=== PATIENT | female | born 1945 | race Caucasian/White ===

== ENCOUNTER → 2017-11-24 13:41 | Outpatient (CLI) | payer MEDICARE, SELFPAY ==
[2017-11-24 15:12] LABS: Alanine Aminotransferase 107 IU/L (9-52); Albumin 4.7 g/dL (3.5-5.0); Albumin Globulin Ratio 1.5 (1.0-2.8); Alkaline Phosphatase 133 U/L (38-126); Aspartate Aminotransferase 125 IU/L (14-36); BUN Creatinine Ratio 21.1 (6-22); Bilirubin Total 0.6 mg/dL (0.2-1.3); Blood Urea Nitrogen 19 mg/dL (7-17); Calcium 10.3 mg/dL (8.4-10.2); Carbon Dioxide 24 mmol/L (22-32); Chloride 104 mmol/L (98-107); Cholesterol 240 mg/dL (140-199); Estimated Glomerular Filt Rate > 60.0 mL/min (>60); Globulin 3.1 g/dL (1.7-4.1); Glucose 104 mg/dL (80-110); HEMOLYSIS < 15 (0-50); Sodium 142 mmol/L (137-145); Total Protein 7.8 g/dL (6.3-8.2); Triglycerides 78 mg/dL (35-150)
[2017-11-24 15:20] LABS: HDL Cholesterol 136 mg/dL (40-60); LDL Cholesterol Calculated 88 mg/dL (<100)
== END ==
PROVIDERS: PCP Family Medicine; Visit Provider Family Medicine
DX: E78.2 Mixed hyperlipidemia (principal); I10 Essential (primary) hypertension
CPT/HCPCS: 36415; 80053; 80061

== ENCOUNTER → 2017-11-27 15:12 | Outpatient (CLI) | payer MEDICARE, SELFPAY ==
--- NOTE | 2017-11-27 15:15 | DI.RAD.S_ITS ---
PROCEDURE: XR LUMBAR SPINE 2-3V INDICATIONS: SPINAL STENOSIS TECHNIQUE: 3 views of the lumbar spine were acquired. COMPARISON: [facility], , L-SPINE 2-3 VIEWS, 07/03/2015, 15:14. FINDINGS: Bones: 5 [id number] vertebrae are present. Again noted is prior transpedicular fusion at L4-5 level with suggestion of fusion of spinous processes at L3 and L4 levels. No gross hardware loosening or failure is seen. Dang-white anterolisthesis of L3 on L4 is noted. Minimal anterolisthesis of L4 on L5 is seen. Degenerative disc disease at L5-S1 level is noted. No vertebral body compression fractures. No suspicious bony lesions. Soft tissues: Overlying bowel gas pattern is normal. No suspicious soft tissue calcifications. IMPRESSION: Suggestion of interval fusion of L3 and L4 spinous processes. Dang-white anterolisthesis of L3 on L4 and L4 on L5. No gross hardware complication. No acute compression fracture. Dictated by: Naren Rossi M.D. on 11/27/2017 at 15:57 Approved by: Naren Rossi M.D. on 11/27/2017 at 15:58
[2017-11-29 15:46] LABS: Hepatitis A Antibody IgM NONREACTIVE; Hepatitis Acute Panel Interp 0.02; Hepatitis B Core Antibody IgM NONREACTIVE; Hepatitis B Surface Antigen NONREACTIVE; Hepatitis C Antibody NONREACTIVE
== END ==
PROVIDERS: Family Provider Family Medicine; PCP Family Medicine; Visit Provider Family Medicine
DX: M48.061 Spinal stenosis, lumbar region without neurogenic claudication (principal); R94.5 Abnormal results of liver function studies; M43.16 Spondylolisthesis, lumbar region; M51.37 Other intervertebral disc degeneration, lumbosacral region; Z98.1 Arthrodesis status
CPT/HCPCS: 36415; 72100; 80074

== ENCOUNTER → 2017-12-06 15:42 | Outpatient (CLI) | payer MEDICARE, SELFPAY ==
--- NOTE | 2017-12-06 15:45 | DI.US.S_ITS ---
PROCEDURE: US ABDOMEN COMPLETE INDICATIONS: abnormal LFT's TECHNIQUE: Real-time scanning was performed of the abdominal and retroperitoneal organs, with image documentation. COMPARISON: [facility], US, ABDOMEN COMPLETE, 10/28/2016, 14:29. FINDINGS: Liver: Liver is normal in size and homogeneous in echotexture. Gallbladder: No gallstones identified. Normal gallbladder wall. No pericholecystic fluid. Negative sonographic Gay sign. Biliary ducts: Intrahepatic bile ducts are non-dilated. Extrahepatic bile duct caliber measures 5.0 mm. Normal is 6-7 mm or less in diameter, or 10 mm or less post-cholecystectomy. Pancreas: Visualized portions of the pancreas are sonographically normal. Spleen: Spleen is normal in size and homogeneous in echotexture. Kidneys: Kidneys are normal in size and echotexture. Right kidney measures 8.8 cm long; left kidney measures 9.5 cm long. No hydronephrosis. 6 mm nonobstructing left renal inferior calcification. No solid masses. Aorta: Visualized aorta is normal in caliber at less than 3 cm. Iliacs: Proximal common iliac arteries are normal in caliber at less than 2.5 cm. IVC: Intrahepatic inferior vena cava is patent. Miscellaneous: No free abdominal fluid. IMPRESSION: 1. Increased hepatic echogenicity noted possibly related to hepatic steatosis but other sources of hepatocellular disease cannot be excluded. Recommend clinical correlation. 2. Nonobstructing 6 mm left renal calcification. Dictated by: Atilio Larson [facility] Interpreted: Naren Rossi MD on 12/06/2017 at 16:54 Approved by: Naren Rossi M.D. on 12/07/2017 at 10:20
== END ==
PROVIDERS: Visit Provider Family Medicine
DX: R94.5 Abnormal results of liver function studies (principal); R79.89 Other specified abnormal findings of blood chemistry; N28.89 Other specified disorders of kidney and ureter
CPT/HCPCS: 76700

== ENCOUNTER → 2018-01-04 11:36 | Outpatient (CLI) | payer MEDICARE, SELFPAY ==
[2018-01-04 12:21] LABS: Blood Urea Nitrogen 16 mg/dL (7-17); Estimated Glomerular Filt Rate > 60.0 mL/min (>60)
== END ==
PROVIDERS: Visit Provider Nurse Practitioner Family
DX: M54.10 Radiculopathy, site unspecified (principal)
CPT/HCPCS: 36415; 82565; 84520

== ENCOUNTER → 2018-01-09 14:09 | Outpatient (CLI) | payer MEDICARE, SELFPAY ==
--- NOTE | 2018-01-09 14:14 | DI.CT.S_ITS ---
PROCEDURE: CT ABDOMEN WWO PELVIS W INDICATIONS: ELEVATED LIVER ENZYMES TECHNIQUE: After the administration of oral contrast, 5 mm thick sections acquired from the diaphragms to the iliac crests. After the administration of intravenous contrast, 5 mm thick sections acquired from the diaphragms to the symphysis. 5 mm thick coronal and sagittal reformats were acquired. For radiation dose reduction, the following was used: automated exposure control, adjustment of mA and/or kV according to patient size. COMPARISON: [facility], US, US ABDOMEN COMPLETE, 12/06/2017, 15:59. FINDINGS: Image quality: Excellent. ABDOMEN: Lung bases: Lung bases are clear. Heart size is normal. A moderately large hiatal hernia is incidentally noted behind the heart. Solid organs: Liver is normal in size and enhancement, without mass lesion. Note is made of fatty infiltration it was better seen by ultrasound 12/06/17 on the precontrast imaging of the liver. Gallbladder is free of visualized calculus, and there is no adjacent biliary distention.. Biliary system is non-dilated. Pancreas enhances normally. Spleen is normal in size and enhancement. No adrenal nodules. Both kidneys are normal in size. No hydronephrosis or right-sided nephrolithiasis but there is a 3 x 4 mm calculus within the nondistended ureteropelvic junction on the left and a 2 x 3 mm calculus within a nondistended calyx at the lower third collecting system of the left kidney. Bowel and peritoneum: Stomach, small and large bowel loops are normal in caliber and wall thickness. No free fluid or air. Nodes and vessels: No retroperitoneal or mesenteric adenopathy by size criteria. Aorta and inferior vena are normal in caliber. Miscellaneous: No ventral hernias. PELVIS: Genitourinary: Bladder wall thickness is normal. Miscellaneous: No inguinal hernias or adenopathy. Bones: No suspicious bony lesions. No vertebral body compression fractures. IMPRESSION: 1. Mild to moderate fatty infiltration within the liver, better seen by recent ultrasound of the abdomen 12/06/17. No hepatic mass lesion or biliary distention is associated. No splenomegaly is seen. 2. Moderately large hiatal hernia behind the heart. No sign of associated mass or adjacent varices. 3. There is an unexpected finding of a 3 x 4 mm calculus at the ureteropelvic junction at the left kidney, and a 2 x 3 mm calculus within the nondistended lower pole calyx of the left kidney also. Currently no CT evidence of acute urinary tract infection or obstruction is found. Dictated by: Nirmal Hernandez M.D. on 01/09/2018 at 16:25 Approved by: Nirmal Hernandez M.D. on 01/09/2018 at 16:30
== END ==
PROVIDERS: Visit Provider Nurse Practitioner Family
DX: K76.0 Fatty (change of) liver, not elsewhere classified (principal); R74.8 Abnormal levels of other serum enzymes; K44.9 Diaphragmatic hernia without obstruction or gangrene; N20.0 Calculus of kidney
CPT/HCPCS: 74178; Q9967

== ENCOUNTER → 2018-02-15 14:39 | Outpatient (CLI) | payer MEDICARE, SELFPAY ==
[2018-02-15 16:23] LABS: Alanine Aminotransferase 36 IU/L (9-52); Albumin 4.3 g/dL (3.5-5.0); Albumin Globulin Ratio 1.7 (1.0-2.8); Alkaline Phosphatase 80 U/L (38-126); Aspartate Aminotransferase 38 IU/L (14-36); Bilirubin Total 0.4 mg/dL (0.2-1.3); Bilirubin Unconjugated 0.1 mg/dL (0.0-1.1); Globulin 2.6 g/dL (1.7-4.1); HEMOLYSIS < 15 (0-50); Total Protein 6.9 g/dL (6.3-8.2)
== END ==
PROVIDERS: PCP Family Medicine; Visit Provider Family Medicine
DX: R94.5 Abnormal results of liver function studies (principal)
CPT/HCPCS: 36415; 80076

== ENCOUNTER → 2018-02-16 14:03 | Outpatient (CLI) | payer MEDICARE, SELFPAY ==
--- NOTE | 2018-02-16 14:04 | DI.MRI.S_ITS ---
PROCEDURE: MR LUMBAR SPINE WO CON INDICATIONS: Low back and bilateral leg pain TECHNIQUE: Noncontrast sagittal T1 spin echo and T2 fast echo, sagittal STIR, coronal T2, axial T1 and T2 fast spin echo through the lumbar spine. COMPARISON: [facility], MR, L-SPINE WITHOUT CONTRAST, 11/15/2007, 16:40. [facility], CR, XR KUB, 11/17/2016, 11:20. FINDINGS: Image quality: Excellent. Alignment and Curvature: 5 lumbar type vertebral bodies are present by plain film. There is moderate diffuse leftward curvature of the lumbar spine. There is mild, grade 1 anterolisthesis of L3 on L4 and L4 on L5. Bone Marrow: Marrow is of normal overall signal. No acute vertebral body compression fractures. There is mild reactive signal within the endplates adjacent to the L1-L2, L2-L3, and L3-L4 intervertebral discs. L4-L5 posterior fusion has been performed, new since the prior examination. Spinal Cord: Conus medullaris terminates at the L1-L2 disc space level. Visualized cord demonstrates normal signal and size. Paraspinous Soft Tissues: No paravertebral masses. L1-L2: Mild disc desiccation and diffuse disc bulge. Mild bilateral facet hypertrophy. Mild canal stenosis. No foraminal stenosis. No change. L2-L3: Mild disc desiccation and diffuse disc bulge. Mild facet and ligamentum flavum hypertrophy. Mild canal stenosis. Mild bilateral foraminal stenosis. No change. L3-L4: Moderate disc height loss and desiccation. Mild diffuse disc bulge. Moderate bilateral facet hypertrophy. The moderate epidural lipomatosis. Increased, severe canal stenosis. Increased, moderate bilateral foraminal stenosis. L4-L5: Status post fusion. Mild residual disc osteophyte complex. Mild bilateral facet hypertrophy. Resolved canal stenosis. No change in mild bilateral foraminal stenosis. L5-S1: Moderate disc height loss and desiccation. Mild diffuse disc bulge with superimposed small left far lateral broad-based protrusion. Mild bilateral facet hypertrophy. Mild canal stenosis. Mild left greater than right foraminal stenosis. No change. IMPRESSION: 1. Status post L4-L5 fusion with resolved canal stenosis at that level. 2. Increased, severe canal stenosis at L3-L4 secondary to disc and facet disease, as well as epidural lipomatosis. Increased, moderate bilateral L3-L4 foraminal stenosis. Dictated by: Jaclyn Velazquez M.D. on 02/16/2018 at 16:55 Approved by: Jaclyn Velazquez M.D. on 02/16/2018 at 16:59
== END ==
PROVIDERS: PCP Family Medicine; Visit Provider Family Medicine
DX: M54.5 Low back pain (principal); M79.605 Pain in left leg; M79.604 Pain in right leg; M51.16 Intervertebral disc disorders with radiculopathy, lumbar region; M48.061 Spinal stenosis, lumbar region without neurogenic claudication; Z98.1 Arthrodesis status; E88.2 Lipomatosis, not elsewhere classified
CPT/HCPCS: 72148

== ENCOUNTER → 2018-02-23 13:44 | Outpatient (CLI) | payer MEDICARE, SELFPAY ==
--- NOTE | 2018-02-23 13:45 | DI.US.S_ITS ---
PROCEDURE: US EXTREMITY NONVASC LOWER RT INDICATIONS: RIGHT THIGH MASS TECHNIQUE: Real-time scanning was performed of the right thigh, with image documentation. COMPARISON: [facility], CT, CT ABDOMEN WWO PELVIS W, 01/09/2018, 14:08. FINDINGS: 1.1 x 0.9 x 0.3 cm soft tissue oval shaped isoechoic mass is present corresponding to the palpable abnormality. Small amount of adjacent fluid is present. No vascularity. IMPRESSION: A 1.1 cm oval shaped soft tissue mass with mild amount of adjacent fluid. Findings are nonspecific and differential would include both benign and malignant etiology. CT or MRI with contrast may be helpful. Decision to biopsy/aspirate should be based on clinical assessment. Dictated by: Atilio HANNA Interpreted: Monroe Solis MD on 02/23/2018 at 16:08 Approved by: Monroe Solis M.D. on 02/24/2018 at 9:47
== END ==
PROVIDERS: PCP Family Medicine; Visit Provider Family Medicine
DX: R22.41 Localized swelling, mass and lump, right lower limb (principal)
CPT/HCPCS: 76882

== ENCOUNTER → 2019-01-04 13:57 | Outpatient (CLI) | payer MEDICARE, SELFPAY ==
[2019-01-04 14:28] LABS: Add Manual Diff / Slide Review NO; Basophils Absolute Auto 0 /uL (0-100); Basophils Percent Auto 0.4 % (0-2); Eosinophils Absolute Auto 100 /uL (0-450); Eosinophils Percent Auto 1.2 % (2-4); Hematocrit 39.1 % (36-46); Hemoglobin 13.2 g/dL (12.0-16.0); Lymphocytes Absolute Auto 1300 /uL (1100-4500); Lymphocytes Percent Auto 15.9 % (25-40); Mean Corpuscular HGB Conc 33.8 % (30-36); Mean Corpuscular Hemoglobin 32.8 PG (26-34); Mean Corpuscular Volume 97.1 fL (80-100); Monocytes Absolute Auto 1000 /uL (0-900); Monocytes Percent Auto 12.7 % (3-14); Neutrophils Absolute Auto 5700 /uL (1500-7000); Neutrophils Percent Auto 69.8 % (50-75); Platelet Count 440 X10^3/uL (150-400); Red Blood Cell Count 4.03 X10^6/uL (4.0-5.2); Red Cell Distribution Width 14.2 % (11.6-14.8); White Blood Cell Count 8.2 X10^3/uL (4.5-11.0)
[2019-01-04 14:52] LABS: Alanine Aminotransferase 23 IU/L (9-52); Albumin 4.7 g/dL (3.5-5.0); Albumin Globulin Ratio 1.7 (1.0-2.8); Alkaline Phosphatase 98 U/L (38-126); Aspartate Aminotransferase 32 IU/L (14-36); BUN Creatinine Ratio 18.8 (6-22); Bilirubin Total 0.4 mg/dL (0.2-1.3); Blood Urea Nitrogen 15 mg/dL (7-17); Calcium 10.4 mg/dL (8.4-10.2); Carbon Dioxide 23 mmol/L (22-32); Chloride 106 mmol/L (98-107); Cholesterol 196 mg/dL (140-199); Estimated Glomerular Filt Rate > 60.0 mL/min (>60); Globulin 2.8 g/dL (1.7-4.1); Glucose 112 mg/dL (80-110); HDL Cholesterol 96 mg/dL (40-60); HEMOLYSIS < 15 (0-50); LDL Cholesterol Calculated 68 mg/dL (<100); Potassium 4.9 mmol/L (3.4-5.1); Sodium 140 mmol/L (137-145); Total Protein 7.5 g/dL (6.3-8.2); Triglycerides 159 mg/dL (35-150)
[2019-01-04 15:44] LABS: Thyroid Stimulating Hormone 1.01 uIU/mL (0.47-4.68)
[2019-01-04 18:17] LABS: Microalbumi Creatinin Ratio Ur 5.5 ug/mg CR (<30); Microalbumin Urine Random 1.1 mg/dL (0-1.6)
== END ==
PROVIDERS: PCP Family Medicine; Visit Provider Family Medicine
DX: E78.2 Mixed hyperlipidemia (principal); F32.9 Major depressive disorder, single episode, unspecified; I10 Essential (primary) hypertension; R10.13 Epigastric pain; R94.5 Abnormal results of liver function studies
CPT/HCPCS: 36415; 80053; 80061; 82043; 82570; 84443; 85025

== ENCOUNTER → 2019-01-16 15:46 | Outpatient (CLI) | payer MEDICARE, SELFPAY ==
--- NOTE | 2019-01-16 15:48 | DI.MRI.S_ITS ---
PROCEDURE: MR HEAD/BRAIN WO/W CON INDICATIONS: DIZZINESS. RIGHT EYE VISON LOSS TECHNIQUE: Noncontrast sagittal T1 spin echo, axial T2 fast spin echo, axial FLAIR, axial gradient echo, axial diffusion and ADC through the brain. Axial thin-slice T1 spin echo with fat saturation through the orbits. After the administration of contrast, axial and coronal thin-slice T1 spin echo with fat saturation through the orbits, axial T1 spin echo with fat saturation through the brain. COMPARISON: None. FINDINGS: Image quality: Excellent. Orbits: The lungs demonstrate a normal, symmetric appearance. No masses or abnormal enhancement can be seen. The lacrimal glands are within normal limits. No abnormality can be seen in the optic nerves. Abnormal fluid can be seen along the optic nerves. CSF spaces: Ventricles are normal in size and shape. No extra-axial fluid collections. Basal cisterns are patent. Brain: No intracranial bleeds or mass effects. No abnormal intracranial enhancement. Diffusion weighted images show no acute ischemic insults. Dang-white matter interface is intact. Brainstem is normal. Normal intravascular flow voids are present. Skull and face: Calvarial marrow signal is normal. Orbits appear normal. Sinuses: Sinuses and mastoids appear clear. IMPRESSION: No imaging explanation is found for this patient's presenting symptoms. No masses or abnormal enhancement can be seen. Note is made of age-appropriate brain parenchymal volume loss and chronic small vessel ischemic changes. No findings of acute or subacute infarction can be seen. Dictated by: Andre Meza M.D. on 01/16/2019 at 17:01 Approved by: Andre Meza M.D. on 01/16/2019 at 17:03
== END ==
PROVIDERS: PCP Family Medicine; Visit Provider Family Medicine
DX: H54.62 Unqualified visual loss, left eye, normal vision right eye (principal); R42 Dizziness and giddiness
CPT/HCPCS: 70553

== ENCOUNTER → 2019-02-05 14:06 | Outpatient (CLI) | payer MEDICARE, SELFPAY ==
--- NOTE | 2019-02-05 14:07 | DI.RAD.S_ITS ---
PROCEDURE: XR FOOT RT MIN 3V INDICATIONS: right foot pain TECHNIQUE: 3 views of the foot were acquired. COMPARISON: None. FINDINGS: Bones: No fractures or dislocations. No suspicious bony lesions. Soft tissues: No tibiotalar joint effusion. Achilles tendon appears normal. IMPRESSION: Toe ring second digit could not be removed. No trauma found. Somewhat limited study. Dictated by: Nirmal Hernandez M.D. on 02/05/2019 at 15:03 Approved by: Nirmal Hernandez M.D. on 02/05/2019 at 15:03
== END ==
PROVIDERS: PCP Family Medicine; Visit Provider Nurse Practitioner Family
DX: M79.671 Pain in right foot (principal)
CPT/HCPCS: 73630

== ENCOUNTER → 2019-12-03 16:32 | Outpatient (CLI) | payer MEDICARE, SELFPAY ==
--- NOTE | 2019-12-03 16:35 | DI.RAD.S_ITS ---
PROCEDURE: XR KNEE LT 3V INDICATIONS: left knee injury TECHNIQUE: 3 views of the knee were acquired. COMPARISON: [facility], , KNEE 3V LEFT, 11/12/2014, 14:01. FINDINGS: Bones: Mildly displaced transverse patellar fracture is seen. Large associated hemo effusion. Prepatellar soft tissue swelling. IMPRESSION: Patellar fracture. Large associated hemoeffusion. Dictated by: Luis Mackenzie M.D. on 12/03/2019 at 17:22 Approved by: Luis Mackenzie M.D. on 12/03/2019 at 17:23
== END ==
PROVIDERS: PCP Nurse Practitioner Family; Referring Provider Nurse Practitioner Family; Visit Provider Nurse Practitioner Family
DX: M25.562 Pain in left knee (principal); S82.032A Displaced transverse fracture of left patella, initial encounter for closed fracture; M79.89 Other specified soft tissue disorders; X58.XXXA Exposure to other specified factors, initial encounter
CPT/HCPCS: 73562

== ENCOUNTER → 2020-01-17 11:58 | Outpatient (CLI) | payer MEDICARE, SELFPAY ==
[2020-01-17 12:15] LABS: Hematocrit 42.7 % (36-46); Mean Corpuscular HGB Conc 32.9 % (30-36); Mean Corpuscular Hemoglobin 33.1 PG (26-34); Mean Corpuscular Volume 100.6 fL (80-100); Platelet Count 494 X10^3/uL (150-400); Red Blood Cell Count 4.24 X10^6/uL (4.0-5.2); Red Cell Distribution Width 14.1 % (11.6-14.8); White Blood Cell Count 7.5 X10^3/uL (4.5-11.0)
[2020-01-17 13:12] LABS: Alanine Aminotransferase 40 IU/L (<35); Albumin 4.4 g/dL (3.5-5.0); Albumin Globulin Ratio 1.5 (1.0-2.8); Alkaline Phosphatase 109 U/L (38-126); Aspartate Aminotransferase 45 IU/L (14-36); BUN Creatinine Ratio 16.4 (6-22); Bilirubin Total 0.3 mg/dL (0.2-1.3); Blood Urea Nitrogen 12 mg/dL (7-17); Carbon Dioxide 24 mmol/L (22-32); Chloride 109 mmol/L (98-107); Cholesterol 228 mg/dL (140-199); Estimated Glomerular Filt Rate > 60.0 mL/min (>60); Glucose 113 mg/dL (80-110); HEMOLYSIS < 15 (0-50); Sodium 139 mmol/L (137-145); Total Protein 7.4 g/dL (6.3-8.2); Triglycerides 121 mg/dL (35-150)
[2020-01-17 13:21] LABS: HDL Cholesterol 111 mg/dL (40-60); LDL Cholesterol Calculated 93 mg/dL (<100)
== END ==
PROVIDERS: PCP Nurse Practitioner Family; Referring Provider Nurse Practitioner Family; Visit Provider Nurse Practitioner Family
DX: Z00.00 Encounter for general adult medical examination without abnormal findings (principal); E78.2 Mixed hyperlipidemia; I10 Essential (primary) hypertension
CPT/HCPCS: 36415; 80053; 80061; 85027

== ENCOUNTER → 2020-01-30 14:27 | Outpatient (CLI) | payer MEDICARE, SELFPAY ==
[2020-01-30 15:28] LABS: Add Manual Diff / Slide Review NO; Basophils Absolute Auto 0 /uL (0-100); Basophils Percent Auto 0.6 % (0-2); Eosinophils Absolute Auto 100 /uL (0-450); Hematocrit 40.8 % (36-46); Hemoglobin 13.5 g/dL (12.0-16.0); Lymphocytes Absolute Auto 1600 /uL (1100-4500); Lymphocytes Percent Auto 24.9 % (25-40); Mean Corpuscular HGB Conc 33.2 % (30-36); Mean Corpuscular Hemoglobin 33.5 PG (26-34); Mean Corpuscular Volume 100.8 fL (80-100); Monocytes Absolute Auto 700 /uL (0-900); Monocytes Percent Auto 10.7 % (3-14); Neutrophils Absolute Auto 4000 /uL (1500-7000); Neutrophils Percent Auto 61.8 % (50-75); Platelet Count 395 X10^3/uL (150-400); Red Blood Cell Count 4.04 X10^6/uL (4.0-5.2); Red Cell Distribution Width 13.7 % (11.6-14.8); White Blood Cell Count 6.5 X10^3/uL (4.5-11.0)
== END ==
PROVIDERS: PCP Nurse Practitioner Family; Referring Provider Nurse Practitioner Family; Visit Provider Nurse Practitioner Family
DX: R79.89 Other specified abnormal findings of blood chemistry (principal)
CPT/HCPCS: 36415; 85025

== ENCOUNTER → 2020-05-11 13:35 | Outpatient (CLI) | payer MEDICARE, SELFPAY ==
--- NOTE | 2020-05-11 13:37 | DI.RAD.S_ITS ---
PROCEDURE: XR SHOULDER LT MIN 2V INDICATIONS: pain, dec ROM, r/o bone abnormality TECHNIQUE: Left views of the shoulder were acquired. COMPARISON: [facility], , SHOULDER MINIMUM 2VIEW RIGHT, 12/23/2014, 15:22. FINDINGS: Bones: No fractures or dislocations. No suspicious bony lesions. Visualized ribs appear intact. Soft tissues: No suspicious soft tissue calcifications. IMPRESSION: Normal left shoulder Dictated by: Alejandro Cantu M.D. on 05/11/2020 at 14:00 Approved by: Alejandro Cantu M.D. on 05/11/2020 at 14:01
== END ==
PROVIDERS: PCP Nurse Practitioner Family; Referring Provider Physician Assistant; Visit Provider Physician Assistant
DX: M25.512 Pain in left shoulder (principal)
CPT/HCPCS: 73030

== ENCOUNTER → 2020-05-29 15:59 | Outpatient (CLI) | payer MEDICARE, SELFPAY ==
[2020-06-01 09:11] LABS: Fecal Immunochemical Test Negative (Negative)
== END ==
PROVIDERS: PCP Nurse Practitioner Family; Referring Provider Nurse Practitioner Family; Visit Provider Nurse Practitioner Family
DX: Z12.11 Encounter for screening for malignant neoplasm of colon (principal)
CPT/HCPCS: 82274

== ENCOUNTER → 2020-06-11 15:05 | Outpatient (CLI) | payer MEDICARE, SELFPAY ==
--- NOTE | 2020-06-11 15:08 | DI.MRI.S_ITS ---
PROCEDURE: MR SHOULDER LT WO CON INDICATIONS: left shoulder pain TECHNIQUE: Noncontrast oblique coronal T2 fast spin echo with fat saturation, oblique sagittal T1 spin echo and T2 fast spin echo with fat saturation, axial T1 spin echo and T2 fast spin echo with fat saturation through the shoulder. COMPARISON: None. FINDINGS: Rotator cuff: Supraspinatus tendinopathy, with partial thickness articular and bursal sided tear. No full-thickness defect is seen. Infraspinatus tendinopathy with thickening, and low-grade bursal surface fraying. The teres minor tendon appears intact. Subscapularis tendinopathy and thickening is present with low-grade partial thickness articular and bursal sided tear. There is mild fatty infiltration of the supraspinatus and infraspinatus muscles without definite atrophy. Bones and bursae: No bone marrow contusions or fractures. Moderate hypertrophic acromioclavicular joint degeneration. Acromion demonstrates conventional anatomy, without an os acromiale. Moderate subacromial-subdeltoid bursitis. Capsule and soft tissues: Labrum: Ill-defined circumferential tear of the labrum involving all segments. There is circumferential hypertrophic spurring of the glenoid rim indicating chronic age. Low-grade sprain of the inferior glenohumeral ligament which is mildly thickened. Long head biceps tendinopathy, without complete rupture. Partial obliteration of the subcoracoid fat signal intensity. Coracohumeral ligament intact. IMPRESSION: Supraspinatus tendinopathy with partial thickness articular and bursal sided tear. Infraspinatus tendinopathy with low-grade bursal surface fraying Subscapularis tendinopathy and thickening with low-grade partial thickness articular and bursal sided tear. Moderate subacromial-subdeltoid bursitis. Chronic ill-defined circumferential labral tear, probably degenerative in nature. Long head biceps tendinopathy Dictated by: Luis Mackenzie M.D. on 06/11/2020 at 16:43 Approved by: Luis Mackenzie M.D. on 06/11/2020 at 16:51
--- NOTE | 2020-06-11 15:08 | DI.MG.S_ITS ---
BILATERAL DIGITAL SCREENING MAMMOGRAM 3D/2D WITH CAD: 06/11/2020 CLINICAL: Routine screening. Comparison is made to exams dated: 04/24/2009 mammogram and 12/16/2001 mammogram - [facility]. The tissue of both breasts is predominantly fatty. Current study was also evaluated with a Computer Aided Detection (CAD) system. There are benign calcifications in both breasts. No significant masses, calcifications, or other findings are seen in either breast. There has been no significant interval change. IMPRESSION: BENIGN There is no mammographic evidence of malignancy. A 1 year screening mammogram is recommended. This exam was interpreted at Station ID: [id number]. NOTE: For mammograms, a report in lay terms will be sent to the patient. Approximately 15% of breast malignancies will not be visualized mammographically. In the management of a palpable breast mass, a negative mammogram must not discourage biopsy of a clinically suspicious lesion. Electronically Signed By: Alejandro Cantu acr/yessirad:06/11/2020 17:08:57 letter sent: Normal Exam ACR BI-RADS Category 2: Benign Finding(s) [id number]
== END ==
PROVIDERS: PCP Nurse Practitioner Family; Referring Provider Nurse Practitioner Family; Visit Provider Nurse Practitioner Family
DX: Z12.31 Encounter for screening mammogram for malignant neoplasm of breast (principal); M25.512 Pain in left shoulder; M75.112 Incomplete rotator cuff tear or rupture of left shoulder, not specified as traumatic; M19.012 Primary osteoarthritis, left shoulder; M75.52 Bursitis of left shoulder; M85.852 Other specified disorders of bone density and structure, left thigh; Z78.0 Asymptomatic menopausal state; Z87.891 Personal history of nicotine dependence
CPT/HCPCS: 73221; 77063; 77067; 77080

== ENCOUNTER → 2021-01-20 11:55 | Outpatient (CLI) | payer MEDICARE, SELFPAY ==
--- NOTE | 2021-01-20 11:57 | DI.RAD.S_ITS ---
PROCEDURE: XR HIP W PEL IF DONE RT 2V INDICATIONS: right hip pain TECHNIQUE: AP pelvis with lateral view(s) of the right hip(s). COMPARISON: Reference is made to the CT pelvis dated January 09, 2018. FINDINGS: Bones: No fractures or dislocations. Moderate to advanced degenerative changes of the right hip with sclerosis of the opposing articular surfaces, fibrocystic change, and osteophytosis. [id number] arthrosis of the left hip. Pelvic ring appears intact. No suspicious bony lesions. The sacroiliac joints are maintained. Partially imaged, postsurgical changes of the lower lumbar spine. Soft tissues: The visualized bowel gas pattern is normal. No suspicious soft tissue calcifications. IMPRESSION: Moderate to advanced degenerative changes of the right hip. Dictated by: Duncan Walter M.D. on 01/20/2021 at 13:23 Approved by: Duncan Walter M.D. on 01/20/2021 at 13:25
[2021-01-20 12:49] LABS: Add Manual Diff / Slide Review NO; Basophils Absolute Auto 0 /uL (0-100); Basophils Percent Auto 0.5 % (0-2); Eosinophils Absolute Auto 100 /uL (0-450); Eosinophils Percent Auto 1.6 % (2-4); Hematocrit 38.7 % (36-46); Hemoglobin 13.3 g/dL (12.0-16.0); Lymphocytes Absolute Auto 900 /uL (1100-4500); Lymphocytes Percent Auto 17.9 % (25-40); Mean Corpuscular HGB Conc 34.3 % (30-36); Mean Corpuscular Hemoglobin 35.2 PG (26-34); Mean Corpuscular Volume 102.7 fL (80-100); Monocytes Absolute Auto 600 /uL (0-900); Monocytes Percent Auto 11.2 % (3-14); Neutrophils Absolute Auto 3500 /uL (1500-7000); Neutrophils Percent Auto 68.8 % (50-75); Platelet Count 373 X10^3/uL (150-400); Red Blood Cell Count 3.77 X10^6/uL (4.0-5.2); Red Cell Distribution Width 14.4 % (11.6-14.8)
[2021-01-20 13:24] LABS: Alanine Aminotransferase 135 IU/L (<35); Albumin 4.4 g/dL (3.5-5.0); Albumin Globulin Ratio 1.9 (1.0-2.8); Alkaline Phosphatase 100 U/L (38-126); Aspartate Aminotransferase 253 IU/L (14-36); BUN Creatinine Ratio 18.2 (6-22); Bilirubin Total 0.5 mg/dL (0.2-1.3); Blood Urea Nitrogen 12 mg/dL (7-17); Calcium 9.5 mg/dL (8.4-10.2); Carbon Dioxide 21 mmol/L (22-32); Chloride 101 mmol/L (98-107); Estimated Glomerular Filt Rate > 60.0 mL/min (>60); Globulin 2.3 g/dL (1.7-4.1); Glucose 58 mg/dL (80-110); HEMOLYSIS 16 (0-50); Potassium 4.1 mmol/L (3.4-5.1); Sodium 138 mmol/L (137-145); Total Protein 6.7 g/dL (6.3-8.2)
[2021-01-20 13:46] LABS: TSH w/ Reflex to FT4 1.88 uIU/mL (0.47-4.68)
[2021-01-20 15:37] LABS: Vitamin D 25 Hydroxy (D3) 99.8 ng/mL (30.0-100.0)
== END ==
PROVIDERS: PCP Nurse Practitioner Family; Referring Provider Nurse Practitioner Family; Visit Provider Nurse Practitioner Family
DX: R79.89 Other specified abnormal findings of blood chemistry (principal); Z78.0 Asymptomatic menopausal state; M85.80 Other specified disorders of bone density and structure, unspecified site; M25.551 Pain in right hip; K76.0 Fatty (change of) liver, not elsewhere classified
CPT/HCPCS: 36415; 73502; 80053; 82306; 84443; 85025

== ENCOUNTER → 2021-02-03 12:41 | Outpatient (CLI) | payer MEDICARE, SELFPAY ==
--- NOTE | 2021-02-03 12:44 | DI.US.S_ITS ---
PROCEDURE: US ABDOMEN LIMITED INDICATIONS: WORSENING ELEVATED LIVER ENZYMES TECHNIQUE: Real-time focused scanning was performed of the abdomen, with image documentation. COMPARISON: [facility], US, US ABDOMEN COMPLETE, 12/06/2017, 15:59. FINDINGS: Liver measures 15.5 cm in length and demonstrates increased echogenicity diffusely. Gallbladder unremarkable. No wall thickening or sonographic Gay sign. No bile duct dilatation. Pancreas is partially visualized and otherwise unremarkable sonographically. IMPRESSION: Normal appearance of the gallbladder. Coarse echogenic liver suggesting diffuse hepatocellular disease/fatty infiltration. Please correlate with LFTs. Dictated by: Luis Mackenzie M.D. on 02/03/2021 at 16:45 Approved by: Luis Mackenzie M.D. on 02/03/2021 at 16:46
[2021-02-03 13:40] LABS: Add Manual Diff / Slide Review NO; Basophils Absolute Auto 0 /uL (0-100); Basophils Percent Auto 0.7 % (0-2); Eosinophils Absolute Auto 200 /uL (0-450); Eosinophils Percent Auto 3.6 % (2-4); Hematocrit 41.3 % (36-46); Hemoglobin 13.9 g/dL (12.0-16.0); Lymphocytes Absolute Auto 1400 /uL (1100-4500); Lymphocytes Percent Auto 26.6 % (25-40); Mean Corpuscular HGB Conc 33.6 % (30-36); Mean Corpuscular Hemoglobin 34.7 PG (26-34); Mean Corpuscular Volume 103.1 fL (80-100); Monocytes Absolute Auto 800 /uL (0-900); Monocytes Percent Auto 15.7 % (3-14); Neutrophils Absolute Auto 2700 /uL (1500-7000); Neutrophils Percent Auto 53.4 % (50-75); Red Cell Distribution Width 14.6 % (11.6-14.8); White Blood Cell Count 5.1 X10^3/uL (4.5-11.0)
[2021-02-03 13:50] LABS: Alanine Aminotransferase 169 IU/L (<35); Albumin 4.1 g/dL (3.5-5.0); Albumin Globulin Ratio 1.7 (1.0-2.8); Alkaline Phosphatase 92 U/L (38-126); Aspartate Aminotransferase 238 IU/L (14-36); Bilirubin Total 0.5 mg/dL (0.2-1.3); Bilirubin Unconjugated 0.1 mg/dL (0.0-1.1); Globulin 2.4 g/dL (1.7-4.1); HEMOLYSIS 34 (0-50); Total Protein 6.5 g/dL (6.3-8.2)
[2021-02-03 14:56] LABS: Folate 5.5 ng/mL (2.76-20.0); Vitamin B12 Reflex MMA if <400 997 pg/mL (239-931)
== END ==
PROVIDERS: PCP Nurse Practitioner Family; Referring Provider Nurse Practitioner Family; Visit Provider Nurse Practitioner Family
DX: R79.89 Other specified abnormal findings of blood chemistry (principal); K76.0 Fatty (change of) liver, not elsewhere classified; D75.89 Other specified diseases of blood and blood-forming organs
CPT/HCPCS: 36415; 76705; 80076; 82607; 82746; 85025

== ENCOUNTER → 2021-02-04 09:57 | Outpatient (CLI) | payer MEDICARE, SELFPAY ==
--- NOTE | 2021-02-04 10:03 | DI.RAD.S_ITS ---
PROCEDURE: XR TIBIA FUBULA RT 2V INDICATIONS: abnormal US, elevated liver tests TECHNIQUE: 2 views of the tibia and fibula were acquired. COMPARISON: None. FINDINGS: Bones: No fractures or dislocations. No suspicious bony lesions. Soft tissues: No suspicious soft tissue calcifications or masses. IMPRESSION: No acute fracture. No osseous lesion. If symptoms and/or clinical suspicion for pathology persist, further assessment with repeat, or advanced imaging (e.g., CT, MRI, or bone scan) may be helpful for further assessment. Dictated by: Jaclyn Velazquez M.D. on 02/04/2021 at 11:55 Approved by: Jaclyn Velazquez M.D. on 02/04/2021 at 11:58
--- NOTE | 2021-02-04 10:03 | DI.RAD.S_ITS ---
PROCEDURE: XR TIBIA FIBULA LT 2V INDICATIONS: abnormal US, elevated liver tests TECHNIQUE: 2 views of the tibia and fibula were acquired. COMPARISON: None. FINDINGS: Bones: No fractures or dislocations. No suspicious bony lesions. Soft tissues: No suspicious soft tissue calcifications or masses. IMPRESSION: No acute fracture. No osseous lesion. If symptoms and/or clinical suspicion for pathology persist, further assessment with repeat, or advanced imaging (e.g., CT, MRI, or bone scan) may be helpful for further assessment. Dictated by: Jaclyn Velazquez M.D. on 02/04/2021 at 11:58 Approved by: Jaclyn Velazquez M.D. on 02/04/2021 at 11:59
--- NOTE | 2021-02-04 10:17 | DI.RAD.S_ITS ---
PROCEDURE: XR CHEST 2V INDICATIONS: weight loss TECHNIQUE: 2 views of the chest were acquired. COMPARISON: [facility], , CHEST 2 VIEW, 05/18/2011, 13:50. FINDINGS: Surgical changes and devices: Fusion hardware in lower lumbar spine is seen. Lungs and pleura: Lungs are clear. Mild hyperinflation is seen. No pleural effusions or pneumothorax. Mediastinum: Mediastinal contours are normal. Heart size is normal. Bones and chest wall: No suspicious bony abnormalities. Soft tissues appear unremarkable. IMPRESSION: No acute cardiopulmonary pathology. Mild hyperinflation. Dictated by: Naren Rossi M.D. on 02/04/2021 at 11:00 Approved by: Naren Rossi M.D. on 02/04/2021 at 11:01
[2021-02-05 06:59] LABS: HBsAg Screen Negative (Negative); Hepatitis A Antibody IgM Negative (Negative); Hepatitis B Core Antibody IgM Negative (Negative); Hepatitis C Antibody <0.1 s/co ratio (0.0-0.9)
[2021-02-06 14:04] LABS: ANA Screen, IFA Negative (.)
[2021-02-07 21:03] LABS: Smooth Muscle Antibody 12 Units (0-19)
== END ==
PROVIDERS: PCP Nurse Practitioner Family; Referring Provider Nurse Practitioner Family; Visit Provider Nurse Practitioner Family
DX: R63.4 Abnormal weight loss (principal); R79.89 Other specified abnormal findings of blood chemistry
CPT/HCPCS: 36415; 71046; 73590; 80074; 83516; 86038

== ENCOUNTER → 2021-02-12 14:11 | Outpatient (CLI) | payer MEDICARE, SELFPAY ==
--- NOTE | 2021-02-12 14:13 | DI.US.S_ITS ---
PROCEDURE: US EXTREMITY NONVASC LOWER RT INDICATIONS: painful areas lower legs TECHNIQUE: Real-time scanning was performed of the right lower lung, with image documentation. COMPARISON: [facility], , US EXTREMITY NONVASC LOWER LT, 02/12/2021, 14:24. FINDINGS: No significant sonographic abnormality is seen in the area of the palpable area of concern in the lateral right lower leg. IMPRESSION: No significant sonographic abnormality. Dictated by: Ty Jensen M.D. on 02/12/2021 at 15:20 Approved by: Ty Jensen M.D. on 02/12/2021 at 15:20
--- NOTE | 2021-02-12 14:13 | DI.US.S_ITS ---
PROCEDURE: US EXTREMITY NONVASC LOWER LT INDICATIONS: painful areas lower legs TECHNIQUE: Real-time scanning was performed of the left lower leg, with image documentation. COMPARISON: [facility], , US EXTREMITY NONVASC LOWER RT, 02/23/2018, 14:14. FINDINGS: No significant sonographic abnormality is seen in the area of the palpable abnormality in tenderness at the medial han. IMPRESSION: No significant sonographic abnormality. Dictated by: Ty Jensen M.D. on 02/12/2021 at 15:18 Approved by: Ty Jensen M.D. on 02/12/2021 at 15:19
== END ==
PROVIDERS: PCP Nurse Practitioner Family; Referring Provider Nurse Practitioner Family; Visit Provider Nurse Practitioner Family
DX: M79.604 Pain in right leg (principal); M79.605 Pain in left leg
CPT/HCPCS: 76882

== ENCOUNTER → 2021-02-18 15:11 | Outpatient (CLI) | payer MEDICARE, SELFPAY ==
[2021-02-18 15:31] LABS: Add Manual Diff / Slide Review NO; Basophils Absolute Auto 0 /uL (0-100); Basophils Percent Auto 0.4 % (0-2); Eosinophils Absolute Auto 300 /uL (0-450); Eosinophils Percent Auto 3.8 % (2-4); Hemoglobin 14.1 g/dL (12.0-16.0); Lymphocytes Absolute Auto 2000 /uL (1100-4500); Lymphocytes Percent Auto 26.7 % (25-40); Mean Corpuscular HGB Conc 34.3 % (30-36); Mean Corpuscular Hemoglobin 35.3 PG (26-34); Mean Corpuscular Volume 102.8 fL (80-100); Monocytes Absolute Auto 900 /uL (0-900); Monocytes Percent Auto 11.2 % (3-14); Neutrophils Absolute Auto 4400 /uL (1500-7000); Neutrophils Percent Auto 57.9 % (50-75); Platelet Count 322 X10^3/uL (150-400); Red Blood Cell Count 3.99 X10^6/uL (4.0-5.2); Red Cell Distribution Width 14.4 % (11.6-14.8); White Blood Cell Count 7.7 X10^3/uL (4.5-11.0)
[2021-02-18 16:15] LABS: Alanine Aminotransferase 116 IU/L (<35); Albumin 4.2 g/dL (3.5-5.0); Albumin Globulin Ratio 1.7 (1.0-2.8); Alkaline Phosphatase 116 U/L (38-126); Aspartate Aminotransferase 225 IU/L (14-36); Bilirubin Total 0.6 mg/dL (0.2-1.3); Bilirubin Unconjugated 0.4 mg/dL (0.0-1.1); Globulin 2.5 g/dL (1.7-4.1); HEMOLYSIS < 15 (0-50); Total Protein 6.7 g/dL (6.3-8.2)
== END ==
PROVIDERS: PCP Nurse Practitioner Family; Referring Provider Nurse Practitioner Family; Visit Provider Nurse Practitioner Family
DX: D75.89 Other specified diseases of blood and blood-forming organs (principal); R63.4 Abnormal weight loss
CPT/HCPCS: 36415; 80076; 85025

== ENCOUNTER → 2021-02-26 11:48 | Outpatient (CLI) | payer MEDICARE, SELFPAY ==
--- NOTE | 2021-02-26 11:49 | DI.MRI.S_ITS ---
PROCEDURE: MR ABDOMEN WO/W CON INDICATIONS: abnormal US, elevated liver tests TECHNIQUE: Coronal HASTE, axial 2D FLASH in- and [id number]; axial breath-hold T2 FSE. Dynamic axial VIBE during the administration of contrast; post-contrast coronal VIBE or 2D FLASH with fat saturation from the hepatic dome to the iliac crests. Optional diffusion weighted imaging and ADC may be performed. COMPARISON: [facility], US, US ABDOMEN LIMITED, 02/03/2021, 13:10. FINDINGS: Image quality: There is motion artifact slightly limiting evaluation. Lung bases: No basal pleural effusions. Heart size is normal. Solid organs: The liver demonstrates diffuse signal dropout on [id number] imaging consistent with fatty infiltration with areas of relative sparing along the gallbladder fossa. No discrete hepatic mass, suspicious enhancement, or areas of abnormal washout identified. Gallbladder is within normal limits without gallstones. Biliary system is non dilated. Pancreas is normal in morphology. Spleen is normal in size and enhancement. No adrenal nodules. Both kidneys demonstrate normal size and enhancement, without hydronephrosis. Nodes and vessels: No retroperitoneal or mesenteric adenopathy by size criteria. Aorta and inferior vena cava are normal in size. Bowel and peritoneum: Visualized bowel loops are normal in caliber. No free fluid. Bones and soft tissues: No ventral hernias. There are postsurgical changes in the lower lumbar spine status post posterior fixation. There is a mild leftward curvature of the thoracolumbar spine. IMPRESSION: 1. Hepatic steatosis with small areas of focal sparing along the gallbladder fossa. 2. No discrete hepatic mass or suspicious enhancement. Dictated by: Saran Villafuerte M.D. on 02/26/2021 at 13:21 Approved by: Saran Villafuerte M.D. on 02/26/2021 at 13:39
== END ==
PROVIDERS: PCP Nurse Practitioner Family; Referring Provider Nurse Practitioner Family; Visit Provider Nurse Practitioner Family
DX: R63.4 Abnormal weight loss (principal); R79.89 Other specified abnormal findings of blood chemistry; R93.5 Abnormal findings on diagnostic imaging of other abdominal regions, including retroperitoneum; K76.0 Fatty (change of) liver, not elsewhere classified
CPT/HCPCS: 74183; A9579

== ENCOUNTER 2021-03-24 08:32 | Emergency (ER) | payer MEDICARE, SELFPAY ==
[2021-03-24] VITALS (11 sets, daily range): BP systolic 120–211; BP diastolic 59–88; PULSE 61–72; RESP 15–29; TEMP 36; O2SAT 92–100; BMI 18.3
--- NOTE | 2021-03-24 08:36 | DI.US.S_ITS ---
PROCEDURE: US ABDOMEN LIMITED INDICATIONS: SEVERE EPIGASTRIC PAIN RADIATING TO BACK TECHNIQUE: Real-time focused scanning was performed of the abdomen, with image documentation. COMPARISON: [facility], CT, CT ABDOMEN WWO PELVIS W, 01/09/2018, 14:08. [facility], MR, MR ABDOMEN WO/W CON, 02/26/2021, 12:14. [facility], US, US ABDOMEN LIMITED, 02/03/2021, 13:10. FINDINGS: The liver demonstrates normal size. The liver demonstrates generalized moderately increased echogenicity. This decreases ultrasound sensitivity for detection of hepatic masses. The gallbladder itself is mildly prominent in size. No findings of gallstones or sludge are seen. The gallbladder wall is not thickened, measuring 3 mm or less. No specific pericholecystic fluid is seen. The sonographic Gay sign is negative. There is no biliary dilatation, the common bile duct measures 6 mm. No significant pancreatic abnormality is seen on these images. Overall scan quality is limited, secondary to the patient not being NPO. IMPRESSION: Mildly prominent gallbladder, without additional sonographic signs of cholecystitis. No biliary dilatation. Fatty liver infiltration incidentally noted. Dictated by: Andre Meza M.D. on 03/24/2021 at 8:07 Approved by: Andre Meza M.D. on 03/24/2021 at 8:10
--- NOTE | 2021-03-24 08:38 | ED.ABDPAIN ---
HPI - Abdominal Pain General Chief Complaint: Abdominal Pain Stated Complaint: Upper abd pain Time Seen by Provider: 03/24/21 08:33 History of Present Illness HPI narrative: 75-year-old female smoker and daily drinker presents by EMS for evaluation of severe epigastric pain with radiation to her back that started yesterday. She states she is unable to eat or drink, she has been nauseated but denies any vomiting. Her pain is worse when she moves and with palpation and improves with rest. She denies any history of the same. She is not dizzy nor weak or lightheaded. She has had no fever or chills. She denies any change in bowel habits or urinary symptoms such as dysuria, frequency or urgency. Patient given fentanyl in route with little help, additionally, she took an oxy at home Related Data Home Medications Medication Instructions Recorded Confirmed FOLIC ACID/VIT A/VIT B1/VIT #0 05/18/11 02/04/21 (#MULTIVITAMIN) [FISH OIL] #0 05/18/11 02/04/21 [VITAMIN B-12] #0 05/18/11 02/04/21 [VITAMIN C] #0 05/18/11 02/04/21 [VITAMIN D] #0 05/18/11 02/04/21 acetaminophen 500 mg capsule 1,000 mg PO TID PRN cap 01/20/21 02/04/21 Previous Rx's Medication Instructions Recorded lorazepam 0.5 mg tablet 0.5 mg PO DAILY PRN #7 tab 01/28/20 cyclobenzaprine 10 mg tablet 10 mg PO BID PRN #30 tab 02/06/20 atorvastatin 20 mg tablet (Lipitor) 20 mg PO HS #90 tab 05/26/20 diclofenac sodium 1 % topical gel 2 g TOP QID #100 gram 05/26/20 gemfibrozil 600 mg tablet 600 mg PO Q DAY #90 tab 05/26/20 omeprazole 40 mg capsule,delayed 40 mg PO DAILY #90 cap 05/26/20 release pramipexole 0.5 mg tablet 0.5 mg PO HSP PRN #90 tab 05/26/20 spironolactone 25 mg tablet 25 mg PO QDAY #90 tab 12/07/20 meloxicam 15 mg tablet 15 mg PO DAILY #90 tab 01/20/21 alendronate 70 mg tablet 70 mg PO QWEEK #14 tab 02/17/21 citalopram 20 mg tablet (Celexa) 20 mg PO QDAY #90 tab 02/17/21 ondansetron 4 mg disintegrating 4 mg PO TID-QID PRN #10 tab 03/24/21 tablet oxycodone 5 mg tablet 5 mg PO Q4-6H PRN #10 tab 03/24/21 pantoprazole 40 mg tablet,delayed 40 mg PO DAILY #30 tab 03/24/21 release (Protonix) Allergies Allergy/AdvReac Type Severity Reaction Status Date / Time No Known Drug Allergies Allergy Verified 02/04/21 09:23 Review of Systems Review of Systems Narrative: GENERAL: Denies chills, fatigue, malaise, fever, sweats. HEENT: Denies sinus pain, ear pain, sore throat, difficulty swallowing, dizziness. RESPIRATORY: Denies dyspnea, cough, wheezing, hemoptysis, sputum. CARDIOVASCULAR: Denies chest pain, palpitations, orthopnea, edema, GASTROINTESTINAL: See HPI : Denies dysuria, frequency, incontinence, hematuria, urinary retention. MUSCULOSKELETAL: denies weakness, joint pain, or bony pain SKIN: Denies rash, skin lesions, or other NEUROLOGIC: Denies weakness, headache, numbness, change in speech, confusion, seizures, incoordination. PSYCHIATRIC: No concerning psychosocial issues. 12 point review of systems is negative except for those stated above Patient History Medical History Colitis (~2000) Depression Effusion, left knee Elevated platelet count Fatty liver (~10/2016) GERD (gastroesophageal reflux disease) H/O vaginal delivery History of smoking 30 or more pack years Hyperlipemia Hypertension Injury of extensor tendon of hand Kidney stones (1963) Left anterior knee pain Left patella fracture Left shoulder pain Lower extremity pain, bilateral Macrocytosis Non-healing skin lesion Osteoarthritis Osteopenia after menopause (06/2020) Post-menopausal Restless leg syndrome Right hip pain Situational anxiety Spinal stenosis Weight loss Surgical History History of back surgery (~01/2016) History of tonsillectomy Hx of knee surgery Hx of lithotripsy Status post appendectomy Status post delivery Status post tubal ligation Family History Child Age: 55 Spina bifida Father Age: 101 Arthritis Heart trouble Mother Age: 99 Type 2 diabetes mellitus with complication Essential hypertension Heart trouble Brother No problems noted. Social History Smoking Status: Current some day smoker alcohol intake: current substance use type: does not use Smoking Status: Current some day smoker Exam Narrative Exam Narrative: GENERAL: [75 year old patient appears stated age. Well-developed patient, in mild distress. Obviously uncomfortable, holding an emesis bag HEAD: Atraumatic. Normocephalic. EYES: Pupils equal round and reactive. Extraocular motions intact. No scleral icterus. No injection or drainage. ENT: Nose without bleeding, purulent drainage. Throat without erythema, tonsillar hypertrophy or exudate. Airway patent. NECK: Trachea midline. Non tender CARDIOVASCULAR: Regular rate and rhythm without murmurs, gallops, or rubs. RESPIRATORY: Clear to auscultation. Breath sounds equal bilaterally. No wheezes, rales, or rhonchi. GASTROINTESTINAL: Abdomen soft, severely tender in the epigastrium, nondistended. EXTREMITIES: No edema or joint tenderness. BACK: Nontender without deformity or crepitance. No flank tenderness. NEURO: AOx3. SKIN: No rash or erythema of visible areas Initial Vital Signs Initial Vital Signs: Vital Signs Temperature 96.8 F L 03/24/21 08:43 Pulse Rate 61 03/24/21 08:43 Respiratory Rate 18 03/24/21 08:43 Blood Pressure 172/76 H 03/24/21 08:43 Pulse Oximetry 98 03/24/21 08:43 Course Orders Ordered: ED Orders 03/24/21 08:36 US abdomen limited Stat 03/24/21 08:37 EKG-12 Lead Stat 03/24/21 09:35 Complete Blood Count AUTO DIFF Stat Comprehensive Metabolic Panel Stat Ethanol (ETOH) Stat Lipase Stat Magnesium Stat NT-proBNP (BNP-Adult 18+) Stat Troponin & CK Cardiac Panel Stat 03/24/21 10:07 CT angio chest abdomen pelvis Stat Discontinued Medications Hydromorphone HCl (Hydromorphone 0.5 Mg Inj) 1 mg IV NOW ONE Stop: 03/24/21 10:26 Last Admin: 03/24/21 10:26 Dose: 1 mg Documented by: RIRI Sodium Chloride (Normal Saline 0.9%) 1,000 mls @ 1,000 mls/hr IV BOLUS ONE Stop: 03/24/21 09:35 Last Infusion: 03/24/21 12:11 Dose: 0 mls/hr Documented by: Admin: 03/24/21 09:12 Dose: 1,000 mls/hr Documented by: SERGO Ondansetron HCl (Ondansetron 4 Mg/2 Ml Inj) 4 mg IV NOW ONE Stop: 03/24/21 08:37 Last Admin: 03/24/21 10:26 Dose: Not Given Documented by: RIRI Pantoprazole Sodium (Pantoprazole 40 Mg Vial) 40 mg IV NOW ONE Stop: 03/24/21 08:37 Last Admin: 03/24/21 09:13 Dose: 40 mg Documented by: SERGO Reevaluation(s) Reevaluation #1: Patient feeling much better after above-stated therapies Vital Signs Vital signs: Vital Signs - 8 hr 03/24/21 08:43 03/24/21 08:45 03/24/21 09:00 Temperature 96.8 F L Pulse Rate 61 68 68 Respiratory Rate 18 Blood Pressure 172/76 H 182/86 H Pulse Oximetry 98 94 98 03/24/21 09:30 03/24/21 10:00 03/24/21 10:01 Temperature Pulse Rate 70 71 71 Respiratory Rate Blood Pressure 198/88 H 211/86 H Pulse Oximetry 100 94 95 03/24/21 10:30 03/24/21 10:51 03/24/21 11:00 Temperature Pulse Rate 72 72 71 Respiratory Rate 16 29 H Blood Pressure 125/60 120/59 L Pulse Oximetry 92 92 92 03/24/21 11:30 03/24/21 11:31 Temperature Pulse Rate 70 71 Respiratory Rate 15 15 Blood Pressure 124/68 Pulse Oximetry 93 94 MDM - Abdominal Pain Lab Data Result diagrams: 03/24/21 09:35 03/24/21 09:35 Labs: Lab Results 03/24/21 03/24/21 03/24/21 Range/Units 09:35 09:35 09:35 WBC 7.6 (4.5-11.0) X10^3/uL RBC 4.04 (4.0-5.2) X10^6/uL Hgb 14.1 (12.0-16.0) g/dL Hct 41.7 (36-46) % MCV 103.2 H (80-100) fL MCH 35.0 H (26-34) PG MCHC 33.9 (30-36) % RDW 14.4 (11.6-14.8) % Plt Count 306 (150-400) X10^3/uL Neut % (Auto) 85.7 H (50-75) % Lymph % (Auto) 8.9 L (25-40) % [place] % (Auto) 4.7 (3-14) % Eos % (Auto) 0.3 L (2-4) % Baso % (Auto) 0.4 (0-2) % Neut # (Auto) 6500 (3234-6075) /uL Lymph # (Auto) 700 L (6558-1327) /uL [place] # (Auto) 400 (0-900) /uL Eos # (Auto) 0 (0-450) /uL Baso # (Auto) 0 (0-100) /uL Sodium 135 L (137-145) mmol/L Potassium 4.4 (3.4-5.1) mmol/L Chloride 105 (98-107) mmol/L Carbon Dioxide 26 (22-32) mmol/L BUN 10 (7-17) mg/dL Creatinine 0.73 (0.52-1.04) mg/dL Estimated GFR > 60.0 (>60) mL/min BUN/Creatinine Ratio 13.7 (6-22) Glucose 162 H (80-110) mg/dL Calcium 9.2 (8.4-10.2) mg/dL Magnesium 1.5 L (1.6-2.3) mg/dL Total Bilirubin 0.5 (0.2-1.3) mg/dL AST 52 H (14-36) IU/L ALT 32 (<35) IU/L Alkaline Phosphatase 83 (38-126) U/L Total Creatine Kinase 60 (30-135) U/L CK-MB (CK-2) TNP CK-MB (CK-2) Rel Index TNP Troponin I < 0.012 (0.01-0.034) ng/mL NT-Pro-B Natriuret Pep 878 H (<125) pg/mL Total Protein 7.3 (6.3-8.2) g/dL Albumin 4.4 (3.5-5.0) g/dL Globulin 2.9 (1.7-4.1) g/dL Albumin/Globulin Ratio 1.5 (1.0-2.8) Lipase 51 (23-300) U/L Ethyl Alcohol < 10 ( - 10) mg/dL Imaging Data CT scan - chest: Radiologist's Impression: 27 Bruno Dias, DO [facility] Routine Call Back Main ED ?15? My List ?11? Waiting ?6? Surge ED ?0? R02? Marlow? Rossy? 68 F? Admitted Observation Patient? 4h 47m? 2-Emergent? ?? Dizziness? Dizzy? Sign Out? 03/24/21 06:41? ADM ETHEL? I-Signed? Bruno Chavis S COVID NEGATIVE 03/24 205 at 1100 w Eladio Obs/[place]-Shnaeidr will need admit pending imaging MYRTLE 0712 Order BP 180/91 Pulse 64 Resp 23 Temp O2 Sat 94% (RA) ?Complete B... ?Chem Lipase Sta... Magnesium ... Phosphorou... Troponin &... Imaging COVID19 - ... MAR EKG-12 Lashanda... Cardiac mo... Code Statu... Cardiac mo... Cardiac mo... Education,... Admit as R... Heart Heal... Consult to... Consult to... Consult to... Lipid Pane... Complete B... Complete B... Chem Chem Phosphorou... Phosphorou... Phosphorou... Complete B... Complete B... Chem Chem Phosphorou... Phosphorou... EKG RPR W Refl... R04? [place]? Rossy? 74 F? With Doctor? 1h 13m? 2-Emergent? ?? Fever? SOB? Sepsis, ISO, C19S/S? 03/24/21 10:11? REG ER? Draft? Bruno Heredia Order BP 135/63 Pulse 115 Resp 32 Temp 100.6 F O2 Sat 98% (15L/Non -Rebreather) ?Complete B... Imaging COVID19 -N... MAR Consult to... Arterial B... Procalcito... Troponin &... EKG-12 Lashanda... D Dimer St... Lactate (L... Magnesium ... NT-proBNP ... Cardiac mo... Microbiolo... POC/AUDREY Chem COVID19 - ... Respirator... Urinalysis... R05? Nute? Laura? 73 F? Boarding? 23h 49m? 3-Urgent? ?? Dizziness? Trouble walking, dizzy? C19S/S, Sign Out? 03/23/21 16:00? REG ER? Draft? Bruno Chavis S on hep gtt-next ptt at 1030 Order BP 113/56 Pulse 96 Resp 28 Temp O2 Sat 94% COVID19 -N... ?Complete B... ?Chem Imaging Pathologis... Lipase Sta... Magnesium ... ?Troponin &... ?NT-proBNP ... Lactate (L... ?NT-proBNP ... Partial Th... ?Prothrombi... ?Troponin I... ?Partial Th... ?Partial Th... ?Troponin I... ?Troponin I... EKG MAR Cardiac mo... EKG-12 Lashanda... Measure pe... RT Consult... EKG-12 Lashanda... EKG-12 Lashanda... Partial Th... Complete B... Troponin &... EKG-12 Lashanda... NT-proBNP ... Chem R06? Hernan? Tracie? 48 F? With Doctor? 1h 29m? 2-Emergent? ?? Fever? SOB? ISO, C19S/S? 03/24/21 09:54? REG ER? Draft? Bruno Dias Stacey S Order BP Pulse 96 Resp Temp O2 Sat 96% ?Complete B... ?D Dimer St... ?Chem Lipase Sta... ?NT-proBNP ... Procalcito... ?Troponin &... Imaging COVID19 - ... COVID19 -N... MAR EKG-12 Lashanda... Cardiac mo... Respirator... Arterial B... R08? Telma? Clara? 75 F? With Doctor? 1h 38m? 4-Less Urgent? ?? Fall? RT TWISTED KNEE/LT SIDE RIB PAIN? ?? 03/24/21 09:45? REG ER? Draft? Bruno Arun Leatha Beatty Order BP 122/58 Pulse 74 Resp 16 Temp 97.0 F O2 Sat 97% (RA) Imaging R11? Dawson? Samantha? 75 F? With Doctor? 2h 47m? 3-Urgent? ?? Abdominal Pain? Upper abd pain? ?? 03/24/21 08:33? REG ER? Draft? Bruno Gallagher S pt had 8mg zofran with ems, pt has GI appt tomorrow, Order BP Pulse 72 Resp Temp O2 Sat 92% ?Complete B... ?Chem Lipase Sta... ?NT-proBNP ... Troponin &... Ethanol (E... ?Magnesium ... Imaging MAR EKG-12 Lashanda... NPO Diet R12? Callejas? Yamile? 70 F? Pending Admission? 2h 43m? 2-Emergent? ?? Hypertension? HTN w/head & neck pain? ISO, C19S/S? 03/24/21 08:41? REG ER? Draft? Bruno Gallagher S is the BP any better after meds? MYRTLE 0951 Order BP 185/100 Pulse 80 Resp 16 Temp O2 Sat 94% ?NT-proBNP ... ?Complete B... ?Chem Lipase Sta... ?Troponin &... Imaging COVID19 -N... MAR EKG-12 Lashanda... Cardiac mo... R13? Early? Andre? 40 M? Boarding? 17h 43m? 2-Emergent? ?? Psychiatric Symptoms? wants mental health eval? C19S/S, ?, Sign Out? 03/23/21 20:29? REG ER? Draft? Bruno Arun UA needed Boarding Chief Valadez , Office [phone] ORTHOPAEDIC TECHNOLOGIST in am repeat ethanol ordered if clinically sober he can go MYRTLE Order BP 121/61 Pulse 76 Resp 16 Temp O2 Sat 98% (RA) ?Acetaminop... ?Complete B... ?Chem ?Ethanol (E... Urine Drug... Free T4, D... Salicylate... Thyroid St... Ethanol (E... MAR POC/AUDREY Consult to... General (R... WRoom? Tameka? Reagan? 52 M? With Doctor? 50m? No Chief Complaint? Vomiting, chills, weakness? ?? 03/24/21 10:40? REG ER? No Document? Bruno Dias Order WRoom? Pecos? Mu? 46 M? Registered? 24m? No Chief Complaint? LT FOOT SWOLLEN/PAINFUL? ?? No Time Seen? REG ER? No Document? Sign Up Order WRoom? Sean? Mayur? 69 M? Registered? 7m? No Chief Complaint? Ascites? ?? No Time Seen? REG ER? No Document? Sign Up Order WRoom? Belinda? Carlton? 71 M? Waiting Room? 41m? No Chief Complaint? Chest pain? ?? 03/24/21 10:40? REG ER? No Document? Sign Up Order ?Complete B... Imaging Lipase Sta... Magnesium ... Cardiac mo... NPO Diet Chem Troponin &... EKG-12 Lashanda... WRoom? Sierra? Ángela? 64 F? Registered? 26m? 2-Emergent? ?? Chest Pain? Heart palps? ?? No Time Seen? REG ER? No Document? Sign Up Order BP 188/105 Pulse 65 Resp 16 Temp 96.6 F O2 Sat 99% (RA) Chem Lipase Sta... NPO Diet Complete B... Magnesium ... Troponin &... EKG-12 Lashanda... Cardiac mo... Imaging WRoom? Moore? Dilia? 22 F? Registered? 21m? No Chief Complaint? Herniated disc, pain in both legs? ?? No Time Seen? REG ER? No Document? Sign Up Order Silverio? Valencia? 29 F? Ready for Discharge? 4h 4m? 3-Urgent? ?? Abdominal Pain? low abd pain/had a seizure 3 min ago/preg??? Preg? 03/24/21 07:17? REG ER? Draft? Bruno Dias d/c 1000 stacey will d/c Order BP 113/69 Pulse 86 Resp 20 Temp O2 Sat 100% (RA) ABO RH Typ... HCG Quanti... ?Chem ?Troponin &... ?Complete B... Magnesium ... NT-proBNP ... Imaging POC/AUDREY MAR EKG-12 Lashanda... Imaging - CT angio chest abdomen pelvis; US abdomen limited Samantha Osman??75??F??1945 ? Allergy/Adv: No Known Drug Allergies Close Results Imaging ACTIVITY DATE EXAM STATUS AUTHOR 03/24/21 10:07 Chest/Abdomen/Pelvis CTA Signed Alejandro Cantu 03/24/21 08:36 Abdomen Ultrasound Signed Andre Meza Imaging Reports Close Chest/Abdomen/Pelvis CTA (Signed) Alejandro Cantu - 03/24/21 Abdomen Ultrasound (Signed) Andre Meza - 03/24/21 [place] [address] CT Scan Report Signed Patient: Samantha Osman MR#: [id number] : 1945 Acct:[id number] Age/Sex: 75 / F Date of Service: 03/24/21 Loc: ED Accession Number: [id number] ?? Procedure: CT angio chest abdomen pelvis Ordering Provider: Bruno Dias D.O. PROCEDURE:? CT ANGIO CHEST ABDOMEN PELVIS ? INDICATIONS:? severe chest/back pain ? TECHNIQUE:? Precontrast 5 mm thick sections acquired from the lung apices to the iliac crests.? After the administration of intravenous contrast, 2.5 mm thick sections again acquired from the lung apices to the iliac crests.? Maximum intensity projection (MIP) oblique sagittal and coronal reformats were then acquired.? For radiation dose reduction, the following was used:? automated exposure control.? ? COMPARISON:? None. ? FINDINGS: ? ? Image quality:? Excellent.? ? CHEST: Lungs and pleura:? No acute air space opacities.? No pleural effusions or pneumothorax.? Central and peripheral airways are patent and normal in caliber.? ? Mediastinum:? Heart size is normal.? No pericardial effusion.? No mediastinal adenopathy by size criteria.? The thoracic aorta has diffuse mild atherosclerotic calcifications with no dissection or aneurysmal dilatation.? Esophagus is normal in caliber.? Moderate-sized hiatal hernia.? The coronary arteries have atherosclerotic calcifications. ? Chest wall:? No axillary or supraclavicular adenopathy by size criteria.? Thyroid gland is normal .? ? ABDOMEN: Solid organs:? Liver: The liver has no mass or intrahepatic biliary ductal dilatation.? The liver has mild hepatic steatosis.? The portal vein and hepatic veins are patent. Biliary: The gallbladder has no gallstones, pericholecystic fluid, gallbladder wall thickening, or surrounding inflammatory change. Pancreas: The pancreas has no mass or ductal dilatation. There is no surrounding inflammation. Spleen: Normal size. There are no masses. Adrenals: No hypertrophy or nodules. Kidneys: No obstructive calculus or hydronephrosis.? Nonobstructive calcifications are present in the bilateral kidneys.? No solid mass. No cystic mass. ? Bowel:? Moderate-sized hiatal hernia.? The esophagus is otherwise normal.? The stomach is normal.? The small bowel has a normal caliber and appearance. The terminal ileum is normal. The large bowel has a normal caliber and appearance.? No free fluid or air.? ? Nodes and vessels:? No retroperitoneal or mesenteric adenopathy by size criteria.? The abdominal aorta has diffuse atherosclerotic calcifications with a 60% stenosis in the right proximal iliac artery.? No abdominal aortic aneurysm.? ? Abdominal wall:? There is a small fat containing periumbilical hernia. ? PELVIS:? Genitourinary:? The bladder has no wall thickening or mass. No bladder calcifications. ? Abdominal wall:? No inguinal hernias or adenopathy.? ? BONES:? There is a subacute partially healed left 10th lateral rib fracture.? The multilevel degenerative changes of the thoracic and lumbar spine with postoperative changes of discectomy and fusion at L4-5 and anterolisthesis at L3-4. No vertebral body compression fractures.? ? IMPRESSION: 1. No thoracic or abdominal aortic aneurysm or dissection. 2. Diffuse atherosclerotic disease of the thoracic and abdominal aorta most prominent in the proximal common iliac arteries where there is a 60% stenosis of the right common iliac artery just distal to the bifurcation. 3. Moderate-sized hiatal hernia. 4. Coronary artery disease. 5. Hepatic steatosis.? Dictated by: Alejandro Cantu M.D. on 03/24/2021 at 10:38 ? ? Approved by: Alejandro Cantu M.D. on 03/24/2021 at 10:53 ? MDM Narrative Medical decision making narrative: Multiple etiologies for patient's symptoms considered including: [Pancreatitis versus gallbladder disease pulses aortic dissection versus other Patient's symptoms improved over duration of stay with above-stated therapies. Pain is well tolerated, she is tolerating orals. Patient has follow-up with GI scheduled for tomorrow Findings and discharge diagnosis discussed with patient/family followed by verbalization of understanding Return precautions discussed with patient/family whom verbalize understanding. Discharge Plan Departure Patient Disposition: Home Clinical Impression: Abdominal pain, epigastric Activity Restrictions/Additional Instructions: *You have been diagnosed with [acute epigastric pain. Your history, physical exam, labs and imaging are very reassuring. There is no evidence of pancreatitis, bowel obstruction, aortic aneurysm or dissection, or other diagnosis that would require a specific intervention. *What to do: *Please continue to take your regular medications as directed. [x ] New medication prescriptions sent to your pharmacy: [[facility]] [ ] New medication written as a paper prescription [ ] No new medications given *Please follow up with your GI provider tomorrow as planned. However, let them know you were seen in the Emergency Department today so they can get the records of your labs, ultrasound, and CT. * as we discussed, please use a clear liquid diet until your appointment tomorrow *Return to Emergency Department if you should have any new, worsening or concerning symptoms, such as [fever greater than 101 F, shaking chills, worsening pain, persistent vomiting or other bothersome symptoms] Prescriptions: New pantoprazole [Protonix] 40 mg tablet,delayed release (DR/EC) 40 mg PO DAILY Qty: 30 0RF ondansetron 4 mg tablet,disintegrating 4 mg PO TID-QID PRN (Reason: nausea and vomiting) Qty: 10 0RF oxycodone 5 mg tablet 5 mg PO Q4-6H PRN (Reason: pain) Qty: 10 0RF No Action FOLIC ACID/VIT A/VIT B1/VIT (#MULTIVITAMIN) Qty: 0 0RF [FISH OIL] Qty: 0 0RF [VITAMIN B-12] Qty: 0 0RF [VITAMIN C] Qty: 0 0RF [VITAMIN D] Qty: 0 0RF lorazepam 0.5 mg tablet 0.5 mg PO DAILY PRN (Reason: travel anxiety) Qty: 7 0RF spironolactone 25 mg tablet 25 mg PO QDAY Qty: 90 1RF citalopram [Celexa] 20 mg tablet 20 mg PO QDAY Qty: 90 3RF alendronate 70 mg tablet 70 mg PO QWEEK Qty: 14 3RF Rx Instructions: Please give comprehensive administration instructions cyclobenzaprine 10 mg tablet 10 mg PO BID PRN (Reason: muscle spasm) Qty: 30 0RF Rx Instructions: may make drowsy, do not drive during therapy, do not take with other sedating meds acetaminophen 500 mg capsule 1,000 mg PO TID PRN0RF meloxicam 15 mg tablet 15 mg PO DAILY Qty: 90 0RF Rx Instructions: do not take with other NSAIDs diclofenac sodium 1 % gel 2 g TOP QID Qty: 100 0RF Rx Instructions: apply to left shoulder atorvastatin [Lipitor] 20 mg tablet 20 mg PO HS Qty: 90 2RF gemfibrozil 600 mg tablet 600 mg PO Q DAY Qty: 90 3RF omeprazole 40 mg capsule,delayed release(DR/EC) 40 mg PO DAILY Qty: 90 3RF Rx Instructions: Take one capsule by mouth daily as needed pramipexole 0.5 mg tablet 0.5 mg PO HSP PRN (Reason: restless leg(s)) Qty: 90 3RF Referrals: Martha Salguero ARNP [Primary Care Provider] -
[2021-03-24] MEDS: SODIUM CHLORIDE 0.9% 1,000 ML 1000 ML IV (09:12)
[2021-03-24] MEDS: PANTOPRAZOLE 40 MG VIAL IV (09:13)
[2021-03-24 09:49] LABS: Add Manual Diff / Slide Review NO; Basophils Absolute Auto 0 /uL (0-100); Basophils Percent Auto 0.4 % (0-2); Eosinophils Absolute Auto 0 /uL (0-450); Eosinophils Percent Auto 0.3 % (2-4); Hematocrit 41.7 % (36-46); Hemoglobin 14.1 g/dL (12.0-16.0); Lymphocytes Absolute Auto 700 /uL (1100-4500); Lymphocytes Percent Auto 8.9 % (25-40); Mean Corpuscular HGB Conc 33.9 % (30-36); Mean Corpuscular Volume 103.2 fL (80-100); Monocytes Absolute Auto 400 /uL (0-900); Monocytes Percent Auto 4.7 % (3-14); Neutrophils Absolute Auto 6500 /uL (1500-7000); Neutrophils Percent Auto 85.7 % (50-75); Platelet Count 306 X10^3/uL (150-400); Red Blood Cell Count 4.04 X10^6/uL (4.0-5.2); Red Cell Distribution Width 14.4 % (11.6-14.8); White Blood Cell Count 7.6 X10^3/uL (4.5-11.0)
[2021-03-24 09:56] LABS: Ethanol (ETOH) < 10 mg/dL
[2021-03-24 09:57] LABS: Alanine Aminotransferase 32 IU/L (<35); Albumin 4.4 g/dL (3.5-5.0); Albumin Globulin Ratio 1.5 (1.0-2.8); Alkaline Phosphatase 83 U/L (38-126); Aspartate Aminotransferase 52 IU/L (14-36); BUN Creatinine Ratio 13.7 (6-22); Bilirubin Total 0.5 mg/dL (0.2-1.3); Blood Urea Nitrogen 10 mg/dL (7-17); Calcium 9.2 mg/dL (8.4-10.2); Carbon Dioxide 26 mmol/L (22-32); Chloride 105 mmol/L (98-107); Creatine Kinase 60 U/L (30-135); Estimated Glomerular Filt Rate > 60.0 mL/min (>60); Globulin 2.9 g/dL (1.7-4.1); Glucose 162 mg/dL (80-110); HEMOLYSIS < 15 (0-50); Lipase 51 U/L (23-300); Magnesium 1.5 mg/dL (1.6-2.3); Potassium 4.4 mmol/L (3.4-5.1); Sodium 135 mmol/L (137-145); Total Protein 7.3 g/dL (6.3-8.2)
--- NOTE | 2021-03-24 10:07 | DI.CT.S_ITS ---
PROCEDURE: CT ANGIO CHEST ABDOMEN PELVIS INDICATIONS: severe chest/back pain TECHNIQUE: Precontrast 5 mm thick sections acquired from the lung apices to the iliac crests. After the administration of intravenous contrast, 2.5 mm thick sections again acquired from the lung apices to the iliac crests. Maximum intensity projection (MIP) oblique sagittal and coronal reformats were then acquired. For radiation dose reduction, the following was used: automated exposure control. COMPARISON: None. FINDINGS: Image quality: Excellent. CHEST: Lungs and pleura: No acute air space opacities. No pleural effusions or pneumothorax. Central and peripheral airways are patent and normal in caliber. Mediastinum: Heart size is normal. No pericardial effusion. No mediastinal adenopathy by size criteria. The thoracic aorta has diffuse mild atherosclerotic calcifications with no dissection or aneurysmal dilatation. Esophagus is normal in caliber. Moderate-sized hiatal hernia. The coronary arteries have atherosclerotic calcifications. Chest wall: No axillary or supraclavicular adenopathy by size criteria. Thyroid gland is normal . ABDOMEN: Solid organs: Liver: The liver has no mass or intrahepatic biliary ductal dilatation. The liver has mild hepatic steatosis. The portal vein and hepatic veins are patent. Biliary: The gallbladder has no gallstones, pericholecystic fluid, gallbladder wall thickening, or surrounding inflammatory change. Pancreas: The pancreas has no mass or ductal dilatation. There is no surrounding inflammation. Spleen: Normal size. There are no masses. Adrenals: No hypertrophy or nodules. Kidneys: No obstructive calculus or hydronephrosis. Nonobstructive calcifications are present in the bilateral kidneys. No solid mass. No cystic mass. Bowel: Moderate-sized hiatal hernia. The esophagus is otherwise normal. The stomach is normal. The small bowel has a normal caliber and appearance. The terminal ileum is normal. The large bowel has a normal caliber and appearance. No free fluid or air. Nodes and vessels: No retroperitoneal or mesenteric adenopathy by size criteria. The abdominal aorta has diffuse atherosclerotic calcifications with a 60% stenosis in the right proximal iliac artery. No abdominal aortic aneurysm. Abdominal wall: There is a small fat containing periumbilical hernia. PELVIS: Genitourinary: The bladder has no wall thickening or mass. No bladder calcifications. Abdominal wall: No inguinal hernias or adenopathy. BONES: There is a subacute partially healed left 10th lateral rib fracture. The multilevel degenerative changes of the thoracic and lumbar spine with postoperative changes of discectomy and fusion at L4-5 and anterolisthesis at L3-4. No vertebral body compression fractures. IMPRESSION: 1. No thoracic or abdominal aortic aneurysm or dissection. 2. Diffuse atherosclerotic disease of the thoracic and abdominal aorta most prominent in the proximal common iliac arteries where there is a 60% stenosis of the right common iliac artery just distal to the bifurcation. 3. Moderate-sized hiatal hernia. 4. Coronary artery disease. 5. Hepatic steatosis. Dictated by: Alejandro Cantu M.D. on 03/24/2021 at 10:38 Approved by: Alejandro Cantu M.D. on 03/24/2021 at 10:53
[2021-03-24 10:09] LABS: NT-proBNP (BNP-Adult 18+) 878 pg/mL (<125); Troponin I < 0.012 ng/mL (0.01-0.034)
[2021-03-24] MEDS: HYDROMORPHONE 0.5 MG INJ 1 MG IV (10:26)
== END 2021-03-24 12:10 | disposition home or self-care (01) ==
PROVIDERS: Emergency Provider Emergency Medicine; PCP Nurse Practitioner Family
DX: R10.13 Epigastric pain (principal); R11.0 Nausea; I10 Essential (primary) hypertension; F17.200 Nicotine dependence, unspecified, uncomplicated
CPT/HCPCS: 71275; 74174; 76705; 80053; 80320; 82550; 83690; 83735; 83880; 84484; 85025; 93005; 93010; 96361; 96374; 96375; 99284; C9113; J1170; Q9967

== ENCOUNTER 2021-03-25 23:04 | Emergency (ER) | payer MEDICARE, SELFPAY ==
[2021-03-25 23:16] VITALS: BP 144/115; PULSE 80; RESP 18; TEMP 36.6; O2SAT 98; BMI 18.3
[2021-03-26 00:30] VITALS: BP 149/90; PULSE 80; RESP 18; O2SAT 98
[2021-03-26 00:45] LABS: Add Manual Diff / Slide Review NO; Basophils Absolute Auto 100 /uL (0-100); Eosinophils Absolute Auto 200 /uL (0-450); Eosinophils Percent Auto 2.1 % (2-4); Hematocrit 44.2 % (36-46); Hemoglobin 15.2 g/dL (12.0-16.0); Lymphocytes Absolute Auto 1000 /uL (1100-4500); Lymphocytes Percent Auto 11.9 % (25-40); Mean Corpuscular HGB Conc 34.5 % (30-36); Mean Corpuscular Hemoglobin 35.6 PG (26-34); Monocytes Absolute Auto 300 /uL (0-900); Neutrophils Absolute Auto 6800 /uL (1500-7000); Platelet Count 344 X10^3/uL (150-400); Red Blood Cell Count 4.29 X10^6/uL (4.0-5.2); White Blood Cell Count 8.3 X10^3/uL (4.5-11.0)
[2021-03-26 00:53] LABS: Alanine Aminotransferase 52 IU/L (<35); Albumin 4.9 g/dL (3.5-5.0); Albumin Globulin Ratio 1.5 (1.0-2.8); Alkaline Phosphatase 85 U/L (38-126); Aspartate Aminotransferase 86 IU/L (14-36); BUN Creatinine Ratio 9.4 (6-22); Bilirubin Total 0.6 mg/dL (0.2-1.3); Blood Urea Nitrogen 6 mg/dL (7-17); Calcium 9.3 mg/dL (8.4-10.2); Carbon Dioxide 22 mmol/L (22-32); Chloride 103 mmol/L (98-107); Estimated Glomerular Filt Rate > 60.0 mL/min (>60); Globulin 3.3 g/dL (1.7-4.1); Glucose 109 mg/dL (80-110); HEMOLYSIS < 15 (0-50); Lipase 68 U/L (23-300); Potassium 3.6 mmol/L (3.4-5.1); Sodium 136 mmol/L (137-145); Total Protein 8.2 g/dL (6.3-8.2)
--- NOTE | 2021-03-26 00:53 | ED_ITS ---
HPI - Abdominal Pain General Chief Complaint: Abdominal Pain Stated Complaint: abdominal and kidney pain Time Seen by Provider: 03/26/21 00:51 Source: patient Mode of arrival: Ambulatory History of Present Illness HPI narrative: Patient is a 75-year-old female who is a former smoker, daily drinker presenting with left-sided flank pain radiating to her abdomen and up into her chest as well. She was actually seen evaluated yesterday for something similar she has had ongoing nausea occasional vomiting. She had a CT angio yesterday and full workup. She said yesterday when she left she was feeling better however it started hurting again. She said that she has not had any alcoholic beverages for about 1 week. Related Data Home Medications Medication Instructions Recorded Confirmed FOLIC ACID/VIT A/VIT B1/VIT #0 05/18/11 02/04/21 (#MULTIVITAMIN) [FISH OIL] #0 05/18/11 02/04/21 [VITAMIN B-12] #0 05/18/11 02/04/21 [VITAMIN C] #0 05/18/11 02/04/21 [VITAMIN D] #0 05/18/11 02/04/21 acetaminophen 500 mg capsule 1,000 mg PO TID PRN cap 01/20/21 02/04/21 Previous Rx's Medication Instructions Recorded lorazepam 0.5 mg tablet 0.5 mg PO DAILY PRN #7 tab 01/28/20 cyclobenzaprine 10 mg tablet 10 mg PO BID PRN #30 tab 02/06/20 atorvastatin 20 mg tablet (Lipitor) 20 mg PO HS #90 tab 05/26/20 diclofenac sodium 1 % topical gel 2 g TOP QID #100 gram 05/26/20 gemfibrozil 600 mg tablet 600 mg PO Q DAY #90 tab 05/26/20 omeprazole 40 mg capsule,delayed 40 mg PO DAILY #90 cap 05/26/20 release pramipexole 0.5 mg tablet 0.5 mg PO HSP PRN #90 tab 05/26/20 spironolactone 25 mg tablet 25 mg PO QDAY #90 tab 12/07/20 meloxicam 15 mg tablet 15 mg PO DAILY #90 tab 01/20/21 alendronate 70 mg tablet 70 mg PO QWEEK #14 tab 02/17/21 citalopram 20 mg tablet (Celexa) 20 mg PO QDAY #90 tab 02/17/21 ondansetron 4 mg disintegrating 4 mg PO TID-QID PRN #10 tab 03/24/21 tablet oxycodone 5 mg tablet 5 mg PO Q4-6H PRN #10 tab 03/24/21 pantoprazole 40 mg tablet,delayed 40 mg PO DAILY #30 tab 03/24/21 release (Protonix) Allergies Allergy/AdvReac Type Severity Reaction Status Date / Time No Known Drug Allergies Allergy Verified 02/04/21 09:23 Review of Systems Review of Systems Narrative: GENERAL: Denies chills, fatigue, malaise, fever, sweats, travel HEENT: Denies sinus pain, ear pain, sore throat, difficulty swallowing, neck pain RESPIRATORY: Denies dyspnea, cough, wheezing, hemoptysis, sputum. CARDIOVASCULAR: See HPI GASTROINTESTINAL: See HPI : Denies dysuria, frequency, incontinence, hematuria, urinary retention, flank pain. MUSCULOSKELETAL: Denies weakness, joint pain, or bony pain SKIN: No rash, no erythema, no pruritus NEUROLOGIC: Denies weakness, dizziness, headache, numbness, change in speech, confusion PSYCHIATRIC: No concerning psychosocial issues. 12 point review of systems is negative except for those stated above and HPI Patient History Medical History (Updated 03/26/21 @ 02:30 by Clarisse Powell DO) Colitis (~2000) Coronary artery disease (03/2021) Depression Effusion, left knee Elevated platelet count Fatty liver (~10/2016) GERD (gastroesophageal reflux disease) H/O vaginal delivery Hiatal hernia (03/2021) History of smoking 30 or more pack years Hyperlipemia Hypertension Injury of extensor tendon of hand Kidney stones (1963) Left anterior knee pain Left patella fracture Left shoulder pain Lower extremity pain, bilateral Macrocytosis Non-healing skin lesion Osteoarthritis Osteopenia after menopause (06/2020) Post-menopausal Restless leg syndrome Right hip pain Situational anxiety Spinal stenosis Weight loss Surgical History History of back surgery (~01/2016) History of tonsillectomy Hx of knee surgery Hx of lithotripsy Status post appendectomy Status post delivery Status post tubal ligation Family History Child Age: 55 Spina bifida Father Age: 101 Arthritis Heart trouble Mother Age: 99 Type 2 diabetes mellitus with complication Essential hypertension Heart trouble Brother No problems noted. Social History Smoking Status: Current some day smoker alcohol intake: current substance use type: does not use Smoking Status: Current some day smoker alcohol intake frequency: 3 or more drinks per day Substance Use Type: does not use Exam Initial Vital Signs Initial Vital Signs: Vital Signs Temperature 97.9 F 03/25/21 23:16 Pulse Rate 80 03/25/21 23:16 Respiratory Rate 18 03/25/21 23:16 Blood Pressure 144/115 H 03/25/21 23:16 Pulse Oximetry 98 03/25/21 23:16 GENERAL: Alert 75-year-old female appears older than stated age in severe pain gripping left side HEENT: Head atraumatic,EOMI, pupils reactive, face symmetric, [moist] mucous membranes CARDIOVASCULAR: Regular rate and rhythm without murmurs, rubs or gallops. RESPIRATORY: Breath sounds equal bilaterally, no wheezes rales or rhonchi. ABDOMEN: Soft, nontender. Normoactive bowel sounds all 4 quadrants. No guarding or rebound. BACK: No vertebral tenderness or step-off left sided pain : No CVA tenderness EXTREMITIES: Normal range of motion, no clubbing or edema. Neurovascularly intact NEUROLOGICAL: Alert and oriented x4.Normal gait and speech. SKIN: Warm, dry, no laceration, no petechiae, no rashes or lesions. Course Orders Ordered: ED Orders 03/26/21 00:17 EKG-12 Lead Stat 03/26/21 00:30 Complete Blood Count AUTO DIFF Stat Comprehensive Metabolic Panel Stat ETOH [Ethanol (ETOH)] Stat Lipase Stat Troponin & CK Cardiac Panel Stat Discontinued Medications Hydromorphone HCl (Hydromorphone 1 Mg Inj) 1 mg IV NOW ONE Stop: 03/26/21 00:55 Last Admin: 03/26/21 01:18 Dose: 1 mg Documented by: NEDA Sodium Chloride (Normal Saline 0.9%) 1,000 mls @ 1,000 mls/hr IV BOLUS ONE Stop: 03/26/21 01:53 Last Infusion: 03/26/21 02:43 Dose: 0 mls/hr Documented by: Admin: 03/26/21 01:18 Dose: 1,000 mls/hr Documented by: NEDA Ondansetron HCl (Ondansetron 4 Mg/2 Ml Inj) 4 mg IV NOW ONE Stop: 03/26/21 00:55 Last Admin: 03/26/21 01:19 Dose: 4 mg Documented by: NEDA Pantoprazole Sodium (Pantoprazole 40 Mg Vial) 40 mg IV NOW ONE Stop: 03/26/21 00:55 Last Admin: 03/26/21 01:18 Dose: 40 mg Documented by: NEDA Vital Signs Vital signs: Vital Signs - 8 hr 03/25/21 23:16 03/26/21 00:30 03/26/21 02:25 Temperature 97.9 F Pulse Rate 80 80 84 Respiratory Rate 18 18 18 Blood Pressure 144/115 H 149/90 H 160/88 H Pulse Oximetry 98 98 97 MDM - Abdominal Pain Lab Data Result diagrams: 03/26/21 00:30 03/26/21 00:30 Labs: Lab Results 03/26/21 03/26/21 03/26/21 Range/Units 00:30 00:30 00:30 WBC 8.3 (4.5-11.0) X10^3/uL RBC 4.29 (4.0-5.2) X10^6/uL Hgb 15.2 (12.0-16.0) g/dL Hct 44.2 (36-46) % MCV 103.0 H (80-100) fL MCH 35.6 H (26-34) PG MCHC 34.5 (30-36) % RDW 14.0 (11.6-14.8) % Plt Count 344 (150-400) X10^3/uL Neut % (Auto) 82.0 H (50-75) % Lymph % (Auto) 11.9 L (25-40) % Cooke % (Auto) 3.0 (3-14) % Eos % (Auto) 2.1 (2-4) % Baso % (Auto) 1.0 (0-2) % Neut # (Auto) 6800 (8380-8402) /uL Lymph # (Auto) 1000 L (5135-6739) /uL Cooke # (Auto) 300 (0-900) /uL Eos # (Auto) 200 (0-450) /uL Baso # (Auto) 100 (0-100) /uL Sodium 136 L (137-145) mmol/L Potassium 3.6 (3.4-5.1) mmol/L Chloride 103 (98-107) mmol/L Carbon Dioxide 22 (22-32) mmol/L BUN 6 L (7-17) mg/dL Creatinine 0.64 (0.52-1.04) mg/dL Estimated GFR > 60.0 (>60) mL/min BUN/Creatinine Ratio 9.4 (6-22) Glucose 109 (80-110) mg/dL Calcium 9.3 (8.4-10.2) mg/dL Total Bilirubin 0.6 (0.2-1.3) mg/dL AST 86 H (14-36) IU/L ALT 52 H (<35) IU/L Alkaline Phosphatase 85 (38-126) U/L Total Creatine Kinase 67 (30-135) U/L CK-MB (CK-2) TNP CK-MB (CK-2) Rel Index TNP Troponin I < 0.012 (0.01-0.034) ng/mL Total Protein 8.2 (6.3-8.2) g/dL Albumin 4.9 (3.5-5.0) g/dL Globulin 3.3 (1.7-4.1) g/dL Albumin/Globulin Ratio 1.5 (1.0-2.8) Lipase 68 (23-300) U/L Ethyl Alcohol < 10 ( - 10) mg/dL ECG Data Interpretation: Normal sinus rhythm artifact noted rate 73 MDM Narrative Medical decision making narrative: At this time patient overall seems to be in quite a bit of pain. Blood work is reassuring. CT angio was done yesterday that was negative. Complaining of left-sided flank pain. She is given pain medication which seems to help a lot. I see no need for repeat imaging. She is offered pain medication but says that she is taking her 's oxycodone she is offered her also prescription however declined. At this time I recommend outpatient follow-up. Discharge Plan Departure Patient Disposition: Home Clinical Impression: Abdominal pain Instructions: Acute Abdominal Pain Activity Restrictions/Additional Instructions: *You have been diagnosed with abdominal pain *What to do: At this time he will need further testing with your primary care provider. Blood work today is overall reassuring and imaging from yesterday did not show the problem. *Continue to take medications as directed *Follow up with your primary care provider in 2-3 days or call [phone] *Return to ER if you should have increasing pain, chest pain, shortness of breath, fever or any new, worsening or concerning symptoms CONTROLLED SUBSTANCE DISCHARGE (Narcotoic/benzodiazepine/Flexeril/Phenergan) 1. You have been prescribed narcotic medications, it does have acetaminophen/Tylenol/paracetamol in it, DO NOT TAKE MORE THAN 4,00mg in 24 h ours of Tylenol. TRAMADOL DOES NOT CONTAIN TYLENOL 2. Please understand that we cannot provide further refills of narcotics, benzodiazepines or controlled substances through the ED and her pain management will need to be through your provider. 3. While on these medications you cannot drive or operate heavy machinery. 4. You cannot sign legal documents or perform any duties such as this. 5. As long as you're taking opiate pain medications he should also be taking a stool softener such as Colace, Dulcolax, MiraLAX or prune juice, to help avoid constipation. Prescriptions: No Action FOLIC ACID/VIT A/VIT B1/VIT (#MULTIVITAMIN) Qty: 0 0RF [FISH OIL] Qty: 0 0RF [VITAMIN B-12] Qty: 0 0RF [VITAMIN C] Qty: 0 0RF [VITAMIN D] Qty: 0 0RF lorazepam 0.5 mg tablet 0.5 mg PO DAILY PRN (Reason: travel anxiety) Qty: 7 0RF spironolactone 25 mg tablet 25 mg PO QDAY Qty: 90 1RF citalopram [Celexa] 20 mg tablet 20 mg PO QDAY Qty: 90 3RF alendronate 70 mg tablet 70 mg PO QWEEK Qty: 14 3RF Rx Instructions: Please give comprehensive administration instructions cyclobenzaprine 10 mg tablet 10 mg PO BID PRN (Reason: muscle spasm) Qty: 30 0RF Rx Instructions: may make drowsy, do not drive during therapy, do not take with other sedating meds acetaminophen 500 mg capsule 1,000 mg PO TID PRN0RF meloxicam 15 mg tablet 15 mg PO DAILY Qty: 90 0RF Rx Instructions: do not take with other NSAIDs diclofenac sodium 1 % gel 2 g TOP QID Qty: 100 0RF Rx Instructions: apply to left shoulder atorvastatin [Lipitor] 20 mg tablet 20 mg PO HS Qty: 90 2RF gemfibrozil 600 mg tablet 600 mg PO Q DAY Qty: 90 3RF omeprazole 40 mg capsule,delayed release(DR/EC) 40 mg PO DAILY Qty: 90 3RF Rx Instructions: Take one capsule by mouth daily as needed pramipexole 0.5 mg tablet 0.5 mg PO HSP PRN (Reason: restless leg(s)) Qty: 90 3RF pantoprazole [Protonix] 40 mg tablet,delayed release (DR/EC) 40 mg PO DAILY Qty: 30 0RF ondansetron 4 mg tablet,disintegrating 4 mg PO TID-QID PRN (Reason: nausea and vomiting) Qty: 10 0RF oxycodone 5 mg tablet 5 mg PO Q4-6H PRN (Reason: pain) Qty: 10 0RF Referrals: Martha Salguero ARNP [Primary Care Provider] -
[2021-03-26] MEDS: HYDROMORPHONE 1 MG INJ IV (01:18)
[2021-03-26] MEDS: PANTOPRAZOLE 40 MG VIAL IV (01:18)
[2021-03-26] MEDS: SODIUM CHLORIDE 0.9% 1,000 ML 1000 ML IV (01:18)
[2021-03-26] MEDS: ONDANSETRON 4 MG/2 ML INJ IV (01:19)
[2021-03-26 01:26] LABS: Creatine Kinase 67 U/L (30-135); Ethanol (ETOH) < 10 mg/dL
[2021-03-26 01:39] LABS: Troponin I < 0.012 ng/mL (0.01-0.034)
[2021-03-26 02:25] VITALS: BP 160/88; PULSE 84; RESP 18; O2SAT 97
== END 2021-03-26 02:43 | disposition home or self-care (01) ==
PROVIDERS: Emergency Provider Emergency Medicine; PCP Nurse Practitioner Family
DX: R10.12 Left upper quadrant pain (principal); R07.9 Chest pain, unspecified; R11.2 Nausea with vomiting, unspecified; M54.6 Pain in thoracic spine; I10 Essential (primary) hypertension; F17.200 Nicotine dependence, unspecified, uncomplicated
CPT/HCPCS: 36415; 74177; 80053; 80320; 81003; 82550; 83690; 84145; 84484; 85025; 93005; 93010; 96361; 96374; 96375; 99284; C9113; J1170; J2405; Q9967

== ENCOUNTER 2021-03-26 15:32 | Emergency (ER) | payer MEDICARE, SELFPAY ==
[2021-03-26] VITALS (7 sets, daily range): BP systolic 142–161; BP diastolic 66–73; PULSE 60–86; RESP 14–16; TEMP 36.3; O2SAT 92–98; BMI 18.3
[2021-03-26] MEDS: HYDROMORPHONE 1 MG INJ IV (19:25)
[2021-03-26] MEDS: SODIUM CHLORIDE 0.9% 1,000 ML 1000 ML IV (19:25)
[2021-03-26] MEDS: ONDANSETRON 4 MG/2 ML INJ IV (19:25)
[2021-03-26] MEDS: PANTOPRAZOLE 40 MG VIAL IV (19:25)
[2021-03-26 19:35] LABS: Add Manual Diff / Slide Review NO; Basophils Absolute Auto 0 /uL (0-100); Basophils Percent Auto 0.3 % (0-2); Eosinophils Absolute Auto 100 /uL (0-450); Eosinophils Percent Auto 1.8 % (2-4); Hematocrit 40.3 % (36-46); Hemoglobin 13.9 g/dL (12.0-16.0); Lymphocytes Absolute Auto 1900 /uL (1100-4500); Lymphocytes Percent Auto 23.2 % (25-40); Mean Corpuscular HGB Conc 34.6 % (30-36); Mean Corpuscular Hemoglobin 35.7 PG (26-34); Mean Corpuscular Volume 103.3 fL (80-100); Monocytes Absolute Auto 900 /uL (0-900); Monocytes Percent Auto 10.5 % (3-14); Neutrophils Absolute Auto 5300 /uL (1500-7000); Neutrophils Percent Auto 64.2 % (50-75); Platelet Count 320 X10^3/uL (150-400); Red Blood Cell Count 3.91 X10^6/uL (4.0-5.2); White Blood Cell Count 8.3 X10^3/uL (4.5-11.0)
--- NOTE | 2021-03-26 19:46 | ED_ITS ---
HPI - Abdominal Pain General Chief Complaint: Urogenital-Female Stated Complaint: Stomach and back pain Time Seen by Provider: 03/26/21 19:04 Source: patient Mode of arrival: Ambulatory History of Present Illness HPI narrative: Patient is is a 75-year-old female who presents for the 3rd time this week with extreme sided left pain radiating to her abdomen. Her initial evaluation she had a full workup including CT angio blood work is decreasing with 2nd time last night where he had blood work she is given Dilaudid pain told is discharged home. The patient her 's oxycodone which she said did not help his pain has progressively not. It is sharp stabbing burning pain radiating from left flank to her abdomen but not down to her groin. She says that she has had kidney stones is but this does not feel like that. She has no prior history of shingles she is feeling itchy, and feels like an area in her flank numb. He denies chest pain or shortness of breath today no she claimed that previously. sHe has not had any fever or chills. She is obviously in quite a bit of discomfort. Related Data Home Medications Medication Instructions Recorded Confirmed FOLIC ACID/VIT A/VIT B1/VIT #0 05/18/11 02/04/21 (#MULTIVITAMIN) [FISH OIL] #0 05/18/11 02/04/21 [VITAMIN B-12] #0 05/18/11 02/04/21 [VITAMIN C] #0 05/18/11 02/04/21 [VITAMIN D] #0 05/18/11 02/04/21 acetaminophen 500 mg capsule 1,000 mg PO TID PRN cap 01/20/21 02/04/21 Previous Rx's Medication Instructions Recorded lorazepam 0.5 mg tablet 0.5 mg PO DAILY PRN #7 tab 01/28/20 cyclobenzaprine 10 mg tablet 10 mg PO BID PRN #30 tab 02/06/20 atorvastatin 20 mg tablet (Lipitor) 20 mg PO HS #90 tab 05/26/20 diclofenac sodium 1 % topical gel 2 g TOP QID #100 gram 05/26/20 gemfibrozil 600 mg tablet 600 mg PO Q DAY #90 tab 05/26/20 omeprazole 40 mg capsule,delayed 40 mg PO DAILY #90 cap 05/26/20 release pramipexole 0.5 mg tablet 0.5 mg PO HSP PRN #90 tab 05/26/20 spironolactone 25 mg tablet 25 mg PO QDAY #90 tab 12/07/20 meloxicam 15 mg tablet 15 mg PO DAILY #90 tab 01/20/21 alendronate 70 mg tablet 70 mg PO QWEEK #14 tab 02/17/21 citalopram 20 mg tablet (Celexa) 20 mg PO QDAY #90 tab 02/17/21 ondansetron 4 mg disintegrating 4 mg PO TID-QID PRN #10 tab 03/24/21 tablet oxycodone 5 mg tablet 5 mg PO Q4-6H PRN #10 tab 03/24/21 pantoprazole 40 mg tablet,delayed 40 mg PO DAILY #30 tab 03/24/21 release (Protonix) gabapentin 300 mg capsule 300 mg PO BEDTIME #30 cap 03/26/21 methocarbamol 750 mg tablet 1,500 mg PO Q8H PRN #20 tab 03/26/21 oxycodone-acetaminophen 5 mg-325 2 tab PO Q6H PRN #14 tab 03/26/21 mg tablet (Percocet) Allergies Allergy/AdvReac Type Severity Reaction Status Date / Time No Known Drug Allergies Allergy Verified 02/04/21 09:23 Review of Systems Review of Systems Narrative: GENERAL: Denies chills, fatigue, malaise, fever, sweats, travel HEENT: Denies sinus pain, ear pain, sore throat, difficulty swallowing, neck pain RESPIRATORY: Denies dyspnea, cough, wheezing, hemoptysis, sputum. CARDIOVASCULAR: Denies chest pain, palpitations, orthopnea, edema GASTROINTESTINAL: Left flank pain, see HPI : Denies dysuria, frequency, incontinence, hematuria, urinary retention MUSCULOSKELETAL: Denies weakness, joint pain, or bony pain SKIN: No rash, no erythema, no pruritus NEUROLOGIC: Denies weakness, dizziness, headache, numbness, change in speech, confusion PSYCHIATRIC: No concerning psychosocial issues. 12 point review of systems is negative except for those stated above and HPI Patient History Medical History Colitis (~2000) Coronary artery disease (03/2021) Depression Effusion, left knee Elevated platelet count Fatty liver (~10/2016) GERD (gastroesophageal reflux disease) H/O vaginal delivery Hiatal hernia (03/2021) History of smoking 30 or more pack years Hyperlipemia Hypertension Injury of extensor tendon of hand Kidney stones (1963) Left anterior knee pain Left patella fracture Left shoulder pain Lower extremity pain, bilateral Macrocytosis Non-healing skin lesion Osteoarthritis Osteopenia after menopause (06/2020) Post-menopausal Restless leg syndrome Right hip pain Situational anxiety Spinal stenosis Weight loss Surgical History History of back surgery (~01/2016) History of tonsillectomy Hx of knee surgery Hx of lithotripsy Status post appendectomy Status post delivery Status post tubal ligation Family History Child Age: 55 Spina bifida Father Age: 101 Arthritis Heart trouble Mother Age: 99 Type 2 diabetes mellitus with complication Essential hypertension Heart trouble Brother No problems noted. Social History Smoking Status: Current some day smoker alcohol intake: current substance use type: does not use Smoking Status: Current some day smoker alcohol intake frequency: 3 or more drinks per day Substance Use Type: does not use Exam Initial Vital Signs Initial Vital Signs: Vital Signs Temperature 97.4 F L 03/26/21 16:04 Pulse Rate 86 03/26/21 16:04 Respiratory Rate 14 03/26/21 16:04 Blood Pressure 161/73 H 03/26/21 16:04 Pulse Oximetry 96 03/26/21 16:04 GENERAL: Alert 75-year-old female appears very uncomfortable guarding and grabbing left side HEENT: Head atraumatic,EOMI, pupils reactive, face symmetric, moist mucous membranes CARDIOVASCULAR: Regular rate and rhythm without murmurs, rubs or gallops. RESPIRATORY: Breath sounds equal bilaterally, no wheezes rales or rhonchi. ABDOMEN: Soft, nontender. Tender left upper quadrant no right upper quadrant pain no lower abdominal pain : LeftCVA tenderness EXTREMITIES: Normal range of motion, no clubbing or edema. Neurovascularly intact NEUROLOGICAL: Alert and oriented x4.Normal gait and speech. Cranial nerves II through XII grossly intact. SKIN: Warm, dry, no laceration, no petechiae, no rashes or lesions. Course Orders Ordered: ED Orders 03/26/21 19:04 EKG-12 Lead Stat 03/26/21 19:25 Complete Blood Count AUTO DIFF Stat Comprehensive Metabolic Panel Stat Lipase Stat Procalcitonin Stat Troponin & CK Cardiac Panel Stat 03/26/21 19:52 CT abdomen pelvis w con Stat Discontinued Medications Gabapentin (Gabapentin 300 Mg Capsule) 300 mg PO NOW ONE Stop: 03/26/21 21:32 Last Admin: 03/26/21 21:41 Dose: 300 mg Documented by: TONIE Hydromorphone HCl (Hydromorphone 1 Mg Inj) 1 mg IV NOW ONE Stop: 03/26/21 19:05 Last Admin: 03/26/21 19:25 Dose: 1 mg Documented by: MARY Sodium Chloride (Normal Saline 0.9%) 1,000 mls @ 1,000 mls/hr IV CONT CARA Last Infusion: 03/26/21 21:44 Dose: 0 mls/hr Documented by: Admin: 03/26/21 19:25 Dose: 1,000 mls/hr Documented by: MARY Ondansetron HCl (Ondansetron 4 Mg/2 Ml Inj) 4 mg IV NOW ONE Stop: 03/26/21 16:12 Last Admin: 03/26/21 19:25 Dose: 4 mg Documented by: MARY Pantoprazole Sodium (Pantoprazole 40 Mg Vial) 40 mg IV NOW ONE Stop: 03/26/21 19:06 Last Admin: 03/26/21 19:25 Dose: 40 mg Documented by: MARY Vital Signs Vital signs: Vital Signs - 8 hr 03/26/21 19:48 03/26/21 19:49 03/26/21 20:30 Pulse Rate 63 62 60 Respiratory Rate 16 Blood Pressure 148/70 H Pulse Oximetry 98 95 03/26/21 21:00 03/26/21 21:30 03/26/21 21:57 Pulse Rate 61 68 61 Respiratory Rate 15 Blood Pressure 142/66 H Pulse Oximetry 92 96 MDM - Abdominal Pain Lab Data Result diagrams: 03/26/21 19:25 03/26/21 19:25 Labs: Lab Results 03/26/21 03/26/21 Range/Units 19:25 19:25 WBC 8.3 (4.5-11.0) X10^3/uL RBC 3.91 L (4.0-5.2) X10^6/uL Hgb 13.9 (12.0-16.0) g/dL Hct 40.3 (36-46) % MCV 103.3 H (80-100) fL MCH 35.7 H (26-34) PG MCHC 34.6 (30-36) % RDW 14.0 (11.6-14.8) % Plt Count 320 (150-400) X10^3/uL Neut % (Auto) 64.2 (50-75) % Lymph % (Auto) 23.2 L (25-40) % Sunflower % (Auto) 10.5 (3-14) % Eos % (Auto) 1.8 L (2-4) % Baso % (Auto) 0.3 (0-2) % Neut # (Auto) 5300 (3411-4874) /uL Lymph # (Auto) 1900 (1436-2787) /uL Sunflower # (Auto) 900 (0-900) /uL Eos # (Auto) 100 (0-450) /uL Baso # (Auto) 0 (0-100) /uL Sodium 136 L (137-145) mmol/L Potassium 3.6 (3.4-5.1) mmol/L Chloride 108 H (98-107) mmol/L Carbon Dioxide 29 (22-32) mmol/L BUN 5 L (7-17) mg/dL Creatinine 0.66 (0.52-1.04) mg/dL Estimated GFR > 60.0 (>60) mL/min BUN/Creatinine Ratio 7.6 (6-22) Glucose 107 (80-110) mg/dL Calcium 9.5 (8.4-10.2) mg/dL Total Bilirubin 0.4 (0.2-1.3) mg/dL AST 62 H (14-36) IU/L ALT 40 H (<35) IU/L Alkaline Phosphatase 59 (38-126) U/L Total Creatine Kinase 49 (30-135) U/L CK-MB (CK-2) TNP CK-MB (CK-2) Rel Index TNP Troponin I < 0.012 (0.01-0.034) ng/mL Total Protein 6.7 (6.3-8.2) g/dL Albumin 4.0 (3.5-5.0) g/dL Globulin 2.7 (1.7-4.1) g/dL Albumin/Globulin Ratio 1.5 (1.0-2.8) Lipase 52 (23-300) U/L Procalcitonin 0.06 (<0.5) ng/mL Point of care testing: Urine Dip Bedside Urine Glucose Negative Bedside Urine Bilirubin - Negative Bedside Urine Ketone - Negative Urine Specific [place] 1.010 Bedside Urine Occult Blood - Negative Bedside Urine pH 6.5 Bedside Urine Protein - Negative Bedside Urine Urobilinogen - Negative Bedside Urine Nitrite - Negative Bedside Urine Leukocytes - Negative Esterase Imaging Data CT scan - abdomen/pelvis: Radiologist's Impression: PROCEDURE:? CT ABDOMEN PELVIS W CON ? INDICATIONS:? left flank pain ? TECHNIQUE:? After the administration of intravenous contrast, axial sections acquired from the lung bases to the pubic symphysis.? Coronal and sagittal reformats were performed.? For radiation dose reduction, the following was used:? automated exposure control, adjustment of mA and/or kV according to patient size.? ? COMPARISON:? [facility], CT, CT ANGIO CHEST ABDOMEN PELVIS, 03/24/2021, 10:12. ? FINDINGS:? Image quality:? Excellent.? ? Lung bases:? Unremarkable. Heart:? No significant findings. ? ABDOMEN: Liver:? [id number] diffuse hepatic steatosis..? ? Gallbladder:? Unremarkable.? ? Biliary ducts:? Unremarkable.? ? Pancreas:? Unremarkable.? ? Spleen:? Unremarkable.? ? Adrenal Glands:? Unremarkable.? ? Kidneys and Ureters:? Unremarkable.? ? ? Stomach and Bowel:? Moderate hiatal hernia.? Stomach, small bowel loops, and colon are unremarkable.? Peritoneum:? No abnormal intraperitoneal fluid.? No free air.? ? Ventral Wall: ? No hernias.? Abdominal Nodes:? No retroperitoneal or mesenteric adenopathy by size criteria.? Vessels:? Aorta and inferior vena cava are normal in size.? ? PELVIS: Pelvic Organs:? Unremarkable.? ? Bladder:? Unremarkable.? ? Pelvic Nodes: No enlarged lymph nodes.? Miscellaneous: No hernias are seen. ? ? ? Bones:? Lumbar degenerative change.? No lytic or blastic bony lesions.? No compression fractures.? Chronic grade 1 anterolisthesis of L3 on L4 measuring approximately 8 mm.? Posterior lateral stacy and pedicle screw fixation at L4-L5.? IMPRESSION:? ? 1. No evidence of acute abdominal process.? No findings which explain patient's symptoms of left flank pain. ? 2. Hepatic steatosis. ? 3. Moderate hiatal hernia.? ? ? Dictated by: Eric Falcon M.D. on 03/26/2021 at 20:25 ? ? ECG Data Interpretation: Normal sinus rhythm rate 66 MI interval 108 QRS [address] changes no T- wave inversions similar to previous EKGs MDM Narrative Medical decision making narrative: Patient has now been here 3 times for similar pain she has had a CT angio CT abdomen and pelvis today blood work including cardiac workup. At this time it really does seem to be left-sided flank pain radiating to her abdomen. Sharp shooting almost nerve pain. I do not see a rash yet but possibly the beginning of shingles versus a muscle spasm. She was taking her 's oxycodone but not helping. Dilaudid and Protonix also seem to help. This also may be pe ptic/gastric ulcer related. We discussed observation in the hospital for pain control versus going home. At this time pain is now controlled she would much rather go home. Will try and give her gabapentin along with muscle relaxers and pain medication. Discharge Plan Departure Patient Disposition: Home Clinical Impression: Back pain Instructions: Thoracic Back Pain Activity Restrictions/Additional Instructions: *You have been diagnosed with back pain *What to do: At this time it is unclear what is causing her pain. Please monitor for possible rash and shingles. *Continue to take medications as directed--> SENT TO [facility] [place] Gabapentin 300 mg at nighttime Percocet 2 tablets every 6 hours for severe pain Methocarbamol 1500 mg every 8 hours if needed for muscle spasm *Follow up with your primary care provider in 2-3 days or call [phone] *Return to ER if you should have increasing pain, vomiting, chest pain or any new, worsening or concerning symptoms CONTROLLED SUBSTANCE DISCHARGE (Narcotoic/benzodiazepine/Flexeril/Phenergan) 1. You have been prescribed narcotic medications, it does have acetaminophen/Tylenol/paracetamol in it, DO NOT TAKE MORE THAN 4,00mg in 24 hours of Tylenol. TRAMADOL DOES NOT CONTAIN TYLENOL 2. Please understand that we cannot provide further refills of narcotics, benzodiazepines or controlled substances through the ED and her pain management will need to be through your provider. 3. While on these medications you cannot drive or operate heavy machinery. 4. You cannot sign legal documents or perform any duties such as this. 5. As long as you're taking opiate pain medications he should also be taking a stool softener such as Colace, Dulcolax, MiraLAX or prune juice, to help avoid constipation. Prescriptions: New gabapentin 300 mg capsule 300 mg PO BEDTIME Qty: 30 0RF oxycodone-acetaminophen [Percocet] 5-325 mg tablet 2 tab PO Q6H PRN (Reason: pain) Qty: 14 0RF methocarbamol 750 mg tablet 1,500 mg PO Q8H PRN (Reason: muscle spasm) Qty: 20 0RF No Action FOLIC ACID/VIT A/VIT B1/VIT (#MULTIVITAMIN) Qty: 0 0RF [FISH OIL] Qty: 0 0RF [VITAMIN B-12] Qty: 0 0RF [VITAMIN C] Qty: 0 0RF [VITAMIN D] Qty: 0 0RF lorazepam 0.5 mg tablet 0.5 mg PO DAILY PRN (Reason: travel anxiety) Qty: 7 0RF spironolactone 25 mg tablet 25 mg PO QDAY Qty: 90 1RF citalopram [Celexa] 20 mg tablet 20 mg PO QDAY Qty: 90 3RF alendronate 70 mg tablet 70 mg PO QWEEK Qty: 14 3RF Rx Instructions: Please give comprehensive administration instructions cyclobenzaprine 10 mg tablet 10 mg PO BID PRN (Reason: muscle spasm) Qty: 30 0RF Rx Instructions: may make drowsy, do not drive during therapy, do not take with other sedating meds acetaminophen 500 mg capsule 1,000 mg PO TID PRN0RF meloxicam 15 mg tablet 15 mg PO DAILY Qty: 90 0RF Rx Instructions: do not take with other NSAIDs diclofenac sodium 1 % gel 2 g TOP QID Qty: 100 0RF Rx Instructions: apply to left shoulder atorvastatin [Lipitor] 20 mg tablet 20 mg PO HS Qty: 90 2RF gemfibrozil 600 mg tablet 600 mg PO Q DAY Qty: 90 3RF omeprazole 40 mg capsule,delayed release(DR/EC) 40 mg PO DAILY Qty: 90 3RF Rx Instructions: Take one capsule by mouth daily as needed pramipexole 0.5 mg tablet 0.5 mg PO HSP PRN (Reason: restless leg(s)) Qty: 90 3RF pantoprazole [Protonix] 40 mg tablet,delayed release (DR/EC) 40 mg PO DAILY Qty: 30 0RF ondansetron 4 mg tablet,disintegrating 4 mg PO TID-QID PRN (Reason: nausea and vomiting) Qty: 10 0RF oxycodone 5 mg tablet 5 mg PO Q4-6H PRN (Reason: pain) Qty: 10 0RF Referrals: Martha Salguero ARNP [Primary Care Provider] -
[2021-03-26 19:52] LABS: Alanine Aminotransferase 40 IU/L (<35); Albumin Globulin Ratio 1.5 (1.0-2.8); Alkaline Phosphatase 59 U/L (38-126); Aspartate Aminotransferase 62 IU/L (14-36); BUN Creatinine Ratio 7.6 (6-22); Bilirubin Total 0.4 mg/dL (0.2-1.3); Blood Urea Nitrogen 5 mg/dL (7-17); Calcium 9.5 mg/dL (8.4-10.2); Carbon Dioxide 29 mmol/L (22-32); Chloride 108 mmol/L (98-107); Creatine Kinase 49 U/L (30-135); Estimated Glomerular Filt Rate > 60.0 mL/min (>60); Globulin 2.7 g/dL (1.7-4.1); Glucose 107 mg/dL (80-110); HEMOLYSIS < 15 (0-50); Lipase 52 U/L (23-300); Potassium 3.6 mmol/L (3.4-5.1); Sodium 136 mmol/L (137-145); Total Protein 6.7 g/dL (6.3-8.2)
--- NOTE | 2021-03-26 19:52 | DI.CT.S_ITS ---
PROCEDURE: CT ABDOMEN PELVIS W CON INDICATIONS: left flank pain TECHNIQUE: After the administration of intravenous contrast, axial sections acquired from the lung bases to the pubic symphysis. Coronal and sagittal reformats were performed. For radiation dose reduction, the following was used: automated exposure control, adjustment of mA and/or kV according to patient size. COMPARISON: [facility], CT, CT ANGIO CHEST ABDOMEN PELVIS, 03/24/2021, 10:12. FINDINGS: Image quality: Excellent. Lung bases: Unremarkable. Heart: No significant findings. ABDOMEN: Liver: [id number] diffuse hepatic steatosis.. Gallbladder: Unremarkable. Biliary ducts: Unremarkable. Pancreas: Unremarkable. Spleen: Unremarkable. Adrenal Glands: Unremarkable. Kidneys and Ureters: Unremarkable. Stomach and Bowel: Moderate hiatal hernia. Stomach, small bowel loops, and colon are unremarkable. Peritoneum: No abnormal intraperitoneal fluid. No free air. Ventral Wall: No hernias. Abdominal Nodes: No retroperitoneal or mesenteric adenopathy by size criteria. Vessels: Aorta and inferior vena cava are normal in size. PELVIS: Pelvic Organs: Unremarkable. Bladder: Unremarkable. Pelvic Nodes: No enlarged lymph nodes. Miscellaneous: No hernias are seen. Bones: Lumbar degenerative change. No lytic or blastic bony lesions. No compression fractures. Chronic grade 1 anterolisthesis of L3 on L4 measuring approximately 8 mm. Posterior lateral stacy and pedicle screw fixation at L4-L5. IMPRESSION: 1. No evidence of acute abdominal process. No findings which explain patient's symptoms of left flank pain. 2. Hepatic steatosis. 3. Moderate hiatal hernia. Dictated by: Eric Falcon M.D. on 03/26/2021 at 20:25 Approved by: Eric Falcon M.D. on 03/26/2021 at 20:30
[2021-03-26 20:04] LABS: Troponin I < 0.012 ng/mL (0.01-0.034)
[2021-03-26 20:09] LABS: Procalcitonin 0.06 ng/mL (<0.5)
[2021-03-26] MEDS: GABAPENTIN 300 MG CAPSULE PO (21:41)
== END 2021-03-26 22:06 | disposition home or self-care (01) ==
PROVIDERS: Emergency Provider Emergency Medicine; PCP Nurse Practitioner Family
DX: R10.12 Left upper quadrant pain (principal); M54.6 Pain in thoracic spine; I10 Essential (primary) hypertension; F17.200 Nicotine dependence, unspecified, uncomplicated
CPT/HCPCS: 36415; 74177; 80053; 81003; 82550; 83690; 84145; 84484; 85025; 93005; 93010; 96361; 96374; 96375; 99284; C9113; J1170; J2405; Q9967

== ENCOUNTER → 2021-04-15 13:35 | Outpatient (CLI) | payer MEDICARE, SELFPAY ==
[2021-04-15 14:23] LABS: Add Manual Diff / Slide Review NO; Basophils Absolute Auto 0 /uL (0-100); Basophils Percent Auto 0.2 % (0-2); Eosinophils Absolute Auto 100 /uL (0-450); Eosinophils Percent Auto 0.6 % (2-4); Hemoglobin 14.2 g/dL (12.0-16.0); Lymphocytes Absolute Auto 1600 /uL (1100-4500); Lymphocytes Percent Auto 12.1 % (25-40); Mean Corpuscular HGB Conc 33.9 % (30-36); Mean Corpuscular Hemoglobin 34.9 PG (26-34); Monocytes Absolute Auto 1500 /uL (0-900); Monocytes Percent Auto 11.9 % (3-14); Neutrophils Absolute Auto 9800 /uL (1500-7000); Neutrophils Percent Auto 75.2 % (50-75); Platelet Count 409 X10^3/uL (150-400); Red Blood Cell Count 4.08 X10^6/uL (4.0-5.2); Red Cell Distribution Width 14.3 % (11.6-14.8)
[2021-04-15 14:36] LABS: Alanine Aminotransferase 17 IU/L (<35); Albumin 4.3 g/dL (3.5-5.0); Albumin Globulin Ratio 1.3 (1.0-2.8); Alkaline Phosphatase 91 U/L (38-126); Aspartate Aminotransferase 32 IU/L (14-36); BUN Creatinine Ratio 9.2 (6-22); Bilirubin Total 0.5 mg/dL (0.2-1.3); Blood Urea Nitrogen 6 mg/dL (7-17); Calcium 9.5 mg/dL (8.4-10.2); Carbon Dioxide 22 mmol/L (22-32); Chloride 105 mmol/L (98-107); Estimated Glomerular Filt Rate > 60.0 mL/min (>60); Globulin 3.3 g/dL (1.7-4.1); Glucose 126 mg/dL (80-110); HEMOLYSIS < 15 (0-50); Potassium 3.6 mmol/L (3.4-5.1); Sodium 135 mmol/L (137-145); Total Protein 7.6 g/dL (6.3-8.2)
[2021-04-15 15:30] LABS: TSH w/ Reflex to FT4 2.55 uIU/mL (0.47-4.68)
[2021-04-15 17:36] LABS: Vitamin D 25 Hydroxy (D3) 81.2 ng/mL (30.0-100.0)
== END ==
PROVIDERS: PCP Nurse Practitioner Family; Referring Provider Nurse Practitioner Family; Visit Provider Nurse Practitioner Family
DX: I25.10 Atherosclerotic heart disease of native coronary artery without angina pectoris (principal); K44.9 Diaphragmatic hernia without obstruction or gangrene
CPT/HCPCS: 36415; 80053; 82306; 84443; 85025

== ENCOUNTER → 2021-05-04 14:35 | Outpatient (CLI) | payer MEDICARE, SELFPAY ==
[2021-05-04 15:30] LABS: Add Manual Diff / Slide Review NO; Basophils Absolute Auto 0 /uL (0-100); Basophils Percent Auto 0.5 % (0-2); Eosinophils Absolute Auto 200 /uL (0-450); Eosinophils Percent Auto 1.8 % (2-4); Hematocrit 41.6 % (36-46); Hemoglobin 14.2 g/dL (12.0-16.0); Lymphocytes Absolute Auto 1600 /uL (1100-4500); Lymphocytes Percent Auto 19.1 % (25-40); Mean Corpuscular Hemoglobin 34.3 PG (26-34); Mean Corpuscular Volume 100.9 fL (80-100); Monocytes Absolute Auto 900 /uL (0-900); Monocytes Percent Auto 10.3 % (3-14); Neutrophils Absolute Auto 5800 /uL (1500-7000); Neutrophils Percent Auto 68.3 % (50-75); Platelet Count 441 X10^3/uL (150-400); Red Blood Cell Count 4.12 X10^6/uL (4.0-5.2); Red Cell Distribution Width 13.9 % (11.6-14.8); White Blood Cell Count 8.5 X10^3/uL (4.5-11.0)
[2021-05-04 15:53] LABS: Erythrocyte Sedimentation Rate 13 MM/HR (0-20)
[2021-05-04 16:15] LABS: Hemoglobin A1C% w Est Avg Glu 5.2 % (4.0-6.0)
[2021-05-04 17:13] LABS: Alanine Aminotransferase 17 IU/L (<35); Albumin 3.8 g/dL (3.5-5.0); Albumin Globulin Ratio 1.5 (1.0-2.8); Alkaline Phosphatase 75 U/L (38-126); Aspartate Aminotransferase 30 IU/L (14-36); BUN Creatinine Ratio 15.3 (6-22); Bilirubin Total 0.4 mg/dL (0.2-1.3); Blood Urea Nitrogen 11 mg/dL (7-17); Calcium 9.4 mg/dL (8.4-10.2); Carbon Dioxide 27 mmol/L (22-32); Chloride 109 mmol/L (98-107); Estimated Glomerular Filt Rate > 60.0 mL/min (>60); Globulin 2.6 g/dL (1.7-4.1); Glucose 86 mg/dL (80-110); HEMOLYSIS < 15 (0-50); Potassium 4.6 mmol/L (3.4-5.1); Sodium 137 mmol/L (137-145); Total Protein 6.4 g/dL (6.3-8.2)
[2021-05-04 17:19] LABS: Transferrin 289 mg/dL (206-381)
== END ==
PROVIDERS: PCP Nurse Practitioner Family; Referring Provider Orthopaedic Surgery; Visit Provider Orthopaedic Surgery
DX: Z01.818 Encounter for other preprocedural examination (principal); Z01.812 Encounter for preprocedural laboratory examination; D64.9 Anemia, unspecified; R73.9 Hyperglycemia, unspecified
CPT/HCPCS: 36415; 80053; 83036; 84466; 85025; 85651; 93005

== ENCOUNTER → 2021-06-08 12:56 | Outpatient (CLI) | payer MEDICARE, SELFPAY ==
[2021-06-08 15:37] LABS: COVID19 -Nasal RAPID Negative (Negative)
== END ==
PROVIDERS: PCP Nurse Practitioner Family; Visit Provider Nurse Practitioner Family
DX: Z20.822 Contact with and (suspected) exposure to COVID-19 (principal)
CPT/HCPCS: 87635; C9803

== ENCOUNTER 2021-06-09 13:25 | Emergency (ER) | payer MEDICARE, SELFPAY ==
[2021-06-09 13:35] VITALS: BP 120/65; PULSE 76; RESP 18; TEMP 36.6; O2SAT 98; BMI 18.3
--- NOTE | 2021-06-09 13:41 | DI.RAD.S_ITS ---
PROCEDURE: XR HIP W PEL IF DONE RT 2V INDICATIONS: Severe R hip pain TECHNIQUE: AP pelvis with lateral view(s) of the right hip(s). COMPARISON: [facility], CR, XR HIP W PEL IF DONE RT 2V, 01/20/2021, 11:52. FINDINGS: Bones: No fractures or dislocations. Pelvic ring appears intact. No suspicious bony lesions. Severe right femoral acetabular joint degeneration. Mild left hip joint and bilateral sacroiliac joint degeneration. Discectomy and lower lumbar spine fusion. Soft tissues: The visualized bowel gas pattern is normal. No suspicious soft tissue calcifications. IMPRESSION: 1. Severe right femoral acetabular joint degeneration. No definitive fractures. If there is history of acute trauma, CT is suggested for further evaluation. Dictated by: Monroe Solis M.D. on 06/09/2021 at 14:03 Approved by: Monroe Solis M.D. on 06/09/2021 at 14:05
--- NOTE | 2021-06-09 14:32 | ED.LOWEXIN ---
HPI - Extremity Injury (Lower) General Chief Complaint: Extremity Injury, Lower Stated Complaint: extreme hip pain,can't sleep or eat,hallucinating Time Seen by Provider: 06/09/21 14:27 Source: patient Mode of arrival: Wheelchair History of Present Illness HPI Narrative: Patient is a 75-year-old female. His having extreme pain to her right hip. She knows that she has bad arthritis. Is scheduled for a hip replacement at the end of this week. His here because of pain and not being able to eat or sleep. Patient has been on pain medications but she states that her orthopedic provider has informed her that she is not going to prescribe any more medications. She had been on hydrocodone in the past. Related Data Home Medications Medication Instructions Recorded Confirmed FOLIC ACID/VIT A/VIT B1/VIT 1 tab DAILY #0 05/18/11 05/04/21 (#MULTIVITAMIN) [FISH OIL] 1 tab DAILY #0 05/18/11 05/04/21 [VITAMIN B-12] 1 tab DAILY #0 05/18/11 05/04/21 [VITAMIN C] 1 tab DAILY #0 05/18/11 05/04/21 [VITAMIN D] 1 tab DAILY #0 05/18/11 05/04/21 Previous Rx's Medication Instructions Recorded lorazepam 0.5 mg tablet 0.5 mg PO DAILY PRN #7 tab 01/28/20 gemfibrozil 600 mg tablet 600 mg PO Q DAY #90 tab 05/26/20 omeprazole 40 mg capsule,delayed 40 mg PO DAILY #90 cap 05/26/20 release pramipexole 0.5 mg tablet 0.5 mg PO HSP PRN #90 tab 05/26/20 spironolactone 25 mg tablet 25 mg PO QDAY #90 tab 12/07/20 meloxicam 15 mg tablet 15 mg PO DAILY #90 tab 01/20/21 citalopram 20 mg tablet (Celexa) 20 mg PO QDAY #90 tab 02/17/21 ondansetron 4 mg disintegrating 4 mg PO TID-QID PRN #10 tab 03/24/21 tablet gabapentin 300 mg capsule 300 mg PO BID #180 cap 04/01/21 atorvastatin 20 mg tablet See Rx Instructions .ROUTE 05/06/21 .COMPLEX #90 tab hydrocodone 5 mg-acetaminophen 325 1 tab PO Q4-6H PRN #14 tab 06/09/21 mg tablet Allergies Allergy/AdvReac Type Severity Reaction Status Date / Time No Known Drug Allergies Allergy Verified 06/09/21 13:41 Review of Systems Gastrointestinal Gastrointestinal: Reports system reviewed and no additional complaints, except as documented Genitourinary Genitourinary: Reports system reviewed and no additional complaints, except as documented Musculoskeletal Musculoskeletal: Reports system reviewed and no additional complaints, except as documented and Reports as per HPI Integumentary/Breasts Skin/Breast: Reports system reviewed and no additional complaints, except as documented Patient History Medical History Alcohol abuse Colitis (~2000) Coronary artery disease (03/2021) Depression Effusion, left knee Elevated platelet count Fatty liver (~10/2016) GERD (gastroesophageal reflux disease) H/O vaginal delivery Hiatal hernia (03/2021) History of smoking 30 or more pack years Hyperlipemia Hypertension Injury of extensor tendon of hand Kidney stones (1963) Left anterior knee pain Left patella fracture Left shoulder pain Lower extremity pain, bilateral Macrocytosis Non-healing skin lesion Osteoarthritis Osteopenia after menopause (06/2020) Post-menopausal Restless leg syndrome Right hip pain Shingles Situational anxiety Spinal stenosis Weight loss Surgical History (Updated 06/07/21 @ 14:37 by Sydney Torrez RN) History of back surgery History of surgery (~06/2020) History of tonsillectomy Hx of knee surgery Hx of lithotripsy Status post appendectomy Status post delivery Status post tubal ligation Family History Child Age: 55 Spina bifida Father Age: 101 Arthritis Heart trouble Mother Age: 99 Type 2 diabetes mellitus with complication Essential hypertension Heart trouble Brother No problems noted. Social History household members: significant other Smoking Status: Current some day smoker alcohol intake: current substance use type: does not use Smoking Status: Current some day smoker tobacco type: vaping alcohol intake frequency: 3 or more drinks per day Substance Use Type: does not use Exam Initial Vital Signs Initial Vital Signs: Vital Signs Temperature 98 F 06/09/21 13:35 Pulse Rate 76 06/09/21 13:35 Respiratory Rate 18 06/09/21 13:35 Blood Pressure 120/65 06/09/21 13:35 Pulse Oximetry 98 06/09/21 13:35 HENMT Head: normal to inspection and normocephalic Resp Effort & Inspection: normal respiratory effort Cardio Rate: regular rate Neuro General: patient alert and patient awake Extrem General: normal to inspection and edema Course Orders Ordered: ED Orders 06/09/21 13:41 XR hip w pel if done RT 2V Stat Discontinued Medications Hydromorphone HCl (Hydromorphone 1 Mg Inj) 1 mg IM NOW ONE Stop: 06/09/21 14:33 Last Admin: 06/09/21 14:49 Dose: 1 mg Documented by: MARY Vital Signs Vital signs: Vital Signs - 8 hr 06/09/21 13:35 06/09/21 15:15 Temperature 98 F Pulse Rate 76 72 Respiratory Rate 18 20 Blood Pressure 120/65 148/75 H Pulse Oximetry 98 94 MDM - Extremity Injury (Lower) Imaging Data Extremity x-ray #1: Radiologist's Impression: [address] [address] XRay Report Signed Patient: Samantha Osman MR#: [id number] : 1945 Acct:[id number] Age/Sex: 75 / F Date of Service: 06/09/21 Loc: ED Accession Number: [id number] ?? Procedure: XR hip w pel if done RT 2V Ordering Provider: Silvester Saavedra D.O. PROCEDURE:? XR HIP W PEL IF DONE RT 2V ? INDICATIONS:? Severe R hip pain ? TECHNIQUE:? AP pelvis with lateral view(s) of the right hip(s).? ? COMPARISON:? [facility], , XR HIP W PEL IF DONE RT 2V, 01/20/2021, 11:52. ? FINDINGS:? ? Bones:? No fractures or dislocations.? Pelvic ring appears intact.? No suspicious bony lesions.? Severe right femoral acetabular joint degeneration.? Mild left hip joint and bilateral sacroiliac joint degeneration.? Discectomy and lower lumbar spine fusion. ? Soft tissues:? The visualized bowel gas pattern is normal.? No suspicious soft tissue calcifications.? ? ? IMPRESSION:? ? 1. Severe right femoral acetabular joint degeneration.? No definitive fractures.? If there is history of acute trauma, CT is suggested for further evaluation. ? ? ? Dictated by: Monroe Solis M.D. on 06/09/2021 at 14:03 ? ? Approved by: Monroe Solis M.D. on 06/09/2021 at 14:05?? MDM Narrative Medical decision making narrative: Patient is scheduled for total joint replacement later this week. She was given a dose of pain medication here and I will send her home with a few tablets although she will need to either talk with her primary doctor or orthopedic provider for further treatment. No indication for admission the hospital Discharge Plan Departure Patient Disposition: Home Clinical Impression: Arthritis of right hip Instructions: Osteoarthritis Activity Restrictions/Additional Instructions: I do recommend that you keep your appointment that you have scheduled for Monday morning with your orthopedic surgeon. Continue to take all of your medications as directed and follow all of the preoperative instructions given to you by Dr. Fragoso. Prescriptions: New hydrocodone-acetaminophen 5-325 mg tablet 1 tab PO Q4-6H PRN (Reason: pain) Qty: 14 0RF No Action FOLIC ACID/VIT A/VIT B1/VIT (#MULTIVITAMIN) 1 tab DAILY Qty: 0 0RF [FISH OIL] 1 tab DAILY Qty: 0 0RF [VITAMIN B-12] 1 tab DAILY Qty: 0 0RF [VITAMIN C] 1 tab DAILY Qty: 0 0RF [VITAMIN D] 1 tab DAILY Qty: 0 0RF lorazepam 0.5 mg tablet 0.5 mg PO DAILY PRN (Reason: travel anxiety) Qty: 7 0RF spironolactone 25 mg tablet 25 mg PO QDAY Qty: 90 1RF citalopram [Celexa] 20 mg tablet 20 mg PO QDAY Qty: 90 3RF atorvastatin 20 mg tablet See Rx Instructions .ROUTE .COMPLEX Qty: 90 0RF Dose Instruction: TAKE ONE TABLET BY MOUTH AT BEDTIME Rx Instructions: TAKE ONE TABLET BY MOUTH AT BEDTIME meloxicam 15 mg tablet 15 mg PO DAILY Qty: 90 0RF Rx Instructions: do not take with other NSAIDs gemfibrozil 600 mg tablet 600 mg PO Q DAY Qty: 90 3RF omeprazole 40 mg capsule,delayed release(DR/EC) 40 mg PO DAILY Qty: 90 3RF Rx Instructions: Take one capsule by mouth daily as needed pramipexole 0.5 mg tablet 0.5 mg PO HSP PRN (Reason: restless leg(s)) Qty: 90 3RF gabapentin 300 mg capsule 300 mg PO BID Qty: 180 0RF ondansetron 4 mg tablet,disintegrating 4 mg PO TID-QID PRN (Reason: nausea and vomiting) Qty: 10 0RF Referrals: Martha Salguero ARNP [Primary Care Provider] -
[2021-06-09] MEDS: HYDROMORPHONE 1 MG INJ IM (14:49)
[2021-06-09 15:15] VITALS: BP 148/75; PULSE 72; RESP 20; O2SAT 94
== END 2021-06-09 15:26 | disposition home or self-care (01) ==
PROVIDERS: Emergency Provider Emergency Medicine; PCP Nurse Practitioner Family
DX: M16.11 Unilateral primary osteoarthritis, right hip (principal); F17.290 Nicotine dependence, other tobacco product, uncomplicated
CPT/HCPCS: 73502; 96372; 99283; J1170

== ENCOUNTER 2021-06-11 05:45 | Day surgery (SDC) | payer MEDICARE, SELFPAY ==
[2021-06-07 13:35] VITALS: BMI 18.3
[2021-06-11] VITALS (14 sets, daily range): BP systolic 125–166; BP diastolic 49–72; PULSE 75–91; RESP 14–18; TEMP 36.1–36.9; O2SAT 94–100; BMI 18.3
--- NOTE | 2021-06-11 | DI.RAD.S_ITS ---
PROCEDURE: XR HIP RT 1V INDICATIONS: R anterior hip repacement. TECHNIQUE: 7 spot fluoroscopic intraoperative images of the right hip. COMPARISON: [facility], CR, XR HIP W PEL IF DONE RT 2V, 06/09/2021, 13:36. FINDINGS: Spot fluoroscopic intraoperative images demonstrate placement of a right total hip arthroplasty. Hardware components are in expected positions. Postoperative changes are seen in overlying soft tissues. IMPRESSION: Status post right hip arthroplasty with expected intraoperative findings. Dictated by: Ty Jensen M.D. on 06/11/2021 at 10:04 Approved by: Ty Jensen M.D. on 06/11/2021 at 10:06
--- NOTE | 2021-06-11 06:00 | DI.RAD.S_ITS ---
PROCEDURE: XR HIP W PEL IF DONE RT 2V INDICATIONS: SERINA TECHNIQUE: 2 view(s) of the hip acquired. COMPARISON: [facility], CR, XR HIP W PEL IF DONE RT 2V, 06/09/2021, 13:36. [facility], CR, XR HIP RT 1V, 06/11/2021, 9:22. FINDINGS: Bones: Patient is status post right hip arthroplasty, with hardware components in expected positions. The hip joint appears congruent. The visualized bony structures appear intact. Lower lumbar fixation is present. Moderate right hip arthritic narrowing is present. Soft tissues: Overlying postoperative changes are noted. No suspicious soft tissue densities. IMPRESSION: Postoperative changes as above. Dictated by: Isaura Dacosta M.D. on 06/11/2021 at 11:03 Approved by: Isaura Dacosta M.D. on 06/11/2021 at 11:04
[2021-06-11] MEDS: VANCOMYCIN 1,000 MG/200 ML PIGGYBACK 200 MG IV (06:58)
[2021-06-11] MEDS: PREGABALIN 75 MG CAPSULE PO (07:00)
[2021-06-11] MEDS: ACETAMINOPHEN 325 MG TABLET 975 MG PO (07:00)
[2021-06-11] MEDS: CELECOXIB 200 MG CAPSULE PO (07:00)
[2021-06-11] MEDS: LACTATED RINGERS 1,000 ML 42 ML IV (07:01)
--- NOTE | 2021-06-11 07:29 | PM.PREOP ---
Pre-operative Note COVID-19 COVID-19 status: Negative Interval Note History & Physical reviewed/Exam performed by Physician: Yes Changes to H&P: No
--- NOTE | 2021-06-11 07:29 | PM.OP.1 ---
Operative Date/Time/Diagnoses Date of procedure: 06/11/21 Time of procedure: 08:00 Pre-op diagnosis: right hip AVN Post-op diagnosis: same Procedure & Clinicians Procedure: Right total hip arthroplasty anterior approach Same procedure as scheduled: Yes Indications: The patient has had progressively worsening right hip pain with radiographic changes consistent with arthritis. Non-operative management has failed and the patient has requested total hip replacement. The risks, benefits and alternatives to surgery were discussed with the patient prior to proceeding. Risks discussed included, but were not limited to, failure to relieve pain, leg length discrepancy, dislocation, stiffness, infection, nerve damage, deep venous thrombosis, pulmonary embolism, stroke, coma, heart attack, permanent paralysis and , as well as the potential need for eventual revision of the prosthetic. Surgeon: Camila Fragoso Counselor At Law: Patricia Mendez Anesthesia Type: General and Spinal Operative Notes Findings: Severe AVN right hip, soft femoral head, adequate bone, adequate stability Closure Type: primary Specimen(s): none sent Prosthetic devices, grafts, tissues, transplants, or devices: Fragoso and Nephew 54 R3 cup, neutral poly liner, 36+ 0 Oxinium head, size 7 standard offset anthology, one 6.5 x 15 mm screw Estimated Blood Loss (mL): 250 Blood products transfused: none Procedure in detail: The patient was brought to the operating room. Patient was carefully positioned in the supine position. Time-out was performed and antibiotics were given. Anesthesia was induced. She was positioned in the on the table in order to allow hyperextension of the hip. The rightlower extremity was prepped and draped in a standard sterile fashion. An anterior right hip incision was made 1 fingerbreadth lateral to the anterior superior iliac spine and extended distally towards the greater trochanter. Dissection was carried out through skin and subcutaneous tissues. Superficial hemostasis was achieved. The fascia over the tensor fascia china was defined and incised with a knife. Two Allis clamps were used to grasp the fascia. Tensor fascia china was retracted laterally. A gelpi retractor was placed. Dissection was carried out down along the neck. The circumflex vessels were carefully identified and cauterized with the Aqua Mantis. There was good visualization of the femoral neck. A Cobra was placed superior to the neck and the gluteus fibers were carefully stripped from that superior aspect of the capsule. A 2nd retractor was placed along the inferior aspect of the neck. The rectus insertion along the capsule was partially released. A 3rd retractor that was then gently placed over the rim of the acetabulum under the rectus. Capsule was carefully incised and released from the intertrochanteric line circumferentially superior to the mid sagittal line and inferiorly to the mid sagittal line until the lesser trochanter was palpable. A tag stitch was placed both in the superior and inferior limb of the capsular insertion. Along the acetabulum capsule was also released up to the mid sagittal 12:00 position. A portion of the labrum was resected. A saw was used to perform an osteotomy at the level of the intertrochanteric line and the junction of the superior femoral neck leaving approximately 1 finger breath of residual inferior neck above the lesser trochanter. A 2nd cut was made along the femoral neck at the base of the head and a napkin ring of neck was removed. Corkscrew was placed in the femoral head and the head was removed without difficulty. Retractors were then repositioned around the acetabulum. Residual labrum was resected and additional osteophytes were removed. A reamer that was 4 mm below the templated size was placed by hand in the acetabulum and it was reamed to centralize the acetabulum. It was then reamed up to 2 under the templated size and fluoroscopy was brought in to confirm the position of the reaming and depth of reaming. I reamed 1 under the anticipated size. A trial cup was placed and noted that it was appropriately sized and fluoroscopy confirmed position and depth. The component was open and inserted without difficulty fluoroscopic imaging was used to confirm that the cup had been adequately seated and was well positioned. It was further stabilized with a single screw. Neutral poly liner was placed. The cup was tested and noted to be stable. Attention was then directed to the femur. The femur was gently hyperextended additional capsular release was performed as needed in order to allow adequate visualization of the proximal femur with elevation of the femur. Patient was placed in a hyperextended slightly adducted position with maximum external rotation. Box osteotome was used to check for any residual neck as well as sclerotic bone along the trochanter. [place] pepper was placed in the femur. Additional broaching was performed. Canal finder was used to determine the alignment of the canal and position. Size 1 broach was placed. The canal was then appropriately broached up to the templated size as long as there was adequate stability of the broach and serial advancement of the broach without excessive impingement. Specific attention was directed at avoiding varus attempting to direct the distal aspect of the broach more anteriorly and avoiding excessive anteversion. Trial reduction showed acceptable range of motion, good stability, no posterior impingement, scientology of leg length and appropriate lateral shuck. I also hyperflexed the hip and checked that there was no impingement anteriorly and there was good stability with flexion, adduction and internal rotation. Marcaine and Exparel were injected. The stem was placed without difficulty. Repeat trial reduction and x-ray showed acceptable overall position, length, and no evidence of the femoral fracture. Final head was placed. Wound was meticulously irrigated with normal saline. The hip was reduced and additional Exparel and Marcaine were injected. The capsule was closed with interrupted nonabsorbable sutures. The fascia of the tensor was closed with interrupted and running Vicryl. No drain was placed. Any tensor fascia china muscle that appeared to be contused or injured which was a minimal amount was carefully resected. Capsule around the tensor was injected with Exparel and Marcaine. The skin was closed with barbed stitches for the subcutaneous tissue and skin. We also used surgical glue. The wound was dressed sterilely. Brief Betadine soak was also used and was meticulously irrigated with normal saline. Patient was transferred to recovery room in satisfactory condition. Complications: none Post-operative Condition: stable Disposition: Acute Care Plan for aftercare: The patient will be maintained on a standard total hip replacement protocol with weight bearing as tolerated and anterior hip precautions. The patient will receive Aspirin and sequential compression devices for DVT prophylaxis. The patient will be discharged home when safe for the home environment.
[2021-06-11] MEDS: CEFAZOLIN 2 GM/20 ML SYRINGE IV ×3 (08:13→23:39)
[2021-06-11] MEDS: TRANEXAMIC ACID 1,000 MG VIAL 2000 MG INJ ×2 (08:13→10:08)
--- NOTE | 2021-06-11 08:33 | SUR.OPER ---
Supine on padded [place] table with bilateral legs secured in padded positioning boots and suspended in positioning spars, operative leg in traction per surgeon. Head on one pillow. Arm on non-operative side secured on padded armboard <90 degrees abduction. Arm on operative side padded and resting across chest then secured with tape over sheet. Padded perineal post in place per surgeon.
[2021-06-11] MEDS: BUPIVACAINE 0.25% (PF) 60 ML, EPINEPHrine 0.3 MG INJ (08:44)
[2021-06-11] MEDS: BUPIVACAINE LIPOSOME 266 MG/20 ML VIAL INJ (08:45)
[2021-06-11] MEDS: LACTATED RINGERS 1,000 ML 125 ML IV ×2 (11:35→19:04)
--- NOTE | 2021-06-11 11:59 | PC.NURSE ---
Addendum entered by Dasia Burkett R.N. 06/11/21 17:48: Pt more awake at this time. Lower extremity awake, Med w/Dilaudid po w/good relief. Worked w/PT, sitting in chair. Dsg remains CDI. Stable post op course. Call light w/in reach, pt calls appropriately for needs Continue w/plan of care. Addendum entered by Dasia Burkett R.N. 06/11/21 12:13: Med at this time w/ Oxycodone 10mg po Original Note: Pt arrived from PACU at 1110 Awake/drowsy. SpO2 97% RA Aquacell Dsg to anterior right hip CDI IVF LR @ 125cc/hr infusing via pump into RFA w/o incidence. Stable post op course. Call light w/in reach, bed alarm on for pt safety.
[2021-06-11] MEDS: OXYCODONE IR 5 MG TABLET 10 MG PO (12:10)
[2021-06-11] MEDS: IBUPROFEN 400 MG TABLET PO ×4 (13:24→23:38)
[2021-06-11] MEDS: HYDROMORPHONE 2 MG TABLET PO (15:13)
--- NOTE | 2021-06-11 15:35 | PT.IIE ---
Current Diagnoses Unilateral primary osteoarthritis, right hip (06/11/21) Idiopathic aseptic necrosis of right femur (06/11/21) Surgery Performed Operation Date: 06/11/21 07:45 Actual Procedures p Total Hip Arthroplasty/Anterior Approach(Right) - Camila Fragoso MD Surgical History (Last Updated 06/07/21 @ 14:37 by Sydney Torrez, RN) History of tonsillectomy Status post appendectomy Status post delivery Status post tubal ligation Medical History (Last Reviewed 06/09/21 @ 18:23 by Silvestre Saavedra DO) Alcohol abuse Colitis (~2000) Coronary artery disease (03/2021) Depression Effusion, left knee Elevated platelet count Fatty liver (~10/2016) GERD (gastroesophageal reflux disease) H/O vaginal delivery Hiatal hernia (03/2021) History of smoking 30 or more pack years Hyperlipemia Hypertension Injury of extensor tendon of hand Kidney stones (1963) Left anterior knee pain Left patella fracture Left shoulder pain Lower extremity pain, bilateral Macrocytosis Non-healing skin lesion Osteoarthritis Osteopenia after menopause (06/2020) Post-menopausal Restless leg syndrome Right hip pain Shingles Situational anxiety Spinal stenosis Weight loss Physical Therapy Inpatient Evaluation/Re-Eval M1 PT/OT-IP Prior Functional Status Start: 06/11/21 16:42 Freq: NEEDED Status: Active Protocol: Document 06/11/21 15:35 AB (Rec: 06/11/21 16:52 AB [id number]) Medical Review Prior Functional Status Medical History Reviewed Yes Communication able to make needs known Mobility and Gait pt stated that she is modifiedindependent with all mobilities and ambulation without AD Social History Household Members significant other Living Arrangements House Number of Floors (Floors) Two Floors Number of Stairs To Enter/Railing? no steps to enter 8+landing+9 steps R rail to get to living area Home Environment Standard Height Toilet,Walk in Shower,Built-In Shower Seat Home Equipment Front Wheel Walker,Grab Bars In Shower M2 PT-IP Current Condition Start: 06/11/21 16:42 Freq: NEEDED Status: Active Protocol: Document 06/11/21 15:35 AB (Rec: 06/11/21 16:52 AB [email or web address]) Physical Therapy Current Condition Current Condition Evaluation Date 06/11/21 Treatment Diagnosis s/p R SERINA anterior approach; difficulty in walking Onset Date 06/11/21 M3 PT-IP Subjective Start: 06/11/21 16:42 Freq: NEEDED Status: Active Protocol: Document 06/11/21 15:35 AB (Rec: 06/11/21 16:52 AB [id number]) Subjective Physical Therapy Visit Type Type Initial Evaluation Visit Start Time 15:35 Visit Stop Time 16:17 Total Visit Minutes 42 Number of STONE REPAIRER Visits 0 Physical Therapy Visit Comments Patient Comments agreeable to do PT Therapy Pain Assessment Pain When Pain Assessed At Rest Location Right Knee Intensity 5 Scale Used Numeric (0 - 10) Pain Management Techniques Modification of Treatment,Re- positioning,Timing of Activity with Medications Right Hip Intensity 2 Scale Used with mobility Pain Management Techniques Distraction,Modification of Treatment,Re-positioning, Timing of Activity with Medications M4 PT-IP Mobility and Gait Start: 06/11/21 16:42 Freq: NEEDED Status: Active Protocol: Document 06/11/21 15:35 AB (Rec: 06/11/21 16:52 AB [email or web address]) PT-Bed Mobility Assessment Supine to Sit Supine to Sit Standby Assistance PT-Transfer Assessment Sit to and From Stand Sit to and from Stand Contact Guard Assistance,1 Person Assistance,Use of Upper Extremities Equipment Transfer Assistive Device Front Wheeled Walker Orthotic/Prosthetic Devices or Brace: No Transfers Transfer Destination Chair Transfer Technique ambulated Transfer Ability Level of Assist Contact Guard Assistance, Minimal Assistance,1 Person Assistance,Use of Upper Extremities Comments Mobility Comments educated pt on anterior hip precautions. completed supine to sit SBA. completed sit to stand CGA and ambulated using FWW ~ 50 ft CGA to min A with cues for hip precautions. pt agreed to sit on chair. positioned pt on chair. call light and table placed within reach. Gait Assessment Gait Gait Assistance Required: Contact Guard Assist,Minimum Assistance Distance (Feet) 50 Able to Maintain Weight Bearing Status Yes During Gait Assistive Devices Assistive Device Gait Belt,Front Wheeled Walker Orthotic/Prosthetic Devices or Brace: No Gait Deviations General Gait Pattern Antalgic,Decreased Stride Length,Decreased Feet Clearance Factors Limiting Gait Function Factors Limiting Gait Function Decreased Activity Tolerance, Decreased Strength,Pain,Poor Balance PT-Balance Assessment Sitting Balance and Reactions Static Sitting Balance Ability Good Dynamic Sitting Balance Ability Good Standing Balance and Reactions Static Standing Balance Ability Fair Dynamic Standing Balance Ability Fair Device Used FWW M5 PT-IP Objective Assessments Start: 06/11/21 16:42 Freq: NEEDED Status: Active Protocol: Document 06/11/21 15:35 AB (Rec: 06/11/21 16:52 AB [id number]) Orientation Orientation/Cognition Level of Alertness Alert Orientation Name,Age,Birthday,Month,Date, Year,Day of Week,Place, Situation Language Function Ability No Deficits Noted Safety Awareness Decreased Safety Awareness Memory Description Short Term Impaired Gross Range of Motion Lower Extremity ROM Assessment Within Functional Limits Strength Lower Extremity Strength Assessment Right Impaired Hip 3+/5 Knee 4-/5 Sensation Assessment Sensation Gross Sensation WNL Muscle Tone Muscle Tone WNL Yes M6 PT-IP Treatment Start: 06/11/21 16:42 Freq: NEEDED Status: Active Protocol: Document 06/11/21 15:35 AB (Rec: 06/11/21 16:52 AB [id number]) Physical Therapy Treatment Education Education Provided Precautions,Weight Bearing Status,Post-Op Packet,Safety M7 PT-IP Assessment and Plan Start: 06/11/21 16:42 Freq: NEEDED Status: Active Protocol: Document 06/11/21 15:35 AB (Rec: 06/11/21 16:52 AB [id number]) PT Summary Assessment and Plan Potential Rehabilitation Potential Good Status of Condition at Evaluation Stable Summary Impairments Pain,ROM,Strength,Balance, Coordination,Sensation,Tone, Cognition,Bed Mobility, Transfers,Gait,Activity Tolerance Assessment Summary pt s/p R anterior SERINA and just had surgery this mornign. pt requiring CGA to min A with mobility using FWW. pt will likely progress during hospital stay. pt plans to go home and her BF assist her at home. pt stated that she has outpt PT set up. Goals Bed Mobility Goal Independent Transfer Goal Independent,Front Wheeled Walker Gait Goal Independent,Front Wheel Walker Gait Distance 250 Other Goals up/down 18 steps R rail ascending SBA Days to Meet Goals 5 Frequency of Treatment Frequency Of Treatment Twice a Day Treatment Plan Physical Therapy Treatment Plan Bed Mobility Training,Transfer Training,Gait Training, Therapeutic Exercise,Balance Retraining,Post Op Education, Discharge Planning,Hot or Cold Pack,Neuromuscular Re-ed, Coordination Retraining,Manual Therapy Precautions Anterior Hip Precautions No Hip Extension,No Hip External Rotation Weight Bearing Status Weight Bearing Status Weight Bear as Tolerated Allowed Weight Bearing Amount (enter % RLE WBAT or #) (%) Recommendations To Nursing Amount of Assist Needed 1 Person Assist Discharge Recommendations PT Discharge Recommendations Home with Assistance, Outpatient PT Transportation Needs at Discharge Private Vehicle
[2021-06-11] MEDS: ACETAMINOPHEN 325 MG TABLET 650 MG PO ×2 (15:39→20:41)
[2021-06-11] MEDS: ASPIRIN EC 81 MG TABLET PO (20:40)
[2021-06-11] MEDS: PRAMIPEXOLE 0.25 MG TABLET 0.5 MG PO (20:41)
[2021-06-11] MEDS: DOCUSATE 100 MG CAPSULE PO (20:41)
[2021-06-11] MEDS: GABAPENTIN 300 MG CAPSULE PO (20:41)
[2021-06-11] MEDS: diphenhydrAMINE 25 MG TABLET 50 MG PO (23:39)
[2021-06-12] MEDS: LACTATED RINGERS 1,000 ML 125 ML IV (02:27)
[2021-06-12] MEDS: HYDROMORPHONE 2 MG TABLET PO (04:23)
[2021-06-12] MEDS: IBUPROFEN 400 MG TABLET PO ×3 (04:24→13:30)
[2021-06-12 04:45] VITALS: BP 138/70; PULSE 79; RESP 18; TEMP 36.4; O2SAT 94
[2021-06-12 05:33] LABS: Hematocrit 35.7 % (36-46)
[2021-06-12] MEDS: PANTOPRAZOLE DR 40 MG TABLET PO (07:18)
[2021-06-12 08:14] VITALS: BP 107/51; PULSE 69; RESP 18; TEMP 36.6; O2SAT 95
--- NOTE | 2021-06-12 08:56 | PC.NURSE ---
Alert and oriented. Up in chair for b'fast. offers no overt complaint of pain. Jemima. sitting in recliner having b'fast.
--- NOTE | 2021-06-12 08:57 | PM.DS.1 ---
History of Present Illness History of Present Illness Date Patient Seen: 06/12/21 Time Patient Seen: 08:57 Chief complaint: RT SERINA *OPB* Narrative: Operative Date/Time/Diagnoses Date of procedure: 06/11/21 Time of procedure: 08:00 Pre-op diagnosis: right hip AVN Post-op diagnosis: same Procedure & Clinicians Procedure: Right total hip arthroplasty anterior approach Same procedure as scheduled: Yes Indications: The patient has had progressively worsening right hip pain with radiographic changes consistent with arthritis. Non-operative management has failed and the patient has requested total hip replacement. The risks, benefits and alternatives to surgery were discussed with the patient prior to proceeding. Risks discussed included, but were not limited to, failure to relieve pain, leg length discrepancy, dislocation, stiffness, infection, nerve damage, deep venous thrombosis, pulmonary embolism, stroke, coma, heart attack, permanent paralysis and , as well as the potential need for eventual revision of the prosthetic. Surgeon: Camila Fragoso Housekeeper Cleaning Cooking: Patricia Mendez Anesthesia Type: General and Spinal Operative Notes Findings: Severe AVN right hip, soft femoral head, adequate bone, adequate stability Closure Type: primary Specimen(s): none sent Prosthetic devices, grafts, tissues, transplants, or devices: Fragoso and Nephew 54 R3 cup, neutral poly liner, 36+ 0 Oxinium head, size 7 standard offset anthology, one 6.5 x 15 mm screw Estimated Blood Loss (mL): 250 Blood products transfused: none Discharge Providers Provider Discharge Date: 06/12/21 Primary care physician: SEJAL Brunson Consults: 06/11/21 06:00 Consult to Anesthesiology Routine Comment: Consulting Provider: Anesthesiologist Reason for consultation: Regional block for post operative pain control 06/11/21 11:08 Consult to Discharge Planning Routine Comment: Consult to Physical Therapy Evaluate & Treat Comment: Physician Instructions: post op SERINA protocol Consult to Respiratory Therapy Evaluate & Treat Comment: Physician Instructions: Evaluate and treat Discharge provider: Michelle Espinoza PA-C Summary Hospital Course Discharge Diagnosis: s/p R SERINA Hospital Course: Ms Osman'jd hospital course was unremarkable. On POD# 1 she was feeling well and wanted to go home. She was eating and voiding without difficulty, and her pain was well-controlled with oral medication. She was evaluated by PT prior to discharge. Exam Vital Signs (past 8 hours): - 06/12/21 04:45 06/12/21 08:14 Temperature 97.5 F L 97.9 F Pulse Rate 79 69 Respiratory Rate 18 18 Blood Pressure 138/70 107/51 L Pulse Oximetry 94 95 Oxygen Delivery Method Room Air Oxygen Flow Rate 0 Narrative Exam Narrative: 3/5 strength in hip flexors on right; 5/5 on left and 5/5 in quadriceps, hamstrings, DF, PF, and EHL bilaterally. Sensation to light touch intact throughout BLE. Calves soft, compressible, nontender and without palpable cords or masses. Dressing CDI. Const General: cooperative and healthy appearing Orientation: alert, awake and oriented x3 Objective Labs Result Diagrams: 06/12/21 05:00 Labs: Laboratory Results - last 24 hr 06/12/21 05:00 Hgb 12.0 Hct 35.7 L PFSH Medical History Alcohol abuse Colitis (~2000) Coronary artery disease (03/2021) Depression Effusion, left knee Elevated platelet count Fatty liver (~10/2016) GERD (gastroesophageal reflux disease) H/O vaginal delivery Hiatal hernia (03/2021) History of smoking 30 or more pack years Hyperlipemia Hypertension Injury of extensor tendon of hand Kidney stones (1963) Left anterior knee pain Left patella fracture Left shoulder pain Lower extremity pain, bilateral Macrocytosis Non-healing skin lesion Osteoarthritis Osteopenia after menopause (06/2020) Post-menopausal Restless leg syndrome Right hip pain Shingles Situational anxiety Spinal stenosis Weight loss Surgical History (Updated 06/12/21 @ 09:01 by Michelle Espinoza PA-C) History of back surgery History of surgery (~06/2020) History of tonsillectomy Hx of knee surgery Hx of lithotripsy Status post appendectomy Status post delivery Status post tubal ligation Family History Child Age: 55 Spina bifida Father Age: 101 Arthritis Heart trouble Mother Age: 99 Type 2 diabetes mellitus with complication Essential hypertension Heart trouble Brother No problems noted. Social History household members: significant other Smoking Status: Current some day smoker alcohol intake: current substance use type: does not use Discharge Assessment & Plan Assessment and Plan Assessment: POD# 1 s/p RIGHT total hip arthroplasty, anterior approach Plan of Treatment: Discharge home, multimodal pain control, ASA 81 mg BID x 6 weeks for VTE prophylaxis Discharge Plan Discharge Plan Patient Disposition: Home Discharge orders & Medications Discharge Orders: Discharge (Order); Ordered 06/12/21 Ordered By: Michelle Espinoza Prescriptions: New acetaminophen 325 mg Tablet 650 mg PO TID Qty: 180 1RF aspirin 81 mg Tablet,Delayed Release (Dr/Ec) 81 mg PO BID Qty: 90 0RF docusate sodium 100 mg Capsule 100 mg PO BID PRN (Reason: constipation) Qty: 60 2RF oxycodone 5 mg Tablet 5 mg PO Q4H PRN (Reason: pain, severe) Qty: 60 0RF Continued FOLIC ACID/VIT A/VIT B1/VIT (#MULTIVITAMIN) 1 tab PO DAILY Qty: 0 0RF [FISH OIL] 1 tab PO DAILY Qty: 0 0RF [VITAMIN B-12] 1 tab PO DAILY Qty: 0 0RF [VITAMIN C] 1 tab PO DAILY Qty: 0 0RF [VITAMIN D] 1 tab PO DAILY Qty: 0 0RF lorazepam 0.5 mg tablet 0.5 mg PO DAILY PRN (Reason: travel anxiety) Qty: 7 0RF spironolactone 25 mg tablet 25 mg PO QDAY Qty: 90 1RF citalopram [Celexa] 20 mg tablet 20 mg PO QDAY Qty: 90 3RF atorvastatin 20 mg tablet See Rx Instructions .ROUTE .COMPLEX Qty: 90 0RF Dose Instruction: TAKE ONE TABLET BY MOUTH AT BEDTIME Rx Instructions: TAKE ONE TABLET BY MOUTH AT BEDTIME meloxicam 15 mg tablet 15 mg PO DAILY Qty: 90 0RF Rx Instructions: do not take with other NSAIDs gemfibrozil 600 mg tablet 600 mg PO Q DAY Qty: 90 3RF omeprazole 40 mg capsule,delayed release(DR/EC) 40 mg PO DAILY Qty: 90 3RF Rx Instructions: Take one capsule by mouth daily as needed pramipexole 0.5 mg tablet 0.5 mg PO HSP PRN (Reason: restless leg(s)) Qty: 90 3RF gabapentin 300 mg capsule 300 mg PO BID Qty: 180 0RF ondansetron 4 mg tablet,disintegrating 4 mg PO TID-QID PRN (Reason: nausea and vomiting) Qty: 10 0RF Discontinued hydrocodone-acetaminophen 5-325 mg tablet 1 tab PO Q4-6H PRN (Reason: pain) Qty: 14 0RF Follow up/Referrals: Martha Salguero ARNP [Primary Care Provider] - Camila Fragoso MD [Physician] - As previously scheduled (Follow up with Dr Fragoso on 06/23/2021 @ 10:00 am at [facility] office in [place].) Diet/Activity/Treatments Diet: Diet as Tolerated Activity: WBAT to RLE. Anterior hip precautions. Cold/Heat Therapy: Ice to hip as needed for pain. Skin/Wound/Dressing Care Report to your healthcare provider any signs of infection, such as:: chills, fever, night sweats, unusual drainage and unusual redness Dressing: May shower. Leave Aquacel dressing in place until follow up appointment. No bathing or otherwise soaking incision. Visit Report/Discharge Packet Instructions: DI for Hip Replacement Stand Alone Forms: Surgery Discharge Discharge Data Primary Care Provider: Martha Salguero Attending Provider: Camila Fragoso Quality VTE Deep Vein Thrombosis/Pulmonary Embolism Present on Admission: No
[2021-06-12] MEDS: GABAPENTIN 300 MG CAPSULE PO (10:04)
[2021-06-12] MEDS: ATORVASTATIN 20 MG TABLET PO (10:04)
[2021-06-12] MEDS: SPIRONOLACTONE 25 MG TABLET PO (10:04)
[2021-06-12] MEDS: gemfibroziL 600 MG TABLET PO (10:04)
[2021-06-12] MEDS: ACETAMINOPHEN 325 MG TABLET 650 MG PO (10:05)
[2021-06-12] MEDS: ASPIRIN EC 81 MG TABLET PO (10:05)
[2021-06-12] MEDS: DOCUSATE 100 MG CAPSULE PO (10:05)
[2021-06-12] MEDS: CITALOPRAM 10 MG TABLET 20 MG PO (10:06)
--- NOTE | 2021-06-12 10:30 | PT.IPTN ---
Current Diagnoses Unilateral primary osteoarthritis, right hip (06/11/21) Idiopathic aseptic necrosis of right femur (06/11/21) Other specified postprocedural states (06/11/21) Surgery Performed Operation Date: 06/11/21 07:45 Actual Procedures p Total Hip Arthroplasty/Anterior Approach(Right) - Camila Fragoso MD Physical Therapy Treatment Note M2 PT-IP Current Condition Start: 06/11/21 16:42 Freq: NEEDED Status: Active Protocol: Document 06/11/21 15:35 AB (Rec: 06/11/21 16:52 AB [id number]) Physical Therapy Current Condition Current Condition Evaluation Date 06/11/21 Treatment Diagnosis s/p R SERINA anterior approach; difficulty in walking Onset Date 06/11/21 M3 PT-IP Subjective Start: 06/11/21 16:42 Freq: NEEDED Status: Active Protocol: Document 06/12/21 10:05 KS (Rec: 06/12/21 12:41 KS [id number]) Subjective Physical Therapy Visit Type Type Treatment Note Visit Start Time 10:05 Visit Stop Time 10:30 Total Visit Minutes 25 Number of FLOWER GRADER Visits 1 Physical Therapy Visit Comments Patient Comments agreeable to do PT M4 PT-IP Mobility and Gait Start: 06/11/21 16:42 Freq: NEEDED Status: Active Protocol: Document 06/12/21 10:05 KS (Rec: 06/12/21 12:41 KS [id number]) PT-Transfer Assessment Sit to and From Stand Sit to and from Stand Standby Assistance,1 Person Assistance,Use of Upper Extremities Equipment Transfer Assistive Device Front Wheeled Walker Orthotic/Prosthetic Devices or Brace: No Transfers Transfer Destination Chair Transfer Technique ambulated Transfer Ability Level of Assist Standby Assistance,Contact Guard Assistance,1 Person Assistance,Use of Upper Extremities Comments Mobility Comments Pt in chair upon arrival and agreeable to stair training. SBA for sit<>Stand w/ FWW and ambulation to w/c in hallway. W/c transport to stairs for energy conservation and pt completed 9 total steps w/ R hand rail SBA w/ step to pattern and cues for sequencing. Pt then ambulated ~200 ft back to room w/ step to gait SBA using FWW. Pt got back into chair and has her own FWW for home use. Gait Assessment Gait Gait Assistance Required: Standby Assistance,1 Person Assist Distance (Feet) 210 Able to Maintain Weight Bearing Status Yes During Gait Assistive Devices Assistive Device Gait Belt,Front Wheeled Walker Orthotic/Prosthetic Devices or Brace: No Gait Deviations General Gait Pattern Antalgic,Decreased Stride Length,Decreased Feet Clearance,Step-to Gait Factors Limiting Gait Function Factors Limiting Gait Function Decreased Activity Tolerance, Decreased Strength,Pain,Poor Balance Comments Gait Comments See mobility section Stair Climbing Assessment Evaluation Level of Assist On Stairs Standby Assistance,1 Person Assistance Devices Stair Climbing Assistive Devices Right Railing Technique/Endurance Stair Climbing Direction Ascend and Descend Stair Climbing Technique Step to Step Number of Steps Climbed 3 Stair Climbing Set # Repetitions (reps) 3 Comments Stair Climbing Comments Pt ascended/descended 9 total steps w/ R hand rail and step to pattern w/ cues for leg sequencing and SBA. Pt confirms she will put chair on stair landing at home and feels safe to ascend stairs to second floor. PT-Balance Assessment Sitting Balance and Reactions Static Sitting Balance Ability Good Dynamic Sitting Balance Ability Good Standing Balance and Reactions Static Standing Balance Ability Good Dynamic Standing Balance Ability Fair Device Used FWW M5 PT-IP Objective Assessments Start: 06/11/21 16:42 Freq: NEEDED Status: Active Protocol: Document 06/11/21 15:35 AB (Rec: 06/11/21 16:52 AB [id number]) Orientation Orientation/Cognition Level of Alertness Alert Orientation Name,Age,Birthday,Month,Date, Year,Day of Week,Place, Situation Language Function Ability No Deficits Noted Safety Awareness Decreased Safety Awareness Memory Description Short Term Impaired Gross Range of Motion Lower Extremity ROM Assessment Within Functional Limits Strength Lower Extremity Strength Assessment Right Impaired Hip 3+/5 Knee 4-/5 Sensation Assessment Sensation Gross Sensation WNL Muscle Tone Muscle Tone WNL Yes M6 PT-IP Treatment Start: 06/11/21 16:42 Freq: NEEDED Status: Active Protocol: Document 06/12/21 10:05 KS (Rec: 06/12/21 12:41 KS [id number]) Physical Therapy Treatment Education Education Provided Precautions,Weight Bearing Status,Post-Op Packet,Safety M7 PT-IP Assessment and Plan Start: 06/11/21 16:42 Freq: NEEDED Status: Active Protocol: Document 06/12/21 10:05 KS (Rec: 06/12/21 12:41 KS [id number]) PT Summary Assessment and Plan Potential Rehabilitation Potential Good Status of Condition at Evaluation Stable Summary Impairments Pain,ROM,Strength,Balance, Coordination,Sensation,Tone, Cognition,Bed Mobility, Transfers,Gait,Activity Tolerance Assessment Summary Pt able to ambulate ~210 ft w/ FWW and complete 9 total steps w/ SBA and cues. She is eager to get home and feels safe and able to return home w / her boyfriend to assist if needed. Pt has FWW and feels safe to complete stairs and will place chair on stair landing as agreed upon. She will benefit from outpatient rehab to improve strength and balance. Goals Bed Mobility Goal Independent Transfer Goal Independent,Front Wheeled Walker Gait Goal Independent,Front Wheel Walker Gait Distance 250 Other Goals up/down 18 steps R rail ascending SBA Days to Meet Goals 5 Frequency of Treatment Frequency Of Treatment Twice a Day Treatment Plan Physical Therapy Treatment Plan Bed Mobility Training,Transfer Training,Gait Training, Therapeutic Exercise,Balance Retraining,Post Op Education, Discharge Planning,Hot or Cold Pack,Neuromuscular Re-ed, Coordination Retraining,Manual Therapy Precautions Anterior Hip Precautions No Hip Extension,No Hip External Rotation Weight Bearing Status Weight Bearing Status Weight Bear as Tolerated Allowed Weight Bearing Amount (enter % RLE WBAT or #) (%) Recommendations To Nursing Amount of Assist Needed 1 Person Assist Discharge Recommendations PT Discharge Recommendations Home with Assistance, Outpatient PT Transportation Needs at Discharge Private Vehicle
--- NOTE | 2021-06-12 11:15 | CM.DANOTE ---
DCP: Case received, EMR reviewed and met with patient. Introduced self and role. Was able to obtain information regarding patient's baseline activity level prior to her surgery. DCP assessment completed with information currently available. Patient is a 75 year old female who admitted yesterday morning to the care of the orthopedic team. PCP: SEJAL Harris. Payer: confirmed: Medicare. Patient came to the hospital via private vehicle for a surgical procedure. Patient had right hip surgery. Patient has history of osteoarthritis. Met with patient in her room. She is alert and oriented. She resides in [place] with life partner, Mar. At her baseline, she indicated that she does not use any DME. Here in the hospital, she has been able to ambulate with her walker. According to P.T, she has to do stair clearance. P: Patient is to be discharging home today, but will work with P.T. on stair training. Ana Rosa Garza RN/Requirements Analyst Discharge Planning/Care Management CM Discharge Assessment Start: 06/12/21 11:14 Freq: Status: Active Protocol: Document 06/12/21 11:14 (Rec: 06/12/21 11:15 [id number]) Discharge Planning Assessment Assigned [employer] Ana Rosa Garza RN/Requirements Analyst Advance Directives? Yes Advance Directives on File Yes History Provided By Patient,Medical Record Prior Living Arrangements House Household Members significant other Type of transporation used prior to Drives own vehicle admit Independent with ADL's Yes Is patient alert and oriented? Yes Caregiver for Another No Barriers to Discharge No Discharge Plan Home Transportation Arrangement Life Partner, Mar. Referrals Initiated None needed Whiteboard Updated in Patient Room with Yes name and ext. # of [employer] Review Status In Process Next Review Type Continued Stay Review Pre-Anesthesia Assessment Start: 06/07/21 13:35 Freq: Status: Complete Protocol: Document 06/07/21 13:35 CAB (Rec: 06/07/21 14:48 CAB [id number]) Pre-Anesthesia Assessment Patient Information Reviewed Via Phone Assessment Assessment Completed With Patient H&P Completed Within 30 Days Yes Diagnostic Results BMP/CMP,CBC,EKG Comment Labs/ECG @ [facility] 05/04/21, COVID screen @ [facility] 06/09/21 Primary Care Provider Martha Salguero Seen Specialist in Last 12 Months Yes Specialist Seen Emergency,Oncologist, Opthamologist/Safety Aide, Orthopedist Primary Language Korean Motion Designer Required No Height 5 ft 4 in Weight 107 lb Body Mass Index (BMI) 18.3 Hearing Ability Normal Visual Assist Contacts,Glasses Dentition Type Teeth, Natural Present,Full- Upper Barriers to Learning None Hx Anesthesia Reactions No Hx Family Anesthesia Reaction No Hx Malignant Hyperthermia No Hx Blood Transfusions No Anesthesia Review Requested No Music Education Director No alcohol intake current alcohol intake frequency 3 or more drinks per day Alcohol Intake Frequency Other: Hx of ETOH abuse, records reflect pt stopped drinking in March 2021 Smoking Status Current some day smoker Tobacco type smokeless tobacco how long ago did patient quit smoking Quit cigarettes approx 2012, continues to vape Substance Use Type does not use Pain Present Pain Reported Musculoskeletal Symptoms Abnormal Gait,Difficulty Walking,Joint Pain History of Falling (Recent or History of No ) Patient is completely paralyzed or No completely immobile Mental Status Oriented to own ability Is patient on oxygen? No Does patient have HORVATH/SOB No Hx Sleep Apnea No Currently Taking a Beta Harsha No Can You Climb a Flight of Stairs Without Yes SOB Hx Chest Pain No Hx SOB No Hx Syncope or Dizziness No Anti-Coagulant Therapy No Has a Recovery Coordinator No Cardiac Testing No Hx Pacemaker/ICD No Pacemaker Rep Required? No Cardiac Clearance Received Not Applicable Diet Type At Home Regular dysphagia No Gastrointestinal Symptoms Constipation Urinary Catheter Present No Hx Urinary Self Catheterization No Diabetes No HgbA1C 5.2 Date 05/04/21 Patient No Lactating No Hx Drug Resistant Organism No Presence of External or Internal Medical Yes: Lumbar hardware Devices Have you had any close contact with No someone diagnosed with COVID-19? Received a COVID vaccine? Yes Received all doses? Yes Marital Status Lives With significant other Prior Living Arrangements House Number of Floors (Floors) Two Floors Support System Significant Other Does the Patient Have Assistance After Yes Surgery Patient Discharge Plan Description Return Home Comment Pt advised overnight length of stay per surgeon Feels Safe in Current Environment Yes Been Physically Hurt or Threatened By a No Person in Current Environment Do you have thoughts of harming yourself None or others? Are you currently considering suicide? No Do you have a plan to hurt yourself or No Plan others? Do You Have Any Spiritual Beliefs That No May Affect Your HC Choices? Do You Have Any Cultural Practices That No May Affect Your HC Choices? Who Can We Speak to About Patient's Care Family, friends Identifying Code for Release of Patient Declines to issue Information Health Care Proxy/Next of Kin Adriel (S.O.) Health Care Proxy Emergency Contact Name Bill (son) Emergency Contact Advance Directives? Yes Power of Second Hand Yes Power of Second Hand Name Adriel (S.O.) Power of Second Hand PAC Instructions Do not shave/clip surgical site,Durable medical equipment ,Medications to take/avoid, Nasal antibiotic,No ETOH/ petroleum product on skin DOS, NPO,Pre-surgical wash,Sensory aids,Sturdy shoes/comfortable clothes,Do not bring valuables and remove jewelry
[2021-06-12 11:47] VITALS: BP 143/64; PULSE 71; RESP 18; TEMP 36.4; O2SAT 94
== END 2021-06-12 14:10 | disposition home or self-care (01) ==
LOC: OR 05:47 → AC 05:47
PROVIDERS: PCP Nurse Practitioner Family; Referring Provider Orthopaedic Surgery Foot and Ankle Surgery; Visit Provider Orthopaedic Surgery
PROC: (CPT 27130; principal; 2021-06-11 07:45)
DX: M16.11 Unilateral primary osteoarthritis, right hip (principal); M87.051 Idiopathic aseptic necrosis of right femur
CPT/HCPCS: 27130; 36415; 73501; 73502; 76000; 85014; 85018; 97116; 97161; 97530; C1776; C9290; J0171; J0690; J1100; J2250; J2405; J2704; J3010

== ENCOUNTER → 2022-03-16 14:59 | Outpatient (CLI) | payer MEDICARE, SELFPAY ==
[2021-06-11 11:23] VITALS: BMI 18.3
[2022-03-16 15:30] LABS: Add Manual Diff / Slide Review NO; Basophils Absolute Auto 0 /uL (0-100); Basophils Percent Auto 0.5 % (0-2); Eosinophils Absolute Auto 200 /uL (0-450); Eosinophils Percent Auto 1.7 % (2-4); Lymphocytes Absolute Auto 1700 /uL (1100-4500); Lymphocytes Percent Auto 16.3 % (25-40); Mean Corpuscular HGB Conc 35.1 % (30-36); Mean Corpuscular Hemoglobin 34.4 PG (26-34); Mean Corpuscular Volume 97.9 fL (80-100); Monocytes Absolute Auto 800 /uL (0-900); Monocytes Percent Auto 7.6 % (3-14); Neutrophils Absolute Auto 7700 /uL (1500-7000); Neutrophils Percent Auto 73.9 % (50-75); Platelet Count 310 X10^3/uL (150-400); Red Blood Cell Count 3.77 X10^6/uL (4.0-5.2); Red Cell Distribution Width 14.4 % (11.6-14.8); White Blood Cell Count 10.4 X10^3/uL (4.5-11.0)
[2022-03-16 15:51] LABS: Hemoglobin A1C% w Est Avg Glu 4.9 % (4.0-6.0)
[2022-03-16 16:09] LABS: Alanine Aminotransferase 34 IU/L (<35); Albumin 4.3 g/dL (3.5-5.0); Albumin Globulin Ratio 1.4 (1.0-2.8); Alkaline Phosphatase 118 U/L (38-126); Aspartate Aminotransferase 53 IU/L (14-36); Bilirubin Total 0.5 mg/dL (0.2-1.3); Blood Urea Nitrogen 8 mg/dL (7-17); Calcium 9.1 mg/dL (8.4-10.2); Carbon Dioxide 20 mmol/L (22-32); Chloride 106 mmol/L (98-107); Cholesterol 214 mg/dL (140-199); Estimated Glomerular Filt Rate > 60 mL/min (>60); Gamma Glutamyl Transpeptidase 41 U/L (12-43); Glucose 82 mg/dL (80-110); HEMOLYSIS < 15 (0-50); Potassium 3.4 mmol/L (3.4-5.1); Sodium 137 mmol/L (137-145); Total Protein 7.3 g/dL (6.3-8.2); Triglycerides 110 mg/dL (35-150)
[2022-03-16 16:23] LABS: HDL Cholesterol 132 mg/dL (40-60); LDL Cholesterol Calculated 60 mg/dL (<100)
[2022-03-16 16:31] LABS: TSH w/ Reflex to FT4 1.54 uIU/mL (0.47-4.68)
[2022-03-16 16:58] LABS: Vitamin B12 533 pg/mL (239-931)
[2022-03-17 17:27] LABS: Hep C Virus Ab w/Reflex Quant NEGATIVE s/c (NEGATIVE); Hepatitis B Surface Antigen NEGATIVE s/c (NEGATIVE)
== END ==
PROVIDERS: PCP Family Medicine; Referring Provider Family Medicine; Visit Provider Family Medicine
DX: E78.2 Mixed hyperlipidemia (principal); R79.89 Other specified abnormal findings of blood chemistry; F10.10 Alcohol abuse, uncomplicated; F32.9 Major depressive disorder, single episode, unspecified
CPT/HCPCS: 36415; 80053; 80061; 82607; 82977; 83036; 84443; 85025; 86803; 87340

== ENCOUNTER → 2022-03-31 14:17 | Outpatient (CLI) | payer MEDICARE, SELFPAY ==
[2021-06-11 11:23] VITALS: BMI 18.3
--- NOTE | 2022-03-31 14:18 | DI.US.S_ITS ---
PROCEDURE: US ABDOMEN LIMITED INDICATIONS: elevated liver function tests TECHNIQUE: Real-time focused scanning was performed of the abdomen, with image documentation. COMPARISON: [facility], , US ABDOMEN LIMITED, 03/24/2021, 8:50. FINDINGS: The liver is echogenic. Liver length of 14.2 cm. No gallstones, gallbladder wall thickening, or sonographic Gay sign. No biliary ductal dilation. Extrahepatic bile duct measures 3 mm. Visualized pancreas is unremarkable. IMPRESSION: 1. The liver is echogenic, a nonspecific finding commonly seen in the setting of steatosis. 2. No biliary ductal dilation demonstrated. Dictated by: Ty Jonas M.D. on 03/31/2022 at 18:49 Approved by: Ty Jonas M.D. on 03/31/2022 at 18:50
== END ==
PROVIDERS: PCP Family Medicine; Referring Provider Family Medicine; Visit Provider Family Medicine
DX: R79.89 Other specified abnormal findings of blood chemistry (principal); F32.9 Major depressive disorder, single episode, unspecified; E78.2 Mixed hyperlipidemia; F10.10 Alcohol abuse, uncomplicated
CPT/HCPCS: 76705

== ENCOUNTER → 2022-05-12 14:16 | Outpatient (CLI) | payer MEDICARE, SELFPAY ==
[2021-06-11 11:23] VITALS: BMI 18.3
[2022-05-12 15:19] LABS: Add Manual Diff / Slide Review NO; Basophils Absolute Auto 100 /uL (0-100); Basophils Percent Auto 0.5 % (0-2); Eosinophils Absolute Auto 0 /uL (0-450); Eosinophils Percent Auto 0.2 % (2-4); Hemoglobin 16.1 g/dL (12.0-16.0); Lymphocytes Absolute Auto 1500 /uL (1100-4500); Mean Corpuscular HGB Conc 33.6 % (30-36); Mean Corpuscular Hemoglobin 32.8 PG (26-34); Mean Corpuscular Volume 97.7 fL (80-100); Monocytes Absolute Auto 1000 /uL (0-900); Monocytes Percent Auto 6.7 % (3-14); Neutrophils Absolute Auto 12300 /uL (1500-7000); Neutrophils Percent Auto 82.6 % (50-75); Platelet Count 429 X10^3/uL (150-400); Red Blood Cell Count 4.91 X10^6/uL (4.0-5.2); Red Cell Distribution Width 13.3 % (11.6-14.8); White Blood Cell Count 14.9 X10^3/uL (4.5-11.0)
[2022-05-12 15:28] LABS: Appearance Urine UA SL CLOUDY; Bilirubin Urine UA 1+ (NEGATIVE); Color Urine UA YELLOW; Glucose Urine UA NEGATIVE (Negative); Ketones Urine UA TRACE (NEGATIVE); Leukocyte Esterase Urine UA NEGATIVE (NEGATIVE); Nitrite Urine UA NEGATIVE (Negative); Occult Blood Urine UA TRACE-INTACT (Negative); Protein Urine UA NEGATIVE (Negative)
[2022-05-12 15:39] LABS: BUN Creatinine Ratio 12.2 (6-22); Blood Urea Nitrogen 12 mg/dL (7-17); Carbon Dioxide 27 mmol/L (22-32); Chloride 88 mmol/L (98-107); Estimated Glomerular Filt Rate > 60 mL/min (>60); Glucose 146 mg/dL (80-110); HEMOLYSIS < 15 (0-50); Sodium 130 mmol/L (137-145)
[2022-05-12 15:54] LABS: pH Urine UA 5.5 (4.5-8.0)
[2022-05-12 15:58] LABS: Bacteria Urine Occasional (0-1); Culture Indicated Urine Cult Not Indicated; Ictotest Urine Negative (Negative); RBC Urine 5-10/HPF (0-5/HPF); Squamous Epithelial Cell Urine 0-1 /HPF (0-5/HPF); Transitional Epi Cells Urine 0-1/HPF (0-5/HPF); WBC Urine 0-1/HPF (0-5/HPF)
== END ==
PROVIDERS: PCP Family Medicine; Referring Provider Orthopaedic Surgery; Visit Provider Orthopaedic Surgery
DX: Z01.818 Encounter for other preprocedural examination (principal); Z01.812 Encounter for preprocedural laboratory examination; N39.0 Urinary tract infection, site not specified
CPT/HCPCS: 36415; 80048; 81001; 85025; 93005

== ENCOUNTER → 2022-05-24 13:07 | Outpatient (CLI) | payer MEDICARE, SELFPAY ==
[2021-06-11 11:23] VITALS: BMI 18.3
--- NOTE | 2022-05-24 13:20 | DI.CT.S_ITS ---
PROCEDURE: CT UE RT WO CON INDICATIONS: PRIMARY OSTEOARTHRITIS TECHNIQUE: Noncontrast 1-1.5 mm thick sections acquired from the acromioclavicular joint to the inferior scapula, with coronal and sagittal reformatting. COMPARISON: [facility], CR, XR SHOULDER 2+ VIEWS RIGHT, 04/11/2022, 15:51. FINDINGS: Image quality: Good Bones: No displaced fracture is identified. No dislocation. Moderate glenohumeral and acromioclavicular degenerative changes. There is a prominent inferior proximal humeral osteophyte. Soft tissues: Not well evaluated on noncontrast CT. Consider MRI to further evaluate if necessary. No high-grade atrophy of the rotator cuff muscles. There are prominent partially visualized mediastinal lymph nodes, not enlarged by size criteria. IMPRESSION: Moderate shoulder degenerative changes. Please consider MRI to further evaluate soft tissues if necessary. Dictated by: Joey Bruce M.D. on 05/24/2022 at 15:57 Approved by: Joey Bruce M.D. on 05/24/2022 at 16:01
== END ==
PROVIDERS: PCP Family Medicine; Referring Provider Orthopaedic Surgery; Visit Provider Orthopaedic Surgery
DX: M19.011 Primary osteoarthritis, right shoulder (principal)
CPT/HCPCS: 73200

== ENCOUNTER 2022-06-10 07:04 | Inpatient (IN) | payer MEDICARE, SELFPAY ==
[2021-06-11 11:23] VITALS: BMI 18.3
[2022-05-26 12:40] VITALS: BMI 20.5
[2022-06-10] VITALS (29 sets, daily range): BP systolic 97–143; BP diastolic 41–65; PULSE 56–76; RESP 15–21; TEMP 36–36.7; O2SAT 88–98; BMI 20.5
--- NOTE | 2022-06-10 06:00 | DI.RAD.S_ITS ---
PROCEDURE: XR SHOULDER RT 1V INDICATIONS: prosthesis placement TECHNIQUE: 1 views of the shoulder were acquired. [facility], [facility]11/2020, 13:44. [facility]IM[facility] 2VIEW RIGHT, 12/23/2014, 15:22. FINDINGS: Bones: A right shoulder reverse arthroplasty appears to be in appropriate position. Soft tissues: Postsurgical changes are present. IMPRESSION: Postoperative appearance of reverse shoulder arthroplasty. Dictated by: Joey Bruce M.D. on 06/10/2022 at 16:30 Approved by: Joey Bruce M.D. on 06/10/2022 at 16:31
[2022-06-10] MEDS: CELECOXIB 200 MG CAPSULE PO (08:02)
[2022-06-10] MEDS: PREGABALIN 75 MG CAPSULE PO (08:02)
[2022-06-10] MEDS: ACETAMINOPHEN 325 MG TABLET 975 MG PO (08:02)
[2022-06-10] MEDS: LACTATED RINGERS 1,000 ML 42 ML IV (08:03)
[2022-06-10 08:15] LABS: Add Manual Diff / Slide Review NO; Basophils Absolute Auto 0 /uL (0-100); Basophils Percent Auto 0.3 % (0-2); Eosinophils Absolute Auto 100 /uL (0-450); Eosinophils Percent Auto 1.4 % (2-4); Hematocrit 47.8 % (36-46); Hemoglobin 16.9 g/dL (12.0-16.0); Lymphocytes Absolute Auto 2000 /uL (1100-4500); Lymphocytes Percent Auto 19.7 % (25-40); Mean Corpuscular HGB Conc 35.3 % (30-36); Mean Corpuscular Hemoglobin 34.1 PG (26-34); Mean Corpuscular Volume 96.6 fL (80-100); Monocytes Absolute Auto 1100 /uL (0-900); Monocytes Percent Auto 10.8 % (3-14); Neutrophils Absolute Auto 6800 /uL (1500-7000); Neutrophils Percent Auto 67.8 % (50-75); Platelet Count 498 X10^3/uL (150-400); Red Blood Cell Count 4.95 X10^6/uL (4.0-5.2); Red Cell Distribution Width 13.7 % (11.6-14.8)
[2022-06-10 08:19] LABS: COVID19 -Nasal RAPID Negative (Negative)
--- NOTE | 2022-06-10 08:46 | PM.HP.1 ---
History of Present Illness History of Present Illness Date Patient Seen: 06/10/22 Time Patient Seen: 09:08 Chief complaint: Right reverse TSA Narrative: this is a 76-year-old female with chronic right shoulder pain as well as right shoulder rotator cuff deficiency. Her pain has been getting worse over the past year. She is failed all conservative management at this time. Patient History Medical History Alcohol abuse Alcohol abuse Colitis (~2000) Coronary artery disease (03/2021) Depression Effusion, left knee Elevated platelet count Fatty liver (~10/2016) GERD (gastroesophageal reflux disease) H/O vaginal delivery Hiatal hernia (03/2021) History of smoking 30 or more pack years Hyperlipemia Hypertension Injury of extensor tendon of hand Kidney stones (1963) Left anterior knee pain Left patella fracture Left shoulder pain Lower extremity pain, bilateral Macrocytosis Non-healing skin lesion Osteoarthritis Osteopenia after menopause (06/2020) Post-menopausal Restless leg syndrome Right hip pain Shingles Situational anxiety Spinal stenosis Weight loss Surgical History History of back surgery History of surgery (~06/2020) History of tonsillectomy 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 Social History: household members significant other Prior Living Arrangements House Safety & Behavioral: Feels Safe in Current Yes Environment Been Physically Hurt or No Threatened By a Person Suicidal Ideation Description None Suicide Plan Description No Plan Tobacco & Substance use: Tobacco type smokeless tobacco Smoking Status Former smoker alcohol intake current alcohol intake frequency holiday/special occasion Substance Use Type does not use Meds Home Medications and Allergies Home Medications Medication Instructions Recorded Confirmed Type acetaminophen 325 mg tablet 650 mg PO TID #180 tabs 06/12/21 06/10/22 Rx omeprazole 20 mg capsule,delayed 20 mg PO DAILY #30 caps 03/16/22 06/10/22 Rx release atorvastatin 20 mg tablet See Rx Instructions .Route 03/24/22 06/10/22 Rx .COMPLEX #90 tabs pramipexole 0.5 mg tablet 0.5 mg PO HSP PRN restless leg(s) 04/28/22 06/10/22 Rx #90 tabs chlorthalidone 25 mg tablet 25 mg PO DAILY blood pressure #90 05/03/22 06/10/22 Rx tabs citalopram 10 mg tablet (Celexa) 10 mg PO DAILY #30 tabs 05/03/22 06/10/22 Rx Allergies Allergy/AdvReac Type Severity Reaction Status Date / Time No Known Drug Allergies Allergy Verified 06/10/22 07:34 Review of Systems Review of Systems ROS: Yes All systems reviewed with the patient and are negative except as otherwise documented Exam Vital Signs (past 8 hours): - 06/10/22 08:06 Temperature 98.1 F Pulse Rate 65 Respiratory Rate 21 Blood Pressure 117/53 L Pulse Oximetry 98 Oxygen Delivery Method Room Air Oxygen Delivery Method Room Air Narrative Exam Narrative: HEENT: Head atraumatic eyes anicteric moist mucous membranes Cardiovascular: Palpable peripheral pulses extremities are warm and well perfused Respiratory: Breathing comfortably on room air Psychiatric: Appropriate mood and affect Neuro: No acute deficits Musculoskeletal: Forward elevation 155, external rotation 55, internal rotation L1. 4/5 strength. Sensation intact to light touch median, radial, ulnar nerve distributions. 2+ radial pulse with brisk capillary refill less than 2 seconds. Objective Labs 06/10/22 07:30 06/10/22 07:30 Labs: Laboratory Results - last 24 hr 06/10/22 06/10/22 07:30 07:33 WBC 10.0 RBC 4.95 Hgb 16.9 H Hct 47.8 H MCV 96.6 MCH 34.1 H MCHC 35.3 RDW 13.7 Plt Count 498 H Neut % (Auto) 67.8 Lymph % (Auto) 19.7 L [place] % (Auto) 10.8 Eos % (Auto) 1.4 L Baso % (Auto) 0.3 Neut # (Auto) 6800 Lymph # (Auto) 2000 [place] # (Auto) 1100 H Eos # (Auto) 100 Baso # (Auto) 0 SARS-CoV-2 (PCR) Negative Assessment & Plan Assessment & Plan narrative: Assessment: 76-year-old female with right glenohumeral arthritis and rotator cuff deficiency Plan: Right reverse total shoulder arthroplasty. We again discussed the risks and benefits the patient wished to go forward with surgery
--- NOTE | 2022-06-10 08:53 | SUR.PREOP ---
Per labor and employment paralegal, BMP hemolyzed. Repeat lab draw needed. Notified Physician and patient.
[2022-06-10 09:11] LABS: BUN Creatinine Ratio 18.8 (6-22); Blood Urea Nitrogen 18 mg/dL (7-17); Calcium 8.6 mg/dL (8.4-10.2); Carbon Dioxide 27 mmol/L (22-32); Chloride 97 mmol/L (98-107); Estimated Glomerular Filt Rate > 60 mL/min (>60); Glucose 103 mg/dL (80-110); HEMOLYSIS < 15 (0-50); Sodium 133 mmol/L (137-145)
--- NOTE | 2022-06-10 09:27 | SUR.PREOP ---
Addendum entered by Derrell Babcock R.N. 06/10/22 09:28: and 50 mcg fentanyl. On monitor. Original Note: K 1.8, Ranulfo CANTRELL aware. Awaiting orders. Pt received 1mg midazolam and 1
--- NOTE | 2022-06-10 09:39 | SUR.PREOP ---
Awaiting plan from MD's. Remains sedated, no distress, NSR on monitor. 12 lead to be obtained, RT informed.
[2022-06-10] MEDS: POTASSIUM CHLORIDE IN WATER 10 MEQ/100 ML PIGGYBACK 100 MEQ IV ×6 (09:50→23:24)
--- NOTE | 2022-06-10 10:18 | SUR.PREOP ---
tolerated Interscalene block. to OR with KCl running.
[2022-06-10] MEDS: CEFAZOLIN 2 GM/100 ML PREMIX 100 ML IV (10:39)
[2022-06-10] MEDS: TRANEXAMIC ACID 1,000 MG VIAL 1000 MG INJ (10:48)
--- NOTE | 2022-06-10 10:59 | SUR.OPER ---
Beach chair with skytron table positioner shoulder positioner. Lower body on padded OR bed. Head in foam padded head cradle, secured with straps. Non-operative arm secured <90 degrees abduction. Pillow under knees. Safety belt at thigh. Cloth tape over blanket over lower legs.
[2022-06-10] MEDS: BUPIVACAINE 0.25% (PF) 60 ML, EPINEPHrine 0.3 MG INJ (11:08)
--- NOTE | 2022-06-10 12:19 | P.OP_ITS ---
Operative Date/Time/Diagnoses Date of procedure: 06/10/22 Time of procedure: 12:24 Pre-op diagnosis: Right shoulder glenohumeral arthritis Post-op diagnosis: same Procedure & Clinicians Procedure: Right reverse total shoulder arthroplasty Same procedure as scheduled: Yes Indications: Indications: This is a 76-year-old female who has rotator cuff arthropathy. Symptoms have been present for years, insidious onset. Patient has failed conservative therapy including injections, physical therapy, anti-inflammatories and activity modification. After extensive discussion in clinic, they wished to go forward with surgery. Risks and benefits were described including the risk of infection, bleeding, damage to internal structures including nerves. We also discussed the risk of failure of surgery and the need for revision surgery as well as the risk of anesthesia. The patient expressed understanding with these risks and wished to go forward with surgery. Surgeon: Cirilo Sanchez Nursing Program Manager: Michelle Espinoza Anesthesia Type: General Operative Notes Findings: Findings: Osteoarthritis of the glenoid and humeral head and deficient rotator cuff as noted on preoperative imaging and under direct visualization Closure Type: primary Specimen(s): none sent Prosthetic devices, grafts, tissues, transplants, or devices: Tornier implants Base plate: standard 25 mm, full wedge (8 mm offset) Glenosphere: Standard 36 mm Stem: Perform 2+ Poly: +0 concentric Estimated Blood Loss (mL): 50 Blood products transfused: none Procedure in detail: Operative note: Patient was seen in the preoperative holding unit. The correct right shoulder was identified and marked with my initials. Again we discussed the risks and benefits of surgery and they wished to go forward with surgery. The patient was brought back to the operating room and placed supine on the operating table. Smooth endotracheal intubation was performed by anesthesia. All prominences were padded and they were placed into the beach chair position. Intravenous antibiotics were given. The right shoulder was then prepped with the standard sterile preparation and draping. A time-out was then performed in my initials were again identified on the correct shoulder. 1 g of IV tranexamic acid was given. A standard deltopectoral incision was made. Skin flaps were made. The cephalic vein was identified and retracted laterally. This was protected throughout the remainder of the case. Sharp dissection was made along the deltoid, subacromial and subcoracoid space to release adhesions. The conjoined tendon was identified and the axillary nerve was palpated and continuous using the tug test. It was protected throughout the remainder of the case. A brown retractor was placed underneath the deltoid muscle and a darach retractor underneath the conjoint tendon. The anterior circumflex artery and associated veins on the lower border of the subscapularis were identified and tied off using 0-Vicryl. The biceps tendon was identified in the bicipital groove. This was released from its sheath, and taken from its origin on the glenoid and tied into the pectoralis tendon for a solid tenodesis. We then began a subscapularis peel. The subscapularis was tagged with an Ethibond suture. A 360 degree circumferential release of the subscapularis was performed with protection of the axillary nerve. The coracohumeral ligament was released at the base of the coracoid. The coracoacromial ligament was left intact. The shoulder was then dislocated. Osteophytes were removed using combination of rongeur and osteotome. The ro tator cuff was noted to be insufficient. An intramedullary guide was used set at version of 30?. Using an oscillating saw a conservative humeral head cut was made. Impaction reamers were reamed up to a size 2 stem with a built-in angle 135?. A neck protector was placed. Attention was then turned to the glenoid. After retracting the humeral head posteriorly a circumferential release was performed of the capsule with protection of the axillary nerve. The labrum was then released starting at the biceps anchor and going around the rim a small amount of triceps was released from the inferior glenoid. A center guide pin was then placed using the guide, followed by Reamer. After adequate cartilage was removed the center drill hole was drilled and measured. The base plate was then implanted and screwed into place. The superior drill hole was drilled and filled in a nonlocking fashion, followed by the inferior and anterior holes in locking fashion, the posterior hole was also filled. A 36 standard glenosphere was then selected and screwed into place onto the base plate. Turning back to the humerus, the humeral head was delivered and trialed with a 0 concentric. The arm was taken through range of motion and this was felt to be stable. The trial was then removed and a dilute Betadine wash was then performed with 1 L of sterile saline. Before placing the final implant, drill holes were made in the bicipital groove for the subscapularis repair, and sutures were passed through the drill holes. The final stem with high offset tray was then impacted into the humerus. The shoulder was then reduced and again brought through range of motion and was felt to be stable. The interval was then closed using #2 Ethibond. The subscapularis was then repaired using a modified racking hitch with nice loupes. The deltopectoral interval was then closed with #2 Ethibond. The skin was closed with 2-0 PDS and Monocryl followed by Aquacel dressing. Patient was awoken from anesthesia and brought back to the postoperative recovery unit without issue. They were placed into a sling. Assisting participation: This operation could not have been safely performed (without compromising the technical results or length of the procedure) without the assistance of a skilled surgical endoscopist. The surgical endoscopist was medically necessary for proper positioning, retraction and manipulation of instruments, proper exposure, graft prep, and manipulation of tissue. Complications: none Post-operative Condition: stable Disposition: PACU Plan for aftercare: Postoperative instructions: Sling to remain on for 6 weeks. No external ro tation past neutral for 6 weeks. Okay for him to come off her shower. Okay to shower over the Aquacel dressing. If any water gets underneath the dressing, remove the dressing. First postoperative visit in 2 weeks.
--- NOTE | 2022-06-10 13:14 | PC.NURSE ---
Pt arrived from PACU at 1250, A&Ox4, no c/o pain. R arm in sling, aquacel dressing to R shoulder c/d/i. R hand CMS intact, able to move fingers and squeeze. O2 down to 88 on RA, 2L O2 applied, otherwise VSS, see chart. Pt oriented to call light and room, SCDs on, bed alarm activated.
--- NOTE | 2022-06-10 15:48 | PT-IP ANOTE ---
Physical therapy order received and chart reviewed. Discussed case with her nurse. Pt is sleeping soundly post-op and is not ready to participate in physical therapy. Will plan to do evaluation tomorrow.
[2022-06-10 16:08] LABS: Potassium 2.5 mmol/L (3.4-5.1)
[2022-06-10 17:56] LABS: BUN Creatinine Ratio 16.3 (6-22); Blood Urea Nitrogen 17 mg/dL (7-17); Calcium 8.4 mg/dL (8.4-10.2); Carbon Dioxide 29 mmol/L (22-32); Chloride 95 mmol/L (98-107); Estimated Glomerular Filt Rate 56 mL/min (>60); Glucose 170 mg/dL (80-110); HEMOLYSIS < 15 (0-50); Sodium 132 mmol/L (137-145)
[2022-06-10 18:01] LABS: Potassium 2.1 mmol/L (3.4-5.1)
[2022-06-10] MEDS: POTASSIUM CHLORIDE 20 MEQ TAB 40 MEQ PO (18:40)
[2022-06-10] MEDS: SODIUM CHLORIDE 0.9% 1,000 ML 84 ML IV (18:41)
[2022-06-10] MEDS: MORPHINE 2 MG/ML INJ 1.5 MG IV ×2 (21:15→23:18)
[2022-06-10] MEDS: ATORVASTATIN 20 MG TABLET PO (21:22)
[2022-06-10] MEDS: DOCUSATE 100 MG CAPSULE PO (21:22)
[2022-06-10] MEDS: ASPIRIN EC 81 MG TABLET PO (21:22)
[2022-06-10] MEDS: ACETAMINOPHEN 325 MG TABLET 650 MG PO (21:22)
[2022-06-10] MEDS: PRAMIPEXOLE 0.25 MG TABLET 0.5 MG PO (21:31)
[2022-06-10 22:17] LABS: Add Manual Diff / Slide Review NO; Basophils Absolute Auto 0 /uL (0-100); Basophils Percent Auto 0.1 % (0-2); Eosinophils Absolute Auto 0 /uL (0-450); Hematocrit 37.7 % (36-46); Lymphocytes Absolute Auto 800 /uL (1100-4500); Lymphocytes Percent Auto 6.4 % (25-40); Mean Corpuscular HGB Conc 34.6 % (30-36); Mean Corpuscular Hemoglobin 33.3 PG (26-34); Mean Corpuscular Volume 96.4 fL (80-100); Monocytes Absolute Auto 1100 /uL (0-900); Monocytes Percent Auto 8.7 % (3-14); Neutrophils Absolute Auto 11100 /uL (1500-7000); Neutrophils Percent Auto 84.8 % (50-75); Platelet Count 350 X10^3/uL (150-400); Red Blood Cell Count 3.91 X10^6/uL (4.0-5.2); Red Cell Distribution Width 13.8 % (11.6-14.8); White Blood Cell Count 13.1 X10^3/uL (4.5-11.0)
[2022-06-10 22:19] LABS: Prothrombin Time 11.6 SECONDS (10.1-12.7)
[2022-06-10 22:24] LABS: Alanine Aminotransferase 32 IU/L (<35); Albumin 3.2 g/dL (3.5-5.0); Albumin Globulin Ratio 1.2 (1.0-2.8); Alkaline Phosphatase 77 U/L (38-126); Aspartate Aminotransferase 47 IU/L (14-36); Bilirubin Total 0.5 mg/dL (0.2-1.3); Blood Urea Nitrogen 16 mg/dL (7-17); Calcium 7.8 mg/dL (8.4-10.2); Carbon Dioxide 24 mmol/L (22-32); Chloride 99 mmol/L (98-107); Estimated Glomerular Filt Rate > 60 mL/min (>60); Globulin 2.6 g/dL (1.7-4.1); Glucose 161 mg/dL (80-110); HEMOLYSIS 16 (0-50); Magnesium 1.5 mg/dL (1.6-2.3); Sodium 129 mmol/L (137-145); Total Protein 5.8 g/dL (6.3-8.2)
[2022-06-10 22:35] LABS: Potassium 2.4 mmol/L (3.4-5.1)
--- NOTE | 2022-06-10 23:56 | PM.CN ---
History of Present Illness Consult details Date Patient Seen: 06/10/22 Time Patient Seen: 18:29 Chief complaint: Right reverse TSA Reason for consult: S/P Hypotension, hypokalemia, hyponatremia Narrative: Rossy Osman is a 76-year-old female with a history of HLD, HTN, GERD, and depression who had been admitted earlier today for right reverse total shoulder arthroplasty by Dr. Sanchez. Prior to surgery patient had been found to have a potassium of 2.3 was reported to have received proximally 60 mEq replacement, postsurgically potassium was repeated 2.4 and the patient was hyponatremic sodium [address] Sanchez graciously requested that the hospitalist Service consult regarding her hypotension, hypokalemia, and hyponatremia. At the time of consult patient was hypotensive with maps 58-65, WBC 13.1, neutrophils 11,100, mono 1100, sodium 129, potassium 2.4, calcium 7.8, magnesium 1.5, glucose 161, total protein 5.8, albumin 3.2, and negative COVID. On admit patient denies chest pain, shortness in breath, headache, changes in vision, difficulty swallowing, speech impairment, difficulty with ambulation, head injury, LOC, fever, body aches, chills, cough, recent exposure to illness, abdominal pain, nausea, vomiting, urinary incontinence/retention, dysuria, frequency, urgency, hematuria, bowel changes, constipation, incontinence, melena, rashes, recent changes to medication, illness. Meds Home Medications and Allergies Home Medications Medication Instructions Recorded Confirmed Type acetaminophen 325 mg tablet 650 mg PO TID #180 tabs 06/12/21 06/10/22 Rx omeprazole 20 mg capsule,delayed 20 mg PO DAILY #30 caps 03/16/22 06/10/22 Rx release atorvastatin 20 mg tablet See Rx Instructions .Route 03/24/22 06/10/22 Rx .COMPLEX #90 tabs pramipexole 0.5 mg tablet 0.5 mg PO HSP PRN restless leg(s) 04/28/22 06/10/22 Rx #90 tabs chlorthalidone 25 mg tablet 25 mg PO DAILY blood pressure #90 05/03/22 06/10/22 Rx tabs citalopram 10 mg tablet (Celexa) 10 mg PO DAILY #30 tabs 05/03/22 06/10/22 Rx Allergies Allergy/AdvReac Type Severity Reaction Status Date / Time No Known Drug Allergies Allergy Verified 06/10/22 07:34 Review of Systems Review of Systems Narrative: All 12 point systems reviewed with the patient and are negative except otherwise documented. Exam Vital Signs (past 8 hours): - 06/10/22 16:00 06/10/22 18:30 06/10/22 18:55 Temperature Pulse Rate 58 L 67 60 Respiratory Rate 17 17 17 Blood Pressure 106/48 L 97/43 L 97/43 L Pulse Oximetry 97 96 94 Oxygen Flow Rate 3 0 0 06/10/22 19:00 06/10/22 19:20 06/10/22 19:40 Temperature 97.1 F L Pulse Rate 68 61 59 L Respiratory Rate 17 17 17 Blood Pressure 110/59 L 101/45 L 97/44 L Pulse Oximetry 95 92 94 Oxygen Flow Rate 0 0 0 06/10/22 20:00 06/10/22 20:10 06/10/22 20:30 Temperature 96.8 F L Pulse Rate 58 L Respiratory Rate 20 Blood Pressure 98/46 L 101/48 L 97/53 L Pulse Oximetry 93 Oxygen Flow Rate 0 06/10/22 20:40 06/10/22 21:50 06/10/22 22:05 Temperature Pulse Rate Respiratory Rate Blood Pressure 105/46 L 99/52 L 105/53 L Pulse Oximetry Oxygen Flow Rate 06/10/22 22:20 06/10/22 22:30 06/10/22 22:45 Temperature Pulse Rate 56 L Respiratory Rate Blood Pressure 106/52 L 106/52 L 100/51 L Pulse Oximetry 95 Oxygen Flow Rate 1 Oxygen Delivery Method Nasal Cannula Oxygen Flow Rate 1 Narrative Exam Narrative: General: Patient is a thin elderly female in no distress at this time. Resting well HEENT: Normocephalic, atraumatic, extraocular muscles intact, oral pharynx is clear and mucous membranes are dry. Neck is supple and symmetric, trachea is midline, no adenopathy, no thyroid enlargement, nontender, no masses palpated. Negative for JVD Chest: Normal AP diameter and contour without kyphoscoliosis, no nasal flaring, retractions, or tachypneic labored breathing. Lungs: Auscultation of all lung gill are clear without adventitious sounds, wheezes, rhonchi, or rales. Cardio: regular rate and rhythm without murmur, rubs, or gallops, no carotid bruit, no cardiac pulsations present. Abdomen: Soft nontender, negative for organomegaly, or masses. Bowel sounds are present in all 4 quadrants without guarding or rebound, no CVA tenderness. Musculoskeletal: Right arm is in postoperative sling/ splint-other extremities demonstrate no deformity, crepitus, effusions, cyanosis, clubbing or edema present. intact radial and pedal pulses are normal. Skin: Warm dry and intact without rashes, ulcerations or petechiae. Neuro: Alert and orientated x3, sensation to touch intact, no gross deficits noted of cranial nerves. Psych: Patient has a well-kept appearance, appropriate affect, mental status attitude thought context and judgment are appropriate for age. Objective Labs 06/10/22 22:06 06/10/22 22:06 Labs: Laboratory Results - last 24 hr 06/10/22 06/10/22 06/10/22 07:30 07:33 08:50 WBC 10.0 RBC 4.95 Hgb 16.9 H Hct 47.8 H MCV 96.6 MCH 34.1 H MCHC 35.3 RDW 13.7 Plt Count 498 H Neut % (Auto) 67.8 Lymph % (Auto) 19.7 L [place] % (Auto) 10.8 Eos % (Auto) 1.4 L Baso % (Auto) 0.3 Neut # (Auto) 6800 Lymph # (Auto) 2000 [place] # (Auto) 1100 H Eos # (Auto) 100 Baso # (Auto) 0 PT INR Sodium 133 L Potassium 2.5 L* Chloride 97 L Carbon Dioxide 27 BUN 18 H Creatinine 0.96 Estimated GFR > 60 BUN/Creatinine Ratio 18.8 Glucose 103 Calcium 8.6 Magnesium Total Bilirubin AST ALT Alkaline Phosphatase Total Protein Albumin Globulin Albumin/Globulin Ratio SARS-CoV-2 (PCR) Negative 06/10/22 06/10/22 06/10/22 17:22 22:06 22:06 WBC 13.1 H RBC 3.91 L Hgb 13.0 Hct 37.7 MCV 96.4 MCH 33.3 MCHC 34.6 RDW 13.8 Plt Count 350 Neut % (Auto) 84.8 H Lymph % (Auto) 6.4 L [place] % (Auto) 8.7 Eos % (Auto) 0.0 L Baso % (Auto) 0.1 Neut # (Auto) 92710 H Lymph # (Auto) 800 L [place] # (Auto) 1100 H Eos # (Auto) 0 Baso # (Auto) 0 PT 11.6 INR 1.0 Sodium 132 L Potassium 2.1 L* Chloride 95 L Carbon Dioxide 29 BUN 17 Creatinine 1.04 Estimated GFR 56 L BUN/Creatinine Ratio 16.3 Glucose 170 H Calcium 8.4 Magnesium Total Bilirubin AST ALT Alkaline Phosphatase Total Protein Albumin Globulin Albumin/Globulin Ratio SARS-CoV-2 (PCR) 06/10/22 22:06 WBC RBC Hgb Hct MCV MCH MCHC RDW Plt Count Neut % (Auto) Lymph % (Auto) [place] % (Auto) Eos % (Auto) Baso % (Auto) Neut # (Auto) Lymph # (Auto) [place] # (Auto) Eos # (Auto) Baso # (Auto) PT INR Sodium 129 L Potassium 2.4 L* Chloride 99 Carbon Dioxide 24 BUN 16 Creatinine 0.94 Estimated GFR > 60 BUN/Creatinine Ratio 17.0 Glucose 161 H Calcium 7.8 L Magnesium 1.5 L Total Bilirubin 0.5 AST 47 H ALT 32 Alkaline Phosphatase 77 Total Protein 5.8 L Albumin 3.2 L Globulin 2.6 Albumin/Globulin Ratio 1.2 SARS-CoV-2 (PCR) [facility] Medical History Alcohol abuse Alcohol abuse Colitis (~2000) Coronary artery disease (03/2021) Depression Effusion, left knee Elevated platelet count Fatty liver (~10/2016) GERD (gastroesophageal reflux disease) H/O vaginal delivery Hiatal hernia (03/2021) History of smoking 30 or more pack years Hyperlipemia Hypertension Injury of extensor tendon of hand Kidney stones (1963) Left anterior knee pain Left patella fracture Left shoulder pain Lower extremity pain, bilateral Macrocytosis Non-healing skin lesion Osteoarthritis Osteopenia after menopause (06/2020) Post-menopausal Restless leg syndrome Right hip pain Shingles Situational anxiety Spinal stenosis Weight loss Surgical History History of back surgery History of surgery (~06/2020) History of tonsillectomy History of total right hip replacement (03/25/22) Hx of knee surgery Hx of lithotripsy Status post appendectomy Status post delivery Status post tubal ligation Family History Child Age: 56 Spina bifida Father Age: 102 Arthritis Heart trouble Mother Age: 100 Type 2 diabetes mellitus with complication Essential hypertension Heart trouble Brother No problems noted. Social History household members: significant other Tobacco & Substance Use Smoking Status: Former smoker alcohol intake: current substance use type: does not use Assessment & Plan Assessment & Plan narrative: Rossy Osman is a 76-year-old female with a history of HLD, HTN, GERD, and depression who had been admitted earlier today for right reverse total shoulder arthroplasty by Dr. Sanchez. Dr. Sanchez graciously requested that the hospitalist Service consult regarding the patient's postoperative hypotension, hypokalemia and hyponatremia. The pt demonstrated hyponatremia prior to surgery, with postoperative hypotension, hyponatremia, hypomagnesemia, hypokalemia-I suspect this is secondary to patient's malnutrition/dehydration, but will monitor and rule out sepsis/septic shock. Patient will require dietary consult, IV fluid rehydration, and electrolyte supplementation. 1. Hypokalemia, acute, present on admission -suspect likely severe dehydration/malnutrition- possible ETOH involvement though it is noted in patient's chart that she stopped drinking March of 2021. Patient does appear severely hypovolemic. We will continue to monitor and re-evaluate. -initial potassium at 8:50 a.m. 2.5-it is reported that she received 60 mEq replacement prior to surgery, s/p potassium 2.1 at 5:22 p.m., patient was given 40 mEq p.o., and ordered 20 mEq IV-repeat potassium 2.4 at 10:06 p.m. -have now ordered an additional 60 mEq IV potassium which is continuing to run in, which has to be alternated with IV antibiotics and magnesium supplements, as we are unable to place a second line in Rt arm. -will continue to trend potassium-may require further investigation. Patient may require central/picc line -will evaluate patient's response to the overnight IV potassium replacement -ordered p.o. 40 mEq potassium placement q.day-will adjust based on response -monitored on telemedicine 2. Hypotension, acute, S/p shoulder surgery, present on admission - hypotensive with maps 58-65 -patient is started on NS@[id number]/Hr -responded well- maps improved >65 sustained -WBC 13.1, neutrophils 11,100, mono 1100-trend CBC-white count is likely secondary to surgery but will continue to monitor for infection and rule out other sources -ordered blood and urine cultures, CXR, procalcitonin -monitor for sepsis, septic shock 3. Hyponatremia, mild, acute, present on admission - sodium 129 -trend electrolytes -NS at 84 cc/HR 4. Hypomagnesemia, acute, present on admission -magnesium 1.5 -ordered 2 g -trend electrolytes 5. Malnutrition, mild , acute on chronic, present on admission -as evidence by BMI 20.6 -patient's malnutrition places them at high risk for medical and surgical complications in relation to acute illness/chronic illness. This increases the difficulty in complexity of medical management and increases the chances poor outcomes such as mortality and morbidity as well as impaired wound healing, and immune suppression. -dietary consult ordered to evaluate and implement steps to improve caloric intake and nutrition. Code status: Full Surrogate decision maker: Adriel Gilliland Partner JOSE PCR: Negative Disposition: Consult I have utilized all available immediate resources to obtain, update, or review the patient's current medications. I confirmed that the patient's advanced care plan is present, Code status is documented and/or surrogate decision maker is listed in the patient's medical record. I have personally reviewed patient's chart notes from PCP, specialists, diagnostic imaging, and laboratory results.
[2022-06-11] VITALS (23 sets, daily range): BP systolic 94–121; BP diastolic 36–61; PULSE 54–75; RESP 17–19; TEMP 36.3–36.6; O2SAT 92–99
[2022-06-11] MEDS: MAGNESIUM SULFATE 2 GM/50 ML PIGGYBACK IV (00:45)
--- NOTE | 2022-06-11 00:49 | PC.NURSE ---
Call from lab on 06/10, at 2232 for critical lab: K 2.4. Spoke with Dr Mon, received verbal order for 60Meg potassium IV.
[2022-06-11] MEDS: CEFAZOLIN VIAL 1 GM in SODIUM CHLORIDE 0.9% 100 ML IV (03:41)
[2022-06-11] MEDS: POTASSIUM CHLORIDE IN WATER 10 MEQ/100 ML PIGGYBACK 100 MEQ IV ×2 (04:40→07:48)
[2022-06-11] MEDS: MORPHINE 2 MG/ML INJ 1.5 MG IV (05:44)
[2022-06-11] MEDS: PANTOPRAZOLE DR 20 MG TABLET PO (05:45)
--- NOTE | 2022-06-11 08:00 | DI.RAD.S_ITS ---
PROCEDURE: XR CHEST 2V INDICATIONS: s/p elevated WBC r/o aspir TECHNIQUE: 2 views of the chest were acquired. COMPARISON: [facility], CR, XR SHOULDER RT 1V, 06/10/2022, 15:58. [facility], CR, XR CHEST 2V, 02/04/2021, 10:10. FINDINGS: Surgical changes and devices: Right shoulder postoperative change can be seen, with tissue swelling and soft tissue gas. Lumbar spine postoperative change is partially seen on the. Lungs and pleura: Mild, streaky opacities are seen at the lung bases. No pleural effusions or pneumothorax. Mediastinum: The cardiac contours are within normal limits. The aorta demonstrates calcification and tortuosity. Bones and chest wall: No suspicious bony abnormalities. Age-appropriate bony degenerative changes are seen. Soft tissues appear unremarkable. IMPRESSION: Presumed atelectasis is seen at the lung bases. Differential diagnosis includes infiltrate, including aspiration pneumonia, yet this is considered to be less likely. If clinically appropriate, please consider follow-up CT. Recent right shoulder surgery. Dictated by: Andre Meza M.D. on 06/11/2022 at 8:17 Approved by: Andre Meza M.D. on 06/11/2022 at 8:19
[2022-06-11] MEDS: POTASSIUM CHLORIDE 20 MEQ TAB 40 MEQ PO (08:37)
[2022-06-11] MEDS: CHLORTHALIDONE 25 MG TABLET PO (08:37)
[2022-06-11] MEDS: DOCUSATE 100 MG CAPSULE PO ×2 (08:37→20:19)
[2022-06-11] MEDS: ASPIRIN EC 81 MG TABLET PO ×2 (08:37→20:19)
[2022-06-11] MEDS: CITALOPRAM 10 MG TABLET PO (08:38)
[2022-06-11] MEDS: ACETAMINOPHEN 325 MG TABLET 650 MG PO ×3 (08:39→20:19)
[2022-06-11 08:52] LABS: Alanine Aminotransferase 32 IU/L (<35); Albumin 3.3 g/dL (3.5-5.0); Albumin Globulin Ratio 1.1 (1.0-2.8); Alkaline Phosphatase 80 U/L (38-126); Aspartate Aminotransferase 54 IU/L (14-36); BUN Creatinine Ratio 19.2 (6-22); Bilirubin Total 0.6 mg/dL (0.2-1.3); Blood Urea Nitrogen 14 mg/dL (7-17); Calcium 7.9 mg/dL (8.4-10.2); Carbon Dioxide 27 mmol/L (22-32); Chloride 99 mmol/L (98-107); Estimated Glomerular Filt Rate > 60 mL/min (>60); Globulin 2.9 g/dL (1.7-4.1); Glucose 95 mg/dL (80-110); HEMOLYSIS 50 (0-50); Magnesium 2.4 mg/dL (1.6-2.3); Potassium 3.2 mmol/L (3.4-5.1); Sodium 131 mmol/L (137-145); Total Protein 6.2 g/dL (6.3-8.2)
--- NOTE | 2022-06-11 09:07 | P.PN_ITS ---
Subjective Subjective Date Patient Seen: 06/11/22 Time Patient Seen: 09:07 Interval history: Right shoulder pain is severe. Denies fever or chills. Exam Vital Signs (past 8 hours): - 06/11/22 01:43 06/11/22 01:30 06/11/22 01:15 Temperature Pulse Rate Pulse Rate [Orthostatic Lying] Pulse Rate [Orthostatic Sitting] Pulse Rate [Orthostatic Standing] Respiratory Rate Blood Pressure 110/55 L 111/54 L 115/56 L Blood Pressure [Orthostatic Lying] Blood Pressure [Orthostatic Sitting] Blood Pressure [Orthostatic Standing] Pulse Oximetry Oxygen Flow Rate 06/11/22 04:10 06/11/22 03:55 06/11/22 03:40 Temperature Pulse Rate Pulse Rate [Orthostatic Lying] Pulse Rate [Orthostatic Sitting] Pulse Rate [Orthostatic Standing] Respiratory Rate Blood Pressure 102/50 L 98/48 L 94/46 L Blood Pressure [Orthostatic Lying] Blood Pressure [Orthostatic Sitting] Blood Pressure [Orthostatic Standing] Pulse Oximetry Oxygen Flow Rate 06/11/22 03:25 06/11/22 03:10 06/11/22 06:08 Temperature Pulse Rate Pulse Rate [Orthostatic Lying] 54 L Pulse Rate [Orthostatic Sitting] 63 Pulse Rate [Orthostatic Standing] 64 Respiratory Rate Blood Pressure 99/48 L 103/52 L Blood Pressure [Orthostatic Lying] 104/52 L Blood Pressure [Orthostatic Sitting] 96/51 L Blood Pressure [Orthostatic Standing] 101/52 L Pulse Oximetry Oxygen Flow Rate 06/11/22 06:09 06/11/22 05:30 06/11/22 05:15 Temperature Pulse Rate 54 L Pulse Rate [Orthostatic Lying] Pulse Rate [Orthostatic Sitting] Pulse Rate [Orthostatic Standing] Respiratory Rate 19 Blood Pressure 104/52 L 108/50 L 101/54 L Blood Pressure [Orthostatic Lying] Blood Pressure [Orthostatic Sitting] Blood Pressure [Orthostatic Standing] Pulse Oximetry 96 Oxygen Flow Rate 0 06/11/22 05:00 06/11/22 04:45 06/11/22 04:30 Temperature Pulse Rate Pulse Rate [Orthostatic Lying] Pulse Rate [Orthostatic Sitting] Pulse Rate [Orthostatic Standing] Respiratory Rate Blood Pressure 100/46 L 94/48 L 97/48 L Blood Pressure [Orthostatic Lying] Blood Pressure [Orthostatic Sitting] Blood Pressure [Orthostatic Standing] Pulse Oximetry Oxygen Flow Rate 06/11/22 08:00 Temperature 97.3 F L Pulse Rate 72 Pulse Rate [Orthostatic Lying] Pulse Rate [Orthostatic Sitting] Pulse Rate [Orthostatic Standing] Respiratory Rate 17 Blood Pressure 102/41 L Blood Pressure [Orthostatic Lying] Blood Pressure [Orthostatic Sitting] Blood Pressure [Orthostatic Standing] Pulse Oximetry 94 Oxygen Flow Rate 0 Oxygen Delivery Method Nasal Cannula Oxygen Flow Rate 0 Narrative Exam Narrative: 76-year-old female resting in bed and apparent pain. Right shoulder dressing is clean, dry and intact. Motor functions intact distal right upper extremity. Sensation grossly intact to light touch right upper extremity. Const General: cooperative Nutritional Appearance: malnourished Resp Effort & Inspection: normal respiratory effort and able to speak in complete sentences Objective Labs 06/10/22 22:06 06/11/22 08:25 Labs: Laboratory Results - last 24 hr 06/10/22 06/10/22 06/10/22 08:50 17:22 22:06 WBC RBC Hgb Hct MCV MCH MCHC RDW Plt Count Neut % (Auto) Lymph % (Auto) [place] % (Auto) Eos % (Auto) Baso % (Auto) Neut # (Auto) Lymph # (Auto) [place] # (Auto) Eos # (Auto) Baso # (Auto) PT 11.6 INR 1.0 Sodium 133 L 132 L Potassium 2.5 L* 2.1 L* Chloride 97 L 95 L Carbon Dioxide 27 29 BUN 18 H 17 Creatinine 0.96 1.04 Estimated GFR > 60 56 L BUN/Creatinine Ratio 18.8 16.3 Glucose 103 170 H Calcium 8.6 8.4 Magnesium Total Bilirubin AST ALT Alkaline Phosphatase Total Protein Albumin Globulin Albumin/Globulin Ratio 06/10/22 06/10/22 06/11/22 22:06 22:06 08:25 WBC 13.1 H RBC 3.91 L Hgb 13.0 Hct 37.7 MCV 96.4 MCH 33.3 MCHC 34.6 RDW 13.8 Plt Count 350 Neut % (Auto) 84.8 H Lymph % (Auto) 6.4 L [place] % (Auto) 8.7 Eos % (Auto) 0.0 L Baso % (Auto) 0.1 Neut # (Auto) 46767 H Lymph # (Auto) 800 L [place] # (Auto) 1100 H Eos # (Auto) 0 Baso # (Auto) 0 PT INR Sodium 129 L 131 L Potassium 2.4 L* 3.2 L Chloride 99 99 Carbon Dioxide 24 27 BUN 16 14 Creatinine 0.94 0.73 Estimated GFR > 60 > 60 BUN/Creatinine Ratio 17.0 19.2 Glucose 161 H 95 Calcium 7.8 L 7.9 L Magnesium 1.5 L 2.4 H Total Bilirubin 0.5 0.6 AST 47 H 54 H ALT 32 32 Alkaline Phosphatase 77 80 Total Protein 5.8 L 6.2 L Albumin 3.2 L 3.3 L Globulin 2.6 2.9 Albumin/Globulin Ratio 1.2 1.1 PFSH Medical History Alcohol abuse Alcohol abuse Colitis (~2000) Coronary artery disease (03/2021) Depression Effusion, left knee Elevated platelet count Fatty liver (~10/2016) GERD (gastroesophageal reflux disease) H/O vaginal delivery Hiatal hernia (03/2021) History of smoking 30 or more pack years Hyperlipemia Hypertension Injury of extensor tendon of hand Kidney stones (1963) Left anterior knee pain Left patella fracture Left shoulder pain Lower extremity pain, bilateral Macrocytosis Non-healing skin lesion Osteoarthritis Osteopenia after menopause (06/2020) Post-menopausal Restless leg syndrome Right hip pain Shingles Situational anxiety Spinal stenosis Weight loss Surgical History History of back surgery History of surgery (~06/2020) History of tonsillectomy History of total right hip replacement (06/11/21) Hx of knee surgery Hx of lithotripsy Status post appendectomy Status post delivery Status post tubal ligation Family History Child Age: 56 Spina bifida Father Age: 102 Arthritis Heart trouble Mother Age: 100 Type 2 diabetes mellitus with complication Essential hypertension Heart trouble Brother No problems noted. Social History household members: significant other Smoking Status: Former smoker alcohol intake: current substance use type: does not use Assessment & Plan Post-op Postoperative Procedures: Procedures Operation Date: 03/24/23 09:15 Actual Procedure Side Surgeon p Reverse Total Shoulder Arthroplasty w. biceps tenodesis Right Cirilo Sanchez MD Postoperative day: 1 Postoperative status narrative: Status post right reverse total shoulder arthroplasty June 10, 2022 consultation by hospitalist completed June 10, 2022 for hypertension, hypokalemia, hyponatremia Postoperative plan narrative: Sling to remain on for 6 weeks. No external rotation past neutral for 6 weeks. Okay for sling to come off for shower. Okay to shower over Aquacel dressing. Multimodal pain management Appreciate hospitalist managing hypokalemia, hypotension, hyponatremia, hypo magnesemia, malnutrition Disposition home 1-2 days when stable per hospitalist Follow-up with [facility] in 2 weeks.
[2022-06-11 09:09] LABS: Procalcitonin 6.18 ng/mL (<0.5)
--- NOTE | 2022-06-11 09:11 | P.PN_ITS ---
Subjective Subjective Interval history: Rossy Osman is a 76-year-old female with a history of HLD, HTN, GERD, and depression who had been admitted for right reverse total shoulder arthroplasty by Dr. Sanchez.? Prior to surgery patient had been found to have a potassium of 2.3 was reported to have received proximally 60 mEq replacement, postsurgically potassium was repeated 2.4 and the patient was hyponatremic sodium 129 and was hypotensive.? Hospitalist Service consulted regarding her hypotension, hypokalemia, and hyponatremia. Patient's main complaint is pain right shoulder. Communication order to nursing to use the morphine as ordered per orthopedic surgeon where the patient can have the morphine dose q.1h as needed. Exam Vital Signs (past 8 hours): - 06/11/22 01:43 06/11/22 01:30 06/11/22 01:15 Temperature Pulse Rate Pulse Rate [Orthostatic Lying] Pulse Rate [Orthostatic Sitting] Pulse Rate [Orthostatic Standing] Respiratory Rate Blood Pressure 110/55 L 111/54 L 115/56 L Blood Pressure [Orthostatic Lying] Blood Pressure [Orthostatic Sitting] Blood Pressure [Orthostatic Standing] Pulse Oximetry Oxygen Flow Rate 06/11/22 04:10 06/11/22 03:55 06/11/22 03:40 Temperature Pulse Rate Pulse Rate [Orthostatic Lying] Pulse Rate [Orthostatic Sitting] Pulse Rate [Orthostatic Standing] Respiratory Rate Blood Pressure 102/50 L 98/48 L 94/46 L Blood Pressure [Orthostatic Lying] Blood Pressure [Orthostatic Sitting] Blood Pressure [Orthostatic Standing] Pulse Oximetry Oxygen Flow Rate 06/11/22 03:25 06/11/22 03:10 06/11/22 06:08 Temperature Pulse Rate Pulse Rate [Orthostatic Lying] 54 L Pulse Rate [Orthostatic Sitting] 63 Pulse Rate [Orthostatic Standing] 64 Respiratory Rate Blood Pressure 99/48 L 103/52 L Blood Pressure [Orthostatic Lying] 104/52 L Blood Pressure [Orthostatic Sitting] 96/51 L Blood Pressure [Orthostatic Standing] 101/52 L Pulse Oximetry Oxygen Flow Rate 06/11/22 06:09 06/11/22 05:30 06/11/22 05:15 Temperature Pulse Rate 54 L Pulse Rate [Orthostatic Lying] Pulse Rate [Orthostatic Sitting] Pulse Rate [Orthostatic Standing] Respiratory Rate 19 Blood Pressure 104/52 L 108/50 L 101/54 L Blood Pressure [Orthostatic Lying] Blood Pressure [Orthostatic Sitting] Blood Pressure [Orthostatic Standing] Pulse Oximetry 96 Oxygen Flow Rate 0 06/11/22 05:00 06/11/22 04:45 06/11/22 04:30 Temperature Pulse Rate Pulse Rate [Orthostatic Lying] Pulse Rate [Orthostatic Sitting] Pulse Rate [Orthostatic Standing] Respiratory Rate Blood Pressure 100/46 L 94/48 L 97/48 L Blood Pressure [Orthostatic Lying] Blood Pressure [Orthostatic Sitting] Blood Pressure [Orthostatic Standing] Pulse Oximetry Oxygen Flow Rate 06/11/22 08:00 Temperature 97.3 F L Pulse Rate 72 Pulse Rate [Orthostatic Lying] Pulse Rate [Orthostatic Sitting] Pulse Rate [Orthostatic Standing] Respiratory Rate 17 Blood Pressure 102/41 L Blood Pressure [Orthostatic Lying] Blood Pressure [Orthostatic Sitting] Blood Pressure [Orthostatic Standing] Pulse Oximetry 94 Oxygen Flow Rate 0 Oxygen Delivery Method Nasal Cannula Oxygen Flow Rate 0 Narrative Exam Narrative: General:? Patient is a female in no distress at this time. Complaining of inadequate pain control right shoulder postoperatively. HEENT:? Normocephalic, atraumatic, extraocular muscles intact, oral pharynx is clear and mucous membranes are dry.? Neck is supple and symmetric, trachea is midline, no adenopathy, no thyroid enlargement, nontender, no masses palpated.? Negative for JVD Chest:? Normal AP diameter and contour without kyphoscoliosis, no nasal flaring, retractions, or tachypneic labored breathing. Lungs:? Auscultation of all lung gill are clear without adventitious sounds, wheezes, rhonchi, or rales. Cardio:? regular rate and rhythm without murmur, rubs, or gallops, no carotid bruit, no cardiac pulsations present. Abdomen:? Soft nontender, negative for organomegaly, or masses.? Bowel sounds are present in all 4 quadrants without guarding or rebound, no CVA tenderness. Musculoskeletal:? Right arm is in postoperative sling/ splint-other extremities demonstrate no deformity, crepitus, effusions, cyanosis, clubbing or edema present.? intact radial and pedal pulses are normal. In his right shoulder. Skin:? Warm dry and intact without rashes, ulcerations or petechiae.? Neuro:? Alert and orientated x3, sensation to touch intact, no gross deficits noted of cranial nerves. Psych:? Patient has a mental status attitude thought context and judgment are appropriate for age. Objective Labs 06/10/22 22:06 06/11/22 08:25 Labs: Laboratory Results - last 24 hr 06/10/22 06/10/22 06/10/22 08:50 17:22 22:06 WBC RBC Hgb Hct MCV MCH MCHC RDW Plt Count Neut % (Auto) Lymph % (Auto) [place] % (Auto) Eos % (Auto) Baso % (Auto) Neut # (Auto) Lymph # (Auto) [place] # (Auto) Eos # (Auto) Baso # (Auto) PT 11.6 INR 1.0 Sodium 133 L 132 L Potassium 2.5 L* 2.1 L* Chloride 97 L 95 L Carbon Dioxide 27 29 BUN 18 H 17 Creatinine 0.96 1.04 Estimated GFR > 60 56 L BUN/Creatinine Ratio 18.8 16.3 Glucose 103 170 H Calcium 8.6 8.4 Magnesium Total Bilirubin AST ALT Alkaline Phosphatase Total Protein Albumin Globulin Albumin/Globulin Ratio 06/10/22 06/10/22 06/11/22 22:06 22:06 08:25 WBC 13.1 H RBC 3.91 L Hgb 13.0 Hct 37.7 MCV 96.4 MCH 33.3 MCHC 34.6 RDW 13.8 Plt Count 350 Neut % (Auto) 84.8 H Lymph % (Auto) 6.4 L [place] % (Auto) 8.7 Eos % (Auto) 0.0 L Baso % (Auto) 0.1 Neut # (Auto) 45594 H Lymph # (Auto) 800 L [place] # (Auto) 1100 H Eos # (Auto) 0 Baso # (Auto) 0 PT INR Sodium 129 L 131 L Potassium 2.4 L* 3.2 L Chloride 99 99 Carbon Dioxide 24 27 BUN 16 14 Creatinine 0.94 0.73 Estimated GFR > 60 > 60 BUN/Creatinine Ratio 17.0 19.2 Glucose 161 H 95 Calcium 7.8 L 7.9 L Magnesium 1.5 L 2.4 H Total Bilirubin 0.5 0.6 AST 47 H 54 H ALT 32 32 Alkaline Phosphatase 77 80 Total Protein 5.8 L 6.2 L Albumin 3.2 L 3.3 L Globulin 2.6 2.9 Albumin/Globulin Ratio 1.2 1.1 [facility] Medical History Alcohol abuse Alcohol abuse Colitis (~2000) Coronary artery disease (03/2021) Depression Effusion, left knee Elevated platelet count Fatty liver (~10/2016) GERD (gastroesophageal reflux disease) H/O vaginal delivery Hiatal hernia (03/2021) History of smoking 30 or more pack years Hyperlipemia Hypertension Injury of extensor tendon of hand Kidney stones (1963) Left anterior knee pain Left patella fracture Left shoulder pain Lower extremity pain, bilateral Macrocytosis Non-healing skin lesion Osteoarthritis Osteopenia after menopause (06/2020) Post-menopausal Restless leg syndrome Right hip pain Shingles Situational anxiety Spinal stenosis Weight loss Surgical History History of back surgery History of surgery (~06/2020) History of tonsillectomy History of total right hip replacement (06/11/21) Hx of knee surgery Hx of lithotripsy Status post appendectomy Status post delivery Status post tubal ligation Family History Child Age: 56 Spina bifida Father Age: 102 Arthritis Heart trouble Mother Age: 100 Type 2 diabetes mellitus with complication Essential hypertension Heart trouble Brother No problems noted. Social History household members: significant other Smoking Status: Former smoker alcohol intake: current substance use type: does not use Assessment & Plan Assessment & Plan narrative: 1. Hypokalemia, acute, present on admission -this improved this morning to 3.2. We will continue oral supplementation and monitor. 2. Hypotension, acute, S/p shoulder surgery, present on admission -currently stable at 102/41 continue to monitor to ensure stability 3. Hyponatremia, mild, acute, present on admission -improved today to 131. Continue normal saline IV replacement. Continue to monitor. 4. Hypomagnesemia, acute, present on admission -has stabilized to 2.4 today. Continue to monitor. 5. Malnutrition, mild , acute on chronic, present on admission -as evidence by BMI 20.6 -patient's malnutrition places them at high risk for medical and surgical complications in relation to acute illness/chronic illness.? This increases the difficulty in complexity of medical management and increases the chances poor outcomes such as mortality and morbidity as well as impaired wound healing, and immune suppression. -dietary consult ordered to evaluate and implement steps to improve caloric intake and nutrition. 6. Elevated procalcitonin. Continue to monitor. Is sent with Dimple- operative state Code status: Full Surrogate decision maker: Adriel Gilliland Partner COVID PCR:? Negative Disposition:? Consult only for in-hospital management of hypotension, hypo magnesium, hyponatremia and hypokalemia.
[2022-06-11] MEDS: OXYCODONE IR 5 MG TABLET 10 MG PO ×3 (09:36→20:20)
--- NOTE | 2022-06-11 11:10 | PT.IIE ---
Current Diagnoses Primary osteoarthritis, right shoulder (06/10/22) Surgery Performed Operation Date: 06/10/22 09:15 Actual Procedures p Reverse Total Shoulder Arthroplasty w. biceps tenodesis(Right) - Cirilo Sanchez MD Surgical History (Last Reviewed 06/11/22 @ 09:15 by Keyla Workman MD) History of back surgery History of surgery (~06/2020) History of tonsillectomy History of total right hip replacement (06/11/21) Hx of knee surgery Hx of lithotripsy Status post appendectomy Status post delivery Status post tubal ligation Medical History (Last Reviewed 06/11/22 @ 09:15 by Keyla Workman MD) Alcohol abuse Alcohol abuse Colitis (~2000) Coronary artery disease (03/2021) Depression Effusion, left knee Elevated platelet count Fatty liver (~10/2016) GERD (gastroesophageal reflux disease) H/O vaginal delivery Hiatal hernia (03/2021) History of smoking 30 or more pack years Hyperlipemia Hypertension Injury of extensor tendon of hand Kidney stones (1963) Left anterior knee pain Left patella fracture Left shoulder pain Lower extremity pain, bilateral Macrocytosis Non-healing skin lesion Osteoarthritis Osteopenia after menopause (06/2020) Post-menopausal Restless leg syndrome Right hip pain Shingles Situational anxiety Spinal stenosis Weight loss Physical Therapy Inpatient Evaluation/Re-Eval M1 PT/OT-IP Prior Functional Status Start: 06/10/22 15:50 Freq: NEEDED Status: Active Protocol: Document 06/11/22 11:10 DLM (Rec: 06/11/22 11:33 DLM [id number]) Medical Review Prior Functional Status Medical History Reviewed Yes Diet/Fluid Consistency Regular Communication WNL, contacts Mobility and Gait Independent without device Activities of Daily Living and IADL's Independent Social History Household Members significant other Living Arrangements House Number of Floors (Floors) Two Floors Number of Stairs To Enter/Railing? flight of steps to enter from garage with rails, can stay on main floor once inside Home Environment High Toilet,Walk in Shower,Tub /Shower Home Equipment Options Advisor Additional Social History Comment She has been with her boyfriend 19 years and reports he can assist as needed at discharge. She has a dog M2 PT-IP Current Condition Start: 06/10/22 15:50 Freq: NEEDED Status: Active Protocol: Document 06/11/22 11:10 DLM (Rec: 06/11/22 11:33 DL [id number]) Physical Therapy Current Condition Current Condition Evaluation Date 06/11/22 Treatment Diagnosis right reverse TSA, pain Onset Date 06/10/22 M3 PT-IP Subjective Start: 06/10/22 15:50 Freq: NEEDED Status: Active Protocol: Document 06/11/22 11:10 DLM (Rec: 06/11/22 11:33 DL [id number]) Subjective Physical Therapy Visit Type Type Initial Evaluation Visit Start Time 10:30 Visit Stop Time 11:10 Total Visit Minutes 40 Number of ACCOUNT INFORMATION CLERK Visits 0 Physical Therapy Visit Comments Patient Comments She reports her pain has improved this morning with use of pain medication. She reports feeling safe to discharge home today. Patient Goals Discharge home Therapy Pain Assessment Pain When Pain Assessed After Treatment Pain Present Pain Present Pain Reported Location Right Shoulder Intensity 3 Scale Used Numeric (0 - 10) Description Aching Pain Behaviors Guarding Pain Management Techniques Apply Cold,Re-positioning M4 PT-IP Mobility and Gait Start: 06/10/22 15:50 Freq: NEEDED Status: Active Protocol: Document 06/11/22 11:10 DLM (Rec: 06/11/22 11:33 DL [id number]) PT-Bed Mobility Assessment Supine to Sit Supine to Sit Independent Scooting Scooting to Edge of Bed Independent PT-Transfer Assessment Sit to and From Stand Sit to and from Stand Independent,Use of Upper Extremities Equipment Transfer Assistive Device None Transfers Transfer Destination Chair,Toilet Transfer Technique Stand Step Pivot Transfer Ability Level of Assist Independent,Use of Upper Extremities Comments Mobility Comments She demonstrates good balance during mobility, no light- headedness nor nausea Gait Assessment Gait Gait Assistance Required: Independent Distance (Feet) 200 Able to Maintain Weight Bearing Status Yes During Gait Assistive Devices Assistive Device None Gait Deviations General Gait Pattern Within Normal Limits Comments Gait Comments no losses of balance during gait Stair Climbing Assessment Evaluation Level of Assist On Stairs Independent Devices Stair Climbing Assistive Devices Left Railing Technique/Endurance Stair Climbing Direction Ascend and Descend Stair Climbing Technique Step to Step Number of Steps Climbed 3 Query Text: Stair Climbing Set # Repetitions (reps) 2 Comments Stair Climbing Comments good functional strength on stairs, able to complete without difficulty PT-Balance Assessment Sitting Balance and Reactions Static Sitting Balance Ability Normal Dynamic Sitting Balance Ability Normal Standing Balance and Reactions Static Standing Balance Ability Good Dynamic Standing Balance Ability Good Device Used none M5 PT-IP Objective Assessments Start: 06/10/22 15:50 Freq: NEEDED Status: Active Protocol: Document 06/11/22 11:10 DLM (Rec: 06/11/22 11:33 DLM [id number]) Orientation Orientation/Cognition Level of Alertness Alert Orientation Name,Age,Birthday,Month,Date, Year,Day of Week,Place, Situation Language Function Ability No Deficits Noted Safety Awareness Understands Safety Issues Memory Description No Deficits Noted Gross Range of Motion Upper Extremity ROM Assessment Right Impaired Impairments sling in place, post-op limitations for shoulder, able to move elbow with pain, wrist and hand are WNL Lower Extremity ROM Assessment Within Functional Limits Strength Upper Extremity Strength Assessment Right Impaired Shoulder no functional use post/op Elbow needs assist to move due to pain Wrist moving actively Hand moving actively Lower Extremity Strength Assessment Within Functional Limits Coordination Assessment Gross Coordination Gross Coordination WNL Sensation Assessment Sensation Gross Sensation WNL Muscle Tone Muscle Tone WNL Yes M6 PT-IP Treatment Start: 06/10/22 15:50 Freq: NEEDED Status: Active Protocol: Document 06/11/22 11:10 DLM (Rec: 06/11/22 11:33 DLM [id number]) Physical Therapy Treatment Exercises Exercises Shoulder Pendulums,Elbow Flexion/Extension,Wrist ROM, Hand ROM Education Education Provided Precautions,Safety Other Treatments Other Treatment Performed no family present this visit, educated pt in use of her sling M7 PT-IP Assessment and Plan Start: 06/10/22 15:50 Freq: NEEDED Status: Active Protocol: Document 06/11/22 11:10 DLM (Rec: 06/11/22 11:33 DLM [id number]) PT Summary Assessment and Plan Potential Rehabilitation Potential Good Status of Condition at Evaluation Evolving Summary Impairments Pain,ROM,Strength,Activity Tolerance Assessment Summary Rossy is alert and resting in bed. She reports she has been able to get up with nursing to use the toilet. She reports having a good support system at home. She was able to ambulate safely in the jack and do stairs. She demonstrates good balance for gait without device. No light- headedness nor nausea with activity. Pt left up in the recliner with call light close and nursing aware. Pt appears safe to discharge home today if medically cleared. Notified nursing that she was cleared by physical therapy. Frequency of Treatment Frequency Of Treatment Discharge Treatment Plan Other Recommendations and Next Treatment training completed this visit Focus Precautions Shoulder Precautions Sling,No External Rotation, Pendulums Brace sling x 6 weeks, no external rotation past neutral Recommendations To Nursing Amount of Assist Needed Standby Assistance Discharge Recommendations PT Discharge Recommendations Home with Assistance Other Discharge Recommendations has S.O who can help at discharge Transportation Needs at Discharge Private Vehicle
--- NOTE | 2022-06-11 11:24 | PC.NURSE ---
Pt a*otolerating activity as the day unfolds. Pain controlled. PT says she is good to go from their standpoint. Shoulder site CDI.
[2022-06-11 11:26] LABS: Hematocrit 41.3 % (36-46); Hemoglobin 13.9 g/dL (12.0-16.0); Mean Corpuscular HGB Conc 33.8 % (30-36); Mean Corpuscular Volume 97.6 fL (80-100); Platelet Count 366 X10^3/uL (150-400); Red Blood Cell Count 4.23 X10^6/uL (4.0-5.2); Red Cell Distribution Width 13.8 % (11.6-14.8); White Blood Cell Count 11.2 X10^3/uL (4.5-11.0)
--- NOTE | 2022-06-11 13:45 | CM.DANOTE ---
DCP: Case received, EMR reviewed and met with patient. Introduced self and role. Was able to obtain information regarding patient's baseline activity status prior to her surgery. DCP assessment completed with information currently available. Patient is a 76 year old female who admitted yesterday morning to the care of the orthopedic team. PCP: Dr. Hubbard. Payer: confirmed: Medicare. Patient came to the hospital via private vehicle for a surgical procedure. Patient had right reverse shoulder arthroplasty. Patient has history of right shoulder glenohumeral arthritis. Met with patient in her room. She was up in her chair, alert and oriented. Confirmed that she resides here in [place] with her partner, Adriel Campos. At her baseline, she is independent and drives. Confirmed that her partner will be able to assist her with needs when she goes home. P: DCP to continue to follow. Plan is home when deemed medically stable. Ana Rosa Garza RN/Parent Partner Discharge Planning/Care Management CM Discharge Assessment Start: 06/11/22 13:41 Freq: Status: Active Protocol: Document 06/11/22 13:42 (Rec: 06/11/22 13:44 [id number]) Discharge Planning Assessment Assigned Tracer Clerk Ana Rosa Garza RN/Parent Partner Advance Directives? Yes Advance Directives on File Yes History Provided By Patient,Medical Record Prior Living Arrangements House Household Members significant other Type of transporation used prior to Drives own vehicle admit Independent with ADL's Yes Is patient alert and oriented? Yes Caregiver for Another No Discharge Plan Home Transportation Arrangement Life Partner, Adriel. Referrals Initiated None needed Whiteboard Updated in Patient Room with Yes name and ext. # of Tracer Clerk Review Status In Process Next Review Type Continued Stay Review Pre-Anesthesia Assessment Start: 05/26/22 12:40 Freq: Status: Active Protocol: Document 05/26/22 12:40 CAB (Rec: 05/26/22 13:14 CAB [id number]) Pre-Anesthesia Assessment Patient Information Reviewed Via Phone Assessment Assessment Completed With Patient Diagnostic Results BMP/CMP,CBC,EKG Comment Lab/EKG @ 05/12/22 Primary Care Provider Marcel Hubbard Seen Specialist in Last 12 Months Yes Specialist Seen Emergency,Oncologist, Opthamologist/Radiologist Chief Of Breast Imaging, Orthopedist Primary Language Chinese Preferred Language Chinese Drug Room Operator Required No Height 5 ft 4 in Weight 120 lb Body Mass Index (BMI) 20.5 Hearing Ability Normal Visual Assist Contacts,Glasses Dentition Type Teeth, Natural Present,Full- Upper Barriers to Learning None Hx Anesthesia Reactions No Hx Family Anesthesia Reaction No Hx Malignant Hyperthermia No Hx Blood Transfusions No Anesthesia Review Requested No Semiconductor Wafers Etch Operator No alcohol intake current alcohol intake frequency 3 or more drinks per day Alcohol Intake Frequency Other: Hx of ETOH abuse, records reflect pt stopped drinking in March 2021 Smoking Status Current some day smoker Tobacco type smokeless tobacco how long ago did patient quit smoking Quit cigarettes approx 2012, continues to vape Substance Use Type does not use Pain Present Pain Reported Musculoskeletal Symptoms Abnormal Gait,Difficulty Walking,Joint Pain,Limited Range of Motion History of Falling (Recent or History of No ) Patient is completely paralyzed or No completely immobile Mental Status Oriented to own ability Is patient on oxygen? No Does patient have HORVATH/SOB No Hx Sleep Apnea No CPAP/BIPAP use not prescribed Currently Taking a Beta Harsha No Can You Climb a Flight of Stairs Without Yes SOB Hx Chest Pain No Hx SOB No Hx Syncope or Dizziness No Anti-Coagulant Therapy No Has a Pivot Maker No Cardiac Testing No Hx Pacemaker/ICD No Pacemaker Rep Required? No Cardiac Clearance Received No Diet Type At Home Regular Dysphagia No Gastrointestinal Symptoms Constipation Urinary Catheter Present No Hx Urinary Self Catheterization No Diabetes No Patient No Lactating No Hx Drug Resistant Organism No Presence of External or Internal Medical Yes: Lumbar hardware, right Devices hip Have you had any close contact with No someone diagnosed with COVID-19? Received a COVID vaccine? Yes Received all doses? No Marital Status Lives With significant other Current Living Arrangements House Number of Floors (Floors) Two Floors Support System Significant Other Does the Patient Have Assistance After Yes Surgery Patient Discharge Plan Description Return Home Comment Pt advised overnight length of stay per surgeon Feels Safe in Current Environment Yes Been Physically Hurt or Threatened By a No Person in Current Environment Do you have thoughts of harming yourself None or others? Are you currently considering suicide? No Do you have a plan to hurt yourself or No Plan others? Do You Have Any Spiritual Beliefs That No May Affect Your HC Choices? Do You Have Any Cultural Practices That No May Affect Your HC Choices? Who Can We Speak to About Patient's Care Family, friends Identifying Code for Release of Patient Declines to issue Information Health Care Proxy/Next of Kin Adriel (S.O.) Health Care Proxy Emergency Contact Name Bill (son) Emergency Contact Advance Directives? Yes Advance Directives on File Yes Power of Camera Systems Engineer Yes Power of Camera Systems Engineer Name Adriel (S.O.) Power of Camera Systems Engineer PAC Instructions Do not shave/clip surgical site,Durable medical equipment ,Medications to take/avoid, Nasal antibiotic,No ETOH/ petroleum product on skin DOS, NPO,Post-op transportation,Pre -surgical wash,Sensory aids, Sturdy shoes/comfortable clothes,Do not bring valuables and remove jewelry
[2022-06-11] MEDS: PRAMIPEXOLE 0.25 MG TABLET 0.5 MG PO (20:18)
[2022-06-11] MEDS: ATORVASTATIN 20 MG TABLET PO (20:19)
[2022-06-12] VITALS: BP 111/54; PULSE 76; RESP 18; TEMP 36.7; O2SAT 94
[2022-06-12] MEDS: OXYCODONE IR 5 MG TABLET 10 MG PO ×3 (00:02→08:21)
[2022-06-12] MEDS: PANTOPRAZOLE DR 20 MG TABLET PO (04:19)
[2022-06-12 04:50] VITALS: BP 121/54; PULSE 65; RESP 18; TEMP 36.6; O2SAT 94
[2022-06-12 06:25] LABS: Magnesium 1.8 mg/dL (1.6-2.3)
[2022-06-12 06:26] LABS: Alanine Aminotransferase 23 IU/L (<35); Albumin 3.1 g/dL (3.5-5.0); Albumin Globulin Ratio 1.1 (1.0-2.8); Alkaline Phosphatase 85 U/L (38-126); Aspartate Aminotransferase 46 IU/L (14-36); BUN Creatinine Ratio 16.7 (6-22); Bilirubin Total 0.6 mg/dL (0.2-1.3); Blood Urea Nitrogen 10 mg/dL (7-17); Carbon Dioxide 29 mmol/L (22-32); Chloride 98 mmol/L (98-107); Estimated Glomerular Filt Rate > 60 mL/min (>60); Globulin 2.8 g/dL (1.7-4.1); Glucose 98 mg/dL (80-110); HEMOLYSIS 20 (0-50); Sodium 130 mmol/L (137-145); Total Protein 5.9 g/dL (6.3-8.2)
[2022-06-12 06:33] LABS: Potassium 2.5 mmol/L (3.4-5.1)
[2022-06-12] MEDS: POTASSIUM CHLORIDE 20 MEQ TAB 40 MEQ PO (06:57)
[2022-06-12] MEDS: ACETAMINOPHEN 325 MG TABLET 650 MG PO ×2 (07:32→15:38)
[2022-06-12] MEDS: CHLORTHALIDONE 25 MG TABLET PO (07:33)
[2022-06-12] MEDS: DOCUSATE 100 MG CAPSULE PO (07:33)
[2022-06-12] MEDS: CITALOPRAM 10 MG TABLET PO (07:34)
[2022-06-12] MEDS: POTASSIUM CHLORIDE 20 MEQ TAB PO ×2 (07:34→12:10)
[2022-06-12] MEDS: ASPIRIN EC 81 MG TABLET PO (07:34)
[2022-06-12 07:53] VITALS: BP 115/49; PULSE 62; RESP 14; TEMP 36.7; O2SAT 93
--- NOTE | 2022-06-12 10:32 | P.DS_ITS ---
History of Present Illness History of Present Illness Date Patient Seen: 06/12/22 Time Patient Seen: 10:32 Chief complaint: Right reverse TSA Narrative: The history and physical is contained in the chart previously completed note. Please refer to that note for this information. Discharge Providers Provider Date of admission: 06/10/22 07:04 Discharge Date: 06/12/22 Primary care physician: Marcel Hubbard DO Consults: 06/10/22 06:00 Consult to Anesthesiology Routine Comment: Consulting Provider: Anesthesiologist Reason for consultation: Regional block for post operative pain control 06/10/22 13:10 Consult to Discharge Planning Routine Comment: Consult to Physical Therapy Evaluate & Treat Comment: Physician Instructions: Evaluate and Treat 06/10/22 17:02 Consult to Dietitian, Adult Routine Comment: Reason For Exam: Decrease in Oral intake 06/10/22 18:24 Consult to Hospitalist Service Routine Comment: Consulting Provider: Gaviota Mon Reason for consultation: critical potassium Has provider been notified: Yes Discharge provider: Andrea Ortega MD Summary Hospital Course Discharge Diagnosis: 1. Right shoulder glenohumeral osteoarthritis 2. Rotator cuff tear right shoulder 3. Hypokalemia Hospital Course: The patient was admitted to the hospital and taken directly to the operating room on June 10, 2022 where she underwent a right reverse total shoulder replacement by Dr. Cirilo Sanchez. She did well postoperatively however did have difficulties with pain control which eventually were addressed. She did have persistent hypokalemia despite supplementation with oral potassium. She was evaluated by the hospitalist service. At the time of this dictation she is surgically stable and ready for discharge home. The plan is for her to have her potassium rechecked later in the day and if that is satisfactory she will be discharged today. Status at Discharge Cognitive/behavioral status at discharge: at baseline, oriented Functional status at discharge: independent ambulation Overall status at discharge: patient is progressing back to baseline Time Spent with Patient Time spent: Less than 30 minutes Exam Vital Signs (past 8 hours): - 06/12/22 04:50 06/12/22 07:53 Temperature 97.9 F 98.0 F Pulse Rate 65 62 Respiratory Rate 18 14 Blood Pressure 121/54 L 115/49 L Pulse Oximetry 94 93 Oxygen Flow Rate 0 0 Oxygen Delivery Method Nasal Cannula Oxygen Flow Rate 0 Narrative Exam Narrative: Right shoulder wound is dressed with no drainage on the bandage. Light touch is intact in the radial, ulnar, median, muscular cutaneous and axillary nerve distribution. She can extend her thumb, abduct her thumb, abduct her fingers and can fire her biceps and deltoid. Objective Labs 06/11/22 11:15 06/12/22 06:01 Labs: Laboratory Results - last 24 hr 06/11/22 06/12/22 06/12/22 11:15 06:00 06:01 WBC 11.2 H RBC 4.23 Hgb 13.9 Hct 41.3 MCV 97.6 MCH 33.0 MCHC 33.8 RDW 13.8 Plt Count 366 Sodium Potassium Chloride Carbon Dioxide BUN Creatinine Estimated GFR BUN/Creatinine Ratio Glucose Hemoglobin A1c Cancelled Calcium Magnesium 1.8 Total Bilirubin AST ALT Alkaline Phosphatase Total Protein Albumin Globulin Albumin/Globulin Ratio Procalcitonin 06/12/22 06/12/22 06:01 06:01 WBC RBC Hgb Hct MCV MCH MCHC RDW Plt Count Sodium 130 L Potassium 2.5 L* Chloride 98 Carbon Dioxide 29 BUN 10 Creatinine 0.60 Estimated GFR > 60 BUN/Creatinine Ratio 16.7 Glucose 98 Hemoglobin A1c Calcium 8.0 L Magnesium Total Bilirubin 0.6 AST 46 H ALT 23 Alkaline Phosphatase 85 Total Protein 5.9 L Albumin 3.1 L Globulin 2.8 Albumin/Globulin Ratio 1.1 Procalcitonin 2.70 H COUNTS INCLUDE 234 BEDS AT THE [facility] Medical History Alcohol abuse Alcohol abuse Colitis (~2000) Coronary artery disease (03/2021) Depression Effusion, left knee Elevated platelet count Fatty liver (~10/2016) GERD (gastroesophageal reflux disease) H/O vaginal delivery Hiatal hernia (03/2021) History of smoking 30 or more pack years Hyperlipemia Hypertension Injury of extensor tendon of hand Kidney stones (1963) Left anterior knee pain Left patella fracture Left shoulder pain Lower extremity pain, bilateral Macrocytosis Non-healing skin lesion Osteoarthritis Osteopenia after menopause (06/2020) Post-menopausal Restless leg syndrome Right hip pain Shingles Situational anxiety Spinal stenosis Weight loss Surgical History History of back surgery History of surgery (~06/2020) History of tonsillectomy History of total right hip replacement (06/11/21) Hx of knee surgery Hx of lithotripsy Status post appendectomy Status post delivery Status post tubal ligation Family History Child Age: 56 Spina bifida Father Age: 102 Arthritis Heart trouble Mother Age: 100 Type 2 diabetes mellitus with complication Essential hypertension Heart trouble Brother No problems noted. Social History household members: significant other Smoking Status: Former smoker alcohol intake: current substance use type: does not use Discharge Assessment & Plan Assessment and Plan Assessment: The patient is stable from the surgical standpoint 2 days out from her right reverse total shoulder arthroplasty. She has a persistent hypokalemia. She is receiving potassium supplementation. This is being addressed by the hospitalist service. Plan of Treatment: We will increase dietary intake of potassium and continue oral supplementation. She is been instructed to seek follow-up with her primary care physician after discharge to address this issue in the long-term. With respect to the shoulder she will remain in the sling and will follow up as scheduled with her primary surgeon. She has received a prescription for pain consisting of oxycodone. Additional medication of Tylenol for baseline pain and aspirin for DVT prophylaxis have been sent to her pharmacy. Discharge Plan Discharge Plan Patient Disposition: Home Discharge orders & Medications Prescriptions: New aspirin 81 mg Tablet,Delayed Release (Dr/Ec) 81 mg PO BID Qty: 84 0RF potassium chloride [Klor-Con M20] 20 mEq Tablet,Er Particles/Crystals 20 meq PO TIDWM Qty: 60 0RF oxycodone 5 mg Tablet 5 mg PO Q4H PRN (Reason: Pain, Severe (7-10)) Qty: 40 0RF Continued atorvastatin 20 mg tablet See Rx Instructions .ROUTE .COMPLEX Qty: 90 0RF Dose Instruction: TAKE ONE TABLET BY MOUTH AT BEDTIME Rx Instructions: TAKE ONE TABLET BY MOUTH AT BEDTIME pramipexole 0.5 mg tablet 0.5 mg PO HSP PRN (Reason: restless leg(s)) Qty: 90 3RF omeprazole 20 mg capsule,delayed release(DR/EC) 20 mg PO DAILY Qty: 30 11RF citalopram [Celexa] 10 mg tablet 10 mg PO DAILY Qty: 30 11RF chlorthalidone 25 mg tablet 25 mg PO DAILY Qty: 90 3RF acetaminophen 325 mg Tablet 650 mg PO TID Qty: 180 1RF Follow up/Referrals: Cirilo Sanchez MD [Physician] - As previously scheduled (Follow up w/ Michelle Espinoza PA-C, @ 4:00 pm on 06/24/2022 @ at [employer] [facility] office in [place].) Marcel Hubbard DO [Primary Care Provider] - Discharge Health Status Multidrug resistant organism: No MDRO Diet/Activity/Treatments Diet: Diet as Tolerated and Regular Diet comment: Drink orange and banana smoothies daily Activity: Sling at all times, including while sleeping; may have off for hygiene and pendulum exercises. No active range of motion for 6 weeks. Cold/Heat Therapy: Ice to shoulder as needed for pain. Skin/Wound/Dressing Care Report to your healthcare provider any signs of infection, such as:: chills, fever, night sweats, increased pain, unusual drainage and unusual redness Dressing: May shower. Leave Aquacel dressing in place until follow up in office. Call the office if the dressing becomes saturated inside. Visit Report/Discharge Packet Instructions: DI for Shoulder Replacement Stand Alone Forms: Patient Portal/API, Stroke Signs & Symptoms, Surgery Discharge Discharge Data Primary Care Provider: Marcel Hubbard
[2022-06-12 12:00] VITALS: BP 101/50; BP 111/47; BP 97/52; PULSE 69; PULSE 73; PULSE 75; RESP 14; TEMP 36.5; O2SAT 93
--- NOTE | 2022-06-12 13:35 | CM.DPC ---
DCP Cont: Patient is supposed to discharge home today, does have discharge orders, will have her potassium level checked again. Met with patient in her room, she is hopeful to go home today. She was given orange juice and banana smoothie to assist with potassium levels. Gave her a copy of her IMM as well. Dr. Ortega, orthopedist, has cleared patient for home as well. P: Patient is supposed to discharge home today, pending latest potassium level. Ana Rosa Garza RN/Av Specialist
[2022-06-12 14:44] LABS: Carbon Dioxide 29 mmol/L (22-32); Chloride 97 mmol/L (98-107); HEMOLYSIS < 15 (0-50); Potassium 3.7 mmol/L (3.4-5.1); Sodium 131 mmol/L (137-145)
--- NOTE | 2022-06-12 15:02 | P.DS_ITS ---
History of Present Illness History of Present Illness Date Patient Seen: 06/12/22 Chief complaint: Right reverse TSA Discharge Providers Provider Date of admission: 06/10/22 07:04 Discharge Date: 06/12/22 Primary care physician: Marcel Hubbard DO Consults: 06/10/22 06:00 Consult to Anesthesiology Routine Comment: Consulting Provider: Anesthesiologist Reason for consultation: Regional block for post operative pain control 06/10/22 13:10 Consult to Discharge Planning Routine Comment: Consult to Physical Therapy Evaluate & Treat Comment: Physician Instructions: Evaluate and Treat 06/10/22 17:02 Consult to Dietitian, Adult Routine Comment: Reason For Exam: Decrease in Oral intake 06/10/22 18:24 Consult to Hospitalist Service Routine Comment: Consulting Provider: Gaviota Mon Reason for consultation: critical potassium Has provider been notified: Yes Discharge provider: Keyla Workman MD Summary Hospital Course Discharge Diagnosis: Hypokalemia, acute, present on admission Hypotension, acute, S/p shoulder surgery, present on admission Hyponatremia, mild, acute, present on admission Hypomagnesemia, acute, present on admission Malnutrition, mild , acute on chronic, present on admission Elevated procalcitonin Alcohol abuse history Colitis (~2000) Coronary artery disease (03/2021) Depression Effusion, left knee Elevated platelet count history Fatty liver (~10/2016) GERD (gastroesophageal reflux disease) H/O vaginal delivery Hiatal hernia (03/2021) History of smoking 30 or more pack years Hyperlipemia Hypertension Injury of extensor tendon of hand Kidney stones (1963) Left anterior knee pain Left patella fracture Left shoulder pain Lower extremity pain, bilateral Macrocytosis Non-healing skin lesion history Osteoarthritis Osteopenia after menopause (06/2020) Post-menopausal Restless leg syndrome Right hip pain Shingles history Situational anxiety Spinal stenosis Weight loss History of back surgery (~06/2020) History of tonsillectomy History of total right hip replacement (06/11/21) Hx of knee surgery Hx of lithotripsy Status post appendectomy Status post delivery Status post tubal ligation Hospital Course: Rossy Osman is a 76-year-old female with a history of HLD, HTN, GERD, and depression who had been admitted for right reverse total shoulder arthroplasty by Dr. Sanchez.? Prior to surgery patient had been found to have a potassium of 2.3 and then received proximally 60 mEq replacement, postsurgically potassium was repeated 2.4 and the patient was hyponatremic sodium 129 and was hypotensive.? Dr. Sanchez graciously requested that the hospitalist Service consult regarding her hypotension, hypokalemia, and hyponatremia. Hypotension improved with fluid resuscitation. Hyponatremia gradually improved with intravenous infusion of saline solution. Hypokalemia was more difficult to improve. Patient required intravenous placement, oral replacement by medication and eventually oral replacement with 2 doses of bananas/orange juice/yogurt smoothies. It is recommended that the patient continue with making her own smo othies at home having them for breakfast and lunch daily. This will also generally help her nutritional status. Prior to discharge her sodium was 131 and potassium was 3.7. Patient will follow up with Dr. Sanchez and follow his post discharge plan of treatment. She should also follow up with her primary care physician Dr. Hubbard. Status at Discharge Cognitive/behavioral status at discharge: oriented Functional status at discharge: independent ambulation Overall status at discharge: patient is progressing back to baseline Time Spent with Patient Time spent: Greater than 30 minutes Exam Vital Signs (past 8 hours): - 06/12/22 07:53 06/12/22 12:00 06/12/22 12:00 Temperature 98.0 F 97.7 F Pulse Rate 62 Pulse Rate [Orthostatic Lying] 69 Pulse Rate [Orthostatic Sitting] 73 Pulse Rate [Orthostatic Standing] 75 Respiratory Rate 14 14 Blood Pressure 115/49 L 101/50 L Blood Pressure [Orthostatic Lying] 111/47 L Blood Pressure [Orthostatic Sitting] 101/50 L Blood Pressure [Orthostatic Standing] 97/52 L Pulse Oximetry 93 93 Oxygen Flow Rate 0 0 Oxygen Delivery Method Nasal Cannula Oxygen Flow Rate 0 Narrative Exam Narrative: General:? Patient is a female in no distress at this time.? HEENT:? Normocephalic, atraumatic, extraocular muscles intact, oral pharynx is clear and mucous membranes are dry.? Neck is supple and symmetric, trachea is midline, no adenopathy, no thyroid enlargement, nontender, no masses palpated.? Negative for JVD Chest:? Normal AP diameter and contour without kyphoscoliosis, no nasal flaring, retractions, or tachypneic labored breathing. Lungs:? Auscultation of all lung gill are clear without adventitious sounds, wheezes, rhonchi, or rales. Cardio:? regular rate and rhythm without murmur, rubs, or gallops, no carotid bruit, no cardiac pulsations present. Abdomen:? Soft nontender, negative for organomegaly, or masses.? Bowel sounds are present in all 4 quadrants without guarding or rebound, no CVA tenderness. Musculoskeletal:? Right arm is in postoperative sling/ splint-other extremities demonstrate no deformity, crepitus, effusions, cyanosis, clubbing or edema present.? intact radial and pedal pulses are normal.? Tenderness right shoulder. Skin:? Warm dry and intact without rashes, ulcerations or petechiae.? Neuro:? Alert and orientated x3, sensation to touch intact, no gross deficits n oted of cranial nerves. Psych:? Patient has a mental status attitude thought context and judgment are appropriate for age. Objective Labs 06/11/22 11:15 06/12/22 14:25 Labs: Laboratory Results - last 24 hr 06/12/22 06/12/22 06/12/22 06:00 06:01 06:01 Sodium Potassium Chloride Carbon Dioxide BUN Creatinine Estimated GFR BUN/Creatinine Ratio Glucose Hemoglobin A1c Cancelled Calcium Magnesium 1.8 Total Bilirubin AST ALT Alkaline Phosphatase Total Protein Albumin Globulin Albumin/Globulin Ratio Procalcitonin 2.70 H 06/12/22 06/12/22 06:01 14:25 Sodium 130 L 131 L Potassium 2.5 L* 3.7 D Chloride 98 97 L Carbon Dioxide 29 29 BUN 10 Creatinine 0.60 Estimated GFR > 60 BUN/Creatinine Ratio 16.7 Glucose 98 Hemoglobin A1c Calcium 8.0 L Magnesium Total Bilirubin 0.6 AST 46 H ALT 23 Alkaline Phosphatase 85 Total Protein 5.9 L Albumin 3.1 L Globulin 2.8 Albumin/Globulin Ratio 1.1 Procalcitonin [facility] Medical History Alcohol abuse Alcohol abuse Colitis (~2000) Coronary artery disease (03/2021) Depression Effusion, left knee Elevated platelet count Fatty liver (~10/2016) GERD (gastroesophageal reflux disease) H/O vaginal delivery Hiatal hernia (03/2021) History of smoking 30 or more pack years Hyperlipemia Hypertension Injury of extensor tendon of hand Kidney stones (1963) Left anterior knee pain Left patella fracture Left shoulder pain Lower extremity pain, bilateral Macrocytosis Non-healing skin lesion Osteoarthritis Osteopenia after menopause (06/2020) Post-menopausal Restless leg syndrome Right hip pain Shingles Situational anxiety Spinal stenosis Weight loss Surgical History History of back surgery History of surgery (~06/2020) History of tonsillectomy History of total right hip replacement (06/11/21) Hx of knee surgery Hx of lithotripsy Status post appendectomy Status post delivery Status post tubal ligation Family History Child Age: 56 Spina bifida Father Age: 102 Arthritis Heart trouble Mother Age: 100 Type 2 diabetes mellitus with complication Essential hypertension Heart trouble Brother No problems noted. Social History household members: significant other Smoking Status: Former smoker alcohol intake: current substance use type: does not use Discharge Assessment & Plan Assessment and Plan Assessment: The patient is stable from the surgical standpoint 2 days out from her right reverse total shoulder arthroplasty. She has a persistent hypokalemia. She is receiving potassium supplementation. This is being addressed by the hospitalist service. Plan of Treatment: We will increase dietary intake of potassium and continue oral supplementation. She is been instructed to seek follow-up with her primary care physician after discharge to address this issue in the long-term. With respect to the shoulder she will remain in the sling and will follow up as scheduled with her primary surgeon. She has received a prescription for pain consisting of oxycodone. Additional medication of Tylenol for baseline pain and aspirin for DVT prophylaxis have been sent to her pharmacy. Discharge Plan Discharge Plan Patient Disposition: Home Discharge orders & Medications Prescriptions: New aspirin 81 mg Tablet,Delayed Release (Dr/Ec) 81 mg PO BID Qty: 84 0RF potassium chloride [Klor-Con M20] 20 mEq Tablet,Er Particles/Crystals 20 meq PO TIDWM Qty: 60 0RF oxycodone 5 mg Tablet 5 mg PO Q4H PRN (Reason: Pain, Severe (7-10)) Qty: 40 0RF Continued atorvastatin 20 mg tablet See Rx Instructions .ROUTE .COMPLEX Qty: 90 0RF Dose Instruction: TAKE ONE TABLET BY MOUTH AT BEDTIME Rx Instructions: TAKE ONE TABLET BY MOUTH AT BEDTIME pramipexole 0.5 mg tablet 0.5 mg PO HSP PRN (Reason: restless leg(s)) Qty: 90 3RF omeprazole 20 mg capsule,delayed release(DR/EC) 20 mg PO DAILY Qty: 30 11RF citalopram [Celexa] 10 mg tablet 10 mg PO DAILY Qty: 30 11RF chlorthalidone 25 mg tablet 25 mg PO DAILY Qty: 90 3RF acetaminophen 325 mg Tablet 650 mg PO TID Qty: 180 1RF Follow up/Referrals: Cirilo Sanchez MD [Physician] - As previously scheduled (Follow up w/ Michelle Espinoza PA-C, @ 4:00 pm on 06/24/2022 @ at [employer] office in [place].) Marcel Hubbard DO [Primary Care Provider] - Discharge Health Status Multidrug resistant organism: No MDRO Diet/Activity/Treatments Diet: Diet as Tolerated and Regular Diet comment: Drink orange and banana smoothies daily Activity: Sling at all times, including while sleeping; may have off for hygiene and pendulum exercises. No active range of motion for 6 weeks. Cold/Heat Therapy: Ice to shoulder as needed for pain. Skin/Wound/Dressing Care Report to your healthcare provider any signs of infection, such as:: chills, fever, night sweats, increased pain, unusual drainage and unusual redness Dressing: May shower. Leave Aquacel dressing in place until follow up in office. Call the office if the dressing becomes saturated inside. Visit Report/Discharge Packet Instructions: DI for Shoulder Replacement Stand Alone Forms: Patient Portal/API, Stroke Signs & Symptoms, Surgery Discharge Discharge Data Primary Care Provider: Marcel Hubbard
== END 2022-06-12 15:51 | disposition home or self-care (01) | DRG 483 ==
PROVIDERS: Anesthesiology; Neuromusculoskeletal Medicine, Sports Medicine; Nurse Practitioner Family; Physician Assistant; Admitting Provider Orthopaedic Surgery; PCP Family Medicine; Referring Provider Orthopaedic Surgery Foot and Ankle Surgery; Visit Provider Orthopaedic Surgery
PROC: 0RRJ00Z Replacement of Right Shoulder Joint with Reverse Ball and Socket Synthetic Substitute, Open Approach (ICD-10-PCS; CPT 23472; principal; 2022-06-10 09:15)
DX: M19.011 Primary osteoarthritis, right shoulder (principal); E87.1 Hypo-osmolality and hyponatremia; E44.1 Mild protein-calorie malnutrition; E87.6 Hypokalemia; I95.9 Hypotension, unspecified; E83.42 Hypomagnesemia; M75.101 Unspecified rotator cuff tear or rupture of right shoulder, not specified as traumatic; E78.5 Hyperlipidemia, unspecified; F32.A Depression, unspecified; I10 Essential (primary) hypertension; Z20.822 Contact with and (suspected) exposure to COVID-19; Z68.20 Body mass index [BMI] 20.0-20.9, adult; Z87.891 Personal history of nicotine dependence
CPT/HCPCS: 36415; 64415; 71046; 73020; 80048; 80051; 80053; 83735; 84145; 85025; 85027; 85610; 87040; 87086; 87635; 93005; 93010; 97110; 97162; C1776; C9803; J0171; J0690; J1100; J1885; J2250; J2270; J2405; J2704; J3010; J3475

== ENCOUNTER → 2022-08-01 14:26 | Outpatient (CLI) | payer MEDICARE, SELFPAY ==
[2022-06-10 13:10] VITALS: BMI 20.5
--- NOTE | 2022-08-01 14:27 | DI.RAD.S_ITS ---
PROCEDURE: XR LUMBAR SPINE 2-3V INDICATIONS: low back pain TECHNIQUE: 3 views of the lumbar spine were acquired. COMPARISON: [facility], CR, XR LUMBAR SPINE 2-3V, 11/27/2017, 14:53. FINDINGS: Bones: 5 [id number] vertebrae are present. There is moderate leftward curvature of the upper lumbar spine. 13 mm of anterolisthesis of L3 on L4. Posterior fusion hardware at L4-L5. Multilevel disc space narrowing and endplate osteophyte formation, as well as facet hypertrophy. No vertebral body compression fractures. No suspicious bony lesions. Soft tissues: Overlying bowel gas pattern is normal. No suspicious soft tissue calcifications. IMPRESSION: 1. Postsurgical sequelae. 2. Multilevel degenerative disc and facet disease. 3. No acute fracture. No osseous lesion. If symptoms and/or clinical suspicion for pathology persist, further assessment with repeat, or advanced imaging (e.g., CT, MRI, or bone scan) may be helpful for further assessment. Dictated by: Jaclyn Velazquez M.D. on 08/01/2022 at 15:33 Transcribed by: HARIKA on 08/01/2022 at 15:34 Approved by: Jaclyn Velazquez M.D. on 08/01/2022 at 16:25
== END ==
PROVIDERS: PCP Family Medicine; Referring Provider Family Medicine; Visit Provider Family Medicine
DX: M51.16 Intervertebral disc disorders with radiculopathy, lumbar region (principal); M47.26 Other spondylosis with radiculopathy, lumbar region; Z98.1 Arthrodesis status
CPT/HCPCS: 72100

== ENCOUNTER → 2022-09-01 13:08 | Outpatient (CLI) | payer MEDICARE, SELFPAY ==
[2022-06-10 13:10] VITALS: BMI 20.5
--- NOTE | 2022-09-01 13:10 | DI.RAD.S_ITS ---
PROCEDURE: XR SACRUM COCCYX MIN 2V INDICATIONS: Lumbar/sacral pain TECHNIQUE: 3 views of the sacrum and coccyx acquired. COMPARISON: None. FINDINGS: Bones: No fractures or dislocations. No suspicious bony lesions. L4-5 interbody fusion with posterior stacy and screw instrumentation. L5-S1 degenerative disc disease present. Partially imaged right total hip arthroplasty Soft tissues: Visualized bowel gas pattern is normal. No suspicious soft tissue densities. IMPRESSION: Unremarkable sacrum and coccyx without evidence of fracture or intrinsic lesion. Lower lumbar spine degenerative changes, fusion and instrumentation Approved by: Demetrio Gann M.D. on 09/01/2022 at 16:53
== END ==
PROVIDERS: PCP Family Medicine; Referring Provider Family Medicine; Visit Provider Family Medicine
DX: M51.37 Other intervertebral disc degeneration, lumbosacral region (principal); M54.50 Low back pain, unspecified; M53.3 Sacrococcygeal disorders, not elsewhere classified; Z98.1 Arthrodesis status
CPT/HCPCS: 72220

== ENCOUNTER → 2022-09-11 13:41 | Outpatient (CLI) | payer MEDICARE, SELFPAY ==
[2022-06-10 13:10] VITALS: BMI 20.5
--- NOTE | 2022-09-11 13:43 | DI.MRI.S_ITS ---
PROCEDURE: MR LUMBAR SPINE WO CON INDICATIONS: low back pain with Rt radiculopathy TECHNIQUE: Noncontrast sagittal T1 spin echo and T2 fast echo, sagittal STIR, and T2 fast spin echo through the lumbar spine. In cases with scoliosis, additional coronal T2 fast spin echo may be performed. COMPARISON: [facility], CT, CT ABDOMEN PELVIS W CON, 03/26/2021, 20:14. [facility], MR, MR LUMBAR SPINE WO CON, 02/16/2018, 14:54. [facility], MR, L-SPINE WITHOUT CONTRAST, 07/17/2015, 13:38. FINDINGS: Image quality: Excellent. Alignment and Curvature: Levoscoliosis with a left Dias angle of 12?. Bone Marrow: Marrow is of normal overall signal. No acute vertebral body compression fractures. Postoperative changes of L4-5 pedicular screw and stacy fixation. Spinal Cord: Conus medullaris terminates at the L1 level. Visualized cord demonstrates normal signal and size. Paraspinous Soft Tissues: No paravertebral masses. T12-L1: No significant disc bulge. The foramina and central canal are patent. L1-L2: No significant disc bulge. The foramina and central canal are patent. L2-L3: Disc space narrowing and diffuse disc bulge with facet hypertrophy causes mild bilateral foraminal stenosis and mild central canal stenosis. L3-L4: Grade 1 anterolisthesis. Disc space narrowing with diffuse disc bulge and facet hypertrophy causes severe bilateral foraminal stenosis. The central canal is severely stenotic. L4-L5: Status post posterior fusion. The foramina and central canal are patent. L5-S1: Disc space narrowing and a mild diffuse disc bulge. Minimal foraminal stenosis. The central canal is patent. IMPRESSION: 1. Severe central canal stenosis at L3-4 is unchanged. 2. Status post L4-5 fusion with posterior pedicular screws and rods. Dictated by: Alejandro Cantu M.D. on 09/12/2022 at 12:22 Approved by: Alejandro Cantu M.D. on 09/12/2022 at 12:34
== END ==
PROVIDERS: PCP Family Medicine; Referring Provider Family Medicine; Visit Provider Family Medicine
DX: M48.061 Spinal stenosis, lumbar region without neurogenic claudication (principal); Z98.1 Arthrodesis status
CPT/HCPCS: 72148

== ENCOUNTER 2023-01-24 12:39 | Emergency (ER) | payer MEDICARE, SELFPAY ==
[2022-06-10 13:10] VITALS: BMI 20.5
[2023-01-24] VITALS (43 sets, daily range): BP systolic 73–135; BP diastolic 40–84; PULSE 51–74; RESP 15–32; TEMP 36.7; O2SAT 86–100; BMI 20.4
--- NOTE | 2023-01-24 12:54 | DI.RAD.S_ITS ---
PROCEDURE: XR CHEST 1V INDICATIONS: Shortness of breath TECHNIQUE: One view of the chest was acquired. COMPARISON: [facility], CR, XR CHEST 2V, 06/11/2022, 8:34. [facility], CR, XR CHEST 2V, 02/04/2021, 10:10. FINDINGS: Surgical changes and devices: Right shoulder reverse arthroplasty. Lungs and pleura: Right greater than left basal opacities. No drainable pleural effusion. Mediastinum: Normal heart size Bones and chest wall: Degenerative changes IMPRESSION: Right greater than left basal pulmonary opacities, possibly infectious/inflammatory versus superimposed atelectasis. Consider future imaging surveillance to assess for resolution. Dictated by: Joey Bruce M.D. on 01/24/2023 at 13:57 Approved by: Joey Bruce M.D. on 01/24/2023 at 13:58
[2023-01-24 13:17] LABS: Add Manual Diff / Slide Review NO; Basophils Absolute Auto 0 /uL (0-100); Basophils Percent Auto 0.3 % (0-2); Eosinophils Absolute Auto 0 /uL (0-450); Eosinophils Percent Auto 0.4 % (2-4); Hematocrit 39.6 % (36-46); Hemoglobin 14.1 g/dL (12.0-16.0); Lymphocytes Absolute Auto 1000 /uL (1100-4500); Lymphocytes Percent Auto 11.5 % (25-40); Mean Corpuscular HGB Conc 35.6 % (30-36); Mean Corpuscular Hemoglobin 34.9 PG (26-34); Mean Corpuscular Volume 97.9 fL (80-100); Monocytes Absolute Auto 500 /uL (0-900); Monocytes Percent Auto 5.9 % (3-14); Neutrophils Absolute Auto 6900 /uL (1500-7000); Neutrophils Percent Auto 81.9 % (50-75); Platelet Count 227 X10^3/uL (150-400); Red Blood Cell Count 4.05 X10^6/uL (4.0-5.2); Red Cell Distribution Width 13.9 % (11.6-14.8); White Blood Cell Count 8.4 X10^3/uL (4.5-11.0)
[2023-01-24 13:24] LABS: INR 1.5 (0.9-1.3); Prothrombin Time 16.8 SECONDS (10.1-12.7)
[2023-01-24 13:39] LABS: Lactate (Lactic Acid) 3.1 mmol/L (0.7-2.1)
[2023-01-24 13:40] LABS: Albumin 3.5 g/dL (3.5-5.0); Albumin Globulin Ratio 1.2 (1.0-2.8); Alkaline Phosphatase 217 U/L (38-126); BUN Creatinine Ratio 19.9 (6-22); Bilirubin Total 1.7 mg/dL (0.2-1.3); Blood Urea Nitrogen 48 mg/dL (7-17); Calcium 8.7 mg/dL (8.4-10.2); Carbon Dioxide 29 mmol/L (22-32); Chloride 85 mmol/L (98-107); Estimated Glomerular Filt Rate 20 mL/min (>60); Glucose 100 mg/dL (80-110); HEMOLYSIS < 15 (0-50); Sodium 127 mmol/L (137-145); Total Protein 6.5 g/dL (6.3-8.2)
[2023-01-24 13:50] LABS: Adenovirus Not Detected (Not Detect); B. parapertussis Not Detected (Not Detecte); Bordetella pertussis Not Detected (Not Detect); Chlamydophila pneumoniae Not Detected (Not Detect); Coronavirus 229E Not Detected (Not Detect); Coronavirus HKU1 Not Detected (Not Detect); Coronavirus NL 63 Not Detected (Not Detect); Coronavirus OC43 Not Detected (Not Detect); Human Metapneumovirus Not Detected (Not Detect); Human Rhinovirus/Enterovirus Not Detected (Not Detect); Influenza A Not Detected (Not Detect); Influenza B Not Detected (Not Detect); Mycoplasma pneumoniae Not Detected (Not Detect); Parainfluenza Virus 1 Not Detected (Not Detect); Parainfluenza Virus 2 Not Detected (Not Detect); Parainfluenza Virus 3 Not Detected (Not Detect); Parainfluenza Virus 4 Not Detected (Not Detect); Respiratory Syncytial Virus Detected (Not Detect); SARS- CoV-2 Not Detected (Not Detecte)
[2023-01-24 13:51] LABS: Alanine Aminotransferase 2169 IU/L (<35); NT-proBNP (BNP-Adult 18+) 545 pg/mL (<450); Troponin I 0.018 ng/mL (0.01-0.034)
[2023-01-24 13:52] LABS: Potassium 2.3 mmol/L (3.4-5.1)
[2023-01-24 14:03] LABS: Aspartate Aminotransferase 4509 IU/L (14-36)
--- NOTE | 2023-01-24 14:13 | DI.US.S_ITS ---
PROCEDURE: US ABDOMEN LIMITED INDICATIONS: HYPOTENSION, LIVER FAILURE TECHNIQUE: Real-time focused scanning was performed of the abdomen, with image documentation. COMPARISON: [facility], US, US ABDOMEN LIMITED, 03/31/2022, 14:37. [facility], CT, CT KIDNEY URETER BLADDER (KUB), 01/24/2023, 14:26. FINDINGS: Liver is 16 cm. Increased echogenicity. Unremarkable sonographic appearance of the gallbladder. CBD is 4 mm. Unremarkable sonographic appearance of the pancreas. IMPRESSION: Unremarkable sonographic appearance of the gallbladder and biliary system. Echogenic liver, nonspecific, most commonly due to steatosis. Dictated by: Joey Bruce M.D. on 01/24/2023 at 15:38 Approved by: Joey Bruce M.D. on 01/24/2023 at 15:40
--- NOTE | 2023-01-24 14:13 | DI.CT.S_ITS ---
PROCEDURE: CT KIDNEY URETER BLADDER (KUB) INDICATIONS: renal failure TECHNIQUE: Axial sections were acquired from the lung bases to the pubic symphysis. Coronal and sagittal reformats were performed. For radiation dose reduction, the following was used: automated exposure control, adjustment of mA and/or kV according to patient size. COMPARISON: [facility], CT, CT ABDOMEN PELVIS W CON, 03/26/2021, 20:14. FINDINGS: Image quality: Good, allowing for metallic artifact. Lower chest: Bibasilar atelectasis and airspace disease, most confluent in the right lower lobe. Bilateral breast calcifications partially seen. Coronary calcifications. Possible tiny hiatal hernia. Normal heart size. Solid organs: Hepatic steatosis. Gallbladder is unremarkable by CT. No pathologic biliary ductal dilation or pancreatic ductal dilation. No splenomegaly. No adrenal nodules. There are punctate nonobstructing renal calculi. No hydronephrosis. Vessels and lymph nodes: There are atherosclerotic calcifications. No pathologic lymph nodes by size criteria. Bowel and peritoneum: No evidence of small bowel obstruction. No drainable abscess or ascites identified. Body wall: Tiny fat containing umbilical hernia. Pelvis: Unremarkable appearance of the reproductive organs, limiting evaluation on CT. Bladder is under distended without radiopaque stone. Bones: Right hip arthroplasty and lumbar fusion hardware with surrounding metallic artifact. There is superimposed degenerative changes, no acute or suspicious finding. Persistent anterolisthesis of L3 on L4 above the fusion construct. IMPRESSION: No overt hydronephrosis. Punctate bilateral nonobstructing renal calculi are seen bladder is under distended, without radiopaque stone. Bibasilar right greater than left opacities, likely pneumonia and superimposed atelectasis. Other findings as above. Dictated by: Joey Bruce M.D. on 01/24/2023 at 14:57 Approved by: Joey Bruce M.D. on 01/24/2023 at 15:03
[2023-01-24] MEDS: POTASSIUM CHLORIDE IN WATER 10 MEQ/100 ML PIGGYBACK 100 MEQ IV ×4 (14:37→18:46)
[2023-01-24] MEDS: POTASSIUM CHLORIDE 20 MEQ TAB 40 MEQ PO (14:37)
[2023-01-24] MEDS: PIPERACILLIN/TAZO 4.5 GM in SODIUM CHLORIDE 0.9% 100 ML IV (14:38)
[2023-01-24 14:52] LABS: PTT Partial Thromboplastin Tim 28 SECONDS (26-36)
[2023-01-24 14:55] LABS: Lipase 219 U/L (23-300); Magnesium 1.8 mg/dL (1.6-2.3)
[2023-01-24 14:56] LABS: Reflexed Lactate in 2 Hours Y
[2023-01-24 15:02] LABS: Acetaminophen 74 ug/mL (10-30)
--- NOTE | 2023-01-24 15:07 | ED.SOB ---
HPI - SOB/Dyspnea <Donna Love, DO - Last Filed: 02/01/23 00:32> General Chief Complaint: Shortness of Breath/Dyspnea Stated Complaint: sent by [facility]/sick T-7/cold Time Seen by Provider: 01/24/23 13:23 Source: patient Mode of arrival: Wheelchair Limitations: no limitations History of Present Illness HPI Narrative: 77-year-old female with chronic alcohol abuse, history of coronary artery disease, restless leg, chronic Tylenol ingestion who presents with complaint of cough, congestion and generally feeling unwell. Patient states she has not had any fevers. She describes some cough and shortness of breath she denies chest pain. Denies abdominal back or flank pain that is new. She is chronic back pain and states she takes pain medication regularly including Tylenol least 3-6 tablets daily but possibly more she is very vague about this. She also takes oxycodone regularly but denies other daily pain medications. Patient states no nausea or vomiting. She states no diarrhea constipation, no black or bloody stools. She does note that she is had decreased urine output recently. Patient states she is had prior back surgery, shoulder and hip surgery. No known drug allergies. She does smoke regularly, she states she drinks 3 or 4 4 oz of vodka daily, denies any illicit. She follows with Dr. Hubbard. Patient denies any intentional large doses of Tylenol ingestion. She states her last drink was last night. She states she feels anxious when she does not have a drink in the evening but denies withdrawal symptoms otherwise. Related Data Previous Rx's Medication Instructions Recorded acetaminophen 325 mg tablet 650 mg (2 x 325 mg) PO TID #180 06/12/21 tabs pramipexole 0.5 mg tablet 0.5 mg PO HSP PRN restless leg(s) 04/28/22 #90 tabs chlorthalidone 25 mg tablet 25 mg PO DAILY blood pressure #90 05/03/22 tabs citalopram 10 mg tablet (Celexa) 10 mg PO DAILY #30 tabs 05/03/22 aspirin 81 mg tablet,delayed 81 mg PO BID #84 tabs 06/12/22 release potassium chloride 20 mEq 20 meq PO TIDWM #60 tabs 06/12/22 tablet,extended release(part/cryst) (Klor-Con M) atorvastatin 20 mg tablet 20 mg PO BEDTIME #90 tabs 06/22/22 cyclobenzaprine 5 mg tablet 2.5 - 5 mg (0.5 - 1 x 5 mg) PO TID 08/02/22 PRN muscle spasm #30 tabs omeprazole 20 mg capsule,delayed 20 mg PO DAILY #30 caps 11/11/22 release oxycodone 5 mg tablet 5 mg PO TID PRN pain #30 tabs 12/02/22 Allergies Allergy/AdvReac Type Severity Reaction Status Date / Time No Known Drug Allergies Allergy Verified 09/09/22 11:29 Review of Systems <Donna Love DO - Last Filed: 02/01/23 00:32> Review of Systems ROS Unobtainable: All systems reviewed & are unremarkable except as noted in HPI and below Patient History <Donna Love DO - Last Filed: 02/01/23 00:32> Medical History Central stenosis of spinal canal Alcohol abuse Coronary artery disease (03/2021) Hiatal hernia (03/2021) Macrocytosis Osteopenia after menopause (06/2020) H/O vaginal delivery Spinal stenosis Osteoarthritis Fatty liver (~10/2016) GERD (gastroesophageal reflux disease) Hyperlipemia Hypertension Restless leg syndrome Depression Kidney stones (1963) Colitis (~2000) Surgical History 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 Social History household members: significant other Smoking Status: Former smoker alcohol intake: current substance use type: does not use Smoking Status: Former smoker tobacco type: vaping alcohol intake frequency: 0-2 drinks per day Substance Use Type: does not use Exam <Donna Love, DO - Last Filed: 02/01/23 00:32> Narrative Exam Narrative: GEN: Thin female, alert and oriented, patient appears to be in mild distress. HEENT: Atraumatic, pupils are equal round reactive to light, extraocular movements are intact, mild scleral icterus, nares are clear, TMs are clear with no fluid, there is no conjunctival pallor. Throat is clear without any exudates, erythema, tonsillar enlargement or uvular deviation HEART: Regular rate and rhythm without murmur, clicks, rubs. No VG no JVD. No swelling bilateral lower extremities. LUNGS:Lungs clear to auscultation, no wheezes, rales, crackles, chest moves symmetrically, no tachypnea accessory muscle use. ABD:bowel sounds normal, soft, non-tender, no guarding, rebound, rigidity, no masses noted, no hepatosplenomegaly :No CVA tenderness MSCL: Non-tender, no muscle atrophy, muscles strength 5/5 upper and lower extremities, full range of motion. NEURO:CN 2-12 intact, sensation normal SKIN: Patient appears jaundiced. Initial Vital Signs Initial Vital Signs: Vital Signs Temperature 98.1 F 01/24/23 12:43 Pulse Rate 69 01/24/23 12:43 Respiratory Rate 26 H 01/24/23 12:43 Blood Pressure 100/55 L 01/24/23 12:43 Pulse Oximetry 86 L 01/24/23 12:43 Oxygen Delivery Method Room Air 01/24/23 12:43 <Clarisse Powell, DO - Last Filed: 01/26/23 00:28> Initial Vital Signs Initial Vital Signs: Vital Signs Temperature 98.1 F 01/24/23 12:43 Pulse Rate 69 01/24/23 12:43 Respiratory Rate 26 H 01/24/23 12:43 Blood Pressure 100/55 L 01/24/23 12:43 Pulse Oximetry 86 L 01/24/23 12:43 Oxygen Delivery Method Room Air 01/24/23 12:43 <Silvestre Saavedra, DO - Last Filed: 01/31/23 07:05> Initial Vital Signs Initial Vital Signs: Vital Signs Temperature 98.1 F 01/24/23 12:43 Pulse Rate 69 01/24/23 12:43 Respiratory Rate 26 H 01/24/23 12:43 Blood Pressure 100/55 L 01/24/23 12:43 Pulse Oximetry 86 L 01/24/23 12:43 Oxygen Delivery Method Room Air 01/24/23 12:43 Course <Donna Love DO - Last Filed: 02/01/23 00:32> Orders Ordered: Discontinued Medications Benzonatate (Benzonatate 100 Mg Capsule) 100 mg PO NOW ONE Stop: 01/25/23 09:45 Last Admin: 01/25/23 09:53 Dose: 100 mg Documented By: JOHNNA Chlorthalidone (Chlorthalidone 25 Mg Tablet) 25 mg PO DAILY [facility] Citalopram Hydrobromide (Citalopram 10 Mg Tablet) 10 mg PO DAILY [facility] Last Admin: 01/25/23 15:21 Dose: 10 mg Documented By: JOHNNA Cyclobenzaprine HCl (Cyclobenzaprine 10 Mg Tablet) 5 mg PO Q8HR PRN PRN Reason: Pain, Mild (1-3) Last Admin: 01/25/23 15:21 Dose: 5 mg Documented By: JOHNNA Guaifenesin/Codeine Phosphate (Codeine/Guaifenesin Liquid 5ml Udc) 10 ml PO NOW ONE Stop: 01/25/23 00:38 Last Admin: 01/25/23 01:09 Dose: 10 ml Documented By: ANDRIY Sodium Chloride (Normal Saline 0.9%) 1,000 mls @ 1,000 mls/hr IV BOLUS ONE Stop: 01/24/23 15:10 Last Infusion: 01/24/23 15:35 Dose: Infused Documented By: Admin: 01/24/23 15:31 Dose: 1,000 mls/hr Documented By: RYAN POTASSIUM CHLORIDE IN WATER (Potassium Cl 10 Meq/100 Ml Shaye) 10 meq in 100 mls @ 100 mls/hr IV Q1H [facility] Stop: 01/24/23 18:14 Last Infusion: 01/24/23 19:45 Dose: Infused Documented By: Admin: 01/24/23 18:46 Dose: 100 mls/hr Documented By: Infusion: 01/24/23 18:40 Dose: Infused Documented By: Admin: 01/24/23 17:40 Dose: 100 mls/hr Documented By: Infusion: 01/24/23 17:40 Dose: Infused Documented By: Admin: 01/24/23 16:32 Dose: 100 mls/hr Documented By: Infusion: 01/24/23 15:37 Dose: Infused Documented By: Admin: 01/24/23 14:37 Dose: 100 mls/hr Documented By: MPO Piperacillin Sod/Tazobactam (Sod 4.5 gm/ Sodium Chloride) 100 mls @ 200 mls/hr IV NOW ONE Stop: 01/24/23 14:17 Last Infusion: 01/24/23 15:15 Dose: Infused Documented By: Admin: 01/24/23 14:38 Dose: 200 mls/hr Documented By: MPO Sodium Chloride (Normal Saline 0.9%) 1,000 mls @ 1,000 mls/hr IV BOLUS ONE Stop: 01/24/23 15:37 Last Infusion: 01/24/23 15:35 Dose: Infused Documented By: Admin: 01/24/23 15:31 Dose: 1,000 mls/hr Documented By: MPO Acetylcysteine 7.3482 g/ (Dextrose) 236.741 mls @ 236.741 mls/hr IV NOW ONE Stop: 01/24/23 15:13 Last Infusion: 01/24/23 17:59 Dose: Infused Documented By: Admin: 01/24/23 16:33 Dose: 236.741 mls/hr Documented By: MPO FOMEPIZOLE 735 mg/ Sodium (Chloride) 100.735 mls @ 201.47 mls/hr IV NOW ONE Stop: 01/24/23 15:19 Last Infusion: 01/24/23 18:47 Dose: Infused Documented By: Admin: 01/24/23 18:00 Dose: 201.47 mls/hr Documented By: MPO Sodium Chloride (Normal Saline 0.9%) 1,000 mls @ 200 mls/hr IV CONT CARA Last Infusion: 01/25/23 18:34 Dose: 0 mls/hr Documented By: Admin: 01/25/23 17:18 Dose: 200 mls/hr Documented By: Infusion: 01/25/23 17:18 Dose: Infused Documented By: Admin: 01/25/23 12:24 Dose: 200 mls/hr Documented By: Infusion: 01/25/23 12:24 Dose: Infused Documented By: Admin: 01/25/23 07:27 Dose: 200 mls/hr Documented By: Infusion: 01/25/23 07:03 Dose: Infused Documented By: Admin: 01/25/23 02:03 Dose: 200 mls/hr Documented By: Infusion: 01/25/23 01:37 Dose: Infused Documented By: Admin: 01/24/23 20:37 Dose: 200 mls/hr Documented By: Infusion: 01/24/23 20:30 Dose: Infused Documented By: Admin: 01/24/23 15:30 Dose: 200 mls/hr Documented By: RYAN Acetylcysteine 23.71441 g/ (Dextrose) 1,617.5712 mls @ 67.399 mls/hr IV 1700 CARA Stop: 01/25/23 16:59 Last Admin: 01/24/23 17:58 Dose: 67.399 mls/hr Documented By: RYAN Piperacillin Sod/Tazobactam (Sod 3.375 gm/ Sodium Chloride) 100 mls @ 25 mls/hr IV Q8H [facility] Last Admin: 01/24/23 20:58 Dose: Not Given Documented By: ANDRIY Piperacillin Sod/Tazobactam (Sod 3.375 gm/ Sodium Chloride) 100 mls @ 25 mls/hr IV Q12H [facility] Last Admin: 01/24/23 20:58 Dose: Not Given Documented By: ANDRIY Piperacillin Sod/Tazobactam (Sod 3.375 gm/ Sodium Chloride) 100 mls @ 25 mls/hr IV Q12H [facility] Last Infusion: 01/25/23 01:32 Dose: Infused Documented By: Admin: 01/24/23 21:30 Dose: 25 mls/hr Documented By: ANDRIY Furosemide 80 mg/ Sodium (Chloride) 58 mls @ 116 mls/hr IV NOW ONE Stop: 01/24/23 21:57 Last Infusion: 01/24/23 23:03 Dose: Infused Documented By: Admin: 01/24/23 22:14 Dose: 116 mls/hr Documented By: ANDRIY POTASSIUM CHLORIDE IN WATER (Potassium Cl 10 Meq/100 Ml Shaye) 10 meq in 100 mls @ 100 mls/hr IV Q1H [facility] Stop: 01/25/23 09:29 Last Infusion: 01/25/23 11:12 Dose: Infused Documented By: Admin: 01/25/23 09:41 Dose: 100 mls/hr Documented By: Infusion: 01/25/23 09:34 Dose: Infused Documented By: Admin: 01/25/23 08:34 Dose: 100 mls/hr Documented By: Infusion: 01/25/23 08:29 Dose: Infused Documented By: Admin: 01/25/23 07:29 Dose: 100 mls/hr Documented By: Infusion: 01/25/23 06:35 Dose: Infused Documented By: Admin: 01/25/23 05:35 Dose: 100 mls/hr Documented By: QUYEN Piperacillin Sod/Tazobactam (Sod 3.375 gm/ Sodium Chloride) 100 mls @ 25 mls/hr IV Q8H [facility] Last Infusion: 01/25/23 18:33 Dose: 0 mls/hr Documented By: Admin: 01/25/23 15:21 Dose: 25 mls/hr Documented By: Infusion: 01/25/23 11:12 Dose: Infused Documented By: Admin: 01/25/23 07:35 Dose: 25 mls/hr Documented By: AMJanice Acetylcysteine 4.8988 g/ (Dextrose) 1,024.494 mls @ 64.031 mls/hr IV 1800 [facility] Stop: 01/26/23 09:59 Last Infusion: 01/25/23 18:32 Dose: Infused Documented By: Admin: 01/25/23 17:17 Dose: 64.031 mls/hr Documented By: AMJanice Oxycodone HCl (Oxycodone 5 Mg/5 Ml Oral Solution) 5 mg PO TID PRN PRN Reason: Pain, Moderate (4-6) Pantoprazole Sodium (Pantoprazole Dr 20 Mg Tablet) 20 mg PO DAILY [facility] Potassium Chloride (Potassium Chloride 20 Meq Tab) 40 meq PO NOW ONE Stop: 01/24/23 14:09 Last Admin: 01/24/23 14:37 Dose: 40 meq Documented By: RYAN Pramipexole Dihydrochloride (Pramipexole 0.25 Mg Tablet) 0.5 mg PO BEDTIME [facility] Vital Signs Vital signs: Vital Signs - 8 hr 01/25/23 16:30 01/25/23 16:45 01/25/23 17:00 Pulse Rate 64 65 62 Respiratory Rate 23 23 21 Blood Pressure Pulse Oximetry Oxygen Delivery Method 01/25/23 17:01 01/25/23 17:01 01/25/23 17:15 Pulse Rate 62 62 Respiratory Rate 23 24 Blood Pressure 114/58 L Pulse Oximetry 93 Oxygen Delivery Method 01/25/23 17:30 01/25/23 17:45 01/25/23 18:00 Pulse Rate 61 62 75 Respiratory Rate 22 24 Blood Pressure Pulse Oximetry 93 95 Oxygen Delivery Method Room Air 01/25/23 18:00 Pulse Rate Respiratory Rate Blood Pressure 104/59 L Pulse Oximetry Oxygen Delivery Method <Clarisse Powell, - Last Filed: 01/26/23 00:28> Orders Ordered: Discontinued Medications Benzonatate (Benzonatate 100 Mg Capsule) 100 mg PO NOW ONE Stop: 01/25/23 09:45 Last Admin: 01/25/23 09:53 Dose: 100 mg Documented By: JOHNNA Chlorthalidone (Chlorthalidone 25 Mg Tablet) 25 mg PO DAILY [facility] Citalopram Hydrobromide (Citalopram 10 Mg Tablet) 10 mg PO DAILY [facility] Last Admin: 01/25/23 15:21 Dose: 10 mg Documented By: JOHNNA Cyclobenzaprine HCl (Cyclobenzaprine 10 Mg Tablet) 5 mg PO Q8HR PRN PRN Reason: Pain, Mild (1-3) Last Admin: 01/25/23 15:21 Dose: 5 mg Documented By: JOHNNA Guaifenesin/Codeine Phosphate (Codeine/Guaifenesin Liquid 5ml Udc) 10 ml PO NOW ONE Stop: 01/25/23 00:38 Last Admin: 01/25/23 01:09 Dose: 10 ml Documented By: ANDRIY Sodium Chloride (Normal Saline 0.9%) 1,000 mls @ 1,000 mls/hr IV BOLUS ONE Stop: 01/24/23 15:10 Last Infusion: 01/24/23 15:35 Dose: Infused Documented By: Admin: 01/24/23 15:31 Dose: 1,000 mls/hr Documented By: RYAN POTASSIUM CHLORIDE IN WATER (Potassium Cl 10 Meq/100 Ml Shaye) 10 meq in 100 mls @ 100 mls/hr IV Q1H [facility] Stop: 01/24/23 18:14 Last Infusion: 01/24/23 19:45 Dose: Infused Documented By: Admin: 01/24/23 18:46 Dose: 100 mls/hr Documented By: Infusion: 01/24/23 18:40 Dose: Infused Documented By: Admin: 01/24/23 17:40 Dose: 100 mls/hr Documented By: Infusion: 01/24/23 17:40 Dose: Infused Documented By: Admin: 01/24/23 16:32 Dose: 100 mls/hr Documented By: Infusion: 01/24/23 15:37 Dose: Infused Documented By: Admin: 01/24/23 14:37 Dose: 100 mls/hr Documented By: MPO Piperacillin Sod/Tazobactam (Sod 4.5 gm/ Sodium Chloride) 100 mls @ 200 mls/hr IV NOW ONE Stop: 01/24/23 14:17 Last Infusion: 01/24/23 15:15 Dose: Infused Documented By: Admin: 01/24/23 14:38 Dose: 200 mls/hr Documented By: MPO Sodium Chloride (Normal Saline 0.9%) 1,000 mls @ 1,000 mls/hr IV BOLUS ONE Stop: 01/24/23 15:37 Last Infusion: 01/24/23 15:35 Dose: Infused Documented By: Admin: 01/24/23 15:31 Dose: 1,000 mls/hr Documented By: MPO Acetylcysteine 7.3482 g/ (Dextrose) 236.741 mls @ 236.741 mls/hr IV NOW ONE Stop: 01/24/23 15:13 Last Infusion: 01/24/23 17:59 Dose: Infused Documented By: Admin: 01/24/23 16:33 Dose: 236.741 mls/hr Documented By: MPO FOMEPIZOLE 735 mg/ Sodium (Chloride) 100.735 mls @ 201.47 mls/hr IV NOW ONE Stop: 01/24/23 15:19 Last Infusion: 01/24/23 18:47 Dose: Infused Documented By: Admin: 01/24/23 18:00 Dose: 201.47 mls/hr Documented By: MPO Sodium Chloride (Normal Saline 0.9%) 1,000 mls @ 200 mls/hr IV CONT CARA Last Infusion: 01/25/23 18:34 Dose: 0 mls/hr Documented By: Admin: 01/25/23 17:18 Dose: 200 mls/hr Documented By: Infusion: 01/25/23 17:18 Dose: Infused Documented By: Admin: 01/25/23 12:24 Dose: 200 mls/hr Documented By: Infusion: 01/25/23 12:24 Dose: Infused Documented By: Admin: 01/25/23 07:27 Dose: 200 mls/hr Documented By: Infusion: 01/25/23 07:03 Dose: Infused Documented By: Admin: 01/25/23 02:03 Dose: 200 mls/hr Documented By: Infusion: 01/25/23 01:37 Dose: Infused Documented By: Admin: 01/24/23 20:37 Dose: 200 mls/hr Documented By: Infusion: 01/24/23 20:30 Dose: Infused Documented By: Admin: 01/24/23 15:30 Dose: 200 mls/hr Documented By: RYAN Acetylcysteine 23.40033 g/ (Dextrose) 1,617.5712 mls @ 67.399 mls/hr IV 1700 [facility]A Stop: 01/25/23 16:59 Last Admin: 01/24/23 17:58 Dose: 67.399 mls/hr Documented By: RYAN Piperacillin Sod/Tazobactam (Sod 3.375 gm/ Sodium Chloride) 100 mls @ 25 mls/hr IV Q8H [facility] Last Admin: 01/24/23 20:58 Dose: Not Given Documented By: ANDRIY Piperacillin Sod/Tazobactam (Sod 3.375 gm/ Sodium Chloride) 100 mls @ 25 mls/hr IV Q12H [facility] Last Admin: 01/24/23 20:58 Dose: Not Given Documented By: ANDRIY Piperacillin Sod/Tazobactam (Sod 3.375 gm/ Sodium Chloride) 100 mls @ 25 mls/hr IV Q12H [facility] Last Infusion: 01/25/23 01:32 Dose: Infused Documented By: Admin: 01/24/23 21:30 Dose: 25 mls/hr Documented By: ANDRIY Furosemide 80 mg/ Sodium (Chloride) 58 mls @ 116 mls/hr IV NOW ONE Stop: 01/24/23 21:57 Last Infusion: 01/24/23 23:03 Dose: Infused Documented By: Admin: 01/24/23 22:14 Dose: 116 mls/hr Documented By: ANDRIY POTASSIUM CHLORIDE IN WATER (Potassium Cl 10 Meq/100 Ml Shaye) 10 meq in 100 mls @ 100 mls/hr IV Q1H [facility] Stop: 01/25/23 09:29 Last Infusion: 01/25/23 11:12 Dose: Infused Documented By: Admin: 01/25/23 09:41 Dose: 100 mls/hr Documented By: Infusion: 01/25/23 09:34 Dose: Infused Documented By: Admin: 01/25/23 08:34 Dose: 100 mls/hr Documented By: Infusion: 01/25/23 08:29 Dose: Infused Documented By: Admin: 01/25/23 07:29 Dose: 100 mls/hr Documented By: Infusion: 01/25/23 06:35 Dose: Infused Documented By: Admin: 01/25/23 05:35 Dose: 100 mls/hr Documented By: QUYEN Piperacillin Sod/Tazobactam (Sod 3.375 gm/ Sodium Chloride) 100 mls @ 25 mls/hr IV Q8H [facility] Last Infusion: 01/25/23 18:33 Dose: 0 mls/hr Documented By: Admin: 01/25/23 15:21 Dose: 25 mls/hr Documented By: Infusion: 01/25/23 11:12 Dose: Infused Documented By: Admin: 01/25/23 07:35 Dose: 25 mls/hr Documented By: AMJanice Acetylcysteine 4.8988 g/ (Dextrose) 1,024.494 mls @ 64.031 mls/hr IV 1800 CARA Stop: 01/26/23 09:59 Last Infusion: 01/25/23 18:32 Dose: Infused Documented By: Admin: 01/25/23 17:17 Dose: 64.031 mls/hr Documented By: AMV Oxycodone HCl (Oxycodone 5 Mg/5 Ml Oral Solution) 5 mg PO TID PRN PRN Reason: Pain, Moderate (4-6) Pantoprazole Sodium (Pantoprazole Dr 20 Mg Tablet) 20 mg PO DAILY [facility] Potassium Chloride (Potassium Chloride 20 Meq Tab) 40 meq PO NOW ONE Stop: 01/24/23 14:09 Last Admin: 01/24/23 14:37 Dose: 40 meq Documented By: RYAN Pramipexole Dihydrochloride (Pramipexole 0.25 Mg Tablet) 0.5 mg PO BEDTIME [facility] Vital Signs Vital signs: Vital Signs - 8 hr 01/25/23 16:30 01/25/23 16:45 01/25/23 17:00 Pulse Rate 64 65 62 Respiratory Rate 23 23 21 Blood Pressure Pulse Oximetry Oxygen Delivery Method 01/25/23 17:01 01/25/23 17:01 01/25/23 17:15 Pulse Rate 62 62 Respiratory Rate 23 24 Blood Pressure 114/58 L Pulse Oximetry 93 Oxygen Delivery Method 01/25/23 17:30 01/25/23 17:45 01/25/23 18:00 Pulse Rate 61 62 75 Respiratory Rate 22 24 Blood Pressure Pulse Oximetry 93 95 Oxygen Delivery Method Room Air 01/25/23 18:00 Pulse Rate Respiratory Rate Blood Pressure 104/59 L Pulse Oximetry Oxygen Delivery Method <Silvestre Saavedra DO - Last Filed: 01/31/23 07:05> Orders Ordered: Discontinued Medications Benzonatate (Benzonatate 100 Mg Capsule) 100 mg PO NOW ONE Stop: 01/25/23 09:45 Last Admin: 01/25/23 09:53 Dose: 100 mg Documented By: JOHNNA Chlorthalidone (Chlorthalidone 25 Mg Tablet) 25 mg PO DAILY [facility] Citalopram Hydrobromide (Citalopram 10 Mg Tablet) 10 mg PO DAILY [facility] Last Admin: 01/25/23 15:21 Dose: 10 mg Documented By: JOHNNA Cyclobenzaprine HCl (Cyclobenzaprine 10 Mg Tablet) 5 mg PO Q8HR PRN PRN Reason: Pain, Mild (1-3) Last Admin: 01/25/23 15:21 Dose: 5 mg Documented By: JOHNNA Guaifenesin/Codeine Phosphate (Codeine/Guaifenesin Liquid 5ml Udc) 10 ml PO NOW ONE Stop: 01/25/23 00:38 Last Admin: 01/25/23 01:09 Dose: 10 ml Documented By: ANDRIY Sodium Chloride (Normal Saline 0.9%) 1,000 mls @ 1,000 mls/hr IV BOLUS ONE Stop: 01/24/23 15:10 Last Infusion: 01/24/23 15:35 Dose: Infused Documented By: Admin: 01/24/23 15:31 Dose: 1,000 mls/hr Documented By: MPO POTASSIUM CHLORIDE IN WATER (Potassium Cl 10 Meq/100 Ml Shaye) 10 meq in 100 mls @ 100 mls/hr IV Q1H [facility] Stop: 01/24/23 18:14 Last Infusion: 01/24/23 19:45 Dose: Infused Documented By: Admin: 01/24/23 18:46 Dose: 100 mls/hr Documented By: Infusion: 01/24/23 18:40 Dose: Infused Documented By: Admin: 01/24/23 17:40 Dose: 100 mls/hr Documented By: Infusion: 01/24/23 17:40 Dose: Infused Documented By: Admin: 01/24/23 16:32 Dose: 100 mls/hr Documented By: Infusion: 01/24/23 15:37 Dose: Infused Documented By: Admin: 01/24/23 14:37 Dose: 100 mls/hr Documented By: MPO Piperacillin Sod/Tazobactam (Sod 4.5 gm/ Sodium Chloride) 100 mls @ 200 mls/hr IV NOW ONE Stop: 01/24/23 14:17 Last Infusion: 01/24/23 15:15 Dose: Infused Documented By: Admin: 01/24/23 14:38 Dose: 200 mls/hr Documented By: MPO Sodium Chloride (Normal Saline 0.9%) 1,000 mls @ 1,000 mls/hr IV BOLUS ONE Stop: 01/24/23 15:37 Last Infusion: 01/24/23 15:35 Dose: Infused Documented By: Admin: 01/24/23 15:31 Dose: 1,000 mls/hr Documented By: MPO Acetylcysteine 7.3482 g/ (Dextrose) 236.741 mls @ 236.741 mls/hr IV NOW ONE Stop: 01/24/23 15:13 Last Infusion: 01/24/23 17:59 Dose: Infused Documented By: Admin: 01/24/23 16:33 Dose: 236.741 mls/hr Documented By: MPO FOMEPIZOLE 735 mg/ Sodium (Chloride) 100.735 mls @ 201.47 mls/hr IV NOW ONE Stop: 01/24/23 15:19 Last Infusion: 01/24/23 18:47 Dose: Infused Documented By: Admin: 01/24/23 18:00 Dose: 201.47 mls/hr Documented By: RYAN Sodium Chloride (Normal Saline 0.9%) 1,000 mls @ 200 mls/hr IV CONT [facility]A Last Infusion: 01/25/23 18:34 Dose: 0 mls/hr Documented By: Admin: 01/25/23 17:18 Dose: 200 mls/hr Documented By: Infusion: 01/25/23 17:18 Dose: Infused Documented By: Admin: 01/25/23 12:24 Dose: 200 mls/hr Documented By: Infusion: 01/25/23 12:24 Dose: Infused Documented By: Admin: 01/25/23 07:27 Dose: 200 mls/hr Documented By: Infusion: 01/25/23 07:03 Dose: Infused Documented By: AMJanice Admin: 01/25/23 02:03 Dose: 200 mls/hr Documented By: Infusion: 01/25/23 01:37 Dose: Infused Documented By: Admin: 01/24/23 20:37 Dose: 200 mls/hr Documented By: Infusion: 01/24/23 20:30 Dose: Infused Documented By: Admin: 01/24/23 15:30 Dose: 200 mls/hr Documented By: RYAN Acetylcysteine 23.48318 g/ (Dextrose) 1,617.5712 mls @ 67.399 mls/hr IV 1700 [facility] Stop: 01/25/23 16:59 Last Admin: 01/24/23 17:58 Dose: 67.399 mls/hr Documented By: RYAN Piperacillin Sod/Tazobactam (Sod 3.375 gm/ Sodium Chloride) 100 mls @ 25 mls/hr IV Q8H [facility] Last Admin: 01/24/23 20:58 Dose: Not Given Documented By: ANDRIY Piperacillin Sod/Tazobactam (Sod 3.375 gm/ Sodium Chloride) 100 mls @ 25 mls/hr IV Q12H [facility] Last Admin: 01/24/23 20:58 Dose: Not Given Documented By: ANDRIY Piperacillin Sod/Tazobactam (Sod 3.375 gm/ Sodium Chloride) 100 mls @ 25 mls/hr IV Q12H [facility] Last Infusion: 01/25/23 01:32 Dose: Infused Documented By: Admin: 01/24/23 21:30 Dose: 25 mls/hr Documented By: ANDRIY Furosemide 80 mg/ Sodium (Chloride) 58 mls @ 116 mls/hr IV NOW ONE Stop: 01/24/23 21:57 Last Infusion: 01/24/23 23:03 Dose: Infused Documented By: Admin: 01/24/23 22:14 Dose: 116 mls/hr Documented By: ANDRIY POTASSIUM CHLORIDE IN WATER (Potassium Cl 10 Meq/100 Ml Shaye) 10 meq in 100 mls @ 100 mls/hr IV Q1H [facility] Stop: 01/25/23 09:29 Last Infusion: 01/25/23 11:12 Dose: Infused Documented By: Admin: 01/25/23 09:41 Dose: 100 mls/hr Documented By: Infusion: 01/25/23 09:34 Dose: Infused Documented By: Admin: 01/25/23 08:34 Dose: 100 mls/hr Documented By: Infusion: 01/25/23 08:29 Dose: Infused Documented By: Admin: 01/25/23 07:29 Dose: 100 mls/hr Documented By: Infusion: 01/25/23 06:35 Dose: Infused Documented By: Admin: 01/25/23 05:35 Dose: 100 mls/hr Documented By: QUYEN Piperacillin Sod/Tazobactam (Sod 3.375 gm/ Sodium Chloride) 100 mls @ 25 mls/hr IV Q8H [facility] Last Infusion: 01/25/23 18:33 Dose: 0 mls/hr Documented By: Admin: 01/25/23 15:21 Dose: 25 mls/hr Documented By: Infusion: 01/25/23 11:12 Dose: Infused Documented By: Admin: 01/25/23 07:35 Dose: 25 mls/hr Documented By: AMV Acetylcysteine 4.8988 g/ (Dextrose) 1,024.494 mls @ 64.031 mls/hr IV 1800 [facility] Stop: 01/26/23 09:59 Last Infusion: 01/25/23 18:32 Dose: Infused Documented By: Admin: 01/25/23 17:17 Dose: 64.031 mls/hr Documented By: AMV Oxycodone HCl (Oxycodone 5 Mg/5 Ml Oral Solution) 5 mg PO TID PRN PRN Reason: Pain, Moderate (4-6) Pantoprazole Sodium (Pantoprazole Dr 20 Mg Tablet) 20 mg PO DAILY [facility] Potassium Chloride (Potassium Chloride 20 Meq Tab) 40 meq PO NOW ONE Stop: 01/24/23 14:09 Last Admin: 01/24/23 14:37 Dose: 40 meq Documented By: MPO Pramipexole Dihydrochloride (Pramipexole 0.25 Mg Tablet) 0.5 mg PO [facility] Vital Signs Vital signs: Vital Signs - 8 hr 01/25/23 16:30 01/25/23 16:45 01/25/23 17:00 Pulse Rate 64 65 62 Respiratory Rate 23 23 21 Blood Pressure Pulse Oximetry Oxygen Delivery Method 01/25/23 17:01 01/25/23 17:01 01/25/23 17:15 Pulse Rate 62 62 Respiratory Rate 23 24 Blood Pressure 114/58 L Pulse Oximetry 93 Oxygen Delivery Method 01/25/23 17:30 01/25/23 17:45 01/25/23 18:00 Pulse Rate 61 62 75 Respiratory Rate 22 24 Blood Pressure Pulse Oximetry 93 95 Oxygen Delivery Method Room Air 01/25/23 18:00 Pulse Rate Respiratory Rate Blood Pressure 104/59 L Pulse Oximetry Oxygen Delivery Method MDM - SOB/Dyspnea <Donna Love, - Last Filed: 02/01/23 00:32> Lab Data 01/25/23 12:30 01/25/23 12:30 Labs: Lab Results 01/24/23 01/24/23 01/24/23 Range/Units 11:55 13:05 13:15 WBC 8.4 (4.5-11.0) X10^3/uL RBC 4.05 (4.0-5.2) X10^6/uL Hgb 14.1 (12.0-16.0) g/dL Hct 39.6 (36-46) % MCV 97.9 (80-100) fL MCH 34.9 H (26-34) PG MCHC 35.6 (30-36) % RDW 13.9 (11.6-14.8) % Plt Count 227 (150-400) X10^3/uL Neut % (Auto) 81.9 H (50-75) % Lymph % (Auto) 11.5 L (25-40) % Hawkins % (Auto) 5.9 (3-14) % Eos % (Auto) 0.4 L (2-4) % Baso % (Auto) 0.3 (0-2) % Neut # (Auto) 6900 (7880-3599) /uL Lymph # (Auto) 1000 L (9114-7594) /uL Hawkins # (Auto) 500 (0-900) /uL Eos # (Auto) 0 (0-450) /uL Baso # (Auto) 0 (0-100) /uL Total Counted Seg Neutrophils % (38-70) % Band Neutrophils % (3-7) % Lymphocytes % (Manual) (25-45) % Atypical Lymphs % ( - 0) % Monocytes % (Manual) (2-11) % Eosinophils % (Manual) (2-4) % Metamyelocytes % (-0) % Neutrophils # (Manual) (0907-8833) /uL Toxic Granulation RBC Morphology PT 16.8 H (10.1-12.7) SECONDS INR 1.5 H (0.9-1.3) APTT 28 (26-36) SECONDS Sodium 127 L (137-145) mmol/L Potassium 2.3 L* (3.4-5.1) mmol/L Chloride 85 L (98-107) mmol/L Carbon Dioxide 29 (22-32) mmol/L BUN 48 H (7-17) mg/dL Creatinine 2.41 H (0.52-1.04) mg/dL Estimated GFR 20 L (>60) mL/min BUN/Creatinine Ratio 19.9 (6-22) Glucose 100 (80-110) mg/dL Lactate 3.1 H 1.3 (0.7-2.1) mmol/L Calcium 8.7 (8.4-10.2) mg/dL Magnesium 1.8 (1.6-2.3) mg/dL Total Bilirubin 1.7 H (0.2-1.3) mg/dL AST 4509 H (14-36) IU/L ALT 2169 H (<35) IU/L Alkaline Phosphatase 217 H (38-126) U/L Ammonia (9-30) umol/L Troponin I 0.018 (0.01-0.034) ng/mL NT-Pro-B Natriuret Pep 545 H (<450) pg/mL Total Protein 6.5 (6.3-8.2) g/dL Albumin 3.5 (3.5-5.0) g/dL Globulin 3.0 (1.7-4.1) g/dL Albumin/Globulin Ratio 1.2 (1.0-2.8) Lipase 219 (23-300) U/L Procalcitonin 66.0 H (<0.5) ng/mL Urine Color Urine Appearance Urine pH (4.5-8.0) Ur Specific Supply (1.000-1.035) Urine Protein (Negative) Urine Glucose (UA) (Negative) g/dL Urine Ketones (NEGATIVE) Urine Occult Blood (Negative) Urine Nitrate (Negative) Urine Bilirubin (NEGATIVE) Urine Urobilinogen (0.2) E.U./dL Ur Leukocyte Esterase (NEGATIVE) Urine RBC (0-5/HPF) Urine WBC (0-5/HPF) Ur Squamous Epith Cells (0-5/HPF) Urine Bacteria (None) Ur Culture Indicated? U Opiates 300ng/mL cut (Negative) Ur Oxycodone Screen (Negative) Urine Methadone Screen (Negative) Acetaminophen 74 H* (10-30) ug/mL Ur Barbiturates Screen (Negative) U Tricyclic Antidepress (Negative) Ur Phencyclidine Scrn (Negative) Ur Amphetamines Screen (Negative) U Methamphetamines Scrn (Negative) Ur MDMA Scrn (Ecstasy) (Negative) U Benzodiazepines Scrn (Negative) Urine Cocaine Screen (Negative) U Marijuana (THC) Screen (Negative) Ethyl Alcohol ( - 10) mg/dL Chlamy pneumoniae PCR Not detected (Not Detect) Adenovirus (PCR) Not detected (Not Detect) B.parapertussis DNA PCR Not detected (Not Detecte) Coronavirus OC43 (PCR) Not detected (Not Detect) Coronavirus HKU1 (PCR) Not detected (Not Detect) Coronavirus 229E (PCR) Not detected (Not Detect) SARS-CoV-2 (PCR) Not detected (Not Detecte) Coronavirus NL63 (PCR) Not detected (Not Detect) Human Metapneumovir PCR Not detected (Not Detect) Influenza Type A (PCR) Not detected (Not Detect) Influenza Type B (PCR) Not detected (Not Detect) M. pneumoniae (PCR) Not detected (Not Detect) Parainfluenza 1 (PCR) Not detected (Not Detect) Parainfluenza 2 (PCR) Not detected (Not Detect) Parainfluenza 3 (PCR) Not detected (Not Detect) Parainfluenza 4 (PCR) Not detected (Not Detect) RSV (PCR) Detected H (Not Detect) Entero/Rhino (PCR) Not detected (Not Detect) 01/24/23 01/24/23 01/24/23 Range/Units 15:12 16:38 23:27 WBC (4.5-11.0) X10^3/uL RBC (4.0-5.2) X10^6/uL Hgb (12.0-16.0) g/dL Hct (36-46) % MCV (80-100) fL MCH (26-34) PG MCHC (30-36) % RDW (11.6-14.8) % Plt Count (150-400) X10^3/uL Neut % (Auto) (50-75) % Lymph % (Auto) (25-40) % Hawkins % (Auto) (3-14) % Eos % (Auto) (2-4) % Baso % (Auto) (0-2) % Neut # (Auto) (8821-3661) /uL Lymph # (Auto) (7021-4291) /uL Hawkins # (Auto) (0-900) /uL Eos # (Auto) (0-450) /uL Baso # (Auto) (0-100) /uL Total Counted Seg Neutrophils % (38-70) % Band Neutrophils % (3-7) % Lymphocytes % (Manual) (25-45) % Atypical Lymphs % ( - 0) % Monocytes % (Manual) (2-11) % Eosinophils % (Manual) (2-4) % Metamyelocytes % (-0) % Neutrophils # (Manual) (2010-5263) /uL Toxic Granulation RBC Morphology PT (10.1-12.7) SECONDS INR (0.9-1.3) APTT (26-36) SECONDS Sodium (137-145) mmol/L Potassium (3.4-5.1) mmol/L Chloride (98-107) mmol/L Carbon Dioxide (22-32) mmol/L BUN (7-17) mg/dL Creatinine (0.52-1.04) mg/dL Estimated GFR (>60) mL/min BUN/Creatinine Ratio (6-22) Glucose (80-110) mg/dL Lactate (0.7-2.1) mmol/L Calcium (8.4-10.2) mg/dL Magnesium (1.6-2.3) mg/dL Total Bilirubin (0.2-1.3) mg/dL AST (14-36) IU/L ALT (<35) IU/L Alkaline Phosphatase (38-126) U/L Ammonia < 9 L (9-30) umol/L Troponin I (0.01-0.034) ng/mL NT-Pro-B Natriuret Pep (<450) pg/mL Total Protein (6.3-8.2) g/dL Albumin (3.5-5.0) g/dL Globulin (1.7-4.1) g/dL Albumin/Globulin Ratio (1.0-2.8) Lipase (23-300) U/L Procalcitonin (<0.5) ng/mL Urine Color Yellow Urine Appearance Clear Urine pH 6.0 (4.5-8.0) Ur Specific Supply <=1.005 (1.000-1.035) Urine Protein Negative (Negative) Urine Glucose (UA) Negative (Negative) g/dL Urine Ketones Trace H (NEGATIVE) Urine Occult Blood Negative (Negative) Urine Nitrate Negative (Negative) Urine Bilirubin Negative (NEGATIVE) Urine Urobilinogen 0.2 (0.2) E.U./dL Ur Leukocyte Esterase Negative (NEGATIVE) Urine RBC 0-1/hpf (0-5/HPF) Urine WBC None seen (0-5/HPF) Ur Squamous Epith Cells None seen (0-5/HPF) Urine Bacteria None seen (None) Ur Culture Indicated? Cult not indicated U Opiates 300ng/mL cut Negative (Negative) Ur Oxycodone Screen Negative (Negative) Urine Methadone Screen Negative (Negative) Acetaminophen (10-30) ug/mL Ur Barbiturates Screen Negative (Negative) U Tricyclic Antidepress Negative (Negative) Ur Phencyclidine Scrn Negative (Negative) Ur Amphetamines Screen Negative (Negative) U Methamphetamines Scrn Negative (Negative) Ur MDMA Scrn (Ecstasy) Negative (Negative) U Benzodiazepines Scrn Negative (Negative) Urine Cocaine Screen Negative (Negative) U Marijuana (THC) Screen Negative (Negative) Ethyl Alcohol < 10 ( - 10) mg/dL Chlamy pneumoniae PCR (Not Detect) Adenovirus (PCR) (Not Detect) B.parapertussis DNA PCR (Not Detecte) Coronavirus OC43 (PCR) (Not Detect) Coronavirus HKU1 (PCR) (Not Detect) Coronavirus 229E (PCR) (Not Detect) SARS-CoV-2 (PCR) (Not Detecte) Coronavirus NL63 (PCR) (Not Detect) Human Metapneumovir PCR (Not Detect) Influenza Type A (PCR) (Not Detect) Influenza Type B (PCR) (Not Detect) M. pneumoniae (PCR) (Not Detect) Parainfluenza 1 (PCR) (Not Detect) Parainfluenza 2 (PCR) (Not Detect) Parainfluenza 3 (PCR) (Not Detect) Parainfluenza 4 (PCR) (Not Detect) RSV (PCR) (Not Detect) Entero/Rhino (PCR) (Not Detect) 01/25/23 01/25/23 Range/Units 00:42 12:30 WBC 13.0 H D (4.5-11.0) X10^3/uL RBC 3.85 L (4.0-5.2) X10^6/uL Hgb 13.1 (12.0-16.0) g/dL Hct 38.2 (36-46) % MCV 99.4 (80-100) fL MCH 34.1 H (26-34) PG MCHC 34.4 (30-36) % RDW 14.1 (11.6-14.8) % Plt Count 206 (150-400) X10^3/uL Neut % (Auto) Not Reportable (50-75) % Lymph % (Auto) Not Reportable (25-40) % Hawkins % (Auto) Not Reportable (3-14) % Eos % (Auto) Not Reportable (2-4) % Baso % (Auto) Not Reportable (0-2) % Neut # (Auto) (0135-8447) /uL Lymph # (Auto) Not Reportable (9774-3686) /uL Hawkins # (Auto) Not Reportable (0-900) /uL Eos # (Auto) (0-450) /uL Baso # (Auto) Not Reportable (0-100) /uL Total Counted 100 Seg Neutrophils % 74.0 H (38-70) % Band Neutrophils % 5.0 (3-7) % Lymphocytes % (Manual) 14.0 L (25-45) % Atypical Lymphs % 2.0 H ( - 0) % Monocytes % (Manual) 3.0 (2-11) % Eosinophils % (Manual) 1.0 L (2-4) % Metamyelocytes % 1.0 H (-0) % Neutrophils # (Manual) 59270 H (7284-9037) /uL Toxic Granulation Present H RBC Morphology Normal morphology PT 17.3 H (10.1-12.7) SECONDS INR 1.5 H (0.9-1.3) APTT (26-36) SECONDS Sodium 130 L 130 L (137-145) mmol/L Potassium 2.5 L* 3.0 L (3.4-5.1) mmol/L Chloride 95 L 95 L (98-107) mmol/L Carbon Dioxide 25 21 L (22-32) mmol/L BUN 42 H 32 H (7-17) mg/dL Creatinine 1.45 H 1.01 (0.52-1.04) mg/dL Estimated GFR 37 L 58 L (>60) mL/min BUN/Creatinine Ratio 29.0 H 31.7 H (6-22) Glucose 128 H 169 H (80-110) mg/dL Lactate 1.7 (0.7-2.1) mmol/L Calcium 7.4 L 8.2 L (8.4-10.2) mg/dL Magnesium (1.6-2.3) mg/dL Total Bilirubin 1.3 1.2 (0.2-1.3) mg/dL AST 2073 H 1127 H (14-36) IU/L ALT 1377 H 1051 H (<35) IU/L Alkaline Phosphatase 139 H 175 H (38-126) U/L Ammonia (9-30) umol/L Troponin I (0.01-0.034) ng/mL NT-Pro-B Natriuret Pep (<450) pg/mL Total Protein 5.2 L 5.3 L (6.3-8.2) g/dL Albumin 2.6 L 2.7 L (3.5-5.0) g/dL Globulin 2.6 2.6 (1.7-4.1) g/dL Albumin/Globulin Ratio 1.0 1.0 (1.0-2.8) Lipase (23-300) U/L Procalcitonin (<0.5) ng/mL Urine Color Urine Appearance Urine pH (4.5-8.0) Ur Specific Supply (1.000-1.035) Urine Protein (Negative) Urine Glucose (UA) (Negative) g/dL Urine Ketones (NEGATIVE) Urine Occult Blood (Negative) Urine Nitrate (Negative) Urine Bilirubin (NEGATIVE) Urine Urobilinogen (0.2) E.U./dL Ur Leukocyte Esterase (NEGATIVE) Urine RBC (0-5/HPF) Urine WBC (0-5/HPF) Ur Squamous Epith Cells (0-5/HPF) Urine Bacteria (None) Ur Culture Indicated? U Opiates 300ng/mL cut (Negative) Ur Oxycodone Screen (Negative) Urine Methadone Screen (Negative) Acetaminophen 22 < 10 (10-30) ug/mL Ur Barbiturates Screen (Negative) U Tricyclic Antidepress (Negative) Ur Phencyclidine Scrn (Negative) Ur Amphetamines Screen (Negative) U Methamphetamines Scrn (Negative) Ur MDMA Scrn (Ecstasy) (Negative) U Benzodiazepines Scrn (Negative) Urine Cocaine Screen (Negative) U Marijuana (THC) Screen (Negative) Ethyl Alcohol ( - 10) mg/dL Chlamy pneumoniae PCR (Not Detect) Adenovirus (PCR) (Not Detect) B.parapertussis DNA PCR (Not Detecte) Coronavirus OC43 (PCR) (Not Detect) Coronavirus HKU1 (PCR) (Not Detect) Coronavirus 229E (PCR) (Not Detect) SARS-CoV-2 (PCR) (Not Detecte) Coronavirus NL63 (PCR) (Not Detect) Human Metapneumovir PCR (Not Detect) Influenza Type A (PCR) (Not Detect) Influenza Type B (PCR) (Not Detect) M. pneumoniae (PCR) (Not Detect) Parainfluenza 1 (PCR) (Not Detect) Parainfluenza 2 (PCR) (Not Detect) Parainfluenza 3 (PCR) (Not Detect) Parainfluenza 4 (PCR) (Not Detect) RSV (PCR) (Not Detect) Entero/Rhino (PCR) (Not Detect) Imaging Data Chest x-ray: Radiologist's Impression: Rossy Osman Chely?(Samantha)??77??F??1945 ? Allergy/Adv: No Known Drug Allergies (More??) Close Abdomen/Pelvis CT (Signed) Teo,Joey - 01/24/23 Abdomen Ultrasound (Signed) Teo,Joey - 01/24/23 Chest X-Ray (Signed) Teo,Joey - 01/24/23 Lumbar Spine MRI (Signed) Alejandro Cantu - 09/11/22 Sacrum and Coccyx X-Ray (Signed) Demetrio Gann - 09/01/22 Lumbar Spine X-Ray (Signed) Jaclyn Velazquez - 08/01/22 Chest X-Ray (Signed) Andre Meza - 06/11/22 Telemetry Strips 06/10/22 Shoulder X-Ray (Signed) Teo,Joey - 06/10/[address] (Signed) Teo,Joey - 05/24/22 Abdomen Ultrasound (Signed) Ty Jonas - 03/31/22 Hip X-Ray (Signed) Isaura Dacosta - 06/11/21 Hip X-Ray (Signed) Ty Jensen - 06/11/21 Hip X-Ray (Signed) Brown Solis - 06/09/21 Abdomen/Pelvis CT (Signed) Eric Falcon - 03/26/21 Chest/Abdomen/Pelvis CTA (Signed) Alejandro Cantu - 03/24/21 Abdomen Ultrasound (Signed) Andre Meza - 03/24/21 Abdomen MRI (Signed) Saran Villafuerte - 02/26/21 Lower Extremity Ultrasound (Signed) Ty Jensen - 02/12/21 Extremity Ultrasound (Signed) Ty Jensen - 02/12/21 Chest X-Ray (Signed) Naren Rossi - 02/04/21 Tibia/Fibula X-Ray (Signed) Jaclyn Velazquez - 02/04/21 Tibia/Fibula X-Ray (Signed) MarcusJefececy - 02/04/21 Abdomen Ultrasound (Signed) Luis Mackenzie - 02/03/21 Hip X-Ray (Signed) Jose AngelDuncan - 01/20/21 Shoulder MRI (Signed) Luis Mackenzie - 06/11/20 Mammogram Screening (Signed) Alejandro Cantu - 06/11/20 Bone Densitometry 06/11/20 DEXA Result 06/11/20 Shoulder X-Ray (Signed) Alejandro Cantu - 05/11/20 Knee X-Ray (Signed) Luis Mackenzie - 12/03/19 Foot X-Ray (Signed) Nirmal Hernandez - 02/05/19 Brain MRI (Signed) Cindy Mezae - 01/16/19 Extremity Ultrasound (Signed) Brown Solis - 02/23/18 Lumbar Spine MRI (Signed) Jaclyn Velazquez - 02/16/18 Abdomen/Pelvis CT (Signed) Nirmal Hernandez - 01/09/18 Abdomen Ultrasound (Signed) Naren Rossi - 12/06/17 Lumbar Spine X-Ray (Signed) Naren Rossi - 11/27/17 Launch?[place] [address] XRay Report Signed Patient: Rossy Osman MR#: [id number] : 1945 Acct:[id number] Age/Sex: 77 / F Date of Service: 01/24/23 Loc: ED Accession Number: [id number] Procedure: XR chest 1V Ordering Provider: Donna Love D.O. PROCEDURE: XR CHEST 1V INDICATIONS: Shortness of breath TECHNIQUE: One view of the chest was acquired. COMPARISON: [facility], CR, XR CHEST 2V, 06/11/2022, 8:34. [facility], CR, XR CHEST 2V, 02/04/2021, 10:10. FINDINGS: Surgical changes and devices: Right shoulder reverse arthroplasty. Lungs and pleura: Right greater than left basal opacities. No drainable pleural effusion. Mediastinum: Normal heart size Bones and chest wall: Degenerative changes IMPRESSION: Right greater than left basal pulmonary opacities, possibly infectious/inflammatory versus superimposed atelectasis. Consider future imaging surveillance to assess for resolution. Dictated by: Joey Bruce M.D. on 01/24/2023 at 13:57 Approved by: Joey Bruce M.D. on 01/24/2023 at 13:58 US - abdomen: Radiologist's Impression: [address] [address] Ultrasound Report Signed Patient: Rossy Osman MR#: [id number] : 1945 Acct:[id number] Age/Sex: 77 / F Date of Service: 01/24/23 Loc: ED Accession Number: [id number] Procedure: US abdomen limited Ordering Provider: Donna Love D.O. PROCEDURE: US ABDOMEN LIMITED INDICATIONS: HYPOTENSION, LIVER FAILURE TECHNIQUE: Real-time focused scanning was performed of the abdomen, with image documentation. COMPARISON: [facility], US, US ABDOMEN LIMITED, 03/31/2022, 14:37. [facility], CT, CT KIDNEY URETER BLADDER (KUB), 01/24/2023, 14:26. FINDINGS: Liver is 16 cm. Increased echogenicity. Unremarkable sonographic appearance of the gallbladder. CBD is 4 mm. Unremarkable sonographic appearance of the pancreas. IMPRESSION: Unremarkable sonographic appearance of the gallbladder and biliary system. Echogenic liver, nonspecific, most commonly due to steatosis. Dictated by: Joey Bruce M.D. on 01/24/2023 at 15:38 Approved by: Joey Bruce M.D. on 01/24/2023 at 15:40 CT scan - abdomen/pelvis: Radiologist's Impression: [address] [address] [address] Scan Report Signed Patient: Rossy Osman MR#: [id number] : 1945 Acct:[id number] Age/Sex: 77 / F Date of Service: 01/24/23 Loc: ED Accession Number: [id number] Procedure: CT kidney ureter bladder (KUB) Ordering Provider: Donna Love D.O. PROCEDURE: CT KIDNEY URETER BLADDER (KUB) INDICATIONS: renal failure TECHNIQUE: Axial sections were acquired from the lung bases to the pubic symphysis. Coronal and sagittal reformats were performed. For radiation dose reduction, the following was used: automated exposure control, adjustment of mA and/or kV according to patient size. COMPARISON: [facility], CT, CT ABDOMEN PELVIS W CON, 03/26/2021, 20:14. FINDINGS: Image quality: Good, allowing for metallic artifact. Lower chest: Bibasilar atelectasis and airspace disease, most confluent in the right lower lobe. Bilateral breast calcifications partially seen. Coronary calcifications. Possible tiny hiatal hernia. Normal heart size. Solid organs: Hepatic steatosis. Gallbladder is unremarkable by CT. No pathologic biliary ductal dilation or pancreatic ductal dilation. No splenomegaly. No adrenal nodules. There are punctate nonobstructing renal calculi. No hydronephrosis. Vessels and lymph nodes: There are atherosclerotic calcifications. No pathologic lymph nodes by size criteria. Bowel and peritoneum: No evidence of small bowel obstruction. No drainable abscess or ascites identified. Body wall: Tiny fat containing umbilical hernia. Pelvis: Unremarkable appearance of the reproductive organs, limiting evaluation on CT. Bladder is under distended without radiopaque stone. Bones: Right hip arthroplasty and lumbar fusion hardware with surrounding metallic artifact. There is superimposed degenerative changes, no acute or suspicious finding. Persistent anterolisthesis of L3 on L4 above the fusion construct. IMPRESSION: No overt hydronephrosis. Punctate bilateral nonobstructing renal calculi are seen bladder is under distended, without radiopaque stone. Bibasilar right greater than left opacities, likely pneumonia and superimposed atelectasis. Other findings as above. Dictated by: Joey Bruce M.D. on 01/24/2023 at 14:57 Approved by: Joey Bruce M.D. on 01/24/2023 at 15:03 ECG Data Attestation: I personally reviewed and interpreted this ECG as follows: Prior ECG tracings: available for review Interpretation: Sinus bradycardia rate of 59 MN 110 QRS of 96 QTC of 479. No acute ST elevation or depression appreciated. Left anterior fascicular block incomplete right bundle. Prior from 06/10/22 with no acute change MDM Narrative Medical decision making narrative: Spoke with Toxicology, they recommend high-dose NAC as well as Fomepizole. Recommends repeat LFTs, lactate and and Tylenol at 112 hours. Do not need a 4 hour repeat of Tylenol. At this time patient would not be a candidate for dialysis for Tylenol overdose but we discussed renal function and lack of urine output make her a candidate. Patient received several L of fluid she is not had any urine output at this point. She has had some improvement in her blood pressure map has been maintaining above 70, mentation has maintained throughout stay. Patient requires transfer for possible dialysis she is not made any urine with acute kidney injury, LFTs in the 4000 range, liver injury with suspected acute on chronic Tylenol overdose. Patient also is positive for RSV RSV pneumonia. Was covered with a dose of antibiotic. Potassium was replaced, will continue to monitor her sodium, neck has been initiated. There was delay in Fomepizole it had to be acquired from outside facility. Calling for transfer facility with Nephrology and GI. Patient signed out to Dr. Powell. Plan for repeat labs at 1:00 a.m. poison control will be contacting to follow-up. <Clarisse Powell, DO - Last Filed: 01/26/23 00:28> Lab Data Labs: Lab Results 01/24/23 01/24/23 01/24/23 Range/Units 11:55 13:05 13:15 WBC 8.4 (4.5-11.0) X10^3/uL RBC 4.05 (4.0-5.2) X10^6/uL Hgb 14.1 (12.0-16.0) g/dL Hct 39.6 (36-46) % MCV 97.9 (80-100) fL MCH 34.9 H (26-34) PG MCHC 35.6 (30-36) % RDW 13.9 (11.6-14.8) % Plt Count 227 (150-400) X10^3/uL Neut % (Auto) 81.9 H (50-75) % Lymph % (Auto) 11.5 L (25-40) % Hawkins % (Auto) 5.9 (3-14) % Eos % (Auto) 0.4 L (2-4) % Baso % (Auto) 0.3 (0-2) % Neut # (Auto) 6900 (2108-4977) /uL Lymph # (Auto) 1000 L (5405-0311) /uL Hawkins # (Auto) 500 (0-900) /uL Eos # (Auto) 0 (0-450) /uL Baso # (Auto) 0 (0-100) /uL Total Counted Seg Neutrophils % (38-70) % Band Neutrophils % (3-7) % Lymphocytes % (Manual) (25-45) % Atypical Lymphs % ( - 0) % Monocytes % (Manual) (2-11) % Eosinophils % (Manual) (2-4) % Metamyelocytes % (-0) % Neutrophils # (Manual) (2207-5668) /uL Toxic Granulation RBC Morphology PT 16.8 H (10.1-12.7) SECONDS INR 1.5 H (0.9-1.3) APTT 28 (26-36) SECONDS Sodium 127 L (137-145) mmol/L Potassium 2.3 L* (3.4-5.1) mmol/L Chloride 85 L (98-107) mmol/L Carbon Dioxide 29 (22-32) mmol/L BUN 48 H (7-17) mg/dL Creatinine 2.41 H (0.52-1.04) mg/dL Estimated GFR 20 L (>60) mL/min BUN/Creatinine Ratio 19.9 (6-22) Glucose 100 (80-110) mg/dL Lactate 3.1 H 1.3 (0.7-2.1) mmol/L Calcium 8.7 (8.4-10.2) mg/dL Magnesium 1.8 (1.6-2.3) mg/dL Total Bilirubin 1.7 H (0.2-1.3) mg/dL AST 4509 H (14-36) IU/L ALT 2169 H (<35) IU/L Alkaline Phosphatase 217 H (38-126) U/L Ammonia (9-30) umol/L Troponin I 0.018 (0.01-0.034) ng/mL NT-Pro-B Natriuret Pep 545 H (<450) pg/mL Total Protein 6.5 (6.3-8.2) g/dL Albumin 3.5 (3.5-5.0) g/dL Globulin 3.0 (1.7-4.1) g/dL Albumin/Globulin Ratio 1.2 (1.0-2.8) Lipase 219 (23-300) U/L Procalcitonin 66.0 H (<0.5) ng/mL Urine Color Urine Appearance Urine pH (4.5-8.0) Ur Specific Supply (1.000-1.035) Urine Protein (Negative) Urine Glucose (UA) (Negative) g/dL Urine Ketones (NEGATIVE) Urine Occult Blood (Negative) Urine Nitrate (Negative) Urine Bilirubin (NEGATIVE) Urine Urobilinogen (0.2) E.U./dL Ur Leukocyte Esterase (NEGATIVE) Urine RBC (0-5/HPF) Urine WBC (0-5/HPF) Ur Squamous Epith Cells (0-5/HPF) Urine Bacteria (None) Ur Culture Indicated? U Opiates 300ng/mL cut (Negative) Ur Oxycodone Screen (Negative) Urine Methadone Screen (Negative) Acetaminophen 74 H* (10-30) ug/mL Ur Barbiturates Screen (Negative) U Tricyclic Antidepress (Negative) Ur Phencyclidine Scrn (Negative) Ur Amphetamines Screen (Negative) U Methamphetamines Scrn (Negative) Ur MDMA Scrn (Ecstasy) (Negative) U Benzodiazepines Scrn (Negative) Urine Cocaine Screen (Negative) U Marijuana (THC) Screen (Negative) Ethyl Alcohol ( - 10) mg/dL Chlamy pneumoniae PCR Not detected (Not Detect) Adenovirus (PCR) Not detected (Not Detect) B.parapertussis DNA PCR Not detected (Not Detecte) Coronavirus OC43 (PCR) Not detected (Not Detect) Coronavirus HKU1 (PCR) Not detected (Not Detect) Coronavirus 229E (PCR) Not detected (Not Detect) SARS-CoV-2 (PCR) Not detected (Not Detecte) Coronavirus NL63 (PCR) Not detected (Not Detect) Human Metapneumovir PCR Not detected (Not Detect) Influenza Type A (PCR) Not detected (Not Detect) Influenza Type B (PCR) Not detected (Not Detect) M. pneumoniae (PCR) Not detected (Not Detect) Parainfluenza 1 (PCR) Not detected (Not Detect) Parainfluenza 2 (PCR) Not detected (Not Detect) Parainfluenza 3 (PCR) Not detected (Not Detect) Parainfluenza 4 (PCR) Not detected (Not Detect) RSV (PCR) Detected H (Not Detect) Entero/Rhino (PCR) Not detected (Not Detect) 01/24/23 01/24/23 01/24/23 Range/Units 15:12 16:38 23:27 WBC (4.5-11.0) X10^3/uL RBC (4.0-5.2) X10^6/uL Hgb (12.0-16.0) g/dL Hct (36-46) % MCV (80-100) fL MCH (26-34) PG MCHC (30-36) % RDW (11.6-14.8) % Plt Count (150-400) X10^3/uL Neut % (Auto) (50-75) % Lymph % (Auto) (25-40) % Hawkins % (Auto) (3-14) % Eos % (Auto) (2-4) % Baso % (Auto) (0-2) % Neut # (Auto) (9816-3350) /uL Lymph # (Auto) (7471-5111) /uL Hawkins # (Auto) (0-900) /uL Eos # (Auto) (0-450) /uL Baso # (Auto) (0-100) /uL Total Counted Seg Neutrophils % (38-70) % Band Neutrophils % (3-7) % Lymphocytes % (Manual) (25-45) % Atypical Lymphs % ( - 0) % Monocytes % (Manual) (2-11) % Eosinophils % (Manual) (2-4) % Metamyelocytes % (-0) % Neutrophils # (Manual) (5228-4869) /uL Toxic Granulation RBC Morphology PT (10.1-12.7) SECONDS INR (0.9-1.3) APTT (26-36) SECONDS Sodium (137-145) mmol/L Potassium (3.4-5.1) mmol/L Chloride (98-107) mmol/L Carbon Dioxide (22-32) mmol/L BUN (7-17) mg/dL Creatinine (0.52-1.04) mg/dL Estimated GFR (>60) mL/min BUN/Creatinine Ratio (6-22) Glucose (80-110) mg/dL Lactate (0.7-2.1) mmol/L Calcium (8.4-10.2) mg/dL Magnesium (1.6-2.3) mg/dL Total Bilirubin (0.2-1.3) mg/dL AST (14-36) IU/L ALT (<35) IU/L Alkaline Phosphatase (38-126) U/L Ammonia < 9 L (9-30) umol/L Troponin I (0.01-0.034) ng/mL NT-Pro-B Natriuret Pep (<450) pg/mL Total Protein (6.3-8.2) g/dL Albumin (3.5-5.0) g/dL Globulin (1.7-4.1) g/dL Albumin/Globulin Ratio (1.0-2.8) Lipase (23-300) U/L Procalcitonin (<0.5) ng/mL Urine Color Yellow Urine Appearance Clear Urine pH 6.0 (4.5-8.0) Ur Specific Supply <=1.005 (1.000-1.035) Urine Protein Negative (Negative) Urine Glucose (UA) Negative (Negative) g/dL Urine Ketones Trace H (NEGATIVE) Urine Occult Blood Negative (Negative) Urine Nitrate Negative (Negative) Urine Bilirubin Negative (NEGATIVE) Urine Urobilinogen 0.2 (0.2) E.U./dL Ur Leukocyte Esterase Negative (NEGATIVE) Urine RBC 0-1/hpf (0-5/HPF) Urine WBC None seen (0-5/HPF) Ur Squamous Epith Cells None seen (0-5/HPF) Urine Bacteria None seen (None) Ur Culture Indicated? Cult not indicated U Opiates 300ng/mL cut Negative (Negative) Ur Oxycodone Screen Negative (Negative) Urine Methadone Screen Negative (Negative) Acetaminophen (10-30) ug/mL Ur Barbiturates Screen Negative (Negative) U Tricyclic Antidepress Negative (Negative) Ur Phencyclidine Scrn Negative (Negative) Ur Amphetamines Screen Negative (Negative) U Methamphetamines Scrn Negative (Negative) Ur MDMA Scrn (Ecstasy) Negative (Negative) U Benzodiazepines Scrn Negative (Negative) Urine Cocaine Screen Negative (Negative) U Marijuana (THC) Screen Negative (Negative) Ethyl Alcohol < 10 ( - 10) mg/dL Chlamy pneumoniae PCR (Not Detect) Adenovirus (PCR) (Not Detect) B.parapertussis DNA PCR (Not Detecte) Coronavirus OC43 (PCR) (Not Detect) Coronavirus HKU1 (PCR) (Not Detect) Coronavirus 229E (PCR) (Not Detect) SARS-CoV-2 (PCR) (Not Detecte) Coronavirus NL63 (PCR) (Not Detect) Human Metapneumovir PCR (Not Detect) Influenza Type A (PCR) (Not Detect) Influenza Type B (PCR) (Not Detect) M. pneumoniae (PCR) (Not Detect) Parainfluenza 1 (PCR) (Not Detect) Parainfluenza 2 (PCR) (Not Detect) Parainfluenza 3 (PCR) (Not Detect) Parainfluenza 4 (PCR) (Not Detect) RSV (PCR) (Not Detect) Entero/Rhino (PCR) (Not Detect) 01/25/23 01/25/23 Range/Units 00:42 12:30 WBC 13.0 H D (4.5-11.0) X10^3/uL RBC 3.85 L (4.0-5.2) X10^6/uL Hgb 13.1 (12.0-16.0) g/dL Hct 38.2 (36-46) % MCV 99.4 (80-100) fL MCH 34.1 H (26-34) PG MCHC 34.4 (30-36) % RDW 14.1 (11.6-14.8) % Plt Count 206 (150-400) X10^3/uL Neut % (Auto) Not Reportable (50-75) % Lymph % (Auto) Not Reportable (25-40) % Hawkins % (Auto) Not Reportable (3-14) % Eos % (Auto) Not Reportable (2-4) % Baso % (Auto) Not Reportable (0-2) % Neut # (Auto) (3121-1165) /uL Lymph # (Auto) Not Reportable (6704-8945) /uL Hawkins # (Auto) Not Reportable (0-900) /uL Eos # (Auto) (0-450) /uL Baso # (Auto) Not Reportable (0-100) /uL Total Counted 100 Seg Neutrophils % 74.0 H (38-70) % Band Neutrophils % 5.0 (3-7) % Lymphocytes % (Manual) 14.0 L (25-45) % Atypical Lymphs % 2.0 H ( - 0) % Monocytes % (Manual) 3.0 (2-11) % Eosinophils % (Manual) 1.0 L (2-4) % Metamyelocytes % 1.0 H (-0) % Neutrophils # (Manual) 46475 H (0924-2838) /uL Toxic Granulation Present H RBC Morphology Normal morphology PT 17.3 H (10.1-12.7) SECONDS INR 1.5 H (0.9-1.3) APTT (26-36) SECONDS Sodium 130 L 130 L (137-145) mmol/L Potassium 2.5 L* 3.0 L (3.4-5.1) mmol/L Chloride 95 L 95 L (98-107) mmol/L Carbon Dioxide 25 21 L (22-32) mmol/L BUN 42 H 32 H (7-17) mg/dL Creatinine 1.45 H 1.01 (0.52-1.04) mg/dL Estimated GFR 37 L 58 L (>60) mL/min BUN/Creatinine Ratio 29.0 H 31.7 H (6-22) Glucose 128 H 169 H (80-110) mg/dL Lactate 1.7 (0.7-2.1) mmol/L Calcium 7.4 L 8.2 L (8.4-10.2) mg/dL Magnesium (1.6-2.3) mg/dL Total Bilirubin 1.3 1.2 (0.2-1.3) mg/dL AST 2073 H 1127 H (14-36) IU/L ALT 1377 H 1051 H (<35) IU/L Alkaline Phosphatase 139 H 175 H (38-126) U/L Ammonia (9-30) umol/L Troponin I (0.01-0.034) ng/mL NT-Pro-B Natriuret Pep (<450) pg/mL Total Protein 5.2 L 5.3 L (6.3-8.2) g/dL Albumin 2.6 L 2.7 L (3.5-5.0) g/dL Globulin 2.6 2.6 (1.7-4.1) g/dL Albumin/Globulin Ratio 1.0 1.0 (1.0-2.8) Lipase (23-300) U/L Procalcitonin (<0.5) ng/mL Urine Color Urine Appearance Urine pH (4.5-8.0) Ur Specific Supply (1.000-1.035) Urine Protein (Negative) Urine Glucose (UA) (Negative) g/dL Urine Ketones (NEGATIVE) Urine Occult Blood (Negative) Urine Nitrate (Negative) Urine Bilirubin (NEGATIVE) Urine Urobilinogen (0.2) E.U./dL Ur Leukocyte Esterase (NEGATIVE) Urine RBC (0-5/HPF) Urine WBC (0-5/HPF) Ur Squamous Epith Cells (0-5/HPF) Urine Bacteria (None) Ur Culture Indicated? U Opiates 300ng/mL cut (Negative) Ur Oxycodone Screen (Negative) Urine Methadone Screen (Negative) Acetaminophen 22 < 10 (10-30) ug/mL Ur Barbiturates Screen (Negative) U Tricyclic Antidepress (Negative) Ur Phencyclidine Scrn (Negative) Ur Amphetamines Screen (Negative) U Methamphetamines Scrn (Negative) Ur MDMA Scrn (Ecstasy) (Negative) U Benzodiazepines Scrn (Negative) Urine Cocaine Screen (Negative) U Marijuana (THC) Screen (Negative) Ethyl Alcohol ( - 10) mg/dL Chlamy pneumoniae PCR (Not Detect) Adenovirus (PCR) (Not Detect) B.parapertussis DNA PCR (Not Detecte) Coronavirus OC43 (PCR) (Not Detect) Coronavirus HKU1 (PCR) (Not Detect) Coronavirus 229E (PCR) (Not Detect) SARS-CoV-2 (PCR) (Not Detecte) Coronavirus NL63 (PCR) (Not Detect) Human Metapneumovir PCR (Not Detect) Influenza Type A (PCR) (Not Detect) Influenza Type B (PCR) (Not Detect) M. pneumoniae (PCR) (Not Detect) Parainfluenza 1 (PCR) (Not Detect) Parainfluenza 2 (PCR) (Not Detect) Parainfluenza 3 (PCR) (Not Detect) Parainfluenza 4 (PCR) (Not Detect) RSV (PCR) (Not Detect) Entero/Rhino (PCR) (Not Detect) MDM Narrative Medical decision making narrative: Spoke with Toxicology, they recommend high-dose NAC as well as Fomepizole. Recommends repeat LFTs, lactate and and Tylenol at 112 hours. Do not need a 4 hour repeat of Tylenol. At this time patient would not be a candidate for dialysis for Tylenol overdose but we discussed renal function and lack of urine output make her a candidate. Patient received several L of fluid she is not had any urine output at this point. She has had some improvement in her blood pressure map has been maintaining above 70, mentation has maintained throughout stay. Patient requires transfer for possible dialysis she is not made any urine with acute kidney injury, LFTs in the 4000 range, liver injury with suspected acute on chronic Tylenol overdose. Patient also is positive for RSV RSV pneumonia. Was covered with a dose of antibiotic. Potassium was replaced, will continue to monitor her sodium, neck has been initiated. There was delay in Fomepizole it had to be acquired from outside facility. Calling for transfer facility with Nephrology and GI. Patient signed out to Dr. Powell. Plan for repeat labs at 1:00 a.m. poison control will be contacting to follow-up. Patient signed out to me by Dr. Love I have seen evaluated patient myself. Patient presents with upper respiratory like symptoms found to have pneumonia and RSV. She continues to get Zosyn scheduled. She is on Mucomyst for chronic Tylenol overdose. She was not having any urine output. She was given 80 mg of Lasix nurse reports that [place] catheter was not placed properly she urinated all over. She remains awake alert vitals are stable. Dr. Landa at [facility] updated on symptoms and test results, accepts patient Poison control checked in. Continue high dose NAC for 24 hours. Goal for AST<1000, INR <2.[address] Saavedra, awaiting for bed assignment, <Silvestre Saavedra, DO - Last Filed: 01/31/23 07:05> Lab Data Labs: Lab Results 01/24/23 01/24/23 01/24/23 Range/Units 11:55 13:05 13:15 WBC 8.4 (4.5-11.0) X10^3/uL RBC 4.05 (4.0-5.2) X10^6/uL Hgb 14.1 (12.0-16.0) g/dL Hct 39.6 (36-46) % MCV 97.9 (80-100) fL MCH 34.9 H (26-34) PG MCHC 35.6 (30-36) % RDW 13.9 (11.6-14.8) % Plt Count 227 (150-400) X10^3/uL Neut % (Auto) 81.9 H (50-75) % Lymph % (Auto) 11.5 L (25-40) % Hawkins % (Auto) 5.9 (3-14) % Eos % (Auto) 0.4 L (2-4) % Baso % (Auto) 0.3 (0-2) % Neut # (Auto) 6900 (8225-1248) /uL Lymph # (Auto) 1000 L (7490-9344) /uL Hawkins # (Auto) 500 (0-900) /uL Eos # (Auto) 0 (0-450) /uL Baso # (Auto) 0 (0-100) /uL Total Counted Seg Neutrophils % (38-70) % Band Neutrophils % (3-7) % Lymphocytes % (Manual) (25-45) % Atypical Lymphs % ( - 0) % Monocytes % (Manual) (2-11) % Eosinophils % (Manual) (2-4) % Metamyelocytes % (-0) % Neutrophils # (Manual) (7165-9624) /uL Toxic Granulation RBC Morphology PT 16.8 H (10.1-12.7) SECONDS INR 1.5 H (0.9-1.3) APTT 28 (26-36) SECONDS Sodium 127 L (137-145) mmol/L Potassium 2.3 L* (3.4-5.1) mmol/L Chloride 85 L (98-107) mmol/L Carbon Dioxide 29 (22-32) mmol/L BUN 48 H (7-17) mg/dL Creatinine 2.41 H (0.52-1.04) mg/dL Estimated GFR 20 L (>60) mL/min BUN/Creatinine Ratio 19.9 (6-22) Glucose 100 (80-110) mg/dL Lactate 3.1 H 1.3 (0.7-2.1) mmol/L Calcium 8.7 (8.4-10.2) mg/dL Magnesium 1.8 (1.6-2.3) mg/dL Total Bilirubin 1.7 H (0.2-1.3) mg/dL AST 4509 H (14-36) IU/L ALT 2169 H (<35) IU/L Alkaline Phosphatase 217 H (38-126) U/L Ammonia (9-30) umol/L Troponin I 0.018 (0.01-0.034) ng/mL NT-Pro-B Natriuret Pep 545 H (<450) pg/mL Total Protein 6.5 (6.3-8.2) g/dL Albumin 3.5 (3.5-5.0) g/dL Globulin 3.0 (1.7-4.1) g/dL Albumin/Globulin Ratio 1.2 (1.0-2.8) Lipase 219 (23-300) U/L Procalcitonin 66.0 H (<0.5) ng/mL Urine Color Urine Appearance Urine pH (4.5-8.0) Ur Specific Supply (1.000-1.035) Urine Protein (Negative) Urine Glucose (UA) (Negative) g/dL Urine Ketones (NEGATIVE) Urine Occult Blood (Negative) Urine Nitrate (Negative) Urine Bilirubin (NEGATIVE) Urine Urobilinogen (0.2) E.U./dL Ur Leukocyte Esterase (NEGATIVE) Urine RBC (0-5/HPF) Urine WBC (0-5/HPF) Ur Squamous Epith Cells (0-5/HPF) Urine Bacteria (None) Ur Culture Indicated? U Opiates 300ng/mL cut (Negative) Ur Oxycodone Screen (Negative) Urine Methadone Screen (Negative) Acetaminophen 74 H* (10-30) ug/mL Ur Barbiturates Screen (Negative) U Tricyclic Antidepress (Negative) Ur Phencyclidine Scrn (Negative) Ur Amphetamines Screen (Negative) U Methamphetamines Scrn (Negative) Ur MDMA Scrn (Ecstasy) (Negative) U Benzodiazepines Scrn (Negative) Urine Cocaine Screen (Negative) U Marijuana (THC) Screen (Negative) Ethyl Alcohol ( - 10) mg/dL Chlamy pneumoniae PCR Not detected (Not Detect) Adenovirus (PCR) Not detected (Not Detect) B.parapertussis DNA PCR Not detected (Not Detecte) Coronavirus OC43 (PCR) Not detected (Not Detect) Coronavirus HKU1 (PCR) Not detected (Not Detect) Coronavirus 229E (PCR) Not detected (Not Detect) SARS-CoV-2 (PCR) Not detected (Not Detecte) Coronavirus NL63 (PCR) Not detected (Not Detect) Human Metapneumovir PCR Not detected (Not Detect) Influenza Type A (PCR) Not detected (Not Detect) Influenza Type B (PCR) Not detected (Not Detect) M. pneumoniae (PCR) Not detected (Not Detect) Parainfluenza 1 (PCR) Not detected (Not Detect) Parainfluenza 2 (PCR) Not detected (Not Detect) Parainfluenza 3 (PCR) Not detected (Not Detect) Parainfluenza 4 (PCR) Not detected (Not Detect) RSV (PCR) Detected H (Not Detect) Entero/Rhino (PCR) Not detected (Not Detect) 01/24/23 01/24/23 01/24/23 Range/Units 15:12 16:38 23:27 WBC (4.5-11.0) X10^3/uL RBC (4.0-5.2) X10^6/uL Hgb (12.0-16.0) g/dL Hct (36-46) % MCV (80-100) fL MCH (26-34) PG MCHC (30-36) % RDW (11.6-14.8) % Plt Count (150-400) X10^3/uL Neut % (Auto) (50-75) % Lymph % (Auto) (25-40) % Hawkins % (Auto) (3-14) % Eos % (Auto) (2-4) % Baso % (Auto) (0-2) % Neut # (Auto) (6016-7155) /uL Lymph # (Auto) (8624-8470) /uL Hawkins # (Auto) (0-900) /uL Eos # (Auto) (0-450) /uL Baso # (Auto) (0-100) /uL Total Counted Seg Neutrophils % (38-70) % Band Neutrophils % (3-7) % Lymphocytes % (Manual) (25-45) % Atypical Lymphs % ( - 0) % Monocytes % (Manual) (2-11) % Eosinophils % (Manual) (2-4) % Metamyelocytes % (-0) % Neutrophils # (Manual) (7407-2791) /uL Toxic Granulation RBC Morphology PT (10.1-12.7) SECONDS INR (0.9-1.3) APTT (26-36) SECONDS Sodium (137-145) mmol/L Potassium (3.4-5.1) mmol/L Chloride (98-107) mmol/L Carbon Dioxide (22-32) mmol/L BUN (7-17) mg/dL Creatinine (0.52-1.04) mg/dL Estimated GFR (>60) mL/min BUN/Creatinine Ratio (6-22) Glucose (80-110) mg/dL Lactate (0.7-2.1) mmol/L Calcium (8.4-10.2) mg/dL Magnesium (1.6-2.3) mg/dL Total Bilirubin (0.2-1.3) mg/dL AST (14-36) IU/L ALT (<35) IU/L Alkaline Phosphatase (38-126) U/L Ammonia < 9 L (9-30) umol/L Troponin I (0.01-0.034) ng/mL NT-Pro-B Natriuret Pep (<450) pg/mL Total Protein (6.3-8.2) g/dL Albumin (3.5-5.0) g/dL Globulin (1.7-4.1) g/dL Albumin/Globulin Ratio (1.0-2.8) Lipase (23-300) U/L Procalcitonin (<0.5) ng/mL Urine Color Yellow Urine Appearance Clear Urine pH 6.0 (4.5-8.0) Ur Specific Supply <=1.005 (1.000-1.035) Urine Protein Negative (Negative) Urine Glucose (UA) Negative (Negative) g/dL Urine Ketones Trace H (NEGATIVE) Urine Occult Blood Negative (Negative) Urine Nitrate Negative (Negative) Urine Bilirubin Negative (NEGATIVE) Urine Urobilinogen 0.2 (0.2) E.U./dL Ur Leukocyte Esterase Negative (NEGATIVE) Urine RBC 0-1/hpf (0-5/HPF) Urine WBC None seen (0-5/HPF) Ur Squamous Epith Cells None seen (0-5/HPF) Urine Bacteria None seen (None) Ur Culture Indicated? Cult not indicated U Opiates 300ng/mL cut Negative (Negative) Ur Oxycodone Screen Negative (Negative) Urine Methadone Screen Negative (Negative) Acetaminophen (10-30) ug/mL Ur Barbiturates Screen Negative (Negative) U Tricyclic Antidepress Negative (Negative) Ur Phencyclidine Scrn Negative (Negative) Ur Amphetamines Screen Negative (Negative) U Methamphetamines Scrn Negative (Negative) Ur MDMA Scrn (Ecstasy) Negative (Negative) U Benzodiazepines Scrn Negative (Negative) Urine Cocaine Screen Negative (Negative) U Marijuana (THC) Screen Negative (Negative) Ethyl Alcohol < 10 ( - 10) mg/dL Chlamy pneumoniae PCR (Not Detect) Adenovirus (PCR) (Not Detect) B.parapertussis DNA PCR (Not Detecte) Coronavirus OC43 (PCR) (Not Detect) Coronavirus HKU1 (PCR) (Not Detect) Coronavirus 229E (PCR) (Not Detect) SARS-CoV-2 (PCR) (Not Detecte) Coronavirus NL63 (PCR) (Not Detect) Human Metapneumovir PCR (Not Detect) Influenza Type A (PCR) (Not Detect) Influenza Type B (PCR) (Not Detect) M. pneumoniae (PCR) (Not Detect) Parainfluenza 1 (PCR) (Not Detect) Parainfluenza 2 (PCR) (Not Detect) Parainfluenza 3 (PCR) (Not Detect) Parainfluenza 4 (PCR) (Not Detect) RSV (PCR) (Not Detect) Entero/Rhino (PCR) (Not Detect) 01/25/23 01/25/23 Range/Units 00:42 12:30 WBC 13.0 H D (4.5-11.0) X10^3/uL RBC 3.85 L (4.0-5.2) X10^6/uL Hgb 13.1 (12.0-16.0) g/dL Hct 38.2 (36-46) % MCV 99.4 (80-100) fL MCH 34.1 H (26-34) PG MCHC 34.4 (30-36) % RDW 14.1 (11.6-14.8) % Plt Count 206 (150-400) X10^3/uL Neut % (Auto) Not Reportable (50-75) % Lymph % (Auto) Not Reportable (25-40) % Hawkins % (Auto) Not Reportable (3-14) % Eos % (Auto) Not Reportable (2-4) % Baso % (Auto) Not Reportable (0-2) % Neut # (Auto) (1704-6652) /uL Lymph # (Auto) Not Reportable (8147-6008) /uL Hawkins # (Auto) Not Reportable (0-900) /uL Eos # (Auto) (0-450) /uL Baso # (Auto) Not Reportable (0-100) /uL Total Counted 100 Seg Neutrophils % 74.0 H (38-70) % Band Neutrophils % 5.0 (3-7) % Lymphocytes % (Manual) 14.0 L (25-45) % Atypical Lymphs % 2.0 H ( - 0) % Monocytes % (Manual) 3.0 (2-11) % Eosinophils % (Manual) 1.0 L (2-4) % Metamyelocytes % 1.0 H (-0) % Neutrophils # (Manual) 60636 H (2049-3767) /uL Toxic Granulation Present H RBC Morphology Normal morphology PT 17.3 H (10.1-12.7) SECONDS INR 1.5 H (0.9-1.3) APTT (26-36) SECONDS Sodium 130 L 130 L (137-145) mmol/L Potassium 2.5 L* 3.0 L (3.4-5.1) mmol/L Chloride 95 L 95 L (98-107) mmol/L Carbon Dioxide 25 21 L (22-32) mmol/L BUN 42 H 32 H (7-17) mg/dL Creatinine 1.45 H 1.01 (0.52-1.04) mg/dL Estimated GFR 37 L 58 L (>60) mL/min BUN/Creatinine Ratio 29.0 H 31.7 H (6-22) Glucose 128 H 169 H (80-110) mg/dL Lactate 1.7 (0.7-2.1) mmol/L Calcium 7.4 L 8.2 L (8.4-10.2) mg/dL Magnesium (1.6-2.3) mg/dL Total Bilirubin 1.3 1.2 (0.2-1.3) mg/dL AST 2073 H 1127 H (14-36) IU/L ALT 1377 H 1051 H (<35) IU/L Alkaline Phosphatase 139 H 175 H (38-126) U/L Ammonia (9-30) umol/L Troponin I (0.01-0.034) ng/mL NT-Pro-B Natriuret Pep (<450) pg/mL Total Protein 5.2 L 5.3 L (6.3-8.2) g/dL Albumin 2.6 L 2.7 L (3.5-5.0) g/dL Globulin 2.6 2.6 (1.7-4.1) g/dL Albumin/Globulin Ratio 1.0 1.0 (1.0-2.8) Lipase (23-300) U/L Procalcitonin (<0.5) ng/mL Urine Color Urine Appearance Urine pH (4.5-8.0) Ur Specific Supply (1.000-1.035) Urine Protein (Negative) Urine Glucose (UA) (Negative) g/dL Urine Ketones (NEGATIVE) Urine Occult Blood (Negative) Urine Nitrate (Negative) Urine Bilirubin (NEGATIVE) Urine Urobilinogen (0.2) E.U./dL Ur Leukocyte Esterase (NEGATIVE) Urine RBC (0-5/HPF) Urine WBC (0-5/HPF) Ur Squamous Epith Cells (0-5/HPF) Urine Bacteria (None) Ur Culture Indicated? U Opiates 300ng/mL cut (Negative) Ur Oxycodone Screen (Negative) Urine Methadone Screen (Negative) Acetaminophen 22 < 10 (10-30) ug/mL Ur Barbiturates Screen (Negative) U Tricyclic Antidepress (Negative) Ur Phencyclidine Scrn (Negative) Ur Amphetamines Screen (Negative) U Methamphetamines Scrn (Negative) Ur MDMA Scrn (Ecstasy) (Negative) U Benzodiazepines Scrn (Negative) Urine Cocaine Screen (Negative) U Marijuana (THC) Screen (Negative) Ethyl Alcohol ( - 10) mg/dL Chlamy pneumoniae PCR (Not Detect) Adenovirus (PCR) (Not Detect) B.parapertussis DNA PCR (Not Detecte) Coronavirus OC43 (PCR) (Not Detect) Coronavirus HKU1 (PCR) (Not Detect) Coronavirus 229E (PCR) (Not Detect) SARS-CoV-2 (PCR) (Not Detecte) Coronavirus NL63 (PCR) (Not Detect) Human Metapneumovir PCR (Not Detect) Influenza Type A (PCR) (Not Detect) Influenza Type B (PCR) (Not Detect) M. pneumoniae (PCR) (Not Detect) Parainfluenza 1 (PCR) (Not Detect) Parainfluenza 2 (PCR) (Not Detect) Parainfluenza 3 (PCR) (Not Detect) Parainfluenza 4 (PCR) (Not Detect) RSV (PCR) (Not Detect) Entero/Rhino (PCR) (Not Detect) MDM Narrative Medical decision making narrative: Spoke with Toxicology, they recommend high-dose NAC as well as Fomepizole. Recommends repeat LFTs, lactate and and Tylenol at 112 hours. Do not need a 4 hour repeat of Tylenol. At this time patient would not be a candidate for dialysis for Tylenol overdose but we discussed renal function and lack of urine output make her a candidate. Patient received several L of fluid she is not had any urine output at this point. She has had some improvement in her blood pressure map has been maintaining above 70, mentation has maintained throughout stay. Patient requires transfer for possible dialysis she is not made any urine with acute kidney injury, LFTs in the 4000 range, liver injury with suspected acute on chronic Tylenol overdose. Patient also is positive for RSV RSV pneumonia. Was covered with a dose of antibiotic. Potassium was replaced, will continue to monitor her sodium, neck has been initiated. There was delay in Fomepizole it had to be acquired from outside facility. Calling for transfer facility with Nephrology and GI. Patient signed out to Dr. Powell. Plan for repeat labs at 1:00 a.m. poison control will be contacting to follow-up. Patient signed out to me by Dr. Love I have seen evaluated patient myself. Patient presents with upper respiratory like symptoms found to have pneumonia and RSV. She continues to get Zosyn scheduled. She is on Mucomyst for chronic Tylenol overdose. She was not having any urine output. She was given 80 mg of Lasix nurse reports that [place] catheter was not placed properly she urinated all over. She remains awake alert vitals are stable. Dr. Landa at [facility] updated on symptoms and test results, accepts patient Poison control checked in. Continue high dose NAC for 24 hours. Goal for AST<1000, INR <2.[address] Saavedra, awaiting for bed assignment, Dr saavedra: Received turned over. Review patient's history and physical and workup performed up to this point. Repeat labs show that patient's Tylenol level is now 0. Creatinine has improved. AST and ALT are still both elevated. INR is 1.5. I did discuss these results with poison control. They recommended continuing the NAC because the liver function tests were still elevated. I did discuss the case with Dr. Xavier hospitalist at [facility] who accepts the patient for transfer. Patient is stable for transport. Critical Care Time <Donna Love, DO - Last Filed: 02/01/23 00:32> Critical Care Time Attestation: The high probability of a clinically significant, sudden or life threatening deterioration of the [cardiac, pulm, nephro] system(s) required my full and direct attention, intervention and personal management. The aggregate critical care time was [] minutes. This time is in addition to time spent performing reported procedures but includes the following: [x] Data Review and interpretation [x] Patient assessment and monitoring of vital signs [x] Documentation [x] Medication orders and management <Silvestre Saavedra, DO - Last Filed: 01/31/23 07:05> Critical Care Time Critical Care Time: Yes Total Critical Care Time: 120 Attestation: The high probability of a clinically significant, sudden or life threatening deterioration of the [cardiac, pulm, nephro] system(s) required my full and direct attention, intervention and personal management. The aggregate critical care time was [120] minutes. This time is in addition to time spent performing reported procedures but includes the following: [x] Data Review and interpretation [x] Patient assessment and monitoring of vital signs [x] Documentation [x] Medication orders and management Discharge Plan Departure Patient Disposition: [facility] Clinical Impression: Overdose on Tylenol, Pneumonia due to respiratory syncytial virus, MORIAH (acute kidney injury), Acute hypokalemia Prescriptions: No Action pramipexole 0.5 mg tablet 0.5 mg PO HSP PRN (Reason: restless leg(s)) Qty: 90 3RF atorvastatin 20 mg tablet 20 mg PO BEDTIME Qty: 90 3RF cyclobenzaprine 5 mg tablet 2.5 - 5 mg PO TID PRN (Reason: muscle spasm) Qty: 30 5RF omeprazole 20 mg capsule,delayed release(DR/EC) 20 mg PO DAILY Qty: 30 11RF oxycodone 5 mg tablet 5 mg PO TID PRN (Reason: pain) Qty: 30 0RF citalopram [Celexa] 10 mg tablet 10 mg PO DAILY Qty: 30 11RF chlorthalidone 25 mg tablet 25 mg PO DAILY Qty: 90 3RF acetaminophen 325 mg Tablet 650 mg PO TID Qty: 180 1RF aspirin 81 mg Tablet,Delayed Release (Dr/Ec) 81 mg PO BID Qty: 84 0RF potassium chloride [Klor-Con M20] 20 mEq Tablet,Er Particles/Crystals 20 meq PO TIDWM Qty: 60 0RF Referrals: Miscellaneous,Doctor, MD [Primary Care Provider] -
[2023-01-24 15:27] LABS: Ethanol (ETOH) < 10 mg/dL
[2023-01-24] MEDS: SODIUM CHLORIDE 0.9% 1,000 ML 200 ML IV ×2 (15:30→20:37)
[2023-01-24] MEDS: SODIUM CHLORIDE 0.9% 1,000 ML 1000 ML IV ×2 (15:31)
[2023-01-24 15:46] LABS: Lactate 2HR (Lactic Acid Rflx) 1.3 mmol/L (0.7-2.1)
--- NOTE | 2023-01-24 16:16 | DI.RAD.S_ITS ---
PROCEDURE: XR CHEST FOR PICC 1V INDICATIONS: [facility] 8:34. FINDINGS: PICC was placed by the intravenous therapy team from the left side. Fluoroscopic spot film demonstrates the tip of PICC projecting to the area of mid SVC IMPRESSION: Tip of PICC projects to the area of mid SVC. Same day chest radiograph findings are separately dictated Dictated by: Joey Bruce M.D. on 01/24/2023 at 16:48 Approved by: Joey Bruce M.D. on 01/24/2023 at 16:49
[2023-01-24 17:00] LABS: Ammonia (NH3) < 9 umol/L (9-30)
--- NOTE | 2023-01-24 17:09 | PC.NURSE ---
no urine output since pt arrival. bladder scanned pt. 8cc on scan. pt has received 2L NS. 3rd liter @ 200cc/hr Dr castrejon aware.
--- NOTE | 2023-01-24 17:22 | PC.NURSE ---
Calling hospitals for patient transfer 165- [facility], spoke with Esha, on waitlist 172- [facility], spoke with Gabbi, on waitlist
--- NOTE | 2023-01-24 20:39 | PC.NURSE ---
Addendum entered by Marianna Patel CNA 01/25/23 06:57: TECHNICAL SERVICES ASSISTANT note: Spoke to Avel hastings at [facility] at 0655. Asked about patient. Sent a facesheet over, they are going to see if they have space today. Addendum entered by Marianna Patel CNA 01/25/23 01:40: TECHNICAL SERVICES ASSISTANT note: Spoke to Janice at the [facility]. She asked if [facility] reached out to us, told her they had and patient was accepted there, but we were waiting on a bed. Janice took note on that and said patient is on all the waiting lists. Hopefully we will get a bed tonight or today. Thanked her for her help. Addendum entered by Marianna Patel CNA 01/25/23 01:27: TECHNICAL SERVICES ASSISTANT note: Spoke to Virginia at [facility] at 0125. Patient accepted at [facility]; they don't have a bed yet, so Virginia will call us back. Patient is on their waitlist but accepted. Thanked Virginia for her help Addendum entered by Marianna Patel CNA 01/25/23 00:18: TECHNICAL SERVICES ASSISTANT note: Spoke to Virginia at [facility] at 0018. Virginia took some information, is going to to start the process at looking for a bed for patient. Said they're currently boarding in their Emergency room, but will try to help. Thanked Virginia for her help. Addendum entered by Marianna Patel CNA 01/24/23 21:22: TECHNICAL SERVICES ASSISTANT note: [facility] She said patient is aware and on the waitlist for [facility], [facility], and [facility], but everywhere currently is packed and patient will have to wait. Told me to pass on to her care team. Original Note: TECHNICAL SERVICES ASSISTANT note: Attempting to transfer patient. Called the following places with the following responses: [facility]: 1953 spoke to Rohan. They have no beds and are boarding a lot of patients. [facility]: 2006 spoke to [facility]. They have no beds. No waitlist [facility]: 2007 spoke to Janice. She took all the information and said they're currently tight on beds.
[2023-01-24] MEDS: PIPERACILLIN/TAZO 3.375 GM in SODIUM CHLORIDE 0.9% 100 ML IV (21:30)
[2023-01-24] MEDS: FUROSEMIDE 80 MG in SODIUM CHLORIDE 0.9% 50 ML 116 MG IV (22:14)
--- NOTE | 2023-01-24 22:36 | PC.NURSE ---
Dr. Sherry hopkins for patient to eat. this RN gave patient turkey sandwich with castellano and mustard, vanilla pudding, gingerale and water. primary RN aware.
[2023-01-24 23:36] LABS: Appearance Urine UA CLEAR; Bilirubin Urine UA NEGATIVE (NEGATIVE); Color Urine UA YELLOW; Glucose Urine UA NEGATIVE (Negative); Ketones Urine UA TRACE (NEGATIVE); Leukocyte Esterase Urine UA NEGATIVE (NEGATIVE); Nitrite Urine UA NEGATIVE (Negative); Occult Blood Urine UA NEGATIVE (Negative); Protein Urine UA NEGATIVE (Negative); Specific Gravity Urine UA <=1.005 (1.000-1.035); Urobilinogen Urine UA 0.2 E.U./dL (0.2)
[2023-01-24 23:39] LABS: UR Morphine/Opiate cutoff 300 Negative (Negative); Ur Creatinine Normal (Normal); Ur Specific Gravity Normal (Normal); Urine Amphetamines Negative (Negative); Urine Barbiturates Negative (Negative); Urine Benzodiazepines Negative (Negative); Urine Cocaine Negative (Negative); Urine MDMA Negative (Negative); Urine Methadone Negative (Negative); Urine Methamphetamines Negative (Negative); Urine Oxycodone Negative (Negative); Urine Phencyclidine Negative (Negative); Urine Tetrahydrocannabinol Negative (Negative); Urine Tricyclic Antidepressant Negative (Negative); Urine pH Normal (Normal)
[2023-01-24 23:53] LABS: Bacteria Urine None Seen; Culture Indicated Urine Cult Not Indicated; RBC Urine 0-1/HPF (0-5/HPF); Squamous Epithelial Cell Urine None Seen (0-5/HPF); WBC Urine None Seen (0-5/HPF)
[2023-01-25] VITALS (82 sets, daily range): BP systolic 91–129; BP diastolic 46–72; PULSE 46–91; RESP 16–35; O2SAT 89–99
[2023-01-25 01:03] LABS: Lactate (Lactic Acid) 1.7 mmol/L (0.7-2.1)
[2023-01-25 01:06] LABS: Acetaminophen 22 ug/mL (10-30); Albumin 2.6 g/dL (3.5-5.0); Alkaline Phosphatase 139 U/L (38-126); Bilirubin Total 1.3 mg/dL (0.2-1.3); Blood Urea Nitrogen 42 mg/dL (7-17); Calcium 7.4 mg/dL (8.4-10.2); Carbon Dioxide 25 mmol/L (22-32); Chloride 95 mmol/L (98-107); Estimated Glomerular Filt Rate 37 mL/min (>60); Globulin 2.6 g/dL (1.7-4.1); Glucose 128 mg/dL (80-110); Sodium 130 mmol/L (137-145); Total Protein 5.2 g/dL (6.3-8.2)
[2023-01-25 01:07] LABS: Potassium 2.5 mmol/L (3.4-5.1)
[2023-01-25] MEDS: CODEINE/GUAIFENESIN LIQUID 5ML UDC 10 ML PO (01:09)
[2023-01-25 01:12] LABS: HEMOLYSIS 25 (0-50)
[2023-01-25 01:13] LABS: Alanine Aminotransferase 1377 IU/L (<35)
[2023-01-25 01:33] LABS: Aspartate Aminotransferase 2073 IU/L (14-36)
[2023-01-25] MEDS: SODIUM CHLORIDE 0.9% 1,000 ML 200 ML IV ×4 (02:03→17:18)
[2023-01-25] MEDS: POTASSIUM CHLORIDE IN WATER 10 MEQ/100 ML PIGGYBACK 100 MEQ IV ×4 (05:35→09:41)
[2023-01-25] MEDS: PIPERACILLIN/TAZO 3.375 GM in SODIUM CHLORIDE 0.9% 100 ML IV ×2 (07:35→15:21)
[2023-01-25] MEDS: BENZONATATE 100 MG CAPSULE PO (09:53)
--- NOTE | 2023-01-25 12:33 | PC.NURSE ---
spoke to Laura from [facility] who states still no beds but looking better than yesterday
[2023-01-25 12:42] LABS: Hematocrit 38.2 % (36-46); Hemoglobin 13.1 g/dL (12.0-16.0); Mean Corpuscular HGB Conc 34.4 % (30-36); Mean Corpuscular Hemoglobin 34.1 PG (26-34); Mean Corpuscular Volume 99.4 fL (80-100); Platelet Count 206 X10^3/uL (150-400); Red Blood Cell Count 3.85 X10^6/uL (4.0-5.2); Red Cell Distribution Width 14.1 % (11.6-14.8)
[2023-01-25 12:45] LABS: Add Manual Diff / Slide Review YES
[2023-01-25 12:50] LABS: INR 1.5 (0.9-1.3); Prothrombin Time 17.3 SECONDS (10.1-12.7)
[2023-01-25 12:54] LABS: Acetaminophen < 10 ug/mL (10-30); Albumin 2.7 g/dL (3.5-5.0); Alkaline Phosphatase 175 U/L (38-126); BUN Creatinine Ratio 31.7 (6-22); Bilirubin Total 1.2 mg/dL (0.2-1.3); Blood Urea Nitrogen 32 mg/dL (7-17); Calcium 8.2 mg/dL (8.4-10.2); Carbon Dioxide 21 mmol/L (22-32); Chloride 95 mmol/L (98-107); Estimated Glomerular Filt Rate 58 mL/min (>60); Globulin 2.6 g/dL (1.7-4.1); Glucose 169 mg/dL (80-110); Sodium 130 mmol/L (137-145); Total Protein 5.3 g/dL (6.3-8.2)
[2023-01-25 13:05] LABS: HEMOLYSIS 19 (0-50)
[2023-01-25 13:17] LABS: Alanine Aminotransferase 1051 IU/L (<35); Aspartate Aminotransferase 1127 IU/L (14-36)
[2023-01-25 13:21] LABS: Neutrophils Absolute Manual 10270 /uL (3000-5900); Total Cells Counted 100
[2023-01-25 13:37] LABS: RBC Morphology Normal Morphology
[2023-01-25 13:38] LABS: Toxic Granulation Present
[2023-01-25] MEDS: CYCLOBENZAPRINE 10 MG TABLET 5 MG PO (15:21)
[2023-01-25] MEDS: CITALOPRAM 10 MG TABLET PO (15:21)
--- NOTE | 2023-01-25 18:35 | PC.NURSE ---
transferred to with ivf, acetylcystine, and antibiotcs infusing without difficulty.
== END 2023-01-25 18:27 | disposition short-term general hospital (02) ==
PROVIDERS: Emergency Medicine; Emergency Provider Emergency Medicine
DX: J12.1 Respiratory syncytial virus pneumonia (principal); N17.9 Acute kidney failure, unspecified; E87.6 Hypokalemia; T39.1X1A Poisoning by 4-Aminophenol derivatives, accidental (unintentional), initial encounter; Z20.822 Contact with and (suspected) exposure to COVID-19
CPT/HCPCS: 36415; 36569; 51798; 71045; 74176; 76705; 80053; 80305; 80320; 80329; 81001; 82140; 83605; 83690; 83735; 83880; 84145; 84484; 85007; 85025; 85610; 85730; 87040; 87633; 93005; 96365; 96366; 96367; 96368; 99285; 99291; 99292; G0480; J0132; J1451; J1940; J2543

== ENCOUNTER 2023-03-13 18:39 | Emergency (ER) | payer MEDICARE, SELFPAY ==
[2022-06-10 13:10] VITALS: BMI 20.5
[2023-03-13 18:53] VITALS: BP 134/63; PULSE 78; RESP 16; TEMP 36.9; O2SAT 99; BMI 18.0
--- NOTE | 2023-03-13 19:54 | ED_ITS ---
HPI - General Adult General Chief complaint: Extremity Injury, Upper Stated complaint: cant move arm or hand swelling Time Seen by Provider: 03/13/23 19:46 Source: patient Mode of arrival: Ambulatory History of Present Illness HPI narrative: Patient is a 77-year-old female who is here for evaluation of pain in her right forearm and in the back of her right hand. Inability to extend her thumb and swelling to the back of her hand. She is no neck pain. No fevers she is some discomfort with extending her right elbow but it is actual pain in her forearm. She is pain with extending her wrist. Pain with extending her right thumb. It has been going on for the past couple days. She had some pain medicine at home that she took without much improvement. No skin changes. Did not fall. Related Data Previous Rx's Medication Instructions Recorded acetaminophen 325 mg tablet 650 mg (2 x 325 mg) PO TID #180 06/12/21 tabs pramipexole 0.5 mg tablet 0.5 mg PO HSP PRN restless leg(s) 04/28/22 #90 tabs chlorthalidone 25 mg tablet 25 mg PO DAILY blood pressure #90 05/03/22 tabs citalopram 10 mg tablet (Celexa) 10 mg PO DAILY #30 tabs 05/03/22 aspirin 81 mg tablet,delayed 81 mg PO BID #84 tabs 06/12/22 release potassium chloride 20 mEq 20 meq PO TIDWM #60 tabs 06/12/22 tablet,extended release(part/cryst) (Klor-Con M) atorvastatin 20 mg tablet 20 mg PO BEDTIME #90 tabs 06/22/22 cyclobenzaprine 5 mg tablet 2.5 - 5 mg (0.5 - 1 x 5 mg) PO TID 08/02/22 PRN muscle spasm #30 tabs omeprazole 20 mg capsule,delayed 20 mg PO DAILY #30 caps 11/11/22 release oxycodone 5 mg tablet 5 mg PO TID PRN pain #30 tabs 12/02/22 Allergies Allergy/AdvReac Type Severity Reaction Status Date / Time No Known Drug Allergies Allergy Verified 09/09/22 11:29 Review of Systems Musculoskeletal Musculoskeletal: Reports system reviewed and no additional complaints, except as documented Integumentary/Breasts Skin/Breast: Reports system reviewed and no additional complaints, except as documented Neurologic Neurologic: Reports system reviewed and no additional complaints, except as documented Patient History Medical History Central stenosis of spinal canal Alcohol abuse Coronary artery disease (03/2021) Hiatal hernia (03/2021) Macrocytosis Osteopenia after menopause (06/2020) H/O vaginal delivery Spinal stenosis Osteoarthritis Fatty liver (~10/2016) GERD (gastroesophageal reflux disease) Hyperlipemia Hypertension Restless leg syndrome Depression Kidney stones (1963) Colitis (~2000) Surgical History 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 Social History household members: significant other Smoking Status: Former smoker alcohol intake: current substance use type: does not use Smoking Status: Former smoker tobacco type: vaping alcohol intake frequency: 0-2 drinks per day Substance Use Type: does not use Exam Initial Vital Signs Initial Vital Signs: Vital Signs Temperature 98.4 F 03/13/23 18:53 Pulse Rate 78 03/13/23 18:53 Respiratory Rate 16 03/13/23 18:53 Blood Pressure 134/63 03/13/23 18:53 Pulse Oximetry 99 03/13/23 18:53 Oxygen Delivery Method Room Air 03/13/23 18:53 [facility] Head: normal to inspection and normocephalic Cardio Pulses: radial pulses present on the right Skin General: no rashes or lesions noted Neuro Sensory Exam: no sensory deficits noted Extrem Other: No gross deformities. She potentially has swelling on the dorsum of the right hand at the base of the thumb. She is pain with both active and passive extension of the thumb. Pain with palpation of the right forearm on the dorsal aspect. Right upper extremities unremarkable. Right shoulder is unremarkable. Course Orders Ordered: Discontinued Medications Hydrocodone Bitart/Acetaminophen (Hydrocodone/Acet 5/325 Prepack) 1 bottle MISC DIRECTED ONE Stop: 03/13/23 20:49 Last Admin: 03/13/23 20:57 Dose: 1 bottle Documented By: ALEJANDRO Cyclobenzaprine HCl (Cyclobenzaprine 10 Mg Tablet) 10 mg PO NOW ONE Stop: 03/13/23 20:02 Last Admin: 03/13/23 20:11 Dose: 10 mg Documented By: ALEJANDRO Cyclobenzaprine HCl (Cyclobenzaprine 10 Mg Prepack) 1 bottle MISC DIRECTED ONE Stop: 03/13/23 20:48 Last Admin: 03/13/23 20:57 Dose: 1 bottle Documented By: ALEJANDRO Hydromorphone HCl (Hydromorphone 1 Mg Inj) 1 mg IM NOW ONE Stop: 03/13/23 20:02 Last Admin: 03/13/23 20:11 Dose: 1 mg Documented By: ALEJANDRO Vital Signs Vital signs: Vital Signs - 8 hr 03/13/23 18:53 03/13/23 20:01 03/13/23 20:01 Temperature 98.4 F Pulse Rate 78 81 Respiratory Rate 16 Blood Pressure 134/63 136/63 Pulse Oximetry 99 97 Oxygen Delivery Method Room Air 03/13/23 20:30 03/13/23 20:30 Temperature Pulse Rate 74 Respiratory Rate Blood Pressure 132/84 Pulse Oximetry 96 Oxygen Delivery Method Medical Decision Making [facility] Narrative Medical decision making narrative: I do suspect that this is a musculoskeletal etiology. It does not fit the findings that I would expect from a cervical radiculopathy. Her pain seems to be distal to the elbow and on the ulnar side. Pain with extending the thumb. No specific injury. Low suspicion for fracture. I feel that imaging studies are unlikely. I also feel that septic joint is unlikely. Potentially she is having issues with arthritis but this would not explain her forearm pain. The pain is on the dorsum of her hand. Suspect muscle spasm as she did improve with the pain medicine and muscle relaxers. It is also reproducible with palpation. I discussed all this with the patient. Will discharge home with symptom control. She was given return precautions. She expressed understanding and agreement. Discharge Plan Departure Patient Disposition: Home Clinical Impression: Pain in right forearm Instructions: How To Perform RICE (Rest, Ice, Compress, Elevate) Activity Restrictions/Additional Instructions: Recommend that you use the sling sparingly like we discussed. The thumb spica splint is for your comfort. You can take it off to shower and to wash your hands. Recommend that you contact your primary doctor for a follow-up. Return to the emergency department for new symptoms. Prescriptions: No Action pramipexole 0.5 mg tablet 0.5 mg PO HSP PRN (Reason: restless leg(s)) Qty: 90 3RF atorvastatin 20 mg tablet 20 mg PO BEDTIME Qty: 90 3RF cyclobenzaprine 5 mg tablet 2.5 - 5 mg PO TID PRN (Reason: muscle spasm) Qty: 30 5RF omeprazole 20 mg capsule,delayed release(DR/EC) 20 mg PO DAILY Qty: 30 11RF oxycodone 5 mg tablet 5 mg PO TID PRN (Reason: pain) Qty: 30 0RF citalopram [Celexa] 10 mg tablet 10 mg PO DAILY Qty: 30 11RF chlorthalidone 25 mg tablet 25 mg PO DAILY Qty: 90 3RF acetaminophen 325 mg Tablet 650 mg PO TID Qty: 180 1RF aspirin 81 mg Tablet,Delayed Release (Dr/Ec) 81 mg PO BID Qty: 84 0RF potassium chloride [Klor-Con M20] 20 mEq Tablet,Er Particles/Crystals 20 meq PO TIDWM Qty: 60 0RF Referrals: Marcel Hubbard DO [Primary Care Provider] - Stand Alone Forms: Patient Portal/API
[2023-03-13 20:01] VITALS: BP 136/63; PULSE 81; O2SAT 97
[2023-03-13] MEDS: CYCLOBENZAPRINE 10 MG TABLET PO (20:11)
[2023-03-13] MEDS: HYDROMORPHONE 1 MG INJ IM (20:11)
[2023-03-13 20:30] VITALS: BP 132/84; PULSE 74; O2SAT 96
[2023-03-13] MEDS: CYCLOBENZAPRINE 10 MG PREPACK 1 BOTTLE MISC (20:57)
[2023-03-13] MEDS: HYDROCODONE/ACET 5/325 PREPACK 1 BOTTLE MISC (20:57)
== END 2023-03-13 21:15 | disposition home or self-care (01) ==
PROVIDERS: Emergency Provider Emergency Medicine; PCP Family Medicine
DX: M79.631 Pain in right forearm (principal)
CPT/HCPCS: 96372; 99283; 99284; J1170

== ENCOUNTER 2023-03-15 13:13 | Emergency (ER) | payer MEDICARE, SELFPAY ==
[2022-06-10 13:10] VITALS: BMI 20.5
[2023-03-15 13:51] VITALS: BP 128/61; PULSE 77; RESP 18; TEMP 36.8; O2SAT 98; BMI 18.0
--- NOTE | 2023-03-15 13:55 | DI.RAD.S_ITS ---
PROCEDURE: XR WRIST RT MIN 3V INDICATIONS: Rt arm swelling and pain TECHNIQUE: 4 views of the wrist were acquired. COMPARISON: [facility], , WRIST MINIMUM 3 VIEWS RIGHT, 12/27/2006, 14:44. FINDINGS: Bones: No fractures or dislocations. Calcifications in the triangular fibrocartilage consistent with chondrocalcinosis. No suspicious bony lesions. Degenerative changes of the 1st carpometacarpal joint. Soft tissues: No suspicious soft tissue calcifications. IMPRESSION: 1. No acute abnormality. 2. Degenerative changes. 3. Calcifications in the triangular fibrocartilage consistent with chondrocalcinosis. Dictated by: Alejandro Cantu M.D. on 03/15/2023 at 14:49 Approved by: Alejandro Cantu M.D. on 03/15/2023 at 14:53
--- NOTE | 2023-03-15 13:55 | DI.RAD.S_ITS ---
PROCEDURE: XR HAND RT MIN 3V INDICATIONS: Rt arm swelling and pain TECHNIQUE: 3 views of the hand(s) acquired. COMPARISON: None. FINDINGS: Bones: No fractures or dislocations. Carpal bones are normally aligned. No suspicious bony lesions. Degenerative changes of the 1st carpometacarpal joint. Soft tissues: No suspicious soft tissue calcifications. IMPRESSION: No acute bony abnormality. Dictated by: Alejandro Cantu M.D. on 03/15/2023 at 14:53 Approved by: Alejandro Cantu M.D. on 03/15/2023 at 14:54
[2023-03-15 15:46] VITALS: BP 114/54; PULSE 74; RESP 16; TEMP 37; O2SAT 96
--- NOTE | 2023-03-15 18:56 | ED_ITS ---
HPI - Extremity Injury (Upper) <Christopher Benson PA-C - Last Filed: 03/16/23 13:23> General Chief Complaint: Extremity Injury, Upper Stated Complaint: rt arm, swelling, feels hot, pain Time Seen by Provider: 03/15/23 14:24 Source: patient Mode of arrival: Ambulatory History of Present Illness HPI narrative: 77-year-old female presents to the ED with pain and swelling of the right wrist and hand. Patient was seen in the ED here on 03/14/23 for a similar complaint, diagnosed with a musculoskeletal sprain/strain and discharged with a splint. Patient states that her symptoms have worsened since then. Patient denies numbness, tingling, weakness. Patient complains of right wrist swelling and pain with movements. Patient states that there was no trauma, except that she uses her right and for your shifting when driving her manual car. Patient did have shoulder injury and shoulder surgery earlier this year. Related Data Previous Rx's Medication Instructions Recorded acetaminophen 325 mg tablet 650 mg (2 x 325 mg) PO TID #180 06/12/21 tabs pramipexole 0.5 mg tablet 0.5 mg PO HSP PRN restless leg(s) 04/28/22 #90 tabs chlorthalidone 25 mg tablet 25 mg PO DAILY blood pressure #90 05/03/22 tabs citalopram 10 mg tablet (Celexa) 10 mg PO DAILY #30 tabs 05/03/22 aspirin 81 mg tablet,delayed 81 mg PO BID #84 tabs 06/12/22 release potassium chloride 20 mEq 20 meq PO TIDWM #60 tabs 06/12/22 tablet,extended release(part/cryst) (Klor-Con M) atorvastatin 20 mg tablet 20 mg PO BEDTIME #90 tabs 06/22/22 cyclobenzaprine 5 mg tablet 2.5 - 5 mg (0.5 - 1 x 5 mg) PO TID 08/02/22 PRN muscle spasm #30 tabs omeprazole 20 mg capsule,delayed 20 mg PO DAILY #30 caps 11/11/22 release oxycodone 5 mg tablet 5 mg PO TID PRN pain #30 tabs 12/02/22 methylprednisolone 4 mg tablets in See Rx Instructions PO .COMPLEX 03/15/23 a dose pack (Medrol (Gama)) #21 ea Allergies Allergy/AdvReac Type Severity Reaction Status Date / Time No Known Drug Allergies Allergy Verified 09/09/22 11:29 Review of Systems <Christopher Benson PA-C - Last Filed: 03/16/23 13:23> Constitutional Constitutional: Denies chills, Denies fatigue, Denies fever(s), Denies frequent falls, Denies lethargy and Denies weakness Eyes Eyes: Denies change in vision, Denies eye discharge, Denies irritation and Denies loss of vision ENT Ears, Nose, Mouth, and Throat: Denies change in voice, Denies dizziness, Denies neck pain, Denies sore throat and Denies throat swelling Cardiovascular Cardiovascular: Denies chest pain, Denies irregular heart rhythm, Denies lightheadedness, Denies palpitations, Denies dyspnea, Denies dyspnea on exertion and Denies orthopnea Respiratory Respiratory: Denies cough, Denies dyspnea, Denies dyspnea on exertion and Denies wheezing Gastrointestinal Gastrointestinal: Denies abdominal pain, Denies change in bowel habits, Denies diarrhea, Denies nausea and Denies vomiting Musculoskeletal Musculoskeletal: Denies neck pain and Denies numbness Comments: Right wrist and hand pain Integumentary/Breasts Skin/Breast: Denies pruritus, Denies erythema, Denies rash and Denies wounds Neurologic Neurologic: Denies behavioral changes, Denies confusion, Denies dizziness, Denies frequent falls, Denies loss of vision, Denies numbness and Denies weakness Psychiatric Psychiatric: Denies anxiety, Denies behavioral changes, Denies confusion, Denies depression, Denies homicidal ideation and Denies suicidal ideation Endocrine Endocrine: Denies fatigue, Denies flushing and Denies palpitations Hematologic/Lymphatic Hematologic/Lymphatic: Denies easy bruising Allergic/Immunologic Allergic/Immunologic: Denies urticaria, Denies throat swelling and Denies wheezing Patient History <Christopher Benson PA-C - Last Filed: 03/16/23 13:23> Medical History Central stenosis of spinal canal Alcohol abuse Coronary artery disease (03/2021) Hiatal hernia (03/2021) Macrocytosis Osteopenia after menopause (06/2020) H/O vaginal delivery Spinal stenosis Osteoarthritis Fatty liver (~10/2016) GERD (gastroesophageal reflux disease) Hyperlipemia Hypertension Restless leg syndrome Depression Kidney stones (1963) Colitis (~2000) Surgical History 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 Social History household members: significant other Smoking Status: Former smoker alcohol intake: current substance use type: does not use Smoking Status: Former smoker tobacco type: vaping alcohol intake frequency: holidays/special occasions only Substance Use Type: does not use Exam <Christopher Benson PA-C - Last Filed: 03/16/23 13:23> Narrative Exam Narrative: Const General:?cooperative, healthy appearing and comfortable [facility] Head:?normal to inspection Ears:?hearing grossly normal bilaterally Nose:?external nose normal Face and sinus:?normal facial exam and sinuses nontender Mouth:?oral mucosae normal Throat:?posterior oropharynx normal Eyes General:?appearance normal, both eyes and all related structures Neck Neck:?normal visual inspection and no lymphadenopathy noted Resp Effort & Inspection:?normal respiratory effort Auscultation:?clear to auscultation bilaterally Cardio Rate:?regular rate Rhythm:?regular rhythm Musculoskeletal/integumentary Right wrist appears swollen on the dorsal aspect. There is also some overlying erythema. Very tender to palpation. Somewhat warm to touch. There is some range of motion, however limited by pain. Strength and sensation is intact. Patient is neurovascularly intact. Neuro General:?patient alert, patient awake and patient oriented x3 Initial Vital Signs Initial Vital Signs: Vital Signs Temperature 98.2 F 03/15/23 13:51 Pulse Rate 77 03/15/23 13:51 Respiratory Rate 18 03/15/23 13:51 Blood Pressure 128/61 03/15/23 13:51 Pulse Oximetry 98 03/15/23 13:51 Oxygen Delivery Method Room Air 03/15/23 13:51 <Clarisse Powell DO - Last Filed: 03/20/23 07:35> Initial Vital Signs Initial Vital Signs: Vital Signs Temperature 98.2 F 03/15/23 13:51 Pulse Rate 77 03/15/23 13:51 Respiratory Rate 18 03/15/23 13:51 Blood Pressure 128/61 03/15/23 13:51 Pulse Oximetry 98 03/15/23 13:51 Oxygen Delivery Method Room Air 03/15/23 13:51 Course <Christopher Benson PA-C - Last Filed: 03/16/23 13:23> Orders Ordered: ED Orders 03/15/23 13:55 XR hand RT min 3V Stat XR wrist RT min 3V Stat Vital Signs Vital signs: Vital Signs - 8 hr 03/15/23 13:51 03/15/23 15:46 Temperature 98.2 F 98.6 F Pulse Rate 77 74 Respiratory Rate 18 16 Blood Pressure 128/61 114/54 L Pulse Oximetry 98 96 Oxygen Delivery Method Room Air Room Air <Clarisse Powell DO - Last Filed: 03/20/23 07:35> Orders Ordered: ED Orders 03/15/23 13:55 XR hand RT min 3V Stat XR wrist RT min 3V Stat Vital Signs Vital signs: Vital Signs - 8 hr 03/15/23 13:51 03/15/23 15:46 Temperature 98.2 F 98.6 F Pulse Rate 77 74 Respiratory Rate 18 16 Blood Pressure 128/61 114/54 L Pulse Oximetry 98 96 Oxygen Delivery Method Room Air Room Air MDM - Extremity Injury (Upper) <ZANE Topete Last Filed: 03/16/23 13:23> MDM Narrative Medical decision making narrative: 77-year-old female presents to the ED with pain and swelling of the right wrist and hand. Concern for cellulitis versus musculoskeletal sprain/strain versus fracture/dislocation versus gout versus other. Will obtain x-rays, reassess. X-rays show no fractures or dislocations, however it does show calcifications in the triangular fibrocartilage consistent with chondrocalcinosis. This does correlate clinically with where patient has the most pain. There is sufficient joint movement no systemic symptoms, unlikely septic joint. Prescribed prednisone. Also recommend naproxen. There is also some concern for cellulitis given overlying erythema. Will treat with cephalexin. Discussed findings of pseudogout with patient. Recommend follow-up with PCP as soon as possible. ED return precautions discussed with patient. Patient verbalized understanding. Medical records reviewed: Yes Discharge Plan Departure Patient Disposition: Home Clinical Impression: Chondrocalcinosis Cellulitis Qualifiers: Site of cellulitis: extremity Site of cellulitis of extremity: upper extremity Laterality: right Qualified Code(s): L03.113 - Cellulitis of right upper limb Instructions: DI for Cellulitis -- Adult, DI for Pseudogout Activity Restrictions/Additional Instructions: You were evaluated in the ED today for right wrist pain and swelling. Your x- ray shows chondrocalcinosis which is pseudogout caused by calcium deposits. You are being prescribed prednisone to treated. Please also take naproxen 500 mg twice a day for 7 days. You were also being prescribed cephalexin for a possible skin infection in your right hand. Please take that as prescribed. Please follow-up with your PCP as soon as possible. Return to the ED if you have worsening symptoms, numbness, tingling, weakness, fevers, persistent vomiting. Prescriptions: New methylprednisolone [Medrol (Gama)] 4 mg tablets,dose pack See Rx Instructions .ROUTE .COMPLEX Qty: 21 0RF Rx Instructions: orally per package directions No Action pramipexole 0.5 mg tablet 0.5 mg PO HSP PRN (Reason: restless leg(s)) Qty: 90 3RF atorvastatin 20 mg tablet 20 mg PO BEDTIME Qty: 90 3RF cyclobenzaprine 5 mg tablet 2.5 - 5 mg PO TID PRN (Reason: muscle spasm) Qty: 30 5RF omeprazole 20 mg capsule,delayed release(DR/EC) 20 mg PO DAILY Qty: 30 11RF oxycodone 5 mg tablet 5 mg PO TID PRN (Reason: pain) Qty: 30 0RF citalopram [Celexa] 10 mg tablet 10 mg PO DAILY Qty: 30 11RF chlorthalidone 25 mg tablet 25 mg PO DAILY Qty: 90 3RF acetaminophen 325 mg Tablet 650 mg PO TID Qty: 180 1RF aspirin 81 mg Tablet,Delayed Release (Dr/Ec) 81 mg PO BID Qty: 84 0RF potassium chloride [Klor-Con M20] 20 mEq Tablet,Er Particles/Crystals 20 meq PO TIDWM Qty: 60 0RF Referrals: Marcel Hubbard DO [Primary Care Provider] - Stand Alone Forms: Patient Portal/API ED Sign-out <Clarisse Powell DO - Last Filed: 03/20/23 07:35> Cosign ED Attending Cosignature Attestation: I was available for consultation.
== END 2023-03-15 15:46 | disposition home or self-care (01) ==
PROVIDERS: Emergency Provider Student in an Organized Health Care Education/Training Program; PCP Family Medicine
DX: L03.113 Cellulitis of right upper limb (principal); M11.20 Other chondrocalcinosis, unspecified site
CPT/HCPCS: 73110; 73130; 99281; 99283

== ENCOUNTER → 2023-03-21 13:39 | Outpatient (CLI) | payer MEDICARE, SELFPAY ==
[2022-06-10 13:10] VITALS: BMI 20.5
[2023-03-21 14:21] LABS: Add Manual Diff / Slide Review NO; Basophils Absolute Auto 100 /uL (0-100); Basophils Percent Auto 0.7 % (0-2); Eosinophils Absolute Auto 100 /uL (0-450); Eosinophils Percent Auto 0.4 % (2-4); Hematocrit 40.2 % (36-46); Hemoglobin 13.7 g/dL (12.0-16.0); Lymphocytes Absolute Auto 1300 /uL (1100-4500); Lymphocytes Percent Auto 8.1 % (25-40); Mean Corpuscular HGB Conc 34.2 % (30-36); Mean Corpuscular Hemoglobin 33.1 PG (26-34); Mean Corpuscular Volume 96.8 fL (80-100); Monocytes Absolute Auto 1200 /uL (0-900); Monocytes Percent Auto 7.1 % (3-14); Neutrophils Absolute Auto 13700 /uL (1500-7000); Neutrophils Percent Auto 83.7 % (50-75); Platelet Count 528 X10^3/uL (150-400); Red Blood Cell Count 4.15 X10^6/uL (4.0-5.2); White Blood Cell Count 16.3 X10^3/uL (4.5-11.0)
[2023-03-21 14:40] LABS: Alanine Aminotransferase 23 IU/L (<35); Albumin 3.9 g/dL (3.5-5.0); Albumin Globulin Ratio 1.3 (1.0-2.8); Alkaline Phosphatase 118 U/L (38-126); BUN Creatinine Ratio 16.9 (6-22); Bilirubin Total 0.5 mg/dL (0.2-1.3); Blood Urea Nitrogen 11 mg/dL (7-17); Calcium 9.8 mg/dL (8.4-10.2); Carbon Dioxide 25 mmol/L (22-32); Chloride 94 mmol/L (98-107); Estimated Glomerular Filt Rate > 60 mL/min (>60); Globulin 3.1 g/dL (1.7-4.1); Glucose 101 mg/dL (80-110); HEMOLYSIS < 15 (0-50); Potassium 2.9 mmol/L (3.4-5.1); Sodium 130 mmol/L (137-145)
[2023-03-21 17:38] LABS: Hemoglobin A1C% w Est Avg Glu 5.3 % (4.0-6.0)
[2023-03-24 16:02] LABS: Aspartate Aminotransferase 40 IU/L (14-36)
== END ==
PROVIDERS: PCP Family Medicine; Referring Provider Family Medicine; Visit Provider Family Medicine
DX: M11.20 Other chondrocalcinosis, unspecified site (principal); R79.89 Other specified abnormal findings of blood chemistry; F10.10 Alcohol abuse, uncomplicated
CPT/HCPCS: 36415; 80053; 83036; 85025

== ENCOUNTER → 2023-06-22 12:04 | Outpatient (CLI) | payer MEDICARE, SELFPAY ==
[2022-06-10 13:10] VITALS: BMI 20.5
--- NOTE | 2023-06-22 12:06 | DI.US.S_ITS ---
PROCEDURE: US ARTERIAL DUPLEX LE RT INDICATIONS: ABNORMAL JUSTIN; THIGH PAIN TECHNIQUE: Color and pulse Doppler interrogation was performed of the right lower extremity arterial system, with image documentation. COMPARISON: [facility], CT, CT ANGIO CHEST ABDOMEN PELVIS, 03/24/2021, 10:12. FINDINGS: Common femoral artery: 51 cm/sec, with biphasic flow. Deep femoral artery: 34 cm/sec, with biphasic flow. Proximal superficial femoral artery: 45 cm/sec, with biphasic flow. Mid superficial femoral artery: 57 cm/sec, with biphasic flow. Distal superficial femoral artery: 44 cm/sec, with biphasic flow. Popliteal artery: 25 cm/sec, with biphasic flow. Posterior tibial artery: 21 cm/sec, with monophasic high resistance flow. Anterior tibial artery/dorsalis pedis: 25 cm/sec, with monophasic high resistance flow. Dang-scale imaging description: There is no evidence of hemodynamically significant stenosis from the common femoral through the popliteal. There is no evidence of inflow stenosis based on waveforms. The monophasic high resistance waveforms in the distal runoff vessels suggest distal stenotic or occlusive disease. IMPRESSION: 1. No evidence of hemodynamically significant stenotic disease from the right iliac through the popliteal. 2. Findings are consistent with significant small vessel stenotic or occlusive distal disease. Dictated by: Eric Falcon M.D. on 06/22/2023 at 17:18 Approved by: Eric Falcon M.D. on 06/22/2023 at 17:22
== END ==
PROVIDERS: PCP Family Medicine; Referring Provider Family Medicine; Visit Provider Family Medicine
DX: M79.651 Pain in right thigh (principal)
CPT/HCPCS: 93926

== ENCOUNTER → 2024-03-27 15:12 | Outpatient (CLI) | payer MEDICARE, SELFPAY ==
[2022-06-10 13:10] VITALS: BMI 20.5
[2024-03-27 15:29] LABS: Add Manual Diff / Slide Review NO; Basophils Absolute Auto 0 /uL (0-100); Basophils Percent Auto 0.3 % (0-2); Eosinophils Absolute Auto 100 /uL (0-450); Hematocrit 41.3 % (36-46); Lymphocytes Absolute Auto 1900 /uL (1100-4500); Lymphocytes Percent Auto 17.2 % (25-40); Mean Corpuscular Hemoglobin 33.6 PG (26-34); Mean Corpuscular Volume 98.9 fL (80-100); Monocytes Absolute Auto 1300 /uL (0-900); Monocytes Percent Auto 11.4 % (3-14); Neutrophils Absolute Auto 7800 /uL (1500-7000); Neutrophils Percent Auto 70.1 % (50-75); Platelet Count 370 X10^3/uL (150-400); Red Blood Cell Count 4.17 X10^6/uL (4.0-5.2); Red Cell Distribution Width 14.2 % (11.6-14.8); White Blood Cell Count 11.2 X10^3/uL (4.5-11.0)
[2024-03-27 15:54] LABS: Alanine Aminotransferase 39 IU/L (<35); Albumin 4.5 g/dL (3.5-5.0); Albumin Globulin Ratio 1.7 (1.0-2.8); Alkaline Phosphatase 123 U/L (38-126); Aspartate Aminotransferase 76 IU/L (14-36); BUN Creatinine Ratio 12.3 (6-22); Bilirubin Total 0.4 mg/dL (0.2-1.3); Blood Urea Nitrogen 10 mg/dL (7-17); Calcium 9.6 mg/dL (8.4-10.2); Carbon Dioxide 27 mmol/L (22-32); Chloride 98 mmol/L (98-107); Cholesterol 205 mg/dL (140-199); Estimated Glomerular Filt Rate > 60 mL/min (>60); Globulin 2.7 g/dL (1.7-4.1); Glucose 96 mg/dL (80-110); HEMOLYSIS < 15 (0-50); Potassium 4.4 mmol/L (3.4-5.1); Sodium 135 mmol/L (137-145); Total Protein 7.2 g/dL (6.3-8.2); Triglycerides 130 mg/dL (35-150)
[2024-03-27 16:02] LABS: HDL Cholesterol 120 mg/dL (40-60); LDL Cholesterol Calculated 59 mg/dL (<100)
[2024-03-27 16:25] LABS: TSH w/ Reflex to FT4 2.32 uIU/mL (0.47-4.68)
== END ==
LOC: LAB 15:13
PROVIDERS: PCP Family Medicine; Referring Provider Family Medicine; Visit Provider Family Medicine
DX: E87.6 Hypokalemia (principal); I10 Essential (primary) hypertension; E78.2 Mixed hyperlipidemia
CPT/HCPCS: 36415; 80053; 80061; 84443; 85025

== ENCOUNTER → 2024-05-15 14:45 | Outpatient (CLI) | payer MEDICARE, SELFPAY ==
[2022-06-10 13:10] VITALS: BMI 20.5
--- NOTE | 2024-05-15 14:46 | DI.CT.S_ITS ---
PROCEDURE: CT LUNG LOW DOSE SCREENING INDICATIONS: screening TECHNIQUE: Noncontrast 2.0-2.5 mm thick sections acquired from the pulmonary apices to the posterior costophrenic angles. 7 mm thick axial MIP, and 5 mm coronal and sagittal reformats were then acquired. For radiation dose reduction, the following was used: automated exposure control, adjustment of mA and/or kV according to patient size. COMPARISON: [facility], CT, CT ANGIO CHEST ABDOMEN PELVIS, 03/24/2021, 10:12. FINDINGS: Image quality: Diagnostic. Lower Neck: No enlarged lymph nodes. Thyroid: No thyroid nodules which require sonographic follow up, per consensus guidelines. Axillae: No enlarged lymph nodes. Chest Wall: Symmetric bilateral breast calcifications. Bones: Unremarkable. Lungs and Pleura: 1.3 x 2.8 cm part solid nodule in the left upper lobe. The solid component measures 0.5 cm. This was present in 2021, measuring 1.1 x 1.9 cm and a solid component of 0.3 cm. This appeared as a scar at the time, but has a more suspicious appearance on today's examination. Heart: Heart size is normal. No pericardial effusion. Three-vessel coronary artery calcifications. Thoracic Vessels: The aorta and pulmonary arteries demonstrate normal size. Mediastinum and Kaycee: No enlarged lymph nodes. Esophagus: No wall thickening. Large hiatal hernia. Upper Abdomen: Marked hepatic steatosis. IMPRESSION: No suspicious pulmonary nodules. LUNG-RADS 4B; consider tissue sampling. Clinically Significant Non-pulmonary Findings: Marked hepatic steatosis. Dictated by: Brock Alcaraz M.D. on 05/15/2024 at 18:24 Approved by: Brock Alcaraz M.D. on 05/15/2024 at 18:35
== END ==
PROVIDERS: PCP Family Medicine; Referring Provider Family Medicine; Visit Provider Family Medicine
DX: F17.210 Nicotine dependence, cigarettes, uncomplicated (principal); Z12.2 Encounter for screening for malignant neoplasm of respiratory organs; R91.1 Solitary pulmonary nodule; I51.0 Cardiac septal defect, acquired; K44.9 Diaphragmatic hernia without obstruction or gangrene; K76.0 Fatty (change of) liver, not elsewhere classified
CPT/HCPCS: 71271

== ENCOUNTER → 2024-05-30 13:42 | Outpatient (CLI) | payer MEDICARE, SELFPAY ==
[2022-06-10 13:10] VITALS: BMI 20.5
== END ==
PROVIDERS: PCP Family Medicine; Referring Provider Family Medicine; Visit Provider Family Medicine
DX: R05.3 Chronic cough (principal); F17.210 Nicotine dependence, cigarettes, uncomplicated; R94.2 Abnormal results of pulmonary function studies
CPT/HCPCS: 94060; 94729

== ENCOUNTER → 2024-10-05 16:08 | Outpatient (CLI) | payer MEDICARE, SELFPAY ==
[2024-06-07 11:39] VITALS: BMI 20.5
--- NOTE | 2024-10-05 16:09 | DI.RAD.S_ITS ---
PROCEDURE: XR LUMBAR SPINE MIN 4V INDICATIONS: BACK PAIN TECHNIQUE: 5 views of the lumbar spine acquired, including oblique views. COMPARISON: None. FINDINGS: Bones: 5 nonrib-bearing vertebrae are present. Posterior stacy and screw fixation of L4-L5 is shown. Hardware is intact without surrounding lucency. No vertebral body compression fractures. No suspicious bony lesions. There is levocurvature of the thoracolumbar spine centered at the T12. There is associated lateral listhesis of L2 on L3. Anterolisthesis of L3 on L4 is likely grade 2. Right SERINA hardware is present. Soft tissues: Overlying bowel gas pattern is normal. No suspicious soft tissue calcifications. Flexion/extension: There is normal range of motion, with preserved normal alignment. IMPRESSION: Postsurgical, degenerative, and scoliotic changes without acute abnormality. Dictated by: Candy Lopez M.D. on 10/05/2024 at 16:11 Approved by: Candy Lopez M.D. on 10/05/2024 at 16:14
== END ==
LOC: RAD 16:09
PROVIDERS: PCP Family Medicine; Referring Provider Physical Medicine & Rehabilitation; Visit Provider Physical Medicine & Rehabilitation
DX: M48.00 Spinal stenosis, site unspecified (principal); M43.16 Spondylolisthesis, lumbar region; M54.9 Dorsalgia, unspecified; Z98.1 Arthrodesis status
CPT/HCPCS: 72110

== ENCOUNTER → 2024-11-26 16:03 | Outpatient (CLI) | payer MEDICARE, SELFPAY ==
[2024-06-07 11:39] VITALS: BMI 20.5
[2024-11-26 16:51] LABS: Hemoglobin A1C% w Est Avg Glu 5.2 % (4.0-6.0)
[2024-11-26 17:12] LABS: Blood Urea Nitrogen 11 mg/dL (7-17); Calcium 9.5 mg/dL (8.4-10.2); Carbon Dioxide 23 mmol/L (22-32); Chloride 100 mmol/L (98-107); Estimated Glomerular Filt Rate > 60 mL/min (>60); Glucose 82 mg/dL (70-99); HEMOLYSIS < 15 (0-50); Potassium 3.5 mmol/L (3.4-5.1); Sodium 133 mmol/L (137-145)
== END ==
PROVIDERS: PCP Family Medicine; Referring Provider Family Medicine; Visit Provider Family Medicine
DX: R73.01 Impaired fasting glucose (principal); E87.6 Hypokalemia
CPT/HCPCS: 36415; 80048; 83036

== ENCOUNTER 2024-11-28 18:55 | Emergency (ER) | payer MEDICARE, SELFPAY ==
[2024-06-07 11:39] VITALS: BMI 20.5
[2024-11-28 19:08] VITALS: BP 98/53; PULSE 77; RESP 16; TEMP 36.8; O2SAT 96; BMI 18.8
[2024-11-29] VITALS (9 sets, daily range): BP systolic 132–171; BP diastolic 60–72; PULSE 61–66; RESP 16; O2SAT 92–97
--- NOTE | 2024-11-29 01:04 | ED_ITS ---
HPI - Back Pain/Injury General Chief Complaint: Back Pain/Injury Stated Complaint: Severe lower back pain/can't walk Time Seen by Provider: 11/28/24 19:04 Source: patient History of Present Illness HPI Narrative: 79-year-old female has severe left low back pain, can not walk due to pain. No injury or new activity recalled. No pain to the descending left leg. No upper flank pain. No upper midline pain. No shortness of breath or chest pain. No fevers or chills. No painful or frequent urination. No incontinence to urine or stool. Related Data Home Medications ?Medication ?Instructions ?Recorded ?Confirmed albuterol sulfate 90 mcg/actuation 2 puff inhalation Q 6H PRN 08/29/24 11/26/24 aerosol inhaler Previous Rx's ?Medication ?Instructions ?Recorded colchicine 0.6 mg tablet 0.6 mg PO DAILY #30 tabs estradiol 0.01% (0.1 mg/gram) 0.25 appful vaginal BEDT ROBINA #42.5 05/18/23 vaginal cream grams Disabled Parking Permit #1 ea 03/26/24 atorvastatin 20 mg tablet 20 mg PO BEDTIME #90 tabs citalopram 10 mg tablet (Celexa) 10 mg PO DAILY #90 ta bs 05/28/24 furosemide 20 mg tablet 20 mg PO DAILY #90 tabs 05/18 04/13 omeprazole 20 mg capsule,delayed 20 mg PO DAILY #90 ca ps 05/28/24 release potassium chloride 20 mEq 20 meq PO BID #60 tabs 05/28 tablet,extended release(part/cryst) (Klor-Con M) pramipexole 0.5 mg tablet 0.5 mg PO HSP PRN restless l eg(s) 05/28/24 #90 tabs gabapentin 300 mg capsule 300 mg PO 3XD PRN for pain # 90 caps 06/05/24 methocarbamol 500 mg tablet 500 mg PO TID 7 days #21 t abs 11/29/24 Allergies Allergy/AdvReac Type Severity Reaction Status Date / Time No Known Drug Allergies Allergy Verified 11/28/24 19:08 Patient History Medical History Alcohol abuse Central stenosis of spinal canal Colitis (~2000) Coronary artery disease (03/2021) Depression Fatty liver (~10/2016) GERD (gastroesophageal reflux disease) H/O vaginal delivery Hiatal hernia (03/2021) Hyperlipemia Hypertension Hypokalemia Kidney stones (1964) Lumbar radiculopathy Macrocytosis Mass of left lung Osteoarthritis Osteopenia after menopause (06/2020) Peripheral arterial disease Restless leg syndrome Spinal stenosis Surgical History History of back surgery History of surgery (~06/2020) History of tonsillectomy History of total right hip replacement (06/11/21) Hx of knee surgery Hx of lithotripsy Status post appendectomy Status post delivery Status post tubal ligation Family History Child Age: 58 Spina bifida Father Age: 104 Arthritis Heart trouble Mother Age: 102 Type 2 diabetes mellitus with complication Essential hypertension Heart trouble Brother No problems noted. Social History household members: significant other Smoking Status: Current every day smoker alcohol intake: current substance use type: does not use Smoking Status: Current every day smoker tobacco type: cigarettes and vaping alcohol intake frequency: holidays/special occasions only Alcohol type: wine and hard liquor Exam Narrative Exam Narrative: GENERAL: Well-developed patient, in mild distress. HEAD: Atraumatic. Normocephalic. EYES: Pupils equal round and reactive. Extraocular motions intact. No scleral icterus. No injection or drainage. ENT: Nose without bleeding, purulent drainage. Throat without erythema, tons illar hypertrophy or exudate. Airway patent. NECK: Trachea midline. Non tender CARDIOVASCULAR: Regular rate and rhythm without murmurs, gallops, or rubs. RESPIRATORY: Clear to auscultation. Breath sounds equal bilaterally. No wheezes, rales, or rhonchi. GASTROINTESTINAL: Abdomen soft, non-tender, nondistended. EXTREMITIES: No edema or joint tenderness. BACK: Nontender without deformity or crepitance. No flank tenderness. NEURO: AOx3. Motor functions grossly nonfocal. SKIN: No rash or erythema of visible areas Initial Vital Signs Initial Vital Signs: Vital Signs Temperature 98.2 F 11/28/24 19:08 Pulse Rate 77 11/28/24 19:08 Respiratory Rate 16 11/28/24 19:08 Blood Pressure 98/53 L 11/28/24 19:08 Pulse Oximetry 96 11/28/24 19:08 Oxygen Delivery Method Room Air 11/28/24 19:08 Course Orders Ordered: Discontinued Medications Hydromorphone HCl (Hydromorphone 1 Mg/Ml Syringe) 1 mg IV NOW ONE Stop: 11/29/24 01:23 Last Admin: 11/29/24 01:42 Dose: 1 mg Documented By: AB Ketorolac Tromethamine (Ketorolac 30 Mg/Ml Vial) 15 mg IV NOW ONE Stop: 11/29/24 01:23 Last Admin: 11/29/24 01:40 Dose: 15 mg Documented By: AB Vital Signs Vital signs: Vital Signs - 8 hr 11/29/24 02:13 11/29/24 02:14 11/29/24 02:14 Pulse Rate 66 Respiratory Rate 16 Blood Pressure 157/69 H Pulse Oximetry 96 97 11/29/24 02:30 11/29/24 02:30 11/29/24 03:00 Pulse Rate 65 Respiratory Rate Blood Pressure 132/62 132/60 Pulse Oximetry 93 11/29/24 03:00 11/29/24 03:30 11/29/24 03:30 Pulse Rate 65 63 Respiratory Rate Blood Pressure 133/63 Pulse Oximetry 92 93 MDM - Back Pain/Injury MDM Narrative Medical decision making narrative: 79-year-old female with left lower back pain, no trauma, unable to walk due to pain. Unclear on exam if this is musculoskeletal or referred from Internal process. CT abdomen and pelvis imaging ordered. IV Dilaudid, IV Toradol. Patient is more comfortable appearing after IV pain medications. Moved [facility] to [facility]. CT abdomen and pelvis imaging results pending. CT abdomen and pelvis noncontrast. Impressions: ?small bilateral intrarenal calculi with no obstructive uropathy evident. Moderate hiatal hernia. Fecal retention. Appendix not visualized.? See tele radiology report Trial of naproxen and Robaxin. Consider magnesium citrate, if any component of discomfort might be related to retained colonic stool. We will avoid further opiates for now that would likely be constipating. Discharged home with family. Discharge Plan Departure Patient Disposition: Home Clinical Impression: Low back pain Activity Restrictions/Additional Instructions: Low back pain. No injury recalled. No fever on triage. No significant tenderness on exam however. Consider referred pain from some alternative source. CT abdomen and pelvis was performed, no significant acute inflammatory like conditions were identified. Incidental findings included kidney stones but none was seemed to be obstructing at this time. Incidentally noted you had a lot of fecal stool, this theoretically could cause referred pain, but might be an incidental finding, however further opiate medications might worsen this in lead to further constipation, avoid further opiate medications for now if possible. You also had hiatal hernia. Anti-inflammatory medications might worsen reflux, you are taking omeprazole, continue using omeprazole. Trial for now of muscle relaxant, which hopefully would not bother your hiatal hernia or reflux, and should not lead to any constipation issues. Trial of methocarbamol/Robaxin muscle relaxant, prescription sent to your pharmacy. Recheck symptoms with your regular doctor in the next few days. Return to this/nearest emergency department for any change worsening symptoms or any concerns prior. Prescriptions: New methocarbamol 500 mg tablet 500 mg PO TID 7 Days Qty: 21 0RF No Action pramipexole 0.5 mg tablet 0.5 mg PO HSP PRN (Reason: restless leg(s)) Qty: 90 3RF potassium chloride [Klor-Con M20] 20 mEq tablet,ER particles/crystals 20 meq PO BID Qty: 60 2RF omeprazole 20 mg capsule,delayed release(DR/EC) 20 mg PO DAILY Qty: 90 3RF furosemide 20 mg tablet 20 mg PO DAILY Qty: 90 3RF citalopram [Celexa] 10 mg tablet 10 mg PO DAILY Qty: 90 3RF atorvastatin 20 mg tablet 20 mg PO BEDTIME Qty: 90 3RF gabapentin 300 mg capsule 300 mg PO 3XD PRN (Reason: for pain) Qty: 90 11RF Rx Instructions: DO not take with (Pregabalin)Lyrica colchicine 0.6 mg tablet 0.6 mg PO DAILY Qty: 30 5RF estradiol 0.01 % (0.1 mg/gram) cream 0.25 appful vaginal BEDTIME Qty: 42.5 3RF Rx Instructions: Apply small amount just inside vaginal opening and to external tissue nightly for 14 days, then twice weekly thereafter (DME) Disabled Parking Permit See Rx Instructions .ROUTE .MEDSUPPLY Qty: 1 0RF Rx Instructions: I find this patient to be medically disabled and qualified for Disabled Parking as indicated on the accompanying Disabled Parking Application for Individuals. albuterol sulfate 90 mcg/actuation HFA aerosol inhaler 2 puff inhalation Q6H PRN Referrals: Marcel Hubbard DO [Primary Care Provider, Family Practice] Stand Alone Forms: Patient Portal/API
--- NOTE | 2024-11-29 01:22 | DI.CT.S_ITS ---
PROCEDURE: CT ABDOMEN PELVIS WO CON INDICATIONS: Left low back pain TECHNIQUE: Axial sections were acquired from the lung bases to the pubic symphysis. Coronal and sagittal reformats were performed. For radiation dose reduction, the following was used: automated exposure control, adjustment of mA and/or kV according to patient size. COMPARISON: None. FINDINGS: Image quality: Diagnostic. Lower Chest: Bibasilar linear scarring/atelectasis is seen. Heart size is mildly enlarged, no pericardial effusion. Moderate to large size hiatal hernia is seen. URINARY: Right Kidney: Nonobstructing stones are noted scattered in right kidney measures up to 3-4 mm in size. No hydronephrosis. Right Ureter: No hydroureter. Left Kidney: Nonobstructing stones are noted scattered in left kidney measures up to 1-2 mm in size. No hydronephrosis. Left Ureter: No hydroureter. Bladder: Normal wall thickness. No stones. ABDOMEN: Liver: No contour-deforming solid mass. Gallbladder: No radiopaque gallstones or wall thickening. Biliary ducts: No biliary dilation. Pancreas: No ductal dilation. Spleen: Size is within normal limits. Adrenal Glands: No adrenal nodules. Stomach and Bowel: Moderate fecal stasis in the colon is seen. No bowel obstruction or abnormal bowel wall thickening. No abscess collection. Peritoneum: No abnormal intraperitoneal fluid. No free air. Ventral Wall: No hernia. Abdominal Nodes: No enlarged retroperitoneal or mesenteric lymph nodes. Vessels: Aorta and inferior vena cava are normal in size. Moderate atherosclerotic calcifications in abdominal aorta is seen. PELVIS: Pelvic Organs: Unremarkable. Pelvic Nodes: Unremarkable. Miscellaneous: No inguinal hernias are seen. Bones: No aggressive appearing bony lesions. Postfusion changes are noted in lower lumbar spine with beam hardening artifacts. Patient is status post right total hip arthroplasty. No gross acute fracture or dislocation. Mild levoscoliosis of thoracolumbar spine centered at L1 level. 8 mm anterolisthesis of L3 on L4. No acute vertebral body compression fractures. IMPRESSION: 1. Bilateral nonobstructing renal stones as above. No obstructing stones or hydronephrosis. No hydroureter. Normal appearing urinary bladder. 2. No bowel obstruction or abnormal bowel wall thickening. Moderate constipation. No free fluid or free air. Moderate size hiatal hernia. 3. Chronic postsurgical changes in lumbar spine and right hip as above. No acute osseous abnormalities. No significant discrepancies from preliminary reading. Dictated by: Naren Rossi M.D. on 11/29/2024 at 8:04 Approved by: Naren Rossi M.D. on 11/29/2024 at 8:09
[2024-11-29] MEDS: KETOROLAC 30 MG/ML VIAL 15 MG IV (01:40)
== END 2024-11-29 05:22 | disposition home or self-care (01) ==
PROVIDERS: Emergency Provider Emergency Medicine; PCP Family Medicine
DX: M54.50 Low back pain, unspecified (principal)
CPT/HCPCS: 36415; 74176; 96374; 96375; 99284; J1171; J1885

== ENCOUNTER 2024-12-02 21:40 | Emergency (ER) | payer MEDICARE, SELFPAY ==
[2024-06-07 11:39] VITALS: BMI 20.5
[2024-12-02 21:48] VITALS: BP 116/54; PULSE 77; RESP 24; TEMP 37; O2SAT 97; BMI 18.3
--- NOTE | 2024-12-02 22:04 | ED.BACK ---
HPI - Back Pain/Injury General Chief Complaint: Back Pain/Injury Stated Complaint: back pain Time Seen by Provider: 12/02/24 22:04 Source: patient and EMS History of Present Illness HPI Narrative: Patient is a 79-year-old female with a past medical history of hyperlipidemia, lumbar radiculopathy, hypertension, comes into the ED from home via EMS for evaluation of low back pain, she states that this ?to her tailbone states it has been ongoing for the past week, patient states that she has been unable to ambulate secondary to the pain. States that she was seen a few days ago for the same issue states that this started when she was moving boxes. She denies any other injuries and denies any other symptoms. Denies any bowel or urinary incontinence or retention. Denies any saddle paresthesias denies any numbness weakness tingling to lower extremities. Patient was given 50 mcg of fentanyl prior to arrival. Related Data Home Medications ?Medication ?Instructions ?Recorded ?Confirmed albuterol sulfate 90 mcg/actuation 2 puff inhalation Q6H PRN 08/29/24 11/26/24 aerosol inhaler Previous Rx's ?Medication ?Instructions ?Recorded colchicine 0.6 mg tablet 0.6 mg PO DAILY #30 tabs 04/11/23 estradiol 0.01% (0.1 mg/gram) 0.25 appful vaginal BEDTIME #42.5 05/18/23 vaginal cream grams Disabled Parking Permit #1 ea 03/26/24 atorvastatin 20 mg tablet 20 mg PO BEDTIME #90 tabs 05/28/24 citalopram 10 mg tablet (Celexa) 10 mg PO DAILY #90 tabs 05/28/24 furosemide 20 mg tablet 20 mg PO DAILY #90 tabs 05/28/24 omeprazole 20 mg capsule,delayed 20 mg PO DAILY #90 caps 05/28/24 release potassium chloride 20 mEq 20 meq PO BID #60 tabs 05/28/24 tablet,extended release(part/cryst) (Klor-Con M) pramipexole 0.5 mg tablet 0.5 mg PO HSP PRN restless leg(s) 05/28/24 #90 tabs gabapentin 300 mg capsule 300 mg PO 3XD PRN for pain #90 caps 06/05/24 methocarbamol 500 mg tablet 500 mg PO TID 7 days #21 tabs 11/29/24 docusate calcium 240 mg capsule 240 mg PO DAILY 1 week #7 caps 12/02/24 lidocaine 4 % topical patch 1 patch topical DAILY PRN pain 1 12/02/24 week #6 ea methylprednisolone 4 mg tablets in See Rx Instructions PO .COMPLEX 12/02/24 a dose pack (Medrol (Gama)) #21 ea oxycodone-acetaminophen 5 mg-325 1 tab PO Q8H PRN pain 3 days #9 12/02/24 mg tablet (Percocet) tabs Allergies Allergy/AdvReac Type Severity Reaction Status Date / Time No Known Drug Allergies Allergy Verified 12/02/24 21:48 Review of Systems Review of Systems Narrative: General: Denies fever, chills, weight loss HEENT: Denies headache, eye drainage, eye irritation, head trauma, sore throat, voice change Cardiovascular: Denies any chest pain, palpitations, tachycardia Respiratory: Denies any shortness of breath, cough, wheeze, stridor GI/: Denies any abdominal pain, nausea, vomiting, diarrhea, bright red blood per rectum, melanotic stools, urinary frequency, urinary retention, dysuria, hematuria MSK: Positive low back pain Skin: Denies any rashes, lesions, discoloration Neuro: Denies any headache, lightheadedness, dizziness, fainting, weakness Psych: Denies SI/HI Patient History Medical History Alcohol abuse Central stenosis of spinal canal Colitis (~2000) Coronary artery disease (03/2021) Depression Fatty liver (~10/2016) GERD (gastroesophageal reflux disease) H/O vaginal delivery Hiatal hernia (03/2021) Hyperlipemia Hypertension Hypokalemia Kidney stones (1963) Lumbar radiculopathy Macrocytosis Mass of left lung Osteoarthritis Osteopenia after menopause (06/2020) Peripheral arterial disease Restless leg syndrome Spinal stenosis Surgical History History of back surgery History of surgery (~06/2020) History of tonsillectomy History of total right hip replacement (06/11/21) Hx of knee surgery Hx of lithotripsy Status post appendectomy Status post delivery Status post tubal ligation Family History Child Age: 58 Spina bifida Father Age: 104 Arthritis Heart trouble Mother Age: 102 Type 2 diabetes mellitus with complication Essential hypertension Heart trouble Brother No problems noted. Social History household members: significant other Smoking Status: Current every day smoker alcohol intake: current substance use type: does not use Smoking Status: Current every day smoker tobacco type: cigarettes and vaping alcohol intake frequency: holidays/special occasions only Alcohol type: wine and hard liquor Exam Initial Vital Signs Initial Vital Signs: Vital Signs Temperature 98.6 F 12/02/24 21:48 Pulse Rate 77 12/02/24 21:48 Respiratory Rate 24 12/02/24 21:48 Blood Pressure 116/54 L 12/02/24 21:48 Pulse Oximetry 97 12/02/24 21:48 Oxygen Delivery Method Room Air 12/02/24 21:48 Course Vital Signs Vital signs: Vital Signs - 8 hr 12/02/24 21:48 Temperature 98.6 F Pulse Rate 77 Respiratory Rate 24 Blood Pressure 116/54 L Pulse Oximetry 97 Oxygen Delivery Method Room Air MDM - Back Pain/Injury MDM Narrative Medical decision making narrative: 79-year-old female with a past medical history of lumbar radiculopathy, hyperlipidemia, hypertension, comes into the ED from home via EMS for evaluation of persistent low back pain, states that she was seen here recently for the same. Denies any trauma or falls denies any bowel or urinary incontinence or retention denies any saddle paresthesias, denies any other symptoms at this time. She does have improvement of symptoms after 50 mcg of fentanyl. Patient is able to stand bear weight ambulate here however slowed secondary to pain. She has some tenderness to palpation of her paraspinal muscles but not to the lumbar spine. Patient will be given symptomatic relief discharged home with medications and instructed follow up with the primary care and orthopedic surgery in outpatient setting, he verbalized understanding of this and agrees to being discharged home with outpatient follow up Review of records show that patient was seen here for the same on 11/29/2024, patient did obtain a CT abdomen and pelvis without any acute findings, incidental finding of a kidney stone but no actual urolithiasis. Patient also found to have a lot of fecal stool. Patient was given muscle relaxant, methocarbamol/Robaxin to help with symptoms. Patient states that she did try the muscle relaxers without any help. Discharge Plan Departure Patient Disposition: Home Clinical Impression: Low back pain Instructions: DI for Low Back Pain Activity Restrictions/Additional Instructions: Please follow up with your primary care doctor and Orthopedic surgery as needed Please read the discharge instructions sheet carefully and bring all papers to all doctor follow-up visits, as it may contain information that your doctor may want to see. Disease processes change and evolve, if your symptoms worsen or if you develop any new symptoms that are concerning to you please return for evaluation. Your evaluation today does not show any evidence of any life-threatening/serious illnesses requiring admission to the hospital or surgery. Please follow-up with your doctor for re-evaluation in approximately 1 day. Seek immediate medical attention for any worrisome symptoms. *If you do not have a primary care provider please contact the [facility] Resource line at [phone]. They will ask some questions about your medical history and help get you set up with a doctor in the community. Prescriptions: New lidocaine 4 % adhesive patch,medicated 1 patch topical DAILY PRN (Reason: pain) 7 Days Qty: 6 0RF docusate calcium 240 mg capsule 240 mg PO DAILY 7 Days Qty: 7 0RF oxycodone-acetaminophen [Percocet] 5-325 mg tablet 1 tab PO Q8H PRN (Reason: pain) 3 Days Qty: 9 0RF methylprednisolone [Medrol (Gama)] 4 mg tablets,dose pack See Rx Instructions .ROUTE .COMPLEX Qty: 21 0RF Rx Instructions: for 6 days No Action pramipexole 0.5 mg tablet 0.5 mg PO HSP PRN (Reason: restless leg(s)) Qty: 90 3RF potassium chloride [Klor-Con M20] 20 mEq tablet,ER particles/crystals 20 meq PO BID Qty: 60 2RF omeprazole 20 mg capsule,delayed release(DR/EC) 20 mg PO DAILY Qty: 90 3RF furosemide 20 mg tablet 20 mg PO DAILY Qty: 90 3RF citalopram [Celexa] 10 mg tablet 10 mg PO DAILY Qty: 90 3RF atorvastatin 20 mg tablet 20 mg PO BEDTIME Qty: 90 3RF gabapentin 300 mg capsule 300 mg PO 3XD PRN (Reason: for pain) Qty: 90 11RF Rx Instructions: DO not take with (Pregabalin)Lyrica colchicine 0.6 mg tablet 0.6 mg PO DAILY Qty: 30 5RF estradiol 0.01 % (0.1 mg/gram) cream 0.25 appful vaginal BEDTIME Qty: 42.5 3RF Rx Instructions: Apply small amount just inside vaginal opening and to external tissue nightly for 14 days, then twice weekly thereafter (DME) Disabled Parking Permit See Rx Instructions .ROUTE .MEDSUPPLY Qty: 1 0RF Rx Instructions: I find this patient to be medically disabled and qualified for Disabled Parking as indicated on the accompanying Disabled Parking Application for Individuals. albuterol sulfate 90 mcg/actuation HFA aerosol inhaler 2 puff inhalation Q6H PRN methocarbamol 500 mg tablet 500 mg PO TID 7 Days Qty: 21 0RF Referrals: Marcel Hubbard DO [Primary Care Provider, Family Practice] Stand Alone Forms: Patient Portal/API
[2024-12-02] MEDS: KETOROLAC 30 MG/ML VIAL IM (22:17)
[2024-12-02] MEDS: LIDOCAINE 5% PATCH 1 EACH TOP (22:18)
[2024-12-02 22:20] VITALS: PULSE 76; O2SAT 92
== END 2024-12-02 22:55 | disposition home or self-care (01) ==
PROVIDERS: Emergency Provider Student in an Organized Health Care Education/Training Program; PCP Family Medicine
DX: M54.50 Low back pain, unspecified (principal)
CPT/HCPCS: 96372; 99283; J1885

== ENCOUNTER → 2024-12-20 16:33 | Outpatient (CLI) | payer MEDICARE, SELFPAY ==
[2024-06-07 11:39] VITALS: BMI 20.5
--- NOTE | 2024-12-20 16:35 | DI.MRI.S_ITS ---
PROCEDURE: MR LUMBAR SPINE WO CON INDICATIONS: Lt radicular back pain TECHNIQUE: Noncontrast sagittal T1 spin echo and T2 fast echo, sagittal STIR, axial T1 and T2 fast spin echo through the lumbar spine. Axial and oblique coronal T1 spin echo and STIR through the sacrum. In cases with scoliosis, additional coronal T2 fast spin echo may be performed. COMPARISON: [facility], MR, MR LUMBAR SPINE WO CON, 09/11/2022, 13:59. FINDINGS: Image quality: Excellent. Alignment and Curvature: Mild levoscoliosis of the thoracolumbar spine with the leftward apex at the L1 level. Grade 1 anterolisthesis L3-4. Similar compared to 2022. Bone Marrow: Marrow edema throughout the sacral ala bilaterally. Vertical and horizontal fracture planes are seen in a pattern most consistent with insufficiency fractures vertebral body heights are otherwise normal. There are postsurgical changes posteriorly in L4 and L5. Endplate Modic changes seen from L4 through S1 without significant progression. Spinal Cord: Conus medullaris terminates at the L1 level. Visualized cord demonstrates normal signal and size. Paraspinous Soft Tissues: No paravertebral masses. T11-12: Incidental note of chronic, broad-based right disc osteophyte with mild foraminal and central canal narrowing. No significant change. T12-L1: Minor circumferential disc bulge. No foraminal or central canal stenosis. No significant change. L1-L2: Minor circumferential disc bulge and mild facet arthropathy. No foraminal or central canal stenosis. No significant change. L2-L3: Moderate disc height loss and moderate to large circumferential disc bulge. Prominent ligamentum flavum hypertrophy and facet arthropathy. Moderate central canal stenosis with effacement of CSF, minimally progressed compared to prior. Moderate left and mild right foraminal stenosis. L3-L4: Severe disc height loss and posterior disc uncovering. Surgical changes. Probably severe central canal stenosis. Moderate to severe left and mild right foraminal stenosis. No significant change. L4-L5: Surgical changes to the posterior elements. No significant disc bulge or obstructive facet arthropathy. No central canal or foraminal stenosis. L5-S1: Mild circumferential disc osteophyte and small broad-based central disc bulge. Small broad-based left foraminal disc bulge. Minimal central canal or lateral recess narrowing. [id number] left foraminal stenosis. No significant change. Sacrum: Sacral neural foramina appear normal throughout. Superior to the piriformis muscles, the pre-plexal structures appear normal, including the lumbosacral trunk and S1 root. Just anterior to the piriformis muscles, the sacral plexus proper demonstrates normal morphology (lumbosacral trunk, S1 to S3 nerve roots). Inferior to the piriformis muscles, the sciatic nerves appear normal. IMPRESSION: Findings of acute appearing, nondisplaced sacral insufficiency fractures. Chronic, multilevel spondylosis resulting in moderate to severe central canal and foraminal stenosis as described above. Slight progression of central canal stenosis at the L2-3 level. Stable anterolisthesis L3-4. Postsurgical change at L4-5. No significant foraminal or central canal stenosis at the operative level. Dictated by: Kait Canales M.D. on 12/23/2024 at 12:03 Approved by: Kait Canales M.D. on 12/23/2024 at 12:21
== END ==
PROVIDERS: PCP Family Medicine; Referring Provider Family Medicine; Visit Provider Family Medicine
DX: M47.26 Other spondylosis with radiculopathy, lumbar region (principal); M43.16 Spondylolisthesis, lumbar region; M48.061 Spinal stenosis, lumbar region without neurogenic claudication; M48.07 Spinal stenosis, lumbosacral region; M48.58XA Collapsed vertebra, not elsewhere classified, sacral and sacrococcygeal region, initial encounter for fracture
CPT/HCPCS: 72148

== ENCOUNTER 2025-02-10 07:01 | Day surgery (SDC) | payer MEDICARE, SELFPAY ==
[2024-06-07 11:39] VITALS: BMI 20.5
[2025-02-05 13:59] VITALS: BMI 19.9
--- NOTE | 2025-02-10 | PATH_ITS ---
[facility] Accession Number: [id number] No. of containers..02 Tissue . 01 Material submitted: . PART A: stomach - GASTRIC PART B: esophagus - ESOPHAGUS . 01 Clinical history: . A) R/O H. PYLORI B) R/O BARRETTS . 01 Diagnosis: A. STOMACH, BIOPSY: Gastric antral mucosa with no diagnostic abnormality. No evidence of Helicobacter organisms on H/E stain. Negative for intestinal metaplasia. Negative for dysplasia or malignancy. . B. ESOPHAGUS, BIOPSY: Squamocolumnar junctional mucosa with mild chronic inflammation. Negative for specialized intestinal metaplasia, dysplasia, or malignancy. SERGEY 02/17/2025 1830 Local . 01 Electronically signed: . Maykel Landeros MD, PhD, Pathologist NPI- [id number] . 01 Gross description: . Received are two formalin-filled containers both labeled with the patient's name. . A. In a container labeled gastric. The specimen consists of one fragment of shahid, soft tissue which measures 0.2 x 0.2 x 0.2 cm. The specimen is totally submitted in cassette A1. B. In a container labeled esophagus. The specimen consists of one fragment of shahid, soft tissue which measures 0.2 x 0.1 x 0.1 cm. The specimen is totally in cassete B1. (DC:[id number]) /SERGEY 02/13/2025 0123 Local . 01 Pathologist provided ICD-10: K20.80, R13.10 . 01 CPT . 027453, [id number] Specimen Comment: A courtesy copy of this report has been sent to [phone] Performed at: [address] [id number] MD Saran Hamm MD Phone: [phone]
[2025-02-10 07:28] VITALS: BP 166/80; PULSE 72; RESP 16; TEMP 36.3; O2SAT 98
[2025-02-10] MEDS: LACTATED RINGERS 1,000 ML 42 ML IV (07:45)
--- NOTE | 2025-02-10 08:25 | PM.HP.IH.1 ---
History of Present Illness History of Present Illness Date Patient Seen: 02/10/25 Chief complaint: EGD w/poss bx Narrative: Chronic cough in his smoker with significant reflux more or less controlled on anti secretory medications. Rule out significant esophagitis [facility] Medical History (Updated 02/10/25 @ 09:34 by Braydon Lomas MD) Sacral insufficiency fracture Lumbar radiculopathy Mass of left lung Hypokalemia Peripheral arterial disease Central stenosis of spinal canal Alcohol abuse Coronary artery disease (03/2021) Hiatal hernia (03/2021) Macrocytosis Osteopenia after menopause (06/2020) H/O vaginal delivery Spinal stenosis Osteoarthritis Fatty liver (~10/2016) GERD (gastroesophageal reflux disease) Hyperlipemia Hypertension Restless leg syndrome Depression Kidney stones (1963) Colitis (~2000) Surgical History (Updated 02/05/25 @ 14:25 by Linh Holden RN) S/p reverse total shoulder arthroplasty (06/10/22) History of total right hip replacement (06/11/21) History of surgery (~06/2020) Hx of knee surgery Hx of lithotripsy History of back surgery Status post tubal ligation History of tonsillectomy Status post appendectomy Status post delivery Family History Child Age: 58 Spina bifida Father Age: 104 Arthritis Heart trouble Mother Age: 102 Type 2 diabetes mellitus with complication Essential hypertension Heart trouble Brother No problems noted. Social History household members: significant other Smoking Status: Former smoker alcohol intake: current substance use type: does not use Meds Home Medications and Allergies Home Medications ?Medication ?Instructions ?Recorded ?Confirmed ?Type Disabled Parking Permit #1 ea 03/26/24 01/10/25 Rx atorvastatin 20 mg tablet 20 mg PO BEDTIME #90 tabs 05/28/24 02/10/25 Rx citalopram 10 mg tablet (Celexa) 10 mg PO DAILY #90 tabs 05/28/24 02/10/25 Rx furosemide 20 mg tablet 20 mg PO DAILY #90 tabs 05/28/24 02/10/25 Rx omeprazole 20 mg capsule,delayed 20 mg PO DAILY #90 caps 05/28/24 02/10/25 Rx release potassium chloride 20 mEq 20 meq PO BID #60 tabs 05/28/24 02/10/25 Rx tablet,extended release(part/cryst) (Klor-Con M) pramipexole 0.5 mg tablet 0.5 mg PO HSP PRN restless leg(s) 05/28/24 01/10/25 Rx #90 tabs gabapentin 300 mg capsule 300 mg PO 3XD PRN for pain #90 caps 12/18/24 02/10/25 Rx lidocaine 4 % topical patch 1 patch topical DAILY PRN pain 12/18/24 01/10/25 History methylprednisolone 4 mg tablets in See Rx Instructions PO PER PKG DIR 01/10/25 01/10/25 Rx a dose pack (Medrol (Gama)) radiculopathy #21 ea oxycodone-acetaminophen 5 mg-325 1 tab PO Q8H PRN pain #30 tabs 01/28/25 Rx mg tablet Allergies Allergy/AdvReac Type Severity Reaction Status Date / Time No Known Drug Allergies Allergy Verified 02/10/25 07:22 Exam Vital Signs (past 8 hours): - 02/10/25 07:28 Temperature 97.3 F L Pulse Rate 72 Respiratory Rate 16 Blood Pressure 166/80 H Pulse Oximetry 98 Oxygen Delivery Method Room Air Oxygen Delivery Method Room Air Narrative Exam Narrative: Oropharynx free of lesions Chest clear to auscultation percussion Cardiac exam reveals no S3 or murmur Assessment & Plan Assessment and plan (1) Colon cancer screening: Status: Acute Plan Chronic cough in a smoker with known history of GE reflux rule out significant esophagitis. Risks, benefits, alternatives have been explained. Time-Based Coding :: [TOTAL MINUTES] spent with patient and on the chart (including review of chart, obtaining history, exam, reviewing outside data, placing orders, documenting exam and treatment plan, and counseling patient) on [DATE]. 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
--- NOTE | 2025-02-10 08:30 | PM.OP.ENDO ---
Operative Date/Time/Diagnoses Date of procedure: 02/10/25 Time of procedure: 08:54 Pre-op diagnosis: GE reflux and history of cough Post-op diagnosis: same Procedure & Clinicians Study performed: EGD Same procedure(s) as scheduled: Yes Surgeon: Braydon Lomas Anesthesia Type: Other Procedure Notes Procedure in detail: After informed consent was obtained the patient was placed in left lateral decubitus position. The video upper scope was placed into the oropharynx and with the patient's help swallowed into the esophagus. The esophagus stomach and duodenal were carefully examined. On withdrawal, retroflexed view the GE junction was performed. The scope was removed. The patient tolerated procedure well. Blood loss none Complications none Sedation mac Findings 1. One 8 mm tongue of tissue above the squamocolumnar junction biopsies taken to rule out Barretts 2. Patchy gastric erythema biopsies taken to rule out H pylori 3. Normal duodenal bulb and sweep We will be in touch regarding biopsies and appropriate follow-up Estimated Blood Loss: 0 Complications: none
[2025-02-10 08:43] VITALS: BP 96/49; PULSE 57; RESP 18; TEMP 36.1; O2SAT 94
[2025-02-10 08:48] VITALS: BP 96/53; PULSE 57; RESP 16; O2SAT 93
[2025-02-10 08:53] VITALS: BP 96/53; PULSE 56; RESP 16; O2SAT 95
[2025-02-10 08:58] VITALS: BP 112/55; PULSE 53; RESP 13; TEMP 36.1; O2SAT 93
== END 2025-02-10 09:27 | disposition home or self-care (01) ==
PROVIDERS: PCP Family Medicine; Referring Provider Internal Medicine Gastroenterology; Visit Provider Internal Medicine Gastroenterology
PROC: 0DJ08ZZ Inspection of Upper Intestinal Tract, Via Natural or Artificial Opening Endoscopic (ICD-10-PCS; CPT 43239; principal; 2025-02-10 08:30)
DX: K21.00 Gastro-esophageal reflux disease with esophagitis, without bleeding (principal); R05.3 Chronic cough; E78.5 Hyperlipidemia, unspecified; G25.81 Restless legs syndrome; I25.10 Atherosclerotic heart disease of native coronary artery without angina pectoris; F17.210 Nicotine dependence, cigarettes, uncomplicated
CPT/HCPCS: 43239; J2704; J7120

== ENCOUNTER 2025-02-25 13:41 | Outpatient (CLI) | payer MEDICARE, SELFPAY ==
[2024-06-07 11:39] VITALS: BMI 20.5
[2025-02-25] VITALS (8 sets, daily range): BP systolic 130–178; BP diastolic 55–82; PULSE 65–73; RESP 16–19; TEMP 36.7; O2SAT 96–99
[2025-02-25] MEDS: MIDAZOLAM 2 MG/2 ML VIAL IV (15:31)
[2025-02-25] MEDS: BETAMETHASONE 30 MG/5 ML MDV 12 MG INJ (15:37)
--- NOTE | 2025-02-25 15:49 | P.PCN_ITS ---
Date/Time/Diagnoses Date of procedure: 02/25/25 Time of procedure: 15:49 Pre-procedure diagnosis: 1. FORAMINAL STENOSIS WITH LE SYMPTOMS Post-procedure diagnosis: same Procedure Notes Procedure: 1. FLUOROSCOPICALLY GUIDED CONTRAST CONTROLLED TRANSFORAMINAL EPIDURAL STEROID INJECTION - LEFT L3/4 TFESI Indications: Rossy is referred by Dr. Hubbard for treatment of Foraminal Stenosis with left LE Symptoms Physician: Hong Gallego Total Fluoroscopy time (seconds): 10 Total sedation minutes: 12 Complications: none Procedure in detail & Post-procedure care: FINDINGS Foraminal Nerve Root Compression secondary to disc disease and facet hypertrophy DESCRIPTION OF PROCEDURE Following review of allergy and review of potential side effects and complications, including, but not necessarily limited to, infection, allergic reaction, local tissue breakdown, stroke, temporary or permanent nerve injury, paralysis, and possible , the patient indicated that the patient understood and agreed to proceed. An informed consent document was signed by the patient, witnessed by a nurse, and placed in the patient's chart. Additionally, other treatment options including medications, modalities, and physical therapy were reviewed with the patient. After review of previous anaesthesic history and IV conscious sedation the patient was deemed safe to proceed with today?s procedure with IV conscious sedation as ASA class II designation. Safety time-out was performed to confirm patient ID, procedure to be performed and site of procedure. IV sedation was accomplished with a combination of 2mg of Versed was administered by the RN after DO order, titrated to patient comfort during the course of the procedure while the patient remained responsive to all verbal commands In the prone position following sterile prep and drape of the lumbar region, the left L3/4 posterior neuroforamen was identified fluoroscopically. The skin was anesthetized via a 25-gauge 1.5-inch needle with 1% lidocaine solution. At this point, a 25-gauge 3.5-inch spinal needle was atraumatically introduced and advanced under fluoroscopic guidance through the posterior left L3/4 neuroforamen to approximately the anterior aspect of the canal. Depth was confirmed on lateral view. Following negative aspiration, injection of approximately 1.5 cc of Isovue 200 under live fluoroscopy in the AP view confirmed excellent flow along the nerve root, into the epidural space without vascular or intrathecal uptake observed Radiological data, including multiple fluoroscopic views of the lumbosacral spine, reveal a spinal needle at the left L3/4 posterior neuroforamen. Subsequent views show flow of contrast material flowing superiorly and inferiorly along the nerve root confirming epidural flow. Subsequently, a test dose of 1.5cc of 0.25% marcaine solution was administered and patient was observed for two minutes for signs or symptoms of complications, including abdominal pain, shortness of breath, bilateral upper or lower extremity weakness, nausea and vomiting, prior to steroid injection. At this point, a total of 3cc or 10mg of dexamethasone and 12mg betamethasone was injected without incident. The patient tolerated the procedure well without signs or symptoms of complications prior to transfer to the recovery area continued monitoring without incident. The patient was then transferred to the recovery area where they were observed for an appropriate time after the injection. The patient reported a VAS score of 7 prior to the procedure and a post-procedure VAS of 0. POST OP INSTRUCTIONS The patient was provided a Pain Log to continue to record their response to the target-specific procedure prior to follow-up visit with their referring physician. Additionally, specific post-injection care instructions and a contact number to our office were provided if concerns arise regarding possible complications associated with the procedure are suspected.
--- NOTE | 2025-02-25 15:50 | P.PCN_ITS ---
Date/Time/Diagnoses Date of procedure: 02/25/25 Time of procedure: 15:50 Pre-procedure diagnosis: 1. FORAMINAL STENOSIS WITH LE SYMPTOMS Post-procedure diagnosis: same Procedure Notes Procedure: 1. FLUOROSCOPICALLY GUIDED CONTRAST CONTROLLED TRANSFORAMINAL EPIDURAL STEROID INJECTION - Left L5/S1 Indications: Rossy is referred by Dr. Hubbard for treatment of Foraminal Stenosis with Left LE Symptoms Physician: Hong Gallego Total Fluoroscopy time (seconds): 10 Total sedation minutes: 12 Complications: none Procedure in detail & Post-procedure care: FINDINGS Foraminal Nerve Root Compression secondary to disc disease and facet hypertrophy DESCRIPTION OF PROCEDURE Following review of allergy and review of potential side effects and complications, including, but not necessarily limited to, infection, allergic reaction, local tissue breakdown, stroke, temporary or permanent nerve injury, paralysis, and possible , the patient indicated that the patient understood and agreed to proceed. An informed consent document was signed by the patient, witnessed by a nurse, and placed in the patient's chart. Additionally, other treatment options including medications, modalities, and physical therapy were reviewed with the patient. After review of previous anaesthesic history and IV conscious sedation the patient was deemed safe to proceed with today?s procedure with IV conscious sedation as ASA class II designation. Safety time-out was performed to confirm patient ID, procedure to be performed and site of procedure. IV sedation was accomplished with a combination of 2mg of Versed was administered by the RN after DO order, titrated to patient comfort during the course of the procedure while the patient remained responsive to all verbal commands In the prone position following sterile prep and drape of the lumbar region, the Left L5/S1 posterior neuroforamen was identified fluoroscopically. The skin was anesthetized via a 25-gauge 1.5-inch needle with 1% lidocaine solution. At this point, a 25-gauge 3.5-inch spinal needle was atraumatically introduced and advanced under fluoroscopic guidance through the posterior Left L5/S1 neuroforamen to approximately the anterior aspect of the canal. Depth was confirmed on lateral view. Following negative aspiration, injection of approximately 1.5 cc of Isovue 200 under live fluoroscopy in the AP view confirmed excellent flow along the nerve root, into the epidural space without vascular or intrathecal uptake observed Radiological data, including multiple fluoroscopic views of the lumbosacral spine, reveal a spinal needle at the Left L5/S1 posterior neuroforamen. Subsequent views show flow of contrast material flowing superiorly and inferiorly along the nerve root confirming epidural flow. Subsequently, a test dose of 1.5cc of 0.25%marcaine solution was administered and patient was observed for two minutes for signs or symptoms of complications, including abdominal pain, shortness of breath, bilateral upper or lower extremity weakness, nausea and vomiting, prior to steroid injection. At this point, a total of 3cc or 10mg of dexamethasone and 12mg of betamethasone was injected without incident. The procedure tolerated the procedure well without signs or symptoms of complications prior to transfer to the recovery area continued monitoring without incident. The patient was then transferred to the recovery area where they were observed for an appropriate time after the injection. The patient reported a VAS score of 7 prior to the procedure and a post-procedure VAS of 0. POST OP INSTRUCTIONS The patient was provided a Pain Log to continue to record their response to the target-specific procedure prior to follow-up visit with their referring phys ician. Additionally, specific post-injection care instructions and a contact number to our office were provided if concerns arise regarding possible complications associated with the procedure are suspected.
== END 2025-02-25 16:12 | disposition home or self-care (01) ==
PROVIDERS: PCP Family Medicine; Referring Provider Physical Medicine & Rehabilitation; Visit Provider Physical Medicine & Rehabilitation
DX: M48.061 Spinal stenosis, lumbar region without neurogenic claudication (principal); M51.16 Intervertebral disc disorders with radiculopathy, lumbar region; M47.26 Other spondylosis with radiculopathy, lumbar region; M48.07 Spinal stenosis, lumbosacral region; M51.17 Intervertebral disc disorders with radiculopathy, lumbosacral region; M47.27 Other spondylosis with radiculopathy, lumbosacral region
CPT/HCPCS: 64483; 64484; 99152; J0702; J1100; J2250